=== PATIENT | male | born 1955 | race Caucasian/White ===

== ENCOUNTER 2017-05-03 14:04 | Observation (INO) | payer MEDICARE, OTHER ==
[2017-05-03 15:03] LABS: ABS Basophils 0 10^3/ul (0-0.2); ABS Eosinophils 0.2 10^3/ul (0-0.6); ABS Lymphocytes 0.2 10^3/ul (1.0-4.8); ABS Monocytes 0.4 10^3/ul (0-0.8); ABS Neutrophils 4.8 10^3/ul (1.5-7.7); ABS Nucleated RBC 0 10^3/ul; Eosinophil % 3.1 % (0-6); Hematocrit 36 % (42-52); Hemoglobin 12.1 g/dl (14.0-18.0); Lymphocyte % 3.8 % (25-47); Mean Corpuscular HGB Conc 34 g/dl (31-36); Mean Corpuscular Hemoglobin 29 pg (27-31); Mean Corpuscular Volume 85 fL (80-94); Mean Platelet Volume 7 um3 (7.4-10.4); Nucleated Red Blood Cells % 0.1; Platelet Count 230 10^3/ul (150-450); Red Blood Count 4.21 10^6/ul (4.0-5.4); Red Cell Distribution Width 16 % (10.5-15); White Blood Count 5.6 10^3/ul (3.5-10.8)
[2017-05-03 15:08] LABS: INR 1.18 (0.77-1.02)
--- NOTE | 2017-05-03 15:21 | RAD ---
INDICATION: Dyspnea COMPARISON: Most recent comparison chest x-rays dated September 14, 2016 TECHNIQUE: PA and lateral views of the chest were obtained. FINDINGS: Stable postsurgical findings include sternotomy wires as well as plate and screw fixators overlying the sternum. The heart is mildly enlarged. The pulmonary vasculature appears indistinct. There is density obscuring the right lung base and right hemidiaphragm. There is a small amount of left lung base costophrenic angle blunting. Visualized bones are normal for the patient's age. There is no radiographic evidence of free air beneath the diaphragm IMPRESSION: DEPENDING ON THE CLINICAL PRESENTATION THE RADIOGRAPHIC FINDINGS COULD BE SEEN IN THE SETTING OF CARDIOGENIC PULMONARY EDEMA WITH RIGHT LUNG BASE PLEURAL EFFUSION. ALTERNATIVELY PNEUMONIA AT THE RIGHT LUNG BASE IS NOT COMPLETELY EXCLUDED BY IMAGING ALONE.
[2017-05-03 15:22] LABS: EGFR Non-African American 60.4 (>60)
[2017-05-03] MEDS ORDERED: Albuterol/Ipratropium NEB.SOL* Albuterol 2.5 MG/Ipratropium 0.5 MG 3 ML INH ONE (16:38)
[2017-05-03] MEDS ORDERED: Magnesium Hydroxide LIQ* 30 ML UDC PO PRN (18:31)
[2017-05-03] MEDS ORDERED: Al Hydrox/Mg Hydrox/Simet LIQ* 30 ML UDC PO PRN (18:31)
[2017-05-03] MEDS ORDERED: Acetaminophen TAB* 325 MG PO PRN (18:31)
[2017-05-03] MEDS ORDERED: Ondansetron INJ* 2 MG/ML VIAL IV PRN (18:31)
[2017-05-03] MEDS ORDERED: Albuterol/Ipratropium NEB.SOL* Albuterol 2.5 MG/Ipratropium 0.5 MG 3 ML INH PRN (18:31)
[2017-05-03] MEDS ORDERED: Albuterol 2.5 MG/3 ML NEB.SOL* (0.083%) INH PRN (18:31)
[2017-05-03] MEDS ORDERED: Furosemide IV* 10 MG/ML 10 ML VIAL (100 MG) IV ONE (18:58)
[2017-05-03] MEDS ORDERED: methylPREDNISolone 125 MG* 2 ML VIAL IV ONE (18:58)
[2017-05-03] MEDS ORDERED: Dextrose 50% Syringe 50 ML* 25 GM/50 ML SYRINGE IV PUSH PRN (19:01)
--- NOTE | 2017-05-03 19:49 | ED ---
Tereso Chairez Jennifer, scribed for Bhanu Lugo MD on 05/03/17 at 1433 . Shortness of Breath - HPI Summary HPI Summary: The patient is a 62 year old male who was sent to the ED by his PCP for a CXR and for increased shortness of breath that began weeks ago. The patient descries that he has had the flu for weeks. He additionally complains of wheezing, productive cough, chills, and sweats. The patient denies fever and chest pain. The patient uses O2 at home for COPD for over two years. He has a history of sleep apnea and heart surgery but never smoked. - History of Current Complaint Chief Complaint: EDShortnessOfBreath Hx Obtained From: Patient Onset/Duration: Lasting Weeks - couple weeks, Still Present Timing: Constant Current Severity: Mild Aggrevating Factors: Deep Breaths Alleviating Factors: Nothing Associated Signs & Symptoms: Negative - Fever, chest pain, Cough (Productive) - clear with some white mucous, Wheezing, Chills, Diaphoresis - Allergy/Home Medications Allergies/Adverse Reactions: Allergies Allergy/AdvReac Type Severity Reaction Status Date / Time MS NSAIDs [NSAIDs] AdvReac Mild See Comment Verified 08/15/15 14:03 Home Medications: Home Medications Albuterol 2.5MG/3ML (0.083%)* [Ventolin 2.5 MG/3 ML NEB.LUIS*] 2.5 mg INH QID 12/10 [History Confirmed 05/03/17] Atorvastatin* [Lipitor 20 MG*] 20 mg PO DAILY 05/03/17 [History Confirmed ] Fluticasone/Vilanterol MDI(NF) [Breo Ellipta MDI 200/25(NF)] 1 puff PO DAILY 12/10 [History Confirmed 05/03/17] Insulin Regular 500 Unit/ml [Humulin R U-500 (Concentrated)] 20 unit SUBCUT QPM 05/03/17 [History Confirmed 05/03/17] Insulin Regular 500 Unit/ml [Humulin R U-500 (Concentrated)] 26 unit SUBCUT 1200 05/03/17 [History Confirmed 05/03/17] Insulin Regular 500 Unit/ml [Humulin R U-500 (Concentrated)] 27 unit SUBCUT QAM 05/03/17 [History Confirmed 05/03/17] Losartan/HCTZ 100/25 (NF) [Hyzaar 100/25 (NF)] 1 tab PO DAILY 05/03/17 [History Confirmed 05/03/17] Warfarin TAB(*) [Coumadin TAB(*)] 1 mg PO DAILY 05/03/17 [History Confirmed 12/10] PMH/Surg Hx/FS Hx/Imm Hx Endocrine/Hematology History: Reports: Hx Diabetes Denies: Hx Thyroid Disease Cardiovascular History: Reports: Hx Angina, Hx Congestive Heart Failure, Hx Coronary Artery Disease - STENTS X2 2015, Hx Hypercholesterolemia, Hx Myocardial Infarction, Other Cardiovascular Problems/Disorders - DOUBLE BYPASS SURGERY- PER PT Denies: Hx Hypertension, Hx Pacemaker/ICD, Hx Peripheral Vascular Disease, Hx Valvular Heart Disease Respiratory History: Reports: Hx Chronic Obstructive Pulmonary Disease (COPD) - O2 AT HOME AND BIPAP MACHINE HE WEARS IN THE DAY WELL, Hx Sleep Apnea Denies: Hx Asthma GI History: Denies: Hx Ulcer History: Reports: Other Problems/Disorders - frequency, difficulty starting Denies: Hx Dialysis, Hx Renal Disease Musculoskeletal History: Reports: Hx Arthritis, Hx Back Problems - SCOLIOSIS, Hx Scoliosis Denies: Hx Osteoporosis Sensory History: Reports: Hx Contacts or Glasses Denies: Hx Cataracts, Hx Glaucoma Opthamlomology History: Reports: Hx Contacts or Glasses Denies: Hx Cataracts, Hx Glaucoma Neurological History: Reports: Hx Migraine Denies: Hx Headaches, Hx Seizures, Hx Transient Ischemic Attacks (TIA) - Surgical History Surgery Procedure, Year, and Place: triple R surgery in throat for Cpap?, appendectomy, cracked spine when 11--no surgery but was in a cast "all summer" DOUBLE CORONARY BYPASS 10/22/15 Hx Anesthesia Reactions: No Infectious Disease History: No Infectious Disease History: Denies: Hx Hepatitis, Hx Human Immunodeficiency Virus (HIV), Traveled Outside the [place] in Last 30 Days - Family History Known Family History: Positive: Diabetes - Social History Alcohol Use: Rare Substance Use Type: Reports: None Hx Tobacco Use: No Smoking Status (MU): Never Smoked Tobacco Review of Systems Positive: Chills, Skin Diaphoresis. Negative: Fever Negative: Chest Pain Positive: Shortness Of Breath, Cough, Other - Wheezing All Other Systems Reviewed And Are Negative: Yes Physical Exam - Summary Physical Exam Summary: Appearance: Morbidly obese, plethoric in appearance Skin: Warm, Dry, No rash Eyes: Normal, PERRL, EOMI, sclera anicteric ENT: Normal Neck: Supple, nontender Respiratory: Quite short of breath, decreased breath sounds bilaterally. No rales, rhonchi, wheezes. Cardiovascular: S1 and S2 with irregular rhythm. no murmur, no rub, no gallop Abdomen: Soft, nontender, no organomegaly Bowel sounds: Present Extremities: with bilateral venous stasis changes, tinea pedis Musculoskeletal: Normal, Strength/ROM Intact, no edema, pulses symmetrical Neurological: Normal, A&Ox3, cranial nerves II-XII WNL, follows commands, gait not tested, sensation intact to pin and light touch Psychiatric: affect normal, behavior appropriate, dressed appropriately, judgment intact Triage Information Reviewed: Yes Vital Signs On Initial Exam: Initial Vitals Temp Pulse Resp BP Pulse Ox 97.3 F 79 24 120/56 94 05/03/17 14:05 05/03/17 14:05 05/03/17 14:05 05/03/17 14:05 05/03/17 14:05 Vital Signs Reviewed: Yes Diagnostics - Vital Signs Vital Signs Temp Pulse Resp BP Pulse Ox 05/03/17 14:05 97.3 F 79 24 120/56 94 - Laboratory Result Diagrams: 05/03/17 14:50 05/03/17 14:50 Lab Statement: Any lab studies that have been ordered have been reviewed, and results considered in the medical decision making process. - Radiology CXR Xray Interpretation: No Acute Changes - DEPENDING ON THE CLINICAL PRESENTATION THE RADIOGRAPHIC FINDINGS COULD BE SEEN IN THE SETTING OF CARDIOGENIC PULMONARY EDEMA WITH RIGHT LUNG BASE PLEURAL EFFUSION. ALTERNATIVELY PNEUMONIA AT THE RIGHT LUNG BASE IS NOT COMPLETELY EXCLUDED BY IMAGING ALONE. Dr. Lugo has reviewed this report. Radiology Interpretation Completed By: Radiologist - EKG 14:55 Cardiac Rate: NL EKG Rhythm: Sinus Rhythm - 73 BPM EKG Interpretation: RBBB Course/Dx - Course Assessment/Plan: The patient is a 62 year old male who was sent to the ED by his PCP for a CXR and for increased shortness of breath that began weeks ago. Bloodwork was obtained. CXR showed DEPENDING ON THE CLINICAL PRESENTATION THE RADIOGRAPHIC FINDINGS COULD BE SEEN IN THE SETTING OF CARDIOGENIC PULMONARY EDEMA WITH RIGHT LUNG BASE PLEURAL EFFUSION. ALTERNATIVELY PNEUMONIA AT THE RIGHT LUNG BASE IS NOT COMPLETELY EXCLUDED BY IMAGING ALONE. EKG was obtained. Influenza A and B were negative. The patient is diagnosed with pneumonia and sleep apnea. The patient will be admitted to [facility] [place]. - Diagnoses Provider Diagnoses: Pneumonia, Sleep apnea Discharge - Discharge Plan Condition: Good Disposition: ADMITTED TO [facility] Referrals: Jay REICH OIM ARCHITECT,Shereen [Primary Care Provider] - Additional Instructions: RETURN TO THE EMERGENCY DEPARTMENT FOR CHANGING OR WORSENING SYMPTOMS. The documentation as recorded by the Tereso morton Jennifer accurately reflects the service I personally performed and the decisions made by , Bhanu Lugo MD.
[2017-05-03] MEDS ORDERED: Warfarin TAB(*) 6 MG PO SCH (20:00)
[2017-05-03] MEDS ORDERED: Warfarin TAB(*) 4 MG PO ONE (20:00)
[2017-05-03] MEDS ORDERED: Warfarin TAB(*) 10 MG PO ONE (20:00)
[2017-05-03] MEDS: Mometasone/Formoter 200/5 MDI INH SCH (20:27)
[2017-05-03] MEDS: Atorvastatin* 20 MG TAB PO SCH (20:30)
[2017-05-03] MEDS: Metoprolol Succinate XL TAB* 100 MG PO SCH (20:30)
[2017-05-03] MEDS: Insulin LISPRO* 1 UNITS UNIT SUBCUT SCH (20:31)
[2017-05-03] MEDS: Docusate CAP* 100 MG PO SCH (20:31)
[2017-05-03] MEDS ORDERED: metFORMIN* 500 MG TAB PO SCH (21:00)
[2017-05-03] MEDS: FENOFIBRATE 160 MG PO SCH (21:52)
--- NOTE | 2017-05-04 06:24 | HP ---
AMENDED REPORT NOW INCLUDES COSIGNER DESIGNATION - ESIGNED BEFORE ADJUSTMENT CC: Shereen Thompson NP * HISTORY AND PHYSICAL: DATE OF ADMISSION: 05/03/17 PROVIDER: Isabell Andres NP. PRIMARY CARE PROVIDER: Shereen Thompson NP. ATTENDING PHYSICIAN WHILE IN THE HOSPITAL: Dr. Alejandrina Carter * (dictated by Isabell Andres NP). CHIEF COMPLAINT: Shortness of breath. HISTORY OF PRESENT ILLNESS: Mr. Ferrell is a 62-year-old male who was seen by his primary care provider today and was sent to the emergency room for further evaluation of his shortness of breath. Mr. Ferrell has a history of diabetes; obstructive sleep apnea; AFib, which he has a history of ablation and converted to sinus rhythm; hyperlipidemia; hypertension; coronary artery disease with stent placement and bypass surgery; COPD, and diastolic CHF. He reports that over the course of the past 3 weeks he has had increased shortness of breath, productive cough with white to clear sputum, occasional chills, and occasional muscle aches. He denies any nausea or vomiting. Denies any fever. Denies any recent weight gain. He does report that he chronically sits in a recliner to sleep as he is unable to lie flat. He does report that he wears oxygen at home at all time, 2 L nasal cannula, but despite the oxygen and breathing treatments at home he continues to feel short of breath. In the emergency room, he had routine lab work done and a chest x-ray. His chest x-ray, which showed depending on the clinical presentation, radiographic findings could be seen in the setting of cardiogenic pulmonary edema with right lung base pleural effusion , alternatively pneumonia in the right lung base. Mr. Ferrell reports that after his breathing treatment in the emergency room that his breathing improved. He does report that he is still mildly short of breath. Given his continuing shortness of breath, we were asked to evaluate the patient in the emergency room for admission for his shortness of breath; given his history of underlying chronic medical conditions. PAST MEDICAL HISTORY: Significant for: 1. Diabetes. 2. Obstructive sleep apnea, which he wears CPAP at night. 3. AFib with ablation. He has converted to sinus rhythm. 4. Hyperlipidemia. 5. Hypertension. 6. Coronary artery disease with stent placement and bypass. 7. COPD. 8. Diastolic CHF. PAST SURGICAL HISTORY: 1. Cardiac stent. 2. Bypass surgery in 2016. HOME MEDICATIONS: Include: 1. Colace 100 mg p.o. b.i.d. 2. Coumadin 12 mg p.o. q. p.m. 3. PhosLo cap 667 mg p.o. daily. 4. Aldactone 20 mg p.o. daily. 5. Furosemide 40 mg p.o. b.i.d. 6. Metoprolol succinate XL 100 mg p.o. b.i.d. 7. Breo 200/25 one puff p.o. daily. 8. Insulin regular 500 units. He takes 40 units at morning and then regular insulin 500 units, he takes 35 units at 4 p.m. 9. Losartan/hydrochlorothiazide 100/25 one tablet p.o. daily. 10. Lipitor 20 mg p.o. daily. 11. Albuterol 2.5/3 mL nebulizer 2.5 mg inhaled q.i.d. 12. Metformin 1000 mg p.o. b.i.d. 13. Tricor 160 mg p.o. daily. 14. Diltiazem CD 180 mg p.o. daily. ALLERGIES TO MEDICATION: ASPIRIN. FAMILY HISTORY: Father had a history of coronary artery disease with DE at age 49 and subsequently from a stroke and heart disease at the age of 62. Mother, father, and grandmother all had diabetes. Cancer, mother had rectal cancer and grandmother had uterine cancer. SOCIAL HISTORY: He denies tobacco use. He denies alcohol. Denies drug use. He currently is disabled. He lives alone. Surrogate decision maker in the event he is unable to make his own medical decision, is his mother, Toshia Delcid , her number is [phone]. REVIEW OF SYSTEMS: There is no documented fever. No significant weight change. There is no double vision. There is no ear drainage. He denies any rhinorrhea. He denies sore throat. He denies having any chest pain. There has been no nocturnal dyspnea. He does report that he has had increased shortness of breath x3 weeks with productive cough with clear white sputum. There is no abdominal pain, no nausea, no vomiting, no diarrhea, no urinary frequency or urgency. No dysuria. He denies any loss of consciousness. He denies any pruritus or skin ulceration. A review of 14 systems was completed and all others are negative. PHYSICAL EXAMINATION GENERAL: At this time, Mr. Ferrell is a 62-year-old male, he is morbidly obese, sitting in a chair. He does appear to have mild respiratory distress. VITAL SIGNS: As follows, temperature 97.3, heart rate was 79, respirations 24, O2 saturation was 94% on 3 L, blood pressure 120/56. HEENT: Head is atraumatic, normocephalic. Eyes: EOMS are intact. Sclerae anicteric, not pale. Oral mucosa appears moist. There is no oropharyngeal erythema. NECK: Supple. LUNGS: Diminished throughout bilaterally with expiratory wheezing. There is no rales, or rhonchi. HEART: Heart sounds S1, S2. Regular rate and rhythm. ABDOMEN: Soft, obese, nontender. Bowel sounds are present x4. EXTREMITIES: There is mild +1 pitting edema to bilateral lower legs, has bilateral discoloration and scabbing noted to his right lower leg. He states this has been unchanged. His legs have been like this for the past 2 years. He is moving all 4 extremities. Strength is 5/5. NEUROLOGIC: He is awake, alert, and oriented x3. His speech is clear. There is no gross focal deficits. SKIN: As stated above. He does have some redness to bilateral lower legs with scabbed area noted to the right beltran. DIAGNOSTIC STUDIES/LABORATORY DATA: WBC is 5.6, RBC 4.21, hemoglobin 12.1, hematocrit was 36, platelet count was 230. INR was 1.18. Blood gas, pH was 7.39, pCO2 was 64, pO2 was 91, HCO3 was 33.9, base access was 11.5. Sodium was 138, potassium 4.3, chloride 95, carbon dioxide was 35, BUN was 26, creatinine was 1.21. Blood sugar on admission was 169. C-reactive protein was 7.29. BNP was 58. Procalcitonin was less than 0.1. He had a rapid flu A and B, which were both negative. EKG in the emergency room shows normal sinus rhythm at a rate of 73 with a right bundle branch block. Chest x-ray that was completed in the emergency room, radiologist impression: Depending on the clinical presentation, radiographic findings could be seen in the setting of cardiogenic pulmonary edema with right lung base pleural effusion. Alternatively pneumonia at the right lung base is not completely excluded by the imaging alone. ASSESSMENT AND PLAN: Mr. Ferrell is a 62-year-old male who came to the emergency room for further evaluation of 3 weeks of shortness of breath. We were asked to evaluate him due to shortness of breath. He will be admitted under observation for : 1. Suspected chronic obstructive pulmonary disease exacerbation. We will place him on Dulera inhaler and give him a dose of Solu-Medrol 125 IV. He will continue albuterol nebulizer treatments q. 4 hours as needed for shortness of breath. We will start prednisone 60 mg p.o. q.a.m. starting tomorrow. He will continue O2 at 2 L nasal cannula as needed to maintain oxygen saturation above 90%. 2. Suspect acute on chronic diastolic heart failure. We will give him a one time dose of Lasix 80 mg IV. We will continue to monitor his BNP and potassium level. We will continue his Aldactone 25 and Lasix 40 mg p.o. b.i.d. starting tomorrow. At this time, I feel that his shortness of breath is related to chronic obstructive pulmonary disease exacerbation, mild diastolic heart failure. He has been afebrile, he does not have a white count. His procalcitonin was negative. We will continue to monitor his vital signs. In the event that he develops a fever and increased shortness of breath, we could look at the possibility of treating him for pneumonia. We will continue him on Hyzaar. 3. Diabetes, stable. We will hold his insulin U 500. At this time, we will place him on high dose lispro sliding scale. I will continue his metformin and finger sticks AC and HS 4. Obstructive sleep apnea. He will use a CPAP machine at night. 5. History of atrial fibrillation. He is currently in sinus rhythm. We will continue his Coumadin. We will give him a one time dose of 14 mg due to his INR being 1.18. We will continue him on his Cardizem 180 mg. 6. Hyperlipidemia. We will continue him on his Lipitor 20 mg daily and Tricor 160 mg p.o. daily. 7. Hypertension. We will continue him on his metoprolol, Aldactone, and Hyzaar. 8. DVT prophylaxis. We will continue him on his Coumadin and he will be placed on SCDs. 9. Code status. He is a full code. 10. FEN. He can have heart healthy, decaf okay, diet. TIME SPENT: Time spent on this admission was approximately 60 minutes, greater than half the time was spent [id number] with the patient obtaining his history and physical, the other half the time was spent going over the plan of care with the patient and implementing the plan of care. I discussed this with my attending, Dr. Alejandrina Carter and she is in agreement with my plan. ISABELL ANDRES, USED [employer] ATTENDANT [id number]/CPS #: [id number] EMIL
[2017-05-04] MEDS: Furosemide TAB* 20 MG PO SCH ×2 (07:44→15:56)
[2017-05-04] MEDS: metFORMIN* 500 MG TAB PO SCH ×2 (07:46→17:57)
[2017-05-04] MEDS: Insulin LISPRO* 1 UNITS UNIT SUBCUT SCH ×4 (08:44→22:27)
[2017-05-04] MEDS: Calcium Acetate CAP* 667 MG PO SCH (08:45)
[2017-05-04] MEDS: Hydrochlorothiazide TAB* 25 MG PO SCH (08:45)
[2017-05-04] MEDS: predniSONE TAB* 20 MG PO SCH (08:45)
[2017-05-04] MEDS: Docusate CAP* 100 MG PO SCH ×2 (08:46→22:26)
[2017-05-04] MEDS: Losartan TAB* 25 MG PO SCH (08:46)
[2017-05-04] MEDS: Atorvastatin* 20 MG TAB PO SCH (08:47)
[2017-05-04] MEDS: Metoprolol Succinate XL TAB* 100 MG PO SCH ×2 (08:47→22:26)
[2017-05-04] MEDS: Diltiazem CD CAP* 180 MG PO SCH (08:47)
[2017-05-04] MEDS: FENOFIBRATE 160 MG PO SCH (08:47)
[2017-05-04] MEDS: Spironolactone TAB* 25 MG PO SCH (08:49)
[2017-05-04] MEDS: Mometasone/Formoter 200/5 MDI INH SCH ×2 (08:54→20:19)
[2017-05-04] MEDS ORDERED: Losartan/HCTZ 100/25 (NF) TAB PO SCH (09:00)
[2017-05-04 09:31] LABS: ABS Basophils 0 10^3/ul (0-0.2); ABS Eosinophils 0 10^3/ul (0-0.6); ABS Lymphocytes 0.3 10^3/ul (1.0-4.8); ABS Monocytes 0.2 10^3/ul (0-0.8); ABS Neutrophils 7.1 10^3/ul (1.5-7.7); ABS Nucleated RBC 0 10^3/ul; Eosinophil % 0.1 % (0-6); Hematocrit 36 % (42-52); Hemoglobin 11.8 g/dl (14.0-18.0); Lymphocyte % 3.6 % (25-47); Mean Corpuscular HGB Conc 33 g/dl (31-36); Mean Corpuscular Hemoglobin 28 pg (27-31); Mean Corpuscular Volume 86 fL (80-94); Mean Platelet Volume 7 um3 (7.4-10.4); Nucleated Red Blood Cells % 0.1; Platelet Count 241 10^3/ul (150-450); Red Blood Count 4.18 10^6/ul (4.0-5.4); Red Cell Distribution Width 16 % (10.5-15); White Blood Count 7.5 10^3/ul (3.5-10.8)
--- NOTE | 2017-05-04 09:43 | PN ---
Subjective Date of Service: 05/04/17 Interval History: Patient seen and examined. States breathing much improved from yesterday. Very tired, states he cannot sleep in the idris-chair that is in the room (sleeps in a recliner at home all the time 2/2 scoliosis/back pain). No chest pain, no SOB , no fevers or chills, no headache. Objective Active Medications: Acetaminophen (Tylenol Tab*) 650 mg PO Q4H PRN PRN Reason: FEVER/PAIN Al Hydrox/Mg Hydrox/Simethicone (Maalox Plus*) 30 ml PO Q6H PRN PRN Reason: INDIGESTION Albuterol (Ventolin 2.5 Mg/3 Ml Neb.Cinthya*) 2.5 mg INH [id number] AWAKE PRN PRN Reason: sob/wheezing Last Admin: 05/03/17 20:36 Dose: 2.5 mg Atorvastatin Calcium (Lipitor*) 20 mg PO DAILY [facility] Last Admin: 05/04/17 08:47 Dose: 20 mg Calcium Acetate (Phoslo Cap*) 667 mg PO DAILY [facility] Last Admin: 05/04/17 08:45 Dose: 667 mg Dextrose (D50w Syringe 50 Ml*) 12.5 gm IV PUSH .FOR FS < 60 - SS PRN PRN Reason: FS < 60 Diltiazem HCl (Cardizem Cd Cap*) 180 mg PO DAILY [facility] Last Admin: 05/04/17 08:47 Dose: 180 mg Docusate Sodium (Colace Cap*) 100 mg PO BID [facility] Last Admin: 05/04/17 08:46 Dose: 100 mg Fenofibrate (Tricor(Nf)) 160 mg PO DAILY [facility] PRN Reason: Protocol Last Admin: 05/04/17 08:47 Dose: 160 mg Furosemide (Lasix Tab*) 40 mg PO 0800,1600 [facility] Last Admin: 05/04/17 07:44 Dose: 40 mg Hydrochlorothiazide (Hydrodiuril Tab*) 25 mg PO DAILY [facility] Last Admin: 05/04/17 08:45 Dose: 25 mg Insulin Human Lispro (Humalog*) 0 units SUBCUT ACHS [facility] PRN Reason: Protocol Last Admin: 05/04/17 08:44 Dose: 15 unit Losartan Potassium (Cozaar Tab*) 100 mg PO DAILY [facility] Last Admin: 05/04/17 08:46 Dose: 100 mg Magnesium Hydroxide (Milk Of Magnesia Liq*) 30 ml PO Q4H PRN PRN Reason: CONSTIPATION Metformin HCl (Glucophage*) 1,000 mg PO BID WITH MEALS [facility] Last Admin: 05/04/17 07:46 Dose: 1,000 mg Metoprolol Succinate (Toprol Xl Tab*) 100 mg PO BID [facility] Last Admin: 05/04/17 08:47 Dose: 100 mg Mometasone Furoate/Formoterol Fumar (Dulera 200/5 Mdi*) 2 puff INH BID [facility] Last Admin: 05/04/17 08:54 Dose: 2 puff Ondansetron HCl (Zofran Inj*) 4 mg IV Q4H PRN PRN Reason: NAUSEA/VOMITING Prednisone (Deltasone Tab*) 60 mg PO DAILY [facility] Last Admin: 05/04/17 08:45 Dose: 60 mg Spironolactone (Aldactone Tab*) 25 mg PO DAILY [facility] Last Admin: 05/04/17 08:49 Dose: 25 mg Warfarin Sodium (Coumadin Tab(*)) 12 mg PO DAILY@1700 [facility] PRN Reason: Protocol Vital Signs - 8 hr 05/04/17 05/04/17 02:39 07:37 Temperature 98.5 F 97.8 F Pulse Rate 97 109 Respiratory 18 16 Rate Blood Pressure 156/62 128/69 (mmHg) O2 Sat by Pulse 94 97 Oximetry Oxygen Devices in Use Now: Nasal Cannula - 3LNC continuous Appearance: Alert, NAD Eyes: PERRLA Ears/Nose/Mouth/Throat: NL Teeth, Lips, Gums Neck: NL Appearance and Movements; NL JVP, Trachea Midline Respiratory: Symmetrical Chest Expansion and Respiratory Effort, Clear to Auscultation, - - no wheeze Cardiovascular: NL Sounds; No Murmurs; No JVD, RRR Extremities: No Edema, No Clubbing, Cyanosis Neurological: Alert and Oriented x 3, NL Gait Nutrition: Taking PO's Result Diagrams: 05/04/17 09:15 05/03/17 16:39 Diagnostic Imaging: Patient Name: OFELIA JI Medical Record#: [id number] Ordering Physician: Bhanu Lugo MD Acct.#: [id number] : 1955 Age: 62 Sex: M Location: EMERGENCY DEPARTMENT Exam Date: 05/03/17 1436 ADM Status: REG ER Order Information: CHEST PA & LAT 2 VWS Accession Number: [id number] CPT: 43780 INDICATION: Dyspnea COMPARISON: Most recent comparison chest x-rays dated September 14, 2016 TECHNIQUE: PA and lateral views of the chest were obtained. FINDINGS: Stable postsurgical findings include sternotomy wires as well as plate and screw fixators overlying the sternum. The heart is mildly enlarged. The pulmonary vasculature appears indistinct. There is density obscuring the right lung base and right hemidiaphragm. There is a small amount of left lung base costophrenic angle blunting. Visualized bones are normal for the patient's age. There is no radiographic evidence of free air beneath the diaphragm IMPRESSION: DEPENDING ON THE CLINICAL PRESENTATION THE RADIOGRAPHIC FINDINGS COULD BE SEEN IN THE SETTING OF CARDIOGENIC PULMONARY EDEMA WITH RIGHT LUNG BASE PLEURAL EFFUSION. ALTERNATIVELY PNEUMONIA AT THE RIGHT LUNG BASE IS NOT COMPLETELY EXCLUDED BY IMAGING ALONE. <Electronically signed by Delonte Contreras MD in [place]> 05/03/171517 Dictated By: Delonte Contreras MD Dictated Date/Time: 05/03/171517 Transcribed Date/Time: 05/03/171516 Copy to: Assess/Plan/Problems-Billing Assessment: This is a 62 year old male patient with PMHx COPD on continuous oxygen at home, CAD, HF, DMII, WILLIE, HTN, HLP and morbid obesity who presented with progressive dyspnea, refractory to increasing his home oxygen. - Patient Problems (1) COPD with exacerbation Code(s): J44.1 - CHRONIC OBSTRUCTIVE PULMONARY DISEASE W (ACUTE) EXACERBATION SNOMED Code(s): 473988442 Comment: - CXR as above - Recieved one dose solumedrol in ED, no white count or fevers and denies excess sputum production, will hold off on antibiotics at this time - Continue PO prednisone, dulera and nebs PRN (2) Acute diastolic (congestive) heart failure Code(s): I50.31 - ACUTE DIASTOLIC (CONGESTIVE) HEART FAILURE SNOMED Code(s): 780493003 Comment: - Receieved lasix IV in ER - Continue aldactone - Continue PO lasix and monitor I&O - Appears euvolemic today, weight 330lbs at admission and is 325lbs today (3) Coronary artery disease Code(s): I25.10 - ATHSCL HEART DISEASE OF [place] CORONARY ARTERY W/O ANG PCTRS SNOMED Code(s): 67801504 Comment: - Continue BB - Stable (4) Diabetes Code(s): E11.9 - TYPE 2 DIABETES MELLITUS WITHOUT COMPLICATIONS SNOMED Code(s) : 56911407 Comment: - Patient followed by [employer] at [facility] - Takes U-500 TID - Continue lispro SS for now, sugar high today likely because of steroids (5) WILLIE (obstructive sleep apnea) Code(s): G47.33 - OBSTRUCTIVE SLEEP APNEA (ADULT) (PEDIATRIC) SNOMED Code(s): 97339276 Comment: - continue home CPAP (6) Hyperlipidemia Code(s): E78.5 - HYPERLIPIDEMIA, UNSPECIFIED SNOMED Code(s): 73945813 Comment: - Fenofibrate daily (7) Hypertension Code(s): I10 - ESSENTIAL (PRIMARY) HYPERTENSION SNOMED Code(s): 09278319 Comment: - Controlled on metoprolol/ARB - continue lasix and aldactone (8) Morbid obesity Code(s): E66.01 - MORBID (SEVERE) OBESITY DUE TO EXCESS CALORIES SNOMED Code(s ): 719508867 Comment: - BMI 48 (9) Status post ablation of atrial fibrillation Code(s): Z98.890 - OTHER SPECIFIED POSTPROCEDURAL STATES; Z86.79 - PERSONAL HISTORY OF OTHER DISEASES OF THE CIRCULATORY SYSTEM SNOMED Code(s): 927877212 Comment: - On coumadin, presently in RSR on tele (10) DVT prophylaxis Code(s): GXL5447 - SNOMED Code(s): 804762756 Comment: - On coumadin, INR 1.18 yesterday (11) Full code status Code(s): Z78.9 - OTHER SPECIFIED HEALTH STATUS SNOMED Code(s): 137711673 Comment: - Full code Status and Disposition: Remain inpatient. Likely DC tomorrow.
[2017-05-04 09:47] LABS: EGFR Non-African American 56.1 (>60)
[2017-05-04] MEDS ORDERED: Insulin GLARGINE(*) 1 UNITS UNIT SUBCUT SCH (17:00)
[2017-05-04] MEDS ORDERED: Warfarin TAB(*) 6 MG PO SCH (20:00)
[2017-05-05] MEDS: Mometasone/Formoter 200/5 MDI INH SCH (07:53)
[2017-05-05] MEDS: Insulin LISPRO* 1 UNITS UNIT SUBCUT SCH ×2 (08:47→12:23)
[2017-05-05] MEDS: Hydrochlorothiazide TAB* 25 MG PO SCH (08:48)
[2017-05-05] MEDS: Furosemide TAB* 20 MG PO SCH (08:48)
[2017-05-05] MEDS: Docusate CAP* 100 MG PO SCH (08:48)
[2017-05-05] MEDS: Calcium Acetate CAP* 667 MG PO SCH (08:48)
[2017-05-05] MEDS: Atorvastatin* 20 MG TAB PO SCH (08:48)
[2017-05-05] MEDS: Diltiazem CD CAP* 180 MG PO SCH (08:48)
[2017-05-05] MEDS: Spironolactone TAB* 25 MG PO SCH (08:48)
[2017-05-05] MEDS: metFORMIN* 500 MG TAB PO SCH (08:48)
[2017-05-05] MEDS: Losartan TAB* 25 MG PO SCH (08:48)
[2017-05-05] MEDS: FENOFIBRATE 160 MG PO SCH (08:49)
[2017-05-05] MEDS: predniSONE TAB* 20 MG PO SCH (08:49)
[2017-05-05] MEDS: Metoprolol Succinate XL TAB* 100 MG PO SCH (08:49)
[2017-05-05] MEDS ORDERED: Nystatin TOP POWDER* 15 GM BTL TOPICAL PRN (15:07)
[2017-05-05 15:17] VITALS: BP 125/65
[2017-05-05] MEDS ORDERED: Simethicone TAB* 80 MG TAB.CHEW PO SCH (16:30)
--- NOTE | 2017-05-05 16:34 | DCNOTE ---
Subjective Date of Service: 05/05/17 Interval History: THIS IS A DISCHARGE SUMMARY FOR OFELIA JI ADMITTED: 05/03/17 DISCHARGED: 05/05/17 PCP: FROILAN CHEEK Hospital Course: Patient presented to ER with c/o increasing SOB at home. He was admitted to observation for exacerbation of COPD and acute on chronic HF. He received steroids, nebs and IV diuresis and is breathing well, euvolemic and weight loss of 8lbs. Patient seen and examined today. He is feeling well, breathing has improved. Patient states he is back to his baseline. Ambulatory on the unit without desat' s and without SOB. No chest pain, no fevers or chills. Eager to go home. Objective Active Medications: Acetaminophen (Tylenol Tab*) 650 mg PO Q4H PRN PRN Reason: FEVER/PAIN Al Hydrox/Mg Hydrox/Simethicone (Maalox Plus*) 30 ml PO Q6H PRN PRN Reason: INDIGESTION Albuterol (Ventolin 2.5 Mg/3 Ml Neb.Cinthya*) 2.5 mg INH RT.[id number] AWAKE PRN PRN Reason: sob/wheezing Last Admin: 05/03/17 20:36 Dose: 2.5 mg Atorvastatin Calcium (Lipitor*) 20 mg PO DAILY [facility] Last Admin: 05/05/17 08:48 Dose: 20 mg Calcium Acetate (Phoslo Cap*) 667 mg PO DAILY [facility] Last Admin: 05/05/17 08:48 Dose: 667 mg Dextrose (D50w Syringe 50 Ml*) 12.5 gm IV PUSH .FOR FS < 60 - SS PRN PRN Reason: FS < 60 Diltiazem HCl (Cardizem Cd Cap*) 180 mg PO DAILY [facility] Last Admin: 05/05/17 08:48 Dose: 180 mg Docusate Sodium (Colace Cap*) 100 mg PO BID [facility] Last Admin: 05/05/17 08:48 Dose: 100 mg Fenofibrate (Tricor(Nf)) 160 mg PO DAILY [facility] PRN Reason: Protocol Last Admin: 05/05/17 08:49 Dose: 160 mg Furosemide (Lasix Tab*) 40 mg PO 0800,1600 [facility] Last Admin: 05/05/17 08:48 Dose: 40 mg Hydrochlorothiazide (Hydrodiuril Tab*) 25 mg PO DAILY [facility] Last Admin: 05/05/17 08:48 Dose: 25 mg Insulin Glargine (Lantus(*)) 15 units SUBCUT Q24H [facility] Last Admin: 05/04/17 17:57 Dose: 15 units Insulin Human Lispro (Humalog*) 0 units SUBCUT [facility] PRN Reason: Protocol Last Admin: 05/05/17 12:23 Dose: 15 unit Losartan Potassium (Cozaar Tab*) 100 mg PO DAILY [facility] Last Admin: 05/05/17 08:48 Dose: 100 mg Magnesium Hydroxide (Milk Of Magnesia Liq*) 30 ml PO Q4H PRN PRN Reason: CONSTIPATION Metformin HCl (Glucophage*) 1,000 mg PO BID WITH MEALS [facility] Last Admin: 05/05/17 08:48 Dose: 1,000 mg Metoprolol Succinate (Toprol Xl Tab*) 100 mg PO BID [facility] Last Admin: 05/05/17 08:49 Dose: 100 mg Mometasone Furoate/Formoterol Fumar (Dulera 200/5 Mdi*) 2 puff INH BID [facility] Last Admin: 05/05/17 07:53 Dose: 2 puff Nystatin (Nystatin Top Powder*) 1 applic TOPICAL TID PRN PRN Reason: RASH/ITCHING Last Admin: 05/05/17 15:45 Dose: 1 applic Ondansetron HCl (Zofran Inj*) 4 mg IV Q4H PRN PRN Reason: NAUSEA/VOMITING Prednisone (Deltasone Tab*) 60 mg PO DAILY [facility] Last Admin: 05/05/17 08:49 Dose: 60 mg Simethicone (Mylicon Tab*) 80 mg PO [facility] Last Admin: 05/05/17 15:45 Dose: 80 mg Spironolactone (Aldactone Tab*) 25 mg PO DAILY [facility] Last Admin: 05/05/17 08:48 Dose: 25 mg Warfarin Sodium (Coumadin Tab(*)) 12 mg PO DAILY@1700 [facility] PRN Reason: Protocol Last Admin: 05/04/17 19:40 Dose: 12 mg Vital Signs - 8 hr 05/05/17 11:38 Temperature 98.1 F Pulse Rate 91 Respiratory 18 Rate Blood Pressure 125/65 (mmHg) O2 Sat by Pulse 97 Oximetry Oxygen Devices in Use Now: Nasal Cannula - 3LNC at rest 4-5LNC with exertion Appearance: alert, nad Ears/Nose/Mouth/Throat: NL Teeth, Lips, Gums, Mucous Membranes Moist Neck: Trachea Midline Respiratory: Symmetrical Chest Expansion and Respiratory Effort, Clear to Auscultation Cardiovascular: NL Sounds; No Murmurs; No JVD, RRR Extremities: No Clubbing, Cyanosis Neurological: Alert and Oriented x 3, NL Gait, NL Muscle Strength and Tone Nutrition: Taking PO's Result Diagrams: 05/04/17 09:15 05/04/17 09:15 Diagnostic Imaging: Patient Name: OFELIA JI Medical Record#: [id number] Ordering Physician: Bhanu Lugo MD Acct.#: [id number] : 1955 Age: 62 Sex: M Location: EMERGENCY DEPARTMENT Exam Date: 05/03/171435 ADM Status: REG ER Order Information: CHEST PA & LAT 2 VWS Accession Number: [id number] CPT: 85642 INDICATION: Dyspnea COMPARISON: Most recent comparison chest x-rays dated September 14, 2016 TECHNIQUE: PA and lateral views of the chest were obtained. FINDINGS: Stable postsurgical findings include sternotomy wires as well as plate and screw fixators overlying the sternum. The heart is mildly enlarged. The pulmonary vasculature appears indistinct. There is density obscuring the right lung base and right hemidiaphragm. There is a small amount of left lung base costophrenic angle blunting. Visualized bones are normal for the patient's age. There is no radiographic evidence of free air beneath the diaphragm IMPRESSION: DEPENDING ON THE CLINICAL PRESENTATION THE RADIOGRAPHIC FINDINGS COULD BE SEEN IN THE SETTING OF CARDIOGENIC PULMONARY EDEMA WITH RIGHT LUNG BASE PLEURAL EFFUSION. ALTERNATIVELY PNEUMONIA AT THE RIGHT LUNG BASE IS NOT COMPLETELY EXCLUDED BY IMAGING ALONE. <Electronically signed by Delonte Contreras MD in [place]> 05/03/171517 Dictated By: Delonte Contreras MD Dictated Date/Time: 05/03/171517 Transcribed Date/Time: 05/03/171516 Copy to: Assess/Plan/Problems-Billing Assessment: This is a 62 year old male patient with PMHx COPD on continuous oxygen at home, CAD, HF, DMII, WILLIE, HTN, HLP and morbid obesity who presented with progressive dyspnea, refractory to increasing his home oxygen. - Patient Problems (1) COPD with exacerbation Code(s): J44.1 - CHRONIC OBSTRUCTIVE PULMONARY DISEASE W (ACUTE) EXACERBATION SNOMED Code(s): 643449293 Comment: - CXR as above - Recieved one dose solumedrol in ED, no white count or fevers and denies excess sputum production, will hold off on antibiotics at this time - Prednisone 40 mg daily for 5 days at discharge (2) Acute diastolic (congestive) heart failure Code(s): I50.31 - ACUTE DIASTOLIC (CONGESTIVE) HEART FAILURE SNOMED Code(s): 320738942 Comment: - Receieved lasix IV in ER - Continue aldactone - Continue PO lasix and monitor I&O - Appears euvolemic today, weight 330lbs at admission final weight is 322lbs today (3) Coronary artery disease Code(s): I25.10 - ATHSCL HEART DISEASE OF [place] CORONARY ARTERY W/O ANG PCTRS SNOMED Code(s): 34223750 Comment: - Continue BB - Stable (4) Diabetes Code(s): E11.9 - TYPE 2 DIABETES MELLITUS WITHOUT COMPLICATIONS SNOMED Code(s) : 31185596 Comment: - 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[employer] at [facility] - Takes U-500 TID - Continue lispro SS for now, sugar high today likely because of steroids - DC on home regimen (5) WILLIE (obstructive sleep apnea) Code(s): G47.33 - OBSTRUCTIVE SLEEP APNEA (ADULT) (PEDIATRIC) SNOMED Code(s): 70146019 Comment: - continue home CPAP (6) Hyperlipidemia Code(s): E78.5 - HYPERLIPIDEMIA, UNSPECIFIED SNOMED Code(s): 12847487 Comment: - Fenofibrate daily (7) Hypertension Code(s): I10 - ESSENTIAL (PRIMARY) HYPERTENSION SNOMED Code(s): 74776216 Comment: - Controlled on metoprolol/ARB - continue lasix and aldactone (8) Morbid obesity Code(s): E66.01 - MORBID (SEVERE) OBESITY DUE TO EXCESS CALORIES SNOMED Code(s ): 638043445 Comment: - BMI 48 (9) Status post ablation of atrial fibrillation Code(s): Z98.890 - OTHER SPECIFIED POSTPROCEDURAL STATES; Z86.79 - PERSONAL HISTORY OF OTHER DISEASES OF THE CIRCULATORY SYSTEM SNOMED Code(s): 643046046 Comment: - On coumadin, presently in RSR on tele - Continue home coumadin regimen at DC (10) DVT prophylaxis Code(s): CRE4570 - SNOMED Code(s): 823014877 Comment: - On coumadin, INR 1.18 yesterday (11) Full code status Code(s): Z78.9 - OTHER SPECIFIED HEALTH STATUS SNOMED Code(s): 245827924 Comment: - Full code Status and Disposition: Patient remained stable throughout admission. Medically optimized for DC home today. 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 Patient also states he has his car here and portable oxygen and feels well enough to drive without issue. F/U with PCP in the next 1-2 weeks.
== END 2017-05-05 17:50 | disposition home or self-care (01) | DRG 190 ==
LOC: ED 14:04 → MED 18:31 → INTOOBSV 18:31
PROVIDERS: ADMIT Internal Medicine; ATTEND Internal Medicine
DX: J44.1 Chronic obstructive pulmonary disease with (acute) exacerbation (principal); I50.33 Acute on chronic diastolic (congestive) heart failure; Z99.81 Dependence on supplemental oxygen; I25.10 Atherosclerotic heart disease of native coronary artery without angina pectoris; I11.0 Hypertensive heart disease with heart failure; E78.5 Hyperlipidemia, unspecified; E66.01 Morbid (severe) obesity due to excess calories; Z68.42 Body mass index [BMI] 45.0-49.9, adult; G47.33 Obstructive sleep apnea (adult) (pediatric); E11.9 Type 2 diabetes mellitus without complications; Z79.899 Other long term (current) drug therapy; Z79.4 Long term (current) use of insulin; Z79.84 Long term (current) use of oral hypoglycemic drugs; Z79.01 Long term (current) use of anticoagulants; Z95.5 Presence of coronary angioplasty implant and graft; Z95.1 Presence of aortocoronary bypass graft; Z88.6 Allergy status to analgesic agent; Z82.49 Family history of ischemic heart disease and other diseases of the circulatory system; Z82.3 Family history of stroke; Z83.3 Family history of diabetes mellitus; Z80.0 Family history of malignant neoplasm of digestive organs; Z80.49 Family history of malignant neoplasm of other genital organs
CPT/HCPCS: 36415; 36600; 71046; 80048; 80053; 82803; 83880; 84145; 84484; 85025; 85610; 86140; 87502; 93005; 94640; 94760; 96374; 96375; 99283; A9270-GY; G0378; J1940; J2930; J7512

== ENCOUNTER → 2017-06-05 09:29 | Emergency (ER) | payer MEDICARE ==
[~2017-06-05 09:29] MED LIST: Albuterol/Ipratropium NEB.SOL* Albuterol 2.5 MG/Ipratropium 0.5 MG 3 ML ONE; Azithromycin IV(*) 500 MG in NS 0.9% 250 ML* 250 ML IVPB ONE; cefTRIAXone(*) 1 GM in NS 0.9% 50 ML* 50 ML IVPB ONE; methylPREDNISolone 125 MG* 2 ML VIAL IV ONE
[2017-06-05] MEDS: Albuterol/Ipratropium NEB.SOL* Albuterol 2.5 MG/Ipratropium 0.5 MG 3 ML INH SCH ×2 (10:17→13:45)
[2017-06-05 10:21] LABS: Urine Appearance Cloudy; Urine Blood Negative (Negative); Urine Color Yellow; Urine Ketones Negative (Negative); Urine Protein Negative (Negative); Urine Specific Gravity 1.008 (1.010-1.030); Urine Urobilinogen Negative (Negative)
[2017-06-05 12:44] LABS: Hematocrit 35 % (42-52); Hemoglobin 11.7 g/dl (14.0-18.0); Mean Corpuscular HGB Conc 33 g/dl (31-36); Mean Corpuscular Hemoglobin 29 pg (27-31); Mean Corpuscular Volume 86 fL (80-94); Red Blood Count 4.11 10^6/ul (4.0-5.4); Red Cell Distribution Width 16 % (10.5-15); White Blood Count 7.2 10^3/ul (3.5-10.8)
[2017-06-05 13:13] LABS: EGFR Non-African American 40.5 (>60)
[2017-06-05 13:16] LABS: ABS Basophils 0.1 10^3/ul (0-0.2); ABS Eosinophils 0.1 10^3/ul (0-0.6); ABS Lymphocytes 0.3 10^3/ul (1.0-4.8); ABS Monocytes 0.2 10^3/ul (0-0.8); ABS Neutrophils 6.5 10^3/ul (1.5-7.7); ABS Nucleated RBC 0 10^3/ul; Eosinophil % 1.7 % (0-6); Lymphocyte % 3.8 % (25-47); Nucleated Red Blood Cells % 0; Platelet Count 323 10^3/ul (150-450)
--- NOTE | 2017-06-05 15:11 | RAD ---
Indication: Shortness of breath. 2 views of the chest including dual energy PA views demonstrates cardiomegaly. Interstitial edema consistent with vascular congestion is noted. Moderate-sized right pleural effusion is noted. No pneumonia or pneumothorax is noted. IMPRESSION: Right pleural effusion with right basilar atelectasis. Interstitial edema is noted.
[2017-06-05 15:31] VITALS: BP 128/54
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
--- NOTE | 2017-06-06 18:36 | ED ---
Jose Chairez Angela scribed for Antoine Doyle MD on 06/05/17 at 1002 . Shortness of Breath - HPI Summary HPI Summary: This pt is a 62 y/o male presenting to [facility] c/o worsening SOB for the past 3 days. Pt reports that for the past week he has had worsening SOB. He additionally notes productive cough. Denies fever, chills, chest pain. His SOB is exacerbated with exertion. He used a nebulizer yesterday with mild relief. PMHx includes afib, CHF, COPD. Pt is on 3.5 L of oxygen at home. - History of Current Complaint Chief Complaint: EDShortnessOfBreath Hx Obtained From: Patient Onset/Duration: Lasting Days, Still Present Timing: Constant Current Severity: Severe Dyspnea At: Rest Aggrevating Factors: Nothing Alleviating Factors: Nothing Associated Signs & Symptoms: Cough (Productive) - Allergy/Home Medications Allergies/Adverse Reactions: Allergies Allergy/AdvReac Type Severity Reaction Status Date / Time NSAIDS (Non-Steroidal Allergy Mild See Comment Verified 06/05/17 10:35 Anti-Inflamma Home Medications: Home Medications Calcium Carb/Magnesium Oxid/D3 [Calcium/Magnesium/Vitamin] 2 tab PO BID [History Confirmed 06/05/17] PMH/Surg Hx/FS Hx/Imm Hx Endocrine/Hematology History: Reports: Hx Diabetes Denies: Hx Thyroid Disease Cardiovascular History: Reports: Hx Angina, Hx Congestive Heart Failure, Hx Coronary Artery Disease - STENTS X2 2016, Hx Hypercholesterolemia, Hx Myocardial Infarction, Other Cardiovascular Problems/Disorders - DOUBLE BYPASS SURGERY- PER PT Denies: Hx Hypertension, Hx Pacemaker/ICD, Hx Peripheral Vascular Disease, Hx Valvular Heart Disease Respiratory History: Reports: Hx Chronic Obstructive Pulmonary Disease (COPD) - O2 AT HOME AND BIPAP MACHINE HE WEARS 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 WELL, Hx Sleep Apnea Denies: Hx Asthma GI History: Denies: Hx Ulcer History: Reports: Other Problems/Disorders - frequency, difficulty starting Denies: Hx Dialysis, Hx Renal Disease Musculoskeletal History: Reports: Hx Arthritis, Hx Back Problems - SCOLIOSIS, Hx Scoliosis Denies: Hx Osteoporosis Sensory History: Reports: Hx Contacts or Glasses Denies: Hx Cataracts, Hx Glaucoma, Hx Hearing Aid Opthamlomology History: Reports: Hx Contacts or Glasses Denies: Hx Cataracts, Hx Glaucoma Neurological History: Reports: Hx Migraine Denies: Hx Headaches, Hx Seizures, Hx Transient Ischemic Attacks (TIA) - Surgical History Surgery Procedure, Year, and Place: triple R surgery in throat for Cpap?, appendectomy, cracked spine when 11--no surgery but was in a cast "all summer" DOUBLE CORONARY BYPASS 10/22/15 Hx Anesthesia Reactions: No - Immunization History Date of Influenza Vaccine: 01/2017 Infectious Disease History: No Infectious Disease History: Denies: Hx Hepatitis, Hx Human Immunodeficiency Virus (HIV), Traveled Outside the [place] in Last 30 Days - Family History Known Family History: Positive: Diabetes - Social History Alcohol Use: Rare Substance Use Type: Reports: None Hx Tobacco Use: No Smoking Status (MU): Never Smoked Tobacco Review of Systems Negative: Fever, Chills Negative: Chest Pain Positive: Shortness Of Breath, Cough Musculoskeletal: Negative Skin: Negative Neurological: Negative All Other Systems Reviewed And Are Negative: Yes Physical Exam - Summary Physical Exam Summary: VITAL SIGNS: Reviewed. GENERAL: Patient is a well-developed and nourished male who is lying comfortable in the stretcher. Patient is not in any acute respiratory distress. HEAD AND FACE: No signs of trauma. No ecchymosis, hematomas or skull depressions. No sinus tenderness. EYES: PERRLA, EOMI x 2, No injected conjunctiva, no nystagmus. EARS: Hearing grossly intact. Ear canals and tympanic membranes are within normal limits. MOUTH: Oropharynx within normal limits. NECK: Supple, trachea is midline, no adenopathy, no JVD, no carotid bruit, no c- spine tenderness, neck with full ROM. CHEST: Symmetric, no tenderness at palpation. There is an ecchymosis on the right side of the chest. LUNGS: Decreased breath sounds bilaterally. A little bit of wheezing. CVS: Regular rate and rhythm, S1 and S2 present, no murmurs or gallops appreciated. ABDOMEN: Soft, non-tender. No signs of distention. No rebound no guarding, and no masses palpated. Bowel sounds are normal. EXTREMITIES: FROM in all major joints, no edema, no cyanosis or clubbing. NEURO: Alert and oriented x 3. No acute neurological deficits. Speech is normal and follows commands. SKIN: Dry and warm Triage Information Reviewed: Yes Vital Signs On Initial Exam: Initial Vitals Temp Pulse Resp BP Pulse Ox 97.9 F 84 24 138/53 88 06/05/17 09:31 18 09:31 18 09:31 06/05/17 09:31 06/05/17 09:31 Vital Signs Reviewed: Yes Diagnostics - Vital Signs Vital Signs Temp Pulse Resp BP Pulse Ox 06/05/17 09:31 97.9 F 84 24 138/53 88 - Laboratory Lab Results: Lab Results 06/05/17 06/05/17 06/05/17 Range/Units 10:03 10:30 11:04 WBC (3.5-10.8) 10^3/ul RBC (4.0-5.4) 10^6/ul Hgb (14.0-18.0) g/dl Hct (42-52) % MCV (80-94) fL MCH (27-31) pg MCHC (31-36) g/dl RDW (10.5-15) % Plt Count (150-450) 10^3/ul MPV Neut % (Auto) (38-83) % Lymph % (Auto) (25-47) % [place] % (Auto) (0-7) % Eos % (Auto) (0-6) % Baso % (Auto) (0-2) % Absolute Neuts (auto) (1.5-7.7) 10^3/ul Absolute Lymphs (auto) (1.0-4.8) 10^3/ul Absolute Monos (auto) (0-0.8) 10^3/ul Absolute Eos (auto) (0-0.6) 10^3/ul Absolute Basos (auto) (0-0.2) 10^3/ul Absolute Nucleated RBC 10^3/ul Nucleated RBC % APTT (26.0-36.3) seconds Sodium (133-145) mmol/L Potassium (3.5-5.0) mmol/L Chloride (101-111) mmol/L Carbon Dioxide (22-32) mmol/L Anion Gap (2-11) mmol/L BUN (6-24) mg/dL Creatinine (0.67-1.17) mg/dL Est GFR ( Amer) (>60) Est GFR (Non-Af Amer) (>60) BUN/Creatinine Ratio (8-20) Glucose (70-100) mg/dL POC Glucose (mg/dL) 160 H (70-100) mg/dL Lactic Acid (0.5-2.0) mmol/L Calcium (8.6-10.3) mg/dL Total Bilirubin (0.2-1.0) mg/dL AST (13-39) U/L ALT (7-52) U/L Alkaline Phosphatase (34-104) U/L Total Creatine Kinase (10-223) U/L Troponin I (<0.04) ng/mL C-Reactive Protein (< 5.00) mg/L B-Natriuretic Peptide ( - 100) pg/mL Total Protein (6.4-8.9) g/dL Albumin (3.2-5.2) g/dL Globulin (2-4) g/dL Albumin/Globulin Ratio (1-3) Urine Color Yellow Urine Appearance Cloudy Urine pH 7.0 (5-9) Ur Specific Ponce 1.008 L (1.010-1.030) Urine Protein Negative (Negative) Urine Ketones Negative (Negative) Urine Blood Negative (Negative) Urine Nitrate Negative (Negative) Urine Bilirubin Negative (Negative) Urine Urobilinogen Negative (Negative) Ur Leukocyte Esterase Negative (Negative) Urine Glucose Negative (Negative) Influenza A (Rapid) Negative (Negative) Influenza B (Rapid) Negative (Negative) 06/05/17 06/05/17 06/05/17 Range/Units 12:16 12:16 12:16 WBC 7.2 (3.5-10.8) 10^3/ul RBC 4.11 (4.0-5.4) 10^6/ul Hgb 11.7 L (14.0-18.0) g/dl Hct 35 L (42-52) % MCV 86 (80-94) fL MCH 29 (27-31) pg MCHC 33 (31-36) g/dl RDW 16 H (10.5-15) % Plt Count 323 (150-450) 10^3/ul MPV Not Reportable Neut % (Auto) 90.7 H (38-83) % Lymph % (Auto) 3.8 L (25-47) % [place] % (Auto) 3.0 (0-7) % Eos % (Auto) 1.7 (0-6) % Baso % (Auto) 0.8 (0-2) % Absolute Neuts (auto) 6.5 (1.5-7.7) 10^3/ul Absolute Lymphs (auto) 0.3 L (1.0-4.8) 10^3/ul Absolute Monos (auto) 0.2 (0-0.8) 10^3/ul Absolute Eos (auto) 0.1 (0-0.6) 10^3/ul Absolute Basos (auto) 0.1 (0-0.2) 10^3/ul Absolute Nucleated RBC 0 10^3/ul Nucleated RBC % 0 APTT (26.0-36.3) seconds Sodium 132 L (133-145) mmol/L Potassium 4.0 (3.5-5.0) mmol/L Chloride 91 L (101-111) mmol/L Carbon Dioxide 31 (22-32) mmol/L Anion Gap 10 (2-11) mmol/L BUN 39 H (6-24) mg/dL Creatinine 1.71 H (0.67-1.17) mg/dL Est GFR ( Amer) 52.1 (>60) Est GFR (Non-Af Amer) 40.5 (>60) BUN/Creatinine Ratio 22.8 H (8-20) Glucose 144 H (70-100) mg/dL POC Glucose (mg/dL) (70-100) mg/dL Lactic Acid 2.0 (0.5-2.0) mmol/L Calcium 10.7 H (8.6-10.3) mg/dL Total Bilirubin 0.30 (0.2-1.0) mg/dL AST 17 (13-39) U/L ALT 21 (7-52) U/L Alkaline Phosphatase 40 (34-104) U/L Total Creatine Kinase 86 (10-223) U/L Troponin I 0.00 (<0.04) ng/mL C-Reactive Protein 10.33 H (< 5.00) mg/L B-Natriuretic Peptide ( - 100) pg/mL Total Protein 7.5 (6.4-8.9) g/dL Albumin 4.1 (3.2-5.2) g/dL Globulin 3.4 (2-4) g/dL Albumin/Globulin Ratio 1.2 (1-3) Urine Color Urine Appearance Urine pH (5-9) Ur Specific Ponce (1.010-1.030) Urine Protein (Negative) Urine Ketones (Negative) Urine Blood (Negative) Urine Nitrate (Negative) Urine Bilirubin (Negative) Urine Urobilinogen (Negative) Ur Leukocyte Esterase (Negative) Urine Glucose (Negative) Influenza A (Rapid) (Negative) Influenza B (Rapid) (Negative) 06/05/17 06/05/17 06/05/17 Range/Units 12:16 12:16 12:54 WBC (3.5-10.8) 10^3/ul RBC (4.0-5.4) 10^6/ul Hgb (14.0-18.0) g/dl Hct (42-52) % MCV (80-94) fL MCH (27-31) pg MCHC (31-36) g/dl RDW (10.5-15) % Plt Count (150-450) 10^3/ul MPV Neut % (Auto) (38-83) % Lymph % (Auto) (25-47) % [place] % (Auto) (0-7) % Eos % (Auto) (0-6) % Baso % (Auto) (0-2) % Absolute Neuts (auto) (1.5-7.7) 10^3/ul Absolute Lymphs (auto) (1.0-4.8) 10^3/ul Absolute Monos (auto) (0-0.8) 10^3/ul Absolute Eos (auto) (0-0.6) 10^3/ul Absolute Basos (auto) (0-0.2) 10^3/ul Absolute Nucleated RBC 10^3/ul Nucleated RBC % APTT 29.8 (26.0-36.3) seconds Sodium (133-145) mmol/L Potassium (3.5-5.0) mmol/L Chloride (101-111) mmol/L Carbon Dioxide (22-32) mmol/L Anion Gap (2-11) mmol/L BUN (6-24) mg/dL Creatinine (0.67-1.17) mg/dL Est GFR ( Amer) (>60) Est GFR (Non-Af Amer) (>60) BUN/Creatinine Ratio (8-20) Glucose (70-100) mg/dL POC Glucose (mg/dL) 137 H (70-100) mg/dL Lactic Acid (0.5-2.0) mmol/L Calcium (8.6-10.3) mg/dL Total Bilirubin (0.2-1.0) mg/dL AST (13-39) U/L ALT (7-52) U/L Alkaline Phosphatase (34-104) U/L Total Creatine Kinase (10-223) U/L Troponin I (<0.04) ng/mL C-Reactive Protein (< 5.00) mg/L B-Natriuretic Peptide 71 ( - 100) pg/mL Total Protein (6.4-8.9) g/dL Albumin (3.2-5.2) g/dL Globulin (2-4) g/dL Albumin/Globulin Ratio (1-3) Urine Color Urine Appearance Urine pH (5-9) Ur Specific Ponce (1.010-1.030) Urine Protein (Negative) Urine Ketones (Negative) Urine Blood (Negative) Urine Nitrate (Negative) Urine Bilirubin (Negative) Urine Urobilinogen (Negative) Ur Leukocyte Esterase (Negative) Urine Glucose (Negative) Influenza A (Rapid) (Negative) Influenza B (Rapid) (Negative) Result Diagrams: 06/05/17 12:16 06/05/17 12:16 Lab Statement: Any lab studies that have been ordered have been reviewed, and results considered in the medical decision making process. - Radiology Chest XR Xray Interpretation: Positive (See Comments) - IMPRESSION: Right pleural effusion with right basilar atelectasis. Interstitial edema is noted. Dr. Doyle has reviewed this radiology report. Radiology Interpretation Completed By: Radiologist - EKG 10:06 Cardiac Rate: NL EKG Rhythm: Sinus Rhythm - at 82 bpm EKG Interpretation: No ST elevation. RBBB. Re-Evaluation - Re-Evaluation First Eval Re-Evaluation Time: 15:06 Comment: Dr. Stephenson recommends for the pt to be discharge and follow up in her office for possible thoracentesis. Pt understands and agrees. Course/Dx - Course Assessment/Plan: This pt is a 62 y/o male presenting to [facility] c/o worsening SOB for the past 3 days. Pt reports that for the past week he has had worsening SOB. He additionally notes productive cough. Denies fever, chills, chest pain. His SOB is exacerbated with exertion. PMHx includes CHF, COPD. Pt is on 3.5 L of oxygen at home. Test results without any significant abnormalities except for slight anemia, sodium of 132, BUN/creatinine of 39/1.71, CRP of 10.3. Urinalysis is negative for UTI. Influenza A and B are both negative. In the ED course the pt was given multiple treatments for COPD exacerbation. Chest XR : Right pleural effusion with right basilar atelectasis. Interstitial edema is noted. At this point I discussed the case with Dr. Field, hospitalist, who will consult for the pt. After the consultation, he reports he will consult with Dr. Stephenson, oil field pumper. Dr. Stephenson did the consult and recommends for the pt to be discharged to home and follow up in her office for a possible thoracentesis. The pt is comfortable with the plan, therefore the pt will be discharged to home with follow up from Dr. Stephenson. Pt understands and agrees. Pt is hemodynamically stable, alert and oriented x3. - Diagnoses Differential Diagnosis/HQI/PQRI: Positive: Asthma, Bronchitis, CHF, Chest Wall Pain, Pneumonia Provider Diagnoses: Pleural effusion, COPD exacerbation - Physician Notifications Discussed Care of Patient With: Tulio Field Instructed by Provider To: Other - I discussed pt care with Dr. Field, hospitalist, who will consult on the pt. Discharge - Discharge Plan Condition: Stable Disposition: HOME Patient Education Materials: COPD (Chronic Obstructive Pulmonary Disease) (ED) , Pleural Effusion (ED) Referrals: Ann Stephenson MD [Medical Doctor] - 1 Day (1-2 days.) Shereen Michaud RN [Primary Care Provider] - 3 Days Additional Instructions: Please follow up with Dr. Stpehenson for thoracentesis. RETURN TO THE ED FOR ANY WORSENING SYMPTOMS. The documentation as recorded by the Jose morton Angela accurately reflects the service I personally performed and the decisions made by , Antoine Doyle MD.
== END | disposition home or self-care (01) ==
LOC: ED 09:29
DX: J90 Pleural effusion, not elsewhere classified (principal); J44.1 Chronic obstructive pulmonary disease with (acute) exacerbation; G47.30 Sleep apnea, unspecified
CPT/HCPCS: 36415; 71046; 80053; 81003; 82550; 83605; 83880; 84484; 85025; 85730; 86140; 87040; 87502; 93005; 94640; 96360; 96374; 96375; 99284; A9270-GY; J0456; J0696; J2930

== ENCOUNTER 2017-07-10 12:42 | Observation (INO) | payer MEDICARE ==
[2017-07-10 14:09] LABS: ABS Basophils 0 10^3/ul (0-0.2); ABS Eosinophils 0.2 10^3/ul (0-0.6); ABS Lymphocytes 0.2 10^3/ul (1.0-4.8); ABS Monocytes 0.5 10^3/ul (0-0.8); ABS Neutrophils 5.6 10^3/ul (1.5-7.7); ABS Nucleated RBC 0 10^3/ul; Eosinophil % 2.6 % (0-6); Hematocrit 36 % (42-52); Hemoglobin 11.7 g/dl (14.0-18.0); Lymphocyte % 3.6 % (25-47); Mean Corpuscular HGB Conc 33 g/dl (31-36); Mean Corpuscular Hemoglobin 28 pg (27-31); Mean Corpuscular Volume 87 fL (80-94); Mean Platelet Volume 7.3 um3 (7.4-10.4); Nucleated Red Blood Cells % 0; Platelet Count 257 10^3/ul (150-450); Red Blood Count 4.14 10^6/ul (4.0-5.4); Red Cell Distribution Width 16 % (10.5-15); White Blood Count 6.5 10^3/ul (3.5-10.8)
--- NOTE | 2017-07-10 14:09 | RAD ---
HISTORY: Shortness of breath COMPARISONS: June 07, 2017 VIEWS: 4: Frontal dual-energy and lateral views of the chest. FINDINGS: CARDIOMEDIASTINAL SILHOUETTE: The cardiac silhouette is enlarged. The cardiomediastinal silhouette is otherwise normal. SUDHIR: The sudhir are normal. PLEURA: There is a moderate to large right-sided pleural effusion, increased in size compared to the June 07, 2014 examination. LUNG PARENCHYMA: There is patchy airspace disease of the right lung base. ABDOMEN: The upper abdomen is clear. There is no subphrenic gas. BONES AND SOFT TISSUES: The patient is status post median sternotomy. OTHER: None. IMPRESSION: 1. CARDIOMEGALY. 2. MODERATE TO LARGE RIGHT-SIDED PLEURAL EFFUSION INCREASED FROM THE PREVIOUS EXAMINATION WITH RIGHT BASILAR ATELECTASIS.
[2017-07-10 14:27] LABS: INR 1.15 (0.77-1.02)
[2017-07-10 14:32] LABS: EGFR Non-African American 62.1 (>60)
[2017-07-10] MEDS ORDERED: Al Hydrox/Mg Hydrox/Simet LIQ* 30 ML UDC PO PRN (15:41)
[2017-07-10] MEDS ORDERED: Albuterol/Ipratropium NEB.SOL* Albuterol 2.5 MG/Ipratropium 0.5 MG 3 ML INH PRN (15:41)
[2017-07-10] MEDS ORDERED: Acetaminophen TAB* 325 MG PO PRN (15:41)
[2017-07-10] MEDS ORDERED: Ondansetron INJ* 2 MG/ML VIAL IV PRN (15:41)
[2017-07-10] MEDS ORDERED: Dextrose 50% Syringe 50 ML* 25 GM/50 ML SYRINGE IV PUSH PRN (15:55)
[2017-07-10] MEDS: Insulin LISPRO* 1 UNITS UNIT SUBCUT SCH ×2 (18:28→21:04)
--- NOTE | 2017-07-10 19:37 | HP ---
AMENDED REPORT NOW INCLUDES COSIGNER DESIGNATION - ESIGNED BEFORE ADJUSTMENTS ATTENDING PROVIDER ADDENDUM NOW INCLUDED CC: Shereen Thompson NP; Dr. Stephenson; Dr. Contreras * ADMISSION HISTORY AND PHYSICAL: DATE OF ADMISSION: 07/10/17 ATTENDING PROVIDER: Hospitalist team, Luba Macedo MD * (DICTATED BY LISA WOODSON) CONSULTING PHYSICIANS: Ann Stephenson MD and Delonte Contreras MD CHIEF COMPLAINT: Shortness of breath. HISTORY OF PRESENT ILLNESS: Mr. Ferrell is a pleasant 62-year-old gentleman who is well known to us from prior admission about a month ago. He has multiple medical comorbidities including morbid obesity, hypertension, hyperlipidemia, COPD, diabetes mellitus, and sleep apnea. He also had history of AFib with a history of ablation that converted to sinus rhythm. Currently, on Eliquis for the past 3 to 4 weeks after he has been chronically on Coumadin. The patient presented to the emergency room earlier today with complaints of 2 to 3 days history of worsening progressive shortness of breath. The patient was admitted here about a month ago with similar complaints and was found to have right pleural effusion. He was evaluated by Dr. Stephenson and eventually had right thoracocentesis by Dr. Contreras a month ago and the analysis of his pleural fluid showed no evidence of malignancy. The patient was eventually discharged home in a stable condition and he reports doing well up until the last few days when he started to notice progressive worsening of his shortness of breath over the past 24 hours. He denied any chest pain, cough, fever, or chills. He denied any ankle swelling or difficulty with urination. The patient was evaluated in the emergency room and had repeated chest x-ray that revealed evidence of recurrent right pleural effusion. We were asked to see the patient for further evaluation and to discuss possible admission for pulmonology consultation and possible thoracocentesis given his recurrent effusion. He otherwise was doing very well at the time of admission. He denied any chest pain, shortness of breath at this time. He has been on home oxygen about 3 to 4 L per minute on a daily basis. He was recently diagnosed with sleep apnea and has been using his CPAP at home; however, he reports increasing difficulty using CPAP with alarming system going off all night. PAST MEDICAL HISTORY: As mentioned above, significant for hypertension, obstructive sleep apnea for which he has been using CPAP at night, diabetes mellitus insulin dependent, atrial fibrillation with a history of ablation that was converted to sinus rhythm and currently the patient is on Eliquis. Also history of hyperlipidemia, coronary artery disease, he is status post stent placement and bypass. Also, history of COPD and diastolic CHF. PAST SURGICAL HISTORY: Significant for cardiac catheterization with stent placement. He also had gastric bypass graft back in 2016. hOME MEDICATIONS: His home medications upon admission included: 1. Eliquis 5 mg p.o. b.i.d. 2. Aspirin 81 mg p.o. daily. 3. Atorvastatin 20 mg p.o. daily. 4. Calcium with magnesium oxide 2 tablets p.o. b.i.d. 5. Cardizem 180 mg p.o. daily. 6. Colace 100 mg p.o. b.i.d. 7. TriCor 160 mg p.o. daily. 8. Fluticasone/Breo Ellipta MDI inhaler 1 puff inhaled daily. 9. Lasix 40 mg p.o. b.i.d. 10. Insulin Humulin concentrated. He has been using it according to sliding scale. 11. Losartan/hydrochlorothiazide 100/25 one tablet p.o. daily. 12. Metformin 1000 mg p.o. b.i.d. 13. Metoprolol 100 mg p.o. b.i.d. 14. Nystatin powder apply topically t.i.d. to affected area. 15. Aldactone 25 mg p.o. daily. ALLERGIES: He is allergic to NSAIDs. SOCIAL HISTORY: The patient is . He lives with his mother. 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 He denies alcohol intake and his mom, Toshia Delcid, is the surrogate decision maker for him. FAMILY HISTORY: Father had a history of coronary artery disease with ID at age 49, also history of stroke and heart disease. Mother with history of diabetes and rectal cancer. REVIEW OF SYSTEMS: See HPI, otherwise negative. 14 points review for review of systems has been negative. PHYSICAL EXAMINATION GENERAL: He is a pleasant, morbidly obese, upper middle-aged gentleman, in no acute distress or discomfort at the time of admission. VITAL SIGNS: Revealed temperature of 97.8, pulse of 81, blood pressure of 117/ 64, and O2 sat of 97% on 4 L oxygen. HEENT: Head is normocephalic, atraumatic. Sclerae anicteric. PERRLA. EOMs intact. Oropharynx is pink and moist with no exudate. NECK: Supple. Trachea midline. No cervical adenopathy, thyromegaly, or JVD. LUNGS: Clear to auscultation bilaterally. There are no wheezes, rales, or rhonchi. There is some decreased breath sounds at the bases noted as well. HEART: Regular rate and rhythm. Normal S1 and S2 without rubs, murmurs, or gallops. BACK: With normal curvature. No CVA tenderness. ABDOMEN: Round, soft, and obese, nontender and nondistended. There are no hernias, masses, or hepatosplenomegaly. RECTAL: Exam deferred at this time. EXTREMITIES: Without cyanosis, clubbing, or edema. There is bilateral lower extremity darker coloration consistent with a chronic venous stasis ulcer; however, there is no skin breakdown or discharge noted. NEUROLOGIC: Grossly intact. LABORATORY WORKUP: The patient had CBC that showed white count of 6500, hemoglobin of 11.7, hematocrit of 36, and platelets of 257. His INR is 1.15. Chemistry panel revealed lactic acid 2.2, sodium 139, potassium 4, CO2 of 37, chloride of 93, BUN 34, and creatinine of 1.18. His C-reactive protein was 9.74. BNP is 37. LFTs are otherwise within normal limits. ACCESSORY DIAGNOSTIC DATA: As mentioned above, the patient had repeated chest x - ray this afternoon that revealed cardiomegaly and moderate to large right- sided pleural effusion increased from previous exam with right basilar atelectasis. EKG was reviewed and there was no signs of ischemia or ST changes. IMPRESSION: A 62-year-old gentleman with past medical history significant for hypertension, hyperlipidemia, chronic obstructive pulmonary disease, coronary artery disease, and insulin-dependent diabetes mellitus who presented to the emergency room today with worsening shortness of breath for the past few days, found on the chest x-ray to have recurrent pleural effusion on the right side. PLAN: 1. Recurrent right pleural effusion. The patient will be admitted under hospitalist services. I placed a call to Dr. Stephenson and I spoke to her. She recommended contacting IR to discuss thoracocentesis. I placed a call, left a message for Dr. Contreras and we will attempt to call him again. The patient is currently stable with good respiratory effort and good oxygen saturation with nasal cannula oxygen supplement. We will maintain his Lasix and we will watch his I and O's and salt intake. 2. Chronic obstructive pulmonary disease without exacerbation. The patient had a history of chronic obstructive pulmonary disease, currently in no exacerbation. His lung exam was essentially normal and we will hold off any prednisone or antibiotics at this time. 3. Hypertension. We will continue his metoprolol, losartan as prescribed. 4. Insulin-dependent diabetes mellitus. We will cover him with a sliding scale. 5. Hyperlipidemia. We will continue his statin therapy. 6. Coronary artery disease. The patient is currently stable and expressed no evidence of any cardiac abnormality at this time. 7. DVT prophylaxis. The patient is on Eliquis and we will continue it for the time being. 8. Code status. The patient is a full code. LISA WOODSON ADDENDUM: CC: Shereen Thompson NP; Dr. Stephenson PRIMARY CARE PROVIDER: Shereen Thompson NP CONSULTING RN PERIOPERATIVE: Dr. Stephenson. This case was reviewed and discussed with LISA Woodson. Mr. Ferrell is a 62-year-old male with a past medical history of diabetes, obstructive sleep apnea, AFib, hyperlipidemia, hypertension, CAD, morbid obesity, who presents to the emergency room with complaints of shortness of breath. The patient was admitted in May with similar complaints and he was found to have pleural effusion on the right side, which Dr. Stephenson felt could be causing the worsening of his shortness of breath. As the patient is on Coumadin, this was discontinued and he underwent thoracentesis on 06/07/17 with drainage of 1.5 L of fluid. The fluid was cloudy with 1200 wbc's, 29,000 rbc's, 96% lymphocytes, glucose of 235, and total protein of 5.5. The patient had symptomatic improvement after thoracentesis but his shortness of breath worsened again, which prompted his ED visit today. His chest x-ray shows reaccumulation of the pleural effusion and he is going to be admitted for further evaluation. A consultation was already requested with Dr. Stephenson and arrangements will be made for another thoracentesis. This case was reviewed and discussed with LISA Woodson, and I am in agreement with current management. LUBA Macedo MD [id number]/CPS #: [id number] #: [id number] EMIL
[2017-07-10] MEDS ORDERED: Simethicone LIQ* 40 MG/0.6 ML UD ORAL SYRINGE PO PRN (19:59)
[2017-07-10] MEDS: Albuterol 2.5 MG/3 ML NEB.SOL* (0.083%) INH SCH (20:16)
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
--- NOTE | 2017-07-10 20:52 | HP ---
CC: Shereen Thompson NP; Dr. Stephenson HISTORY AND PHYSICAL: PRIMARY CARE PROVIDER: Shereen Thompson NP CONSULTING COUNSELLORS: Dr. Stephenson. ADDENDUM: This case was reviewed and discussed with LIAS Gonzalez. Mr. Ferrell is a 62-year-old male with a past medical history of diabetes, obstructive sleep apnea, AFib, hyperlipidemia, hypertension, CAD, morbid obesity, who presents to the emergency room with complaints of shortness of breath. The patient was admitted in May with similar complaints and he was found to have pleural effusion on the right side, which Dr. Stephenson felt could be causing the worsening of his shortness of breath. As the patient is on Coumadin, this was discontinued and he underwent thoracentesis on 06/07/17 with drainage of 1.5 L of fluid. The fluid was cloudy with 1200 wbc's, 29,000 rbc's, 96% lymphocytes, glucose of 235, and total protein of 5.5. The patient had symptomatic improvement after thoracentesis but his shortness of breath worsened again, which prompted his ED visit today. His chest x-ray shows reaccumulation of the pleural effusion and he is going to be admitted for further evaluation. A consultation was already requested with Dr. Stephenson and arrangements will be made for another thoracentesis. This case was reviewed and discussed with LISA Gonzalez, and I am in agreement with current management. [id number]/[facility]PS #: [id number] MTDD
[2017-07-10] MEDS ORDERED: Zolpidem TAB* 10 MG PO SCH (21:00)
[2017-07-10] MEDS ORDERED: Apixaban* 5 MG TAB PO SCH (21:00)
[2017-07-10] MEDS: Docusate CAP* 100 MG PO SCH (21:03)
[2017-07-10] MEDS: Metoprolol Succinate XL TAB* 100 MG PO SCH (21:03)
[2017-07-10] MEDS: Furosemide TAB* 40 MG PO SCH (21:04)
[2017-07-10] MEDS: Nystatin TOP POWDER* 15 GM BTL TOPICAL PRN ×2 (21:05→21:07)
[2017-07-11] MEDS: Albuterol 2.5 MG/3 ML NEB.SOL* (0.083%) INH SCH ×3 (07:48→14:05)
[2017-07-11] MEDS ORDERED: Spironolactone TAB* 25 MG PO SCH (09:00)
[2017-07-11] MEDS ORDERED: Losartan TAB* 25 MG PO SCH (09:00)
[2017-07-11] MEDS ORDERED: Aspirin EC TAB* 81 MG TAB.EC PO SCH (09:00)
[2017-07-11] MEDS ORDERED: Atorvastatin* 20 MG TAB PO SCH (09:00)
[2017-07-11] MEDS ORDERED: Fluticasone/Vilanterol MDI(NF) 200/25 MDI INH SCH (09:00)
[2017-07-11] MEDS ORDERED: Hydrochlorothiazide TAB* 25 MG PO SCH (09:00)
[2017-07-11] MEDS ORDERED: Diltiazem CD CAP* 180 MG PO SCH (09:00)
[2017-07-11] MEDS ORDERED: Insulin GLARGINE(*) 1 UNITS UNIT SUBCUT SCH (09:00)
[2017-07-11] MEDS: Insulin LISPRO* 1 UNITS UNIT SUBCUT SCH ×2 (09:09→13:31)
[2017-07-11] MEDS: Furosemide TAB* 40 MG PO SCH (09:11)
[2017-07-11] MEDS: Metoprolol Succinate XL TAB* 100 MG PO SCH (09:11)
[2017-07-11] MEDS: Docusate CAP* 100 MG PO SCH (09:12)
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
[2017-07-11 13:10] VITALS: BP 126/55
--- NOTE | 2017-07-11 15:28 | RAD ---
CPT II Codes: 6100F INDICATION: Dyspnea in the presence of a large right-sided pleural effusion COMPARISON: Recent chest x-ray. PROCEDURE NOTE AND IMAGING FINDINGS: The benefits of the and risks of procedure explained to the patient. The patient consented of the exam. The patient was brought to the ultrasound suite and multiple images of the right hemithorax were obtained. There was a large pleural effusion present. The site was marked. A formal time out was performed before beginning the procedure. The patient was prepped and draped in the usual sterile fashion. The patient?s posterior chest wall was anesthetized with 1% lidocaine. A small skin ana was made to allow placement of the thoracentesis needle and catheter. Approximately 1.6 L of shorty-colored fluid was aspirated. The patient tolerated the procedure without incident. IMPRESSION: Uncomplicated thoracentesis as described in the body of the report.
--- NOTE | 2017-07-11 23:05 | DS ---
CC: Shereen Thompson NP; Dr. Stephenson * DISCHARGE SUMMARY: DATE OF ADMISSION: 07/10/17 DATE OF DISCHARGE: 07/11/17 PRIMARY CARE PROVIDER: Shereen Thompson NP. DISCHARGE DIAGNOSIS: Dyspnea due to recurrent right-sided pleural effusion, status post thoracentesis performed by Dr. Contreras, which yielded 1600 mL of tanned colored fluid. SECONDARY DIAGNOSES: 1. History of pleural effusion on the right, status post thoracentesis in the past, in May of 2017. 2. History of coronary artery disease, status post cardiac catheterization and stent placement. 3. Obstructive sleep apnea, on CPAP. 4. History of chronic obstructive pulmonary disease and diastolic congestive heart failure for which the patient is on chronic oxygen at 2 to 4 L. 5. Diabetes type 2, on insulin. 6. Vitamin D deficiency. 7. History of recurrent right-sided pleural effusion, under the care of Dr. Stephenson. MEDICATIONS AT DISCHARGE: Unchanged from admission and include: 1. Albuterol inhaler on a p.r.n. basis. 2. Albuterol nebulizer on a p.r.n. basis. 3. Eliquis 5 mg p.o. b.i.d., to start on 07/12/17. 4. Aspirin 81 mg daily. 5. Lipitor 20 mg daily. 6. Calcium carbonate with magnesium 2 tablets b.i.d. 7. Cardizem CD 180 mg daily. 8. Colace 100 mg b.i.d. 9. TriCor 160 mg daily. 10. Breo Ellipta 200/25 one puff daily. 11. Lasix 40 mg b.i.d. 12. Insulin U500 according to sliding scale and insulin U500 26 units with midday meal and 27 units in a.m. 13. Losartan/hydrochlorothiazide 100/25 mg one tablet daily. 14. Metformin 1000 mg b.i.d. 15. Metoprolol succinate 100 mg b.i.d. 16. Nystatin topical powder, apply to affected skin b.i.d. 17. Aldactone 25 mg daily. LABORATORY DATA AND STUDIES PERFORMED DURING THE HOSPITAL STAY: On 07/10/17, white blood cell count of 6.5, hemoglobin 11.7, hematocrit of 36, and platelets of 256. Sodium of 139, potassium 4.0, chloride 93, carbon dioxide 37, BUN 34, creatinine 1.18. Liver function tests were obtained at admission and were unremarkable. Tests that are pending at the time of dictation include pleural fluid analysis and that includes cell count, glucose, fluid pH, total protein, triglycerides, Gram- stain, culture, and cytology. PHYSICAL EXAM AT THE TIME OF DISCHARGE: Blood pressure 126/55, heart rate of 84 and regular, respiratory rate 23, oxygen saturation 97% on 3 L of oxygen via nasal cannula, temperature 97.6. General: Patient is very pleasant 62-year-old , morbidly obese male, who is in no acute distress. Alert, awake, oriented x3. HEENT: Head: Atraumatic, normocephalic. Eyes: Pupils are equal and reactive to light and accommodation. Oropharynx is clear. Mucosa moist. Neck: Supple. No JVD. No bruit bilaterally. Cardiovascular: Regular rate and rhythm. No murmur. Respiratory: Decreased breath sounds in the right lung base , otherwise coarse breath sounds bilaterally. Abdomen: Very protuberant, soft , nontender. Bowel sounds present in all 4 quadrants. Extremities: There is + 2 pitting pedal edema bilaterally. Pulses are poorly palpable due to edema, but there is good capillary refill bilaterally, and no clubbing or cyanosis. The patient has chronic venous stasis discoloration of bilateral distal lower extremities. He has a couple of eschar covered ruptured blisters on the anterior aspect of his distal lower extremities. The eschar area is approximately 2 cm in diameter and there is no evidence of cellulitis. Neuro Evaluation: Speech clear. Cranial nerves II through XII are grossly intact. Motor strength is 5/5 bilaterally. HOSPITALIZATION COURSE: Tulio Ferrell is a 62-year-old morbidly obese male with history of atrial fibrillation, status post ablation, currently in sinus rhythm. Also has history of chronic diastolic CHF, and oxygen dependent COPD. He had pleural effusion noted in mid May of 2017 that was tapped by Interventional Radiology and followed by Dr. Stephenson. He presented to the hospital once again complaining of shortness of breath and was noted to have reaccumulation of pleural fluid on the right. Dr. Stephenson saw the patient in consultation and recommended thoracentesis; that was performed by Dr. Contreras of Interventional Radiology. Today, patient had approximately 1600 mL of wilkinson colored fluid removed. Pleural fluid analysis as well as cultures and lab work is still pending at the time of this dictation. Patient is comfortable and is ready to go home. His Eliquis was held for 24 hours and can be restarted tomorrow. Patient is being discharged on his chronic oxygen at 3 L. He is recommended to follow up with Dr. Stephenson in regards to results of his pleural fluid analysis and cytology, in approximately 1 week. Please note that this is a short summary of the patient's hospitalization. Please refer to further medical records for details. [id number]/[facility] #: [id number] EMIL
== END 2017-07-11 15:30 | disposition home or self-care (01) ==
LOC: ED 12:42 → INTOOBSV 15:33 → MED 15:33
PROVIDERS: ADMIT Internal Medicine; ATTEND Internal Medicine
DX: J90 Pleural effusion, not elsewhere classified (principal); R06.02 Shortness of breath; R06.09 Other forms of dyspnea; J44.9 Chronic obstructive pulmonary disease, unspecified; I25.119 Atherosclerotic heart disease of native coronary artery with unspecified angina pectoris; Z95.5 Presence of coronary angioplasty implant and graft; G47.33 Obstructive sleep apnea (adult) (pediatric); E11.9 Type 2 diabetes mellitus without complications; Z79.4 Long term (current) use of insulin; E55.9 Vitamin D deficiency, unspecified; Z79.899 Other long term (current) drug therapy; I11.0 Hypertensive heart disease with heart failure; I50.30 Unspecified diastolic (congestive) heart failure; Z79.01 Long term (current) use of anticoagulants; I25.2 Old myocardial infarction; I45.10 Unspecified right bundle-branch block
CPT/HCPCS: 32555; 36415; 71046; 80053; 82945; 83605; 83615; 83880; 83986; 84157; 84478; 84484; 85025; 85610; 86140; 87040; 87205; 89051; 93005; 94640; 94760; 99284; A9270-GY; G0378

== ENCOUNTER 2017-07-24 09:58 | Inpatient (IN) | payer MEDICARE ==
[2017-07-24] MEDS ORDERED: Furosemide IV* 10 MG/ML 10 ML VIAL (100 MG) IV ONE (10:27)
[2017-07-24] MEDS ORDERED: Diltiazem IV* 5 MG/ML 5 ML VIAL (for loading dose/IV Push) (25 MG) IV SLOW PU ONE (10:27)
[2017-07-24 10:46] LABS: ABS Basophils 0 10^3/ul (0-0.2); ABS Eosinophils 0.2 10^3/ul (0-0.6); ABS Lymphocytes 0.2 10^3/ul (1.0-4.8); ABS Monocytes 0.4 10^3/ul (0-0.8); ABS Neutrophils 5.3 10^3/ul (1.5-7.7); ABS Nucleated RBC 0 10^3/ul; Eosinophil % 2.7 % (0-6); Hematocrit 35 % (42-52); Hemoglobin 11.7 g/dl (14.0-18.0); Lymphocyte % 3.6 % (25-47); Mean Corpuscular HGB Conc 33 g/dl (31-36); Mean Corpuscular Hemoglobin 29 pg (27-31); Mean Corpuscular Volume 87 fL (80-94); Mean Platelet Volume 7.1 um3 (7.4-10.4); Nucleated Red Blood Cells % 0; Platelet Count 283 10^3/ul (150-450); Red Blood Count 4.09 10^6/ul (4.0-5.4); Red Cell Distribution Width 16 % (10.5-15); White Blood Count 6.1 10^3/ul (3.5-10.8)
[2017-07-24 11:08] LABS: EGFR Non-African American 56.6 (>60)
--- NOTE | 2017-07-24 12:18 | RAD ---
Indication: Recurrent pleural effusion. Previous RIGHT thoracentesis. Cardiac disease. Comparison: July 11, 2017 thoracentesis ultrasound and July 10, 2017 chest radiograph. Technique: Upright AP 1115 hours Report: Cardiomegaly, median sternotomy wires wires and fixation plates, large vascular clip at the AP window, mediastinal vascular clips. Prominent ill-defined central pulmonary vasculature and diffuse prominence of the interstitial markings. Moderately large dependent RIGHT pleural effusion with proportional atelectasis similar to the July 10, 2017 exam. Probable trace LEFT pleural effusion. Negative for pneumothorax. IMPRESSION: Pulmonary edema with reaccumulation of moderate large volume of RIGHT pleural fluid with associated basilar compressive atelectasis.
[2017-07-24] MEDS ORDERED: Al Hydrox/Mg Hydrox/Simet LIQ* 30 ML UDC PO PRN (12:47)
[2017-07-24] MEDS ORDERED: Albuterol 2.5 MG/3 ML NEB.SOL* (0.083%) INH PRN (12:47)
[2017-07-24] MEDS ORDERED: Acetaminophen TAB* 325 MG PO PRN (12:47)
--- NOTE | 2017-07-24 13:31 | ED ---
Jose Chairez Angela, scribed for Nigel Aleman MD on 07/24/17 at 1022 . Shortness of Breath - HPI Summary HPI Summary: This pt is a 62 y/o male presenting to [facility] [place] [place] c/o worsening SOB for the past 2 weeks. Pt states he had fluid drained from his right lung twice by Dr. Stephenson, surg nurse. He reports they took over 1.5 L both times. His most recent thoracentesis was 2 weeks ago. Pt notes he began to feel more SOB within 4-5 days after his last procedure. He is usually on 2 L of O2 NC at home. PMHx includes COPD, O2 dependent, obstructive sleep apnea, CHF, atrial fibrillation. Pt is currently on Eliquis. Denies hx of OH. - History of Current Complaint Chief Complaint: EDShortnessOfBreath Time Seen by Provider: 07/24/17 10:10 Hx Obtained From: Patient Onset/Duration: Lasting Weeks, Still Present Timing: Constant Current Severity: Moderate Aggrevating Factors: Nothing Alleviating Factors: Nothing - Allergy/Home Medications Allergies/Adverse Reactions: Allergies Allergy/AdvReac Type Severity Reaction Status Date / Time NSAIDS (Non-Steroidal Allergy Mild See Comment Verified 06/05/17 10:35 Anti-Inflamma Home Medications: Home Medications Cyclosporine 0.05% OPHTH (NF) [Restasis 0.05% OPHTH] 1 drop BOTH EYES Q12H 07/24 [History Confirmed 07/24/17] Folic Acid TAB* [Folvite TAB*] 1 mg PO DAILY 07/24/17 [History Confirmed ] PMH/Surg Hx/FS Hx/Imm Hx Endocrine/Hematology History: Reports: Hx Diabetes Denies: Hx Thyroid Disease Cardiovascular History: Reports: Hx Angina, Hx Congestive Heart Failure, Hx Coronary Artery Disease - STENTS X2 2016, Hx Hypercholesterolemia, Hx Myocardial Infarction, Other Cardiovascular Problems/Disorders - DOUBLE BYPASS SURGERY- PER PT Denies: Hx Hypertension, Hx Pacemaker/ICD, Hx Peripheral Vascular Disease, Hx Valvular Heart Disease Respiratory History: Reports: Hx Chronic Obstructive Pulmonary Disease (COPD) - O2 AT HOME AND BIPAP MACHINE HE WEARS IN THE DAY WELL, Hx Sleep Apnea Denies: Hx Asthma GI History: Denies: Hx Ulcer History: Reports: Other Problems/Disorders - frequency, difficulty starting Denies: Hx Dialysis, Hx Renal Disease Musculoskeletal History: Reports: Hx Arthritis, Hx Back Problems - SCOLIOSIS, Hx Scoliosis Denies: Hx Osteoporosis Sensory History: Reports: Hx Contacts or Glasses Denies: Hx Cataracts, Hx Glaucoma, Hx Hearing Aid Opthamlomology History: Reports: Hx Contacts or Glasses Denies: Hx Cataracts, Hx Glaucoma Neurological History: Reports: Hx Migraine Denies: Hx Headaches, Hx Seizures, Hx Transient Ischemic Attacks (TIA) - Surgical History Surgery Procedure, Year, and Place: triple R surgery in throat for Cpap?, appendectomy, cracked spine when 11--no surgery but was in a cast "all summer" DOUBLE CORONARY BYPASS 10/22/15 Hx Anesthesia Reactions: No - Immunization History Date of Influenza Vaccine: 01/2017 Infectious Disease History: No Infectious Disease History: Denies: Hx Hepatitis, Hx Human Immunodeficiency Virus (HIV), Traveled Outside the [place] in Last 30 Days - Family History Known Family History: Positive: Diabetes - Social History Alcohol Use: None Substance Use Type: Reports: None Hx Tobacco Use: No Smoking Status (MU): Never Smoked Tobacco Review of Systems Negative: Fever, Chills Negative: Chest Pain Positive: Shortness Of Breath Positive: Edema - in bilateral lower extremity Skin: Negative Neurological: Negative All Other Systems Reviewed And Are Negative: Yes Physical Exam - Summary Physical Exam Summary: Appearance: Well appearing, no pain distress Skin: warm, dry, reflects adequate perfusion Head/face: normal Eyes: EOMI, RODRICK ENT: normal Neck: supple, non-tender Respiratory: Mild crackles in the left base. Significantly diminished on the right base. Cardiovascular: Irregularly irregular and tachycardic, pulses symmetrical Abdomen: non-tender, soft Bowel: present Musculoskeletal: strength/ROM intact. 3+ lower extremity edema on the right and 2+ lower extremity edema on the left with chronic stasis dermatitis bilaterally. Neuro: normal, sensory motor intact, A&Ox3 Triage Information Reviewed: Yes Vital Signs On Initial Exam: Initial Vitals Temp Pulse Resp BP Pulse Ox 97.5 F 127 18 113/54 89 07/24/17 10:02 07/24/17 10:02 07/24/17 10:02 07/24/17 10:07/24/17 10:02 Vital Signs Reviewed: Yes Diagnostics - Vital Signs Vital Signs Temp Pulse Resp BP Pulse Ox 07/24/17 10:02 97.5 F 127 18 113/54 89 - Laboratory Lab Results: Lab Results 07/24/17 07/24/17 07/24/17 Range/Units 10:31 10:31 10:31 WBC 6.1 (3.5-10.8) 10^3/ul RBC 4.09 (4.0-5.4) 10^6/ul Hgb 11.7 L (14.0-18.0) g/dl Hct 35 L (42-52) % MCV 87 (80-94) fL MCH 29 (27-31) pg MCHC 33 (31-36) g/dl RDW 16 H (10.5-15) % Plt Count 283 (150-450) 10^3/ul MPV 7.1 L (7.4-10.4) um3 Neut % (Auto) 87.2 H (38-83) % Lymph % (Auto) 3.6 L (25-47) % Casey % (Auto) 6.2 (0-7) % Eos % (Auto) 2.7 (0-6) % Baso % (Auto) 0.3 (0-2) % Absolute Neuts (auto) 5.3 (1.5-7.7) 10^3/ul Absolute Lymphs (auto) 0.2 L (1.0-4.8) 10^3/ul Absolute Monos (auto) 0.4 (0-0.8) 10^3/ul Absolute Eos (auto) 0.2 (0-0.6) 10^3/ul Absolute Basos (auto) 0 (0-0.2) 10^3/ul Absolute Nucleated RBC 0 10^3/ul Nucleated RBC % 0 Sodium 141 (139-145) mmol/L Potassium 4.1 (3.5-5.0) mmol/L Chloride 96 L (101-111) mmol/L Carbon Dioxide 37 H (22-32) mmol/L Anion Gap 8 (2-11) mmol/L BUN 30 H (6-24) mg/dL Creatinine 1.28 H (0.67-1.17) mg/dL Est GFR ( Amer) 72.8 (>60) Est GFR (Non-Af Amer) 56.6 (>60) BUN/Creatinine Ratio 23.4 H (8-20) Glucose 143 H (70-100) mg/dL Lactic Acid 1.8 (0.5-2.0) mmol/L Calcium 10.1 (8.6-10.3) mg/dL Magnesium 1.9 (1.9-2.7) mg/dL Total Bilirubin 0.30 (0.2-1.0) mg/dL AST 16 (13-39) U/L ALT 26 (7-52) U/L Alkaline Phosphatase 40 (34-104) U/L Troponin I 0.01 (<0.04) ng/mL B-Natriuretic Peptide ( - 100) pg/mL Total Protein 7.5 (6.4-8.9) g/dL Albumin 4.2 (3.2-5.2) g/dL Globulin 3.3 (2-4) g/dL Albumin/Globulin Ratio 1.3 (1-3) /05/12 Range/Units 10:33 WBC (3.5-10.8) 10^3/ul RBC (4.0-5.4) 10^6/ul Hgb (14.0-18.0) g/dl Hct (42-52) % MCV (80-94) fL MCH (27-31) pg MCHC (31-36) g/dl RDW (10.5-15) % Plt Count (150-450) 10^3/ul MPV (7.4-10.4) um3 Neut % (Auto) (38-83) % Lymph % (Auto) (25-47) % Casey % (Auto) (0-7) % Eos % (Auto) (0-6) % Baso % (Auto) (0-2) % Absolute Neuts (auto) (1.5-7.7) 10^3/ul Absolute Lymphs (auto) (1.0-4.8) 10^3/ul Absolute Monos (auto) (0-0.8) 10^3/ul Absolute Eos (auto) (0-0.6) 10^3/ul Absolute Basos (auto) (0-0.2) 10^3/ul Absolute Nucleated RBC 10^3/ul Nucleated RBC % Sodium (139-145) mmol/L Potassium (3.5-5.0) mmol/L Chloride (101-111) mmol/L Carbon Dioxide (22-32) mmol/L Anion Gap (2-11) mmol/L BUN (6-24) mg/dL Creatinine (0.67-1.17) mg/dL Est GFR ( Amer) (>60) Est GFR (Non-Af Amer) (>60) BUN/Creatinine Ratio (8-20) Glucose (70-100) mg/dL Lactic Acid (0.5-2.0) mmol/L Calcium (8.6-10.3) mg/dL Magnesium (1.9-2.7) mg/dL Total Bilirubin (0.2-1.0) mg/dL AST (13-39) U/L ALT (7-52) U/L Alkaline Phosphatase (34-104) U/L Troponin I (<0.04) ng/mL B-Natriuretic Peptide 98 ( - 100) pg/mL Total Protein (6.4-8.9) g/dL Albumin (3.2-5.2) g/dL Globulin (2-4) g/dL Albumin/Globulin Ratio (1-3) Result Diagrams: 07/24/17 10:31 07/24/17 10:31 Lab Statement: Any lab studies that have been ordered have been reviewed, and results considered in the medical decision making process. - Radiology Chest XR Xray Interpretation: Positive (See Comments) - IMPRESSION: Pulmonary edema with reaccumulation of moderate large volume of RIGHT pleural fluid with associated basilar compressive atelectasis. Dr. Aleman has reviewed this radiology report. Radiology Interpretation Completed By: ED Physician - right sided pleural effusion, Radiologist - EKG 10:36 Cardiac Rate: Tachycardia - at 120 bpm EKG Rhythm: Atrial Fibrillation - rapid afib ST Segment: Non-Specific EKG Interpretation: Normal axis. Right bundle branch block. Course/Dx - Course Course Of Treatment: Patient with recurrent right-sided pleural effusion. He has had laboratories drawn on it with pleurocentesis in the past however no CT scan has been performed. He is on novel anticoagulant and will require this to be held prior to procedure. Previously he has had procedure in interventional radiology. He is also in atrial fibrillation, rapid ventricular response. This is treated with IV diltiazem which controlled the rate. He was feeling better after that. He is admitted through the hospitalist service for further intervention and evaluation. Assessment/Plan: Bedside ultrasound shows small effusion in the left lung and large effusion on the right lung. - Diagnoses Differential Diagnosis/HQI/PQRI: Positive: CHF, Pneumonia, Pneumothorax, Other - Recurrent pleural effusion, malignant cause of pleural effusion Provider Diagnoses: Rapid atrial fibrillation, Hypoxia, Recurrent right pleural effusion - Physician Notifications Discussed Care of Patient With: Chuck Baires Time Discussed With Above Provider: 11:26 Instructed by Provider To: Other - I discussed pt care with Dr. Baires, hospitalist, who has agreed to admit the pt. - Critical Care Time Critical Care Time: 30-74 min - Critical care time is exclusive of separately billable procedures. Discharge - Sign-Out/Discharge Documenting (check all that apply): Discharge/Admit/Transfer - Admit to [facility] [place] [place] - Discharge Plan Condition: Fair Disposition: ADMITTED TO [facility] Referrals: Mariana Lima [Primary Care Provider] - - Billing Disposition and Condition Condition: FAIR Disposition: [facility] [place] [place] The documentation as recorded by the Jose morton Angela accurately reflects the service I personally performed and the decisions made by Love new Kirk, MD.
[2017-07-24] MEDS ORDERED: Dextrose 50% Syringe 50 ML* 25 GM/50 ML SYRINGE IV PUSH PRN (14:00)
[2017-07-24] MEDS: Albuterol 2.5 MG/3 ML NEB.SOL* (0.083%) INH SCH ×3 (16:45→20:24)
[2017-07-24] MEDS: Heparin VIAL(*) 5000 UNITS/ML VIAL (FIVE THOUSAND) SUBCUT SCH ×2 (17:56→23:57)
[2017-07-24] MEDS: Insulin LISPRO* 1 UNITS UNIT SUBCUT SCH (17:56)
[2017-07-24 18:17] LABS: INR 1.02 (0.77-1.02)
--- NOTE | 2017-07-24 20:23 | HP ---
CC: Mariana Lima NP * HISTORY AND PHYSICAL: DATE OF ADMISSION: 07/24/17 PROVIDER: Isabell Andres NP ATTENDING PHYSICIAN WHILE IN THE HOSPITAL: Dr. Chuck Baires * (dictated by Isabell Andres NP) CHIEF COMPLAINT: Shortness of breath. HISTORY OF PRESENT ILLNESS: Mr. Ferrell is a 62-year-old gentleman, who is well known to us from prior admissions about a month ago. The patient has multiple chronic medical comorbidities including morbid obesity, hypertension, hyperlipidemia, COPD, diabetes, sleep apnea, and atrial fibrillation, with a history of ablation, which in previous admission he was in sinus rhythm, on this admission, he is in atrial fibrillation. He also has a history of hyperlipidemia; coronary artery disease, with status post stent placement; history of COPD. Mr. Ferrell presented to the emergency room with increased shortness of breath x2 weeks. He reports that over the past week, the shortness of breath has become even worse. He does report that he contacted his railway head tender yesterday, Dr. Stephenson, who was attempting to set up an outpatient thoracentesis for him. He states that he was unable to take the shortness of breath any longer and presented to the emergency room. The patient reports that approximately 2 weeks ago, he did have a thoracentesis done on the right lung which made his shortness of breath better for approximately 2 to 3 days and then he started to progressively get more short of breath as the days went by. He denies any significant increased cough or congestion. He denies any increased sputum production. He does report that he has gained approximately 4 pounds. He does report that he chronically sits in a recliner to sleep as he is unable to lie flat. He does also report that he wears oxygen at home all times on 2 L. The patient reports that his shortness of breath feels the same prior to his other thoracenteses. In the emergency room, he had routine lab work done and a chest x- ray and the chest x-ray showed large right pleural effusion and pulmonary edema. Mr. Ferrell does report that after application of oxygen, that his breathing does feel better. He does still appear to be mildly short of breath with sitting in the chair in the emergency room. We were asked by the emergency room physicians to see and evaluate him for admission due to his large pleural effusion and need for a thoracentesis. PAST MEDICAL HISTORY: Significant for: 1. Diabetes. 2. Obstructive sleep apnea which he wears a CPAP at night. 3. Atrial fibrillation with ablation. He had converted to sinus rhythm in the past but is currently in atrial fibrillation. 4. Hyperlipidemia. 5. Hypertension. 6. Coronary artery disease and stent placement and bypass. 7. COPD. 8. Diastolic CHF. PAST SURGICAL HISTORY: 1. Cardiac stents. 2. Bypass surgery in 2016. HOME MEDICATIONS: Include: 1. Colace p.o. b.i.d. 2. Eliquis 5 mg p.o. b.i.d. 3. Folic acid 1 mg p.o. daily. 4. Aldactone 25 mg p.o. b.i.d. 6. Restasis 1 drop both eyes q.12 hours. 7. Metformin 1000 mg p.o. b.i.d. 8. Metoprolol succinate 100 mg p.o. b.i.d. 9. Losartan/hydrochlorothiazide 1 tablet p.o. daily. 10. Insulin regular U-500 27 units q.a.m., 26 units midday, and sliding scale for p.m. dosing. 11. Furosemide 40 mg p.o. daily. 12. Breo 1 puff p.o. daily. 13. TriCor 160 mg p.o. daily. 14. Colace 100 mg p.o. b.i.d. 15. Diltiazem 180 mg p.o. daily. 16. Calcium carbonate, magnesium oxide, and vitamin D 2 tablets p.o. b.i.d. 17. Atorvastatin 20 mg p.o. daily. 18. Aspirin 81 mg p.o. daily. 19. Albuterol inhaler 2.5 four times a day. ALLERGIES TO MEDICATIONS: He is allergic to NSAIDS. FAMILY HISTORY: Father had a history of coronary artery disease with an OH at age 45 and subsequently from a stroke and heart attack at the age of 62. Mother, father, and grandmother all with diabetes, cancer. Mother had rectal cancer and grandmother had uterine cancer. SOCIAL HISTORY: Denies any tobacco use, denies alcohol use, denies drug use. He is currently disabled. He lives alone. Surrogate decision maker in the event he is unable to make his own decisions is his mother, Toshia Delcid. Her phone number is [phone]. REVIEW OF SYSTEMS: There has been no documented fever. There has been mild weight gain. There has been no double vision. No ear drainage. No rhinorrhea. Denies any sore throat. Denies any chest pain. There has been nocturnal dyspnea. He also has orthopnea. He does report that he has had increased shortness of breath x1 week. He does report a cough with clear sputum , but no significant change due to his chronic cough. There is no abdominal pain, no nausea, vomiting or diarrhea. No urinary frequency or urgency. No dysuria. Denies any loss of consciousness. Denies any pruritus. He does have bilateral lower extremity redness. There is some blistering noted to the left lower leg with clear fluid blisters. The skin is not hot. He does have edema to bilateral lower extremities. A review of 14 systems was completed and all others are negative. PHYSICAL EXAMINATION GENERAL: At this time, Mr. Ferrell is a 62-year-old male. He is morbidly obese, sitting in the chair. He appears to have mild respiratory distress. VITAL SIGNS: As follows: Heart rate is 86, respirations are 19, O2 saturation was 99%, blood pressure 113/72, temperature was 97.5. HEENT: Head is atraumatic, normocephalic. Eyes: EOMs are intact. Sclerae anicteric and not pale. Oral mucosa appeared to be moist. There is no oropharyngeal erythema. NECK: Supple. LUNGS: Clear. Very diminished in the right base and mildly diminished in the left base. There are no rales or rhonchi. HEART: S1, S2, is irregular rhythm and rate. He has AFib on the monitor at a rate of 86. ABDOMEN: Soft, obese, nontender. Bowel sounds are present x4. EXTREMITIES: There is moderate +1 to +2 pitting edema to bilateral lower legs. His bilateral lower extremities with erythema and scabbed areas are noted to bilateral lower extremities. The patient states this is unchanged in that his legs have been in this condition for the past 2 years. He is moving all 4 extremities. Strength is 5/5. NEUROLOGIC: He is awake, alert, oriented x3. His speech is clear. There are no focal deficits. SKIN: As stated above, he does have some redness to bilateral lower extremities with scabbed areas noted to the beltran. The left lower extremity does have some clear blistering to the lateral aspect of left leg. DIAGNOSTIC STUDIES/LAB DATA: WBC 6.1, RBC 4.09, hemoglobin was 11.7, hematocrit was 35, platelet count was 283. Sodium 141, potassium 4.1, chloride was 96, carbon dioxide was 37, anion gap was 8. BUN was 30; creatinine 1.28, his creatinine has ranged from 1.18 to 1.71 since 05/03/17. Lactic acid was 1.8. Calcium was 10.1. Troponin was 0.01. BNP was 98. Magnesium level was pending at this time. TSH is also pending. EKG: Shows atrial fibrillation at a rate of 120. Chest x-ray: Radiologist's impression: Pulmonary edema with reaccumulation of moderate large volume of right pleural effusion with associated bibasilar compressive atelectasis. Probable trace left pleural effusion, negative for pneumothorax. ASSESSMENT AND PLAN: Mr. Ferrell is a 62-year-old male, who presented to the emergency room for further evaluation of increased shortness of breath for the past 2 weeks worsening over the past week. We were asked to evaluate him for his shortness of breath. He will be admitted inpatient for: 1. Shortness of breath. Suspect this is related to his large right pleural effusion. He currently has recurrent right pleural effusion. He had his right pleural effusion drained on 07/11/17. I did consult Dr. Stephenson. I will also continue his Lasix 40 mg p.o. b.i.d. The patient will be scheduled for a thoracentesis tomorrow. We will need to hold his Eliquis and aspirin. I will give him 2 doses of heparin, one now and one at 10 p.m., as he needs to have his Eliquis held 24 hours prior to having the thoracentesis. I did not speak to Radiology charge nurse, who stated the patient could have heparin up to 12 hours prior to the procedure. The thoracentesis pleural fluid will be sent for cytology and routine evaluation and lab work. I suspect that the patient might have some underlying congestive heart failure. I will order a transthoracic echocardiogram as his last echo was approximately 1 year ago. His ejection fraction at that time was 55% to 60%. I will continue on his Lasix and spironolactone. He did receive a dose of Lasix in the emergency room of 40 mg IV. 2. Atrial fibrillation. We will continue on his Cardizem. We will also continue losartan/hydrochlorothiazide. I will check a magnesium level. I will also check a TSH on him as he in previous admission has been in sinus rhythm, but does have a history of being in atrial fibrillation. At this time, his rate is controlled and he does take Eliquis at home. Due to his Eliquis being held, I will give him heparin 5000 units subcu x2 doses as this needs to be held 12 hours prior to his thoracentesis tomorrow morning. 3. Chronic obstructive pulmonary disease. We will continue him on his home inhalers. He takes Breo at home along with albuterol nebulizers as needed for shortness of breath. 4. Diabetes. We will place him on fingersticks a.c. and h.s. with lispro sliding scale. 5. Hyperlipidemia. We will continue him on his atorvastatin. 6. Coronary artery disease. We will continue him on metoprolol as well as losartan/hydrochlorothiazide and we will resume Eliquis when able post thoracentesis. In the interim, we will give him heparin 5000 units subcu x2 doses. 7. FEN. He will be placed on a heart-healthy, no caffeine diet. 8. Code status. He is a full code. 9. Obstructive sleep apnea. The patient uses a CPAP machine at night which should continue during his hospitalization. 10. DVT prophylaxis. The patient will receive heparin subcu 5000 units and we will resume Eliquis when able and stop the heparin subcu. 11. Disposition. The patient will be placed inpatient. TIME SPENT: On this admission was approximately 60 minutes, greater than half the time was spent with the patient [id number] obtaining history and physical and the other half of time was spent going over the plan of care and implementing my plan of care. I have discussed this with my attending, Dr. Chuck Baires, and he is in agreement with my plan. ISABELL ANDRES, WAST[employer] MANAGEMENT SPECIALIST [id number]/[facility] #: [id number] EMIL
[2017-07-24] MEDS: FENOFIBRATE 160 MG PO SCH (20:43)
[2017-07-24] MEDS: Furosemide TAB* 20 MG PO SCH (20:43)
[2017-07-24] MEDS: metFORMIN* 500 MG TAB PO SCH (20:44)
[2017-07-24] MEDS: Docusate CAP* 100 MG PO SCH (20:45)
[2017-07-24] MEDS: Spironolactone TAB* 25 MG PO SCH (20:45)
[2017-07-24] MEDS: Metoprolol Succinate XL TAB* 100 MG PO SCH (20:45)
[2017-07-24] MEDS: Nystatin TOP POWDER* 15 GM BTL TOPICAL SCH (23:57)
[2017-07-25 06:31] LABS: ABS Basophils 0 10^3/ul (0-0.2); ABS Eosinophils 0.2 10^3/ul (0-0.6); ABS Lymphocytes 0.2 10^3/ul (1.0-4.8); ABS Monocytes 0.4 10^3/ul (0-0.8); ABS Neutrophils 4.9 10^3/ul (1.5-7.7); ABS Nucleated RBC 0 10^3/ul; Eosinophil % 3.1 % (0-6); Hematocrit 34 % (42-52); Hemoglobin 10.9 g/dl (14.0-18.0); Lymphocyte % 3.9 % (25-47); Mean Corpuscular HGB Conc 32 g/dl (31-36); Mean Corpuscular Hemoglobin 28 pg (27-31); Mean Corpuscular Volume 87 fL (80-94); Mean Platelet Volume 7.1 um3 (7.4-10.4); Nucleated Red Blood Cells % 0; Platelet Count 272 10^3/ul (150-450); Red Blood Count 3.92 10^6/ul (4.0-5.4); Red Cell Distribution Width 16 % (10.5-15); White Blood Count 5.8 10^3/ul (3.5-10.8)
[2017-07-25 06:44] LABS: EGFR Non-African American 54.1 (>60)
[2017-07-25 07:09] LABS: INR 1.02 (0.77-1.02)
--- NOTE | 2017-07-25 08:01 | PN ---
Subjective Date of Service: 07/25/17 Interval History: Patient was seen earlier today reporting he was feeling better after thorancentesis, feeling less short of breath. He reported he continues to feel very fluid overloaded in his LEs. This afternoon called to his room for uncontrolled coughing stating he felt he couldn't catch his breath, portable chest xray performed which looks like a slight improvement from prior xray and no noted pneumo (awaiting read from radiology), he now is breathing easy in NAD , O2 92% on 3L and appears comfortable. At the same time of the coughing spell the nurse noted he went into rapid afib with HR 130's. He reports he feels that for the last month he has been going in and out of rapid afib. He is a patient of Dr. Nam's, last time he saw him was about 1 year ago. He states he hasnt slept well in days d/t feeling SOB and has not been using his cpap because its broken. Objective Active Medications: Acetaminophen (Tylenol Tab*) 650 mg PO Q4H PRN PRN Reason: FEVER/PAIN Al Hydrox/Mg Hydrox/Simethicone (Maalox Plus*) 30 ml PO Q6H PRN PRN Reason: INDIGESTION Albuterol (Ventolin 2.5 Mg/3 Ml Neb.Cinthya*) 2.5 mg INH [id number] AWAKE PRN PRN Reason: sob/wheezing Albuterol (Ventolin 2.5 Mg/3 Ml Neb.Cinthya*) 2.5 mg INH QID [facility] Last Admin: 07/24/17 20:24 Dose: 2.5 mg Atorvastatin Calcium (Lipitor*) 20 mg PO DAILY [facility] Dextrose (D50w Syringe 50 Ml*) 12.5 gm IV PUSH .FOR FS < 60 - SS PRN PRN Reason: FS < 60 Diltiazem HCl (Cardizem Cd Cap*) 180 mg PO DAILY [facility] Docusate Sodium (Colace Cap*) 100 mg PO BID [facility] Last Admin: 07/24/17 20:45 Dose: 100 mg Fenofibrate (Tricor(Nf)) 160 mg PO Q24H STEFF PRN Reason: Protocol Last Admin: 07/24/17 20:43 Dose: 160 mg Fluticasone/Vilanterol (Breo Ellipta Mdi 200/25(Nf)) 1 puff INH DAILY [facility] Folic Acid (Folvite Tab*) 1 mg PO DAILY [facility] Furosemide (Lasix Tab*) 40 mg PO BID [facility] Last Admin: 07/24/17 20:43 Dose: 40 mg Hydrochlorothiazide (Hydrodiuril Tab*) 25 mg PO DAILY [facility] Insulin Human Lispro (Humalog*) 0 units SUBCUT AC [facility] PRN Reason: Protocol Last Admin: 07/24/17 17:56 Dose: Not Given Losartan Potassium (Cozaar Tab*) 100 mg PO DAILY [facility] Metformin HCl (Glucophage*) 1,000 mg PO BID [facility] Last Admin: 07/24/17 20:44 Dose: 1,000 mg Metoprolol Succinate (Toprol Xl Tab*) 100 mg PO BID [facility] Last Admin: 07/24/17 20:45 Dose: 100 mg Nystatin (Nystatin Top Powder*) 1 applic TOPICAL TID [facility] Last Admin: 07/24/17 23:57 Dose: 1 applic Spironolactone (Aldactone Tab*) 25 mg PO BID [facility] Last Admin: 07/24/17 20:45 Dose: 25 mg Vital Signs - 8 hr 07/25/17 07/25/17 01:36 03:22 Temperature 97.4 F Pulse Rate 74 Respiratory 24 Rate Blood Pressure 148/64 (mmHg) O2 Sat by Pulse 98 100 Oximetry Oxygen Devices in Use Now: Nasal Cannula Result Diagrams: 07/25/17 05:57 07/25/17 05:57 Additional Lab and Data: Lab Results 07/24/17 07/24/17 07/24/17 Range/Units 10:31 10:31 10:31 WBC 6.1 (3.5-10.8) 10^3/ul RBC 4.09 (4.0-5.4) 10^6/ul Hgb 11.7 L (14.0-18.0) g/dl Hct 35 L (42-52) % MCV 87 (80-94) fL MCH 29 (27-31) pg MCHC 33 (31-36) g/dl RDW 16 H (10.5-15) % Plt Count 283 (150-450) 10^3/ul MPV 7.1 L (7.4-10.4) um3 Neut % (Auto) 87.2 H (38-83) % Lymph % (Auto) 3.6 L (25-47) % [place] % (Auto) 6.2 (0-7) % Eos % (Auto) 2.7 (0-6) % Baso % (Auto) 0.3 (0-2) % Absolute Neuts (auto) 5.3 (1.5-7.7) 10^3/ul Absolute Lymphs (auto) 0.2 L (1.0-4.8) 10^3/ul Absolute Monos (auto) 0.4 (0-0.8) 10^3/ul Absolute Eos (auto) 0.2 (0-0.6) 10^3/ul Absolute Basos (auto) 0 (0-0.2) 10^3/ul Absolute Nucleated RBC 0 10^3/ul Nucleated RBC % 0 Sodium 141 (139-145) mmol/L Potassium 4.1 (3.5-5.0) mmol/L Chloride 96 L (101-111) mmol/L Carbon Dioxide 37 H (22-32) mmol/L Anion Gap 8 (2-11) mmol/L BUN 30 H (6-24) mg/dL Creatinine 1.28 H (0.67-1.17) mg/dL Est GFR ( Amer) 72.8 (>60) Est GFR (Non-Af Amer) 56.6 (>60) BUN/Creatinine Ratio 23.4 H (8-20) Glucose 143 H (70-100) mg/dL Lactic Acid 1.8 (0.5-2.0) mmol/L Calcium 10.1 (8.6-10.3) mg/dL Magnesium 1.9 (1.9-2.7) mg/dL Total Bilirubin 0.30 (0.2-1.0) mg/dL AST 16 (13-39) U/L ALT 26 (7-52) U/L Alkaline Phosphatase 40 (34-104) U/L Troponin I 0.01 (<0.04) ng/mL B-Natriuretic Peptide ( - 100) pg/mL Total Protein 7.5 (6.4-8.9) g/dL Albumin 4.2 (3.2-5.2) g/dL Globulin 3.3 (2-4) g/dL Albumin/Globulin Ratio 1.3 (1-3) 07/24/17 Range/Units 10:33 WBC (3.5-10.8) 10^3/ul RBC (4.0-5.4) 10^6/ul Hgb (14.0-18.0) g/dl Hct (42-52) % MCV (80-94) fL MCH (27-31) pg MCHC (31-36) g/dl RDW (10.5-15) % Plt Count (150-450) 10^3/ul MPV (7.4-10.4) um3 Neut % (Auto) (38-83) % Lymph % (Auto) (25-47) % [place] % (Auto) (0-7) % Eos % (Auto) (0-6) % Baso % (Auto) (0-2) % Absolute Neuts (auto) (1.5-7.7) 10^3/ul Absolute Lymphs (auto) (1.0-4.8) 10^3/ul Absolute Monos (auto) (0-0.8) 10^3/ul Absolute Eos (auto) (0-0.6) 10^3/ul Absolute Basos (auto) (0-0.2) 10^3/ul Absolute Nucleated RBC 10^3/ul Nucleated RBC % Sodium (139-145) mmol/L Potassium (3.5-5.0) mmol/L Chloride (101-111) mmol/L Carbon Dioxide (22-32) mmol/L Anion Gap (2-11) mmol/L BUN (6-24) mg/dL Creatinine (0.67-1.17) mg/dL Est GFR ( Amer) (>60) Est GFR (Non-Af Amer) (>60) BUN/Creatinine Ratio (8-20) Glucose (70-100) mg/dL Lactic Acid (0.5-2.0) mmol/L Calcium (8.6-10.3) mg/dL Magnesium (1.9-2.7) mg/dL Total Bilirubin (0.2-1.0) mg/dL AST (13-39) U/L ALT (7-52) U/L Alkaline Phosphatase (34-104) U/L Troponin I (<0.04) ng/mL B-Natriuretic Peptide 98 ( - 100) pg/mL Total Protein (6.4-8.9) g/dL Albumin (3.2-5.2) g/dL Globulin (2-4) g/dL Albumin/Globulin Ratio (1-3) Assess/Plan/Problems-Billing Assessment: Mr Ferrell is a 62 yo male with a PMH of diabetes, Sleep apnea, HLD, COPD, Diastolic CHF, HTN, afib s/p ablation currently in afib on xarelto, CAD s/ p bypass and stent placement, morbid obesity and recurrent right pleural effusion with hx of thorancentesis (1rst time May 2017) and again 2 weeks ago , now presenting with c/o SOB found to have a large right pleural effusion on imaging - Patient Problems (1) Pleural effusion Comment: - Recurrent pleural effusion - Appreciate consult today by Dr. Stephenson, please see dictated note for full details. Recommended CT chest, cardiology consult. Thought to be secondary to diastolic HF. - s/p thoracentesis of the right lung today 07/25 with 1550 ml of "fruit punch" fluid removed by radiologist. Fluid path pending. - continue lasix 40 mg po BID - gave extra dose of 40 mg IV @ 1300 - good urine output - echo pending - Cardiolgy consult pending - also on spironolactone and HCTZ as outpt which he has been continued on. (2) Atrial fibrillation Comment: - now in afib with RVR - per patient he has been going in and out of rapid afib for the past month. Initially was given metoprolol 5 mg IV with no effect. Soft BP - gave Dignoxin IV total 0.25 mg - better control at this time 90-105. Continue to monitor and treat as needed. - Continue home meds Metoprolol 100 mg BID, Cardizem 180 mg daily - ok to restart Eliquis this evening per Radiolgist (3) CKD (chronic kidney disease) Comment: - appears to be arond baseline. Monitor closely (4) COPD (chronic obstructive pulmonary disease) Comment: Stable. Continue O2, inhaled steroids and bronchodilators. (5) Coronary artery disease Comment: - Continue BB - Stable (6) Diabetes Current Visit: No Status: Acute Code(s): E11.9 - TYPE 2 DIABETES MELLITUS WITHOUT COMPLICATIONS SNOMED Code(s): 54468567 Comment: - Patient followed by [facility] at [facility] - Takes U-500 TID - Continue lispro SS for now (7) Hypertension Comment: - Controlled on metoprolol/ARB/HCTZ - continue lasix, aldactone (8) Morbid obesity Comment: - BMI 47 (9) DVT prophylaxis Comment: - Johnathon (10) Full code status Comment: - Full code Status and Disposition: Inpatient with recurrent pleural effusion requiring thorancentesis, possible acute on chronic chf and now rapid afib. Home when medically stable
[2017-07-25] MEDS ORDERED: Perflutren Lipid Microsphere* 3 ML VIAL ONE (08:31)
[2017-07-25] MEDS ORDERED: Aspirin EC TAB* 81 MG TAB.EC PO SCH (09:00)
[2017-07-25] MEDS ORDERED: Atorvastatin* 20 MG TAB PO SCH (09:00)
[2017-07-25] MEDS ORDERED: Losartan/HCTZ 100/25 (NF) TAB PO SCH (09:00)
[2017-07-25] MEDS: Insulin LISPRO* 1 UNITS UNIT SUBCUT SCH ×3 (09:03→17:25)
[2017-07-25] MEDS: FLUTICASONE INH SCH (09:26)
[2017-07-25] MEDS: VILANTEROL MDI INH SCH (09:26)
[2017-07-25] MEDS: Albuterol 2.5 MG/3 ML NEB.SOL* (0.083%) INH SCH ×4 (09:26→20:44)
[2017-07-25] MEDS: MDI INH SCH (09:26)
--- NOTE | 2017-07-25 10:28 | RAD ---
CPT II Codes: 6100F INDICATION: Persistent large right pleural effusion COMPARISON: Recent chest x-ray. PROCEDURE NOTE AND IMAGING FINDINGS: The benefits of the and risks of procedure explained to the patient. The patient consented of the exam. The patient was brought to the ultrasound suite and multiple images of the right hemithorax were obtained. There was a large pleural effusion present. The site was marked. A formal time out was performed before beginning the procedure. The patient was prepped and draped in the usual sterile fashion. The patient?s posterior chest wall was anesthetized with 1% lidocaine. A small skin ana was made to allow placement of the thoracentesis needle and catheter. Approximately 1550 mL of "fruit punch" colored fluid was aspirated. The patient tolerated the procedure without incident. IMPRESSION: Uncomplicated thoracentesis as described in the body of the report.
[2017-07-25] MEDS: metFORMIN* 500 MG TAB PO SCH (10:56)
[2017-07-25] MEDS: Diltiazem CD CAP* 180 MG PO SCH (10:56)
[2017-07-25] MEDS: Hydrochlorothiazide TAB* 25 MG PO SCH (10:56)
[2017-07-25] MEDS: Losartan TAB* 25 MG PO SCH (10:57)
[2017-07-25] MEDS: Metoprolol Succinate XL TAB* 100 MG PO SCH ×2 (10:57→21:24)
[2017-07-25] MEDS: Furosemide TAB* 20 MG PO SCH (10:57)
[2017-07-25] MEDS: Docusate CAP* 100 MG PO SCH ×2 (10:58→21:25)
[2017-07-25] MEDS: Folic Acid TAB* 1 MG PO SCH (10:58)
[2017-07-25] MEDS: Spironolactone TAB* 25 MG PO SCH ×2 (10:58→21:25)
[2017-07-25] MEDS: Nystatin TOP POWDER* 15 GM BTL TOPICAL SCH ×3 (10:59→21:27)
[2017-07-25] MEDS ORDERED: Furosemide IV* 10 MG/ML VIAL (40 MG) IV ONE (13:00)
[2017-07-25] MEDS ORDERED: Furosemide IV* 10 MG/ML VIAL (40 MG) IV SCH (13:00)
--- NOTE | 2017-07-25 13:08 | CONS ---
PULMONARY CONSULT REPORT: DATE OF CONSULT: 07/25/17 CONSULTATION REQUESTED BY: Isabell Andres NP REASON FOR CONSULTATION: Evaluation of pleural effusion. HISTORY OF PRESENT ILLNESS: 62-year-old male known to me from prior inpatient and outpatient evaluation with history of COPD; morbid obesity; hypertension; dyslipidemia; atrial fibrillation; sleep apnea; coronary artery disease, status post stent placement who presents with shortness of breath with worsening over the past few days prior to the presentation. The patient recently was seen in the emergency room 2 times for evaluation of the same complaint. The patient was noted to have moderate to large sized right pleural effusion, underwent thoracentesis. The patient has been having recurrence of shortness of breath and pleural effusion. The patient is on diuretics, has chronic lower extremity swelling. The patient claims to be compliant with diuretic regimen. The patient has significantly enlarged right lower extremity compared to the left. Patient reports that he felt better after thoracentesis was performed 2 weeks ago. He started having shortness of breath 2 to 3 days later. The patient denies significant cough or sputum production. He has clear phlegm production usually in the morning secondary to his underlying COPD. The patient reports being compliant with diet as prescribed. The patient reports that oxygen helps. Further evaluation in the emergency room revealed moderate sized right pleural effusion. The patient had thoracentesis 2 weeks ago at which time he was noted to have lymphocyte predominant pleural fluid with marked lymphocytosis. Flow cytometry was suggested. It was ordered last time; however , the results were not reported yet. The patient is in mild distress at this time. The patient also has significant lower extremity swelling. Last echocardiogram was in September of 2015. The patient was noted to have EF of 50% to 55% during that time. He was also noted to have mildly dilated right ventricle and moderately dilated left atrium with decreased right ventricular systolic function. The patient was given extra dose of Lasix and was started on 40 mg of Lasix. He is rate controlled at this time. His rhythm is regular. Blood pressure is slightly elevated. Patient had CT chest in 2016, which showed mild vascular congestion without parenchymal abnormalities. PAST MEDICAL HISTORY: 1. Diabetes. 2. Obstructive sleep apnea, on CPAP. 3. Atrial fibrillation, status post ablation, converted to sinus rhythm in the past and currently reverted back to atrial fibrillation. 4. Hyperlipidemia. 5. Hypertension. 6. Coronary artery disease, status post stent and bypass. 7. COPD. 8. Diastolic CHF. PAST SURGICAL HISTORY: Cardiac stents and bypass surgery in 2016. MEDICATIONS: 1. Colace. 2. Eliquis. 3. Folic acid. 4. Aldactone. 5. Restasis. 6. Metformin. 7. Metoprolol. 8. Losartan/hydrochlorothiazide. 9. Insulin. 10. Furosemide. 11. Breo. 12. Tricor. 13. Diltiazem. 14. Calcium carbonate. 15. Atorvastatin . 16. Aspirin. 17. Albuterol. ALLERGIES: NSAIDS. FAMILY HISTORY: Coronary artery disease with OR at age 43 and subsequently from stroke and heart attack. History of diabetes and cancer in the family. SOCIAL HISTORY: Nonsmoker currently, quit smoking long time ago. REVIEW OF SYSTEMS: All 14 systems were reviewed and as per HPI. PHYSICAL EXAM: The patient is in a recliner in no apparent distress. Vital Signs: Temperature 97.4, pulse 74 beats per minute, respiratory rate 24 per minute, O2 sat 100% on 3 L, blood pressure 148/64. HEENT: Pupils equal, reactive to light. Mucous membranes moist. Lungs: Diminished air entry at the bases bilaterally, right greater than left. Cardiovascular: S1, S2 present, irregular, rate controlled. Abdomen: Morbidly obese, nontender, nondistended. Bowel sounds present. Extremities: Pitting edema of lower extremities right greater than left. Skin: Erythema and chronic skin changes in lower extremities. Neurologic: Alert, awake, oriented x3. No focal deficits. DIAGNOSTIC STUDIES/LAB DATA: WBC count 5.8, hemoglobin 10.9, hematocrit 34, platelet count 272. INR 1.02. Sodium 139, potassium 4.3, chloride 94, bicarb 40, BUN 81, creatinine 1.33. BNP within normal limits at 98. Pulmonary function testing done in 2016 shows severe obstructive ventilatory defect and evidence of severe restriction, likely extrathoracic. Diffusion capacity was severely decreased, however, corrected when adjusted to alveolar ventilation. The patient also with hypoxemia with exertion noted on 6-minute walk test and has been compliant with oxygen. Chest x-ray performed on admission was personally reviewed by me, evidence of moderate sized right pleural effusion with basal atelectasis. IMPRESSION AND RECOMMENDATIONS: 62-year-old morbidly obese male with multiple comorbidities with recurrent pleural effusion on the right side requiring repeated thoracentesis and significant dyspnea on exertion. The patient with recurrent right pleural effusion and evidence of pulmonary vascular congestion concerning for possible heart failure related effusion. He had normal ejection fraction in the past, however, had evidence of diastolic dysfunction, history of chronic atrial fibrillation, currently back into atrial fibrillation. Most likely etiology of pleural effusion is cardiac. He recently had thoracentesis at which time he was noted to have lymphocyte predominant pleural effusion. Given history of chronic lower extremity pitting edema and recurrent pleural effusions, I am concerned about lymphoproliferative disorder or Amyloidosis. His blood count does not reveal significant leukocytosis or lymphocytosis. He does have mild anemia and hypoprotenemia which might also be contributing to pleural effusion. He might need age appropriate screening with colonoscopy. He also has severe chronic obstructive pulmonary disease and sleep apnea that he is not treating currently. He claims to be having issues with his current BiPAP machine. He does have significant hypercapnia on his labs. He might be having cor pulmonale secondary to underlying chronic obstructive pulmonary disease, obstructive sleep apnea, and pulmonary hypertension. Will repeat echocardiogram. The patient to undergo thoracentesis and possibly pleural biopsy on the right side today. Will send the fluid for cytology and all other testing. Will also check for flow cytometry, which was ordered last time but was not done. Will also obtain CT scan of the chest after the procedure. Echocardiogram to evaluate for pulmonary hypertension. He is back in atrial fibrillation; however, rate controlled. He is on two diuretics, BNP is not significantly elevated at this time. Recommend Cardiology consultation. I encouraged the patient to be compliant with CPAP therapy. He agreed to bring his machine. Will adjust the settings. He is otherwise compliant with his inhalers. Pleural biopsy would provide answers if it is lymphoproliferative disorder. Thank you for allowing us to participate in the care of your patient. Will follow up with you. [id number]/[facility] #: [id number] EMIL
[2017-07-25] MEDS ORDERED: Metoprolol Tartrate IV* 1 MG/ML 5 ML VIAL IV ONE (13:48)
--- NOTE | 2017-07-25 14:49 | RAD ---
HISTORY: Status post thoracentesis, cough, shortness of breath COMPARISONS: July 24, 2017 VIEWS: 1: frontal portable view of the chest at 2:26 PM FINDINGS: LINES AND TUBES: None. CARDIOMEDIASTINAL SILHOUETTE: The cardiac silhouette is enlarged. The cardiomediastinal silhouette is otherwise normal for portable technique. Metallic clip is noted overlying the cardiac silhouette. PLEURA: There is a small right pleural effusion. There is no appreciable pneumothorax. LUNG PARENCHYMA: There is a diffuse reticular pattern with indistinct pulmonary vessels. There is patchy alveolar opacification of the right lung base. ABDOMEN: The upper abdomen is clear. There is no subphrenic gas. BONES AND SOFT TISSUES: The patient is status post median sternotomy. IMPRESSION: 1. CARDIOMEGALY. 2. PULMONARY INTERSTITIAL EDEMA. 3. PATCHY AIRSPACE DISEASE OF THE RIGHT LUNG BASE
[2017-07-25] MEDS ORDERED: Digoxin IV* 0.5 MG/2 ML AMP (0.25 MG/ML) IV SLOW PU ONE ×2 (14:51→15:42)
[2017-07-25] MEDS ORDERED: Epoetin Alfa* 10,000 UNITS/ML VIAL SUBCUT ONE (15:00)
--- NOTE | 2017-07-25 16:44 | RAD ---
HISTORY: Pleural effusion status post right thoracentesis COMPARISONS: July 05, 2015 TECHNIQUE: Multiple contiguous axial CT scans of the chest were obtained without intravenous contrast. Coronal and sagittal multiplanar reformations are also submitted for review. FINDINGS: The study is limited by the lack of intravenous contrast. This limits evaluation of the solid organs and vasculature. NECK AND THYROID: The lower neck and thyroid are unremarkable. CHEST WALL: There is no lower cervical, axillary, or supraclavicular lymphadenopathy by size criteria. HEART AND PERICARDIUM: A vascular clip is noted along the left atrium. Coronary stents and coronary calcifications are noted. AORTA AND PULMONARY VASCULATURE: The aorta and pulmonary vasculature are normal. MEDIASTINUM: There are subcentimeter short axis right paratracheal and prevascular lymph nodes. SUDHIR: Evaluation of the sudhir is limited by the lack of intravenous contrast. There is no obvious hilar lymphadenopathy by size criteria. AIRWAY AND ESOPHAGUS: The airway is unremarkable, without endobronchial filling defect. The esophagus is grossly normal. LUNG PARENCHYMA: There is a spiculated nodule noted within the right middle lobe best seen on axial image 31 measuring approximately 1.9 cm in size. There is patchy groundglass opacification of the right lower lung. There are scattered small nodules that appear to be centrilobular noted along the right upper lobe. PLEURA: There are small to moderate bilateral pleural effusions. UPPER ABDOMEN: The upper abdomen is unremarkable. BONES AND SOFT TISSUES: The patient is status post median sternotomy. Mild degenerative changes are noted. OTHER: None. IMPRESSION: 1. THERE IS A 1.9 CM SPICULATED NODULE OF THE RIGHT MIDDLE LOBE. RECOMMEND CONSIDERATION OF FURTHER EVALUATION WITH PET/CT AND/OR TISSUE SAMPLING. 2. THERE IS CENTRILOBULAR NODULARITY OF THE RIGHT UPPER LOBE WHICH MAY REFLECT INFECTIOUS OR INFLAMMATORY PROCESS CENTERED ON THE AIRWAYS, THOUGH AIRWAY SPREAD OF NEOPLASM IS ALSO WITHIN THE DIFFERENTIAL. 3. SMALL TO MODERATE BILATERAL PLEURAL EFFUSIONS. 4. PATCHY AIRSPACE DISEASE OF THE RIGHT LOWER LOBE.
[2017-07-25] MEDS: Atorvastatin* 20 MG TAB PO SCH (16:55)
[2017-07-25] MEDS ORDERED: Furosemide TAB* 40 MG PO SCH (20:00)
[2017-07-25] MEDS ORDERED: Amiodarone TAB* 400 MG PO ONE (20:46)
--- NOTE | 2017-07-25 20:52 | CONSULT ---
Subjective Date of Service: 07/26/17 Interval History: Date of consult 07/25/2017 Service: Hospitalist PMD: FROILAN Lozada Lead Security Officer: Dr. Enio Nam CC: dyspnea Reason for consult: volume overload HPI Mr. Ferrell is a 62 year old man admitted with recurrent volume overload and repeat thoracentesis. He remains severely dyspneic with minimal exertion and volume overloaded on examination. His prior LVEF has been normal. An echocardiogram this admission was non-diagnostic. He also has a lung nodule and is being followed by Dr. Stephenson. His diuretic regimen is as below. This is a late note and last night I gave him 20 mg of torsemide instead of his 40 mg of lasix. He states he urinated all night and had 4 liters negative yesterday UOP. He was very satisfied with this result and is breathing much better. I suspect the lasix was not being absorbed adequately. He remains volume overloaded. He has had intermittent atrial fibrillation on monitor with elevated HR generally 110-120's at rest and he feels palpitations with this. He denies any chest discomfort or syncope. PMhx paroxysmal Atrial fibrillation Chronic respiratory failure Morbid obesity Obstructive sleep apnea syndrome Chronic obstructive lung disease Obesity Chronic ischemic heart disease Benign essential hypertension HFpEF HTN DM 2 PAST SURGICAL HISTORY: 1. PCI 2014 to AD 2. CABG 2016 DR. Steven Agudelo. SVG-acute marginal, ROBLERO-LAD, Maze procedure, BRODERICK clipping ALLERGIES TO MEDICATIONS: He is allergic to NSAIDS. FAMILY HISTORY: Father had a history of coronary artery disease with an OH at age 45 and subsequently from a stroke and heart attack at the age of 62. Mother, father, and grandmother all with diabetes, cancer. Mother had rectal cancer and grandmother had uterine cancer. SOCIAL HISTORY: Denies any tobacco use, denies alcohol use, denies drug use. He is currently disabled. He lives alone. Surrogate decision maker in the event he is unable to make his own decisions is his mother, Toshia Delcid. Her phone number is [phone]. Allergies: nsaids Medications Active Medications: Acetaminophen (Tylenol Tab*) 650 mg PO Q4H PRN PRN Reason: FEVER/PAIN Al Hydrox/Mg Hydrox/Simethicone (Maalox Plus*) 30 ml PO Q6H PRN PRN Reason: INDIGESTION Albuterol (Ventolin 2.5 Mg/3 Ml Neb.Luis*) 2.5 mg INH [id number] AWAKE PRN PRN Reason: sob/wheezing Albuterol (Ventolin 2.5 Mg/3 Ml Neb.Luis*) 2.5 mg INH QID [facility] Last Admin: 07/25/17 20:44 Dose: 2.5 mg Apixaban (Eliquis*) 5 mg PO BID [facility] Atorvastatin Calcium (Lipitor*) 20 mg PO DAILY@1700 [facility] Last Admin: 07/25/17 16:55 Dose: 20 mg Dextrose (D50w Syringe 50 Ml*) 12.5 gm IV PUSH .FOR FS < 60 - SS PRN PRN Reason: FS < 60 Diltiazem HCl (Cardizem Cd Cap*) 180 mg PO DAILY [facility] Last Admin: 07/25/17 10:56 Dose: 180 mg Docusate Sodium (Colace Cap*) 100 mg PO BID [facility] Last Admin: 07/25/17 10:58 Dose: 100 mg Fenofibrate (Tricor(Nf)) 160 mg PO Q24H [facility] PRN Reason: Protocol Last Admin: 07/24/17 20:43 Dose: 160 mg Fluticasone/Vilanterol (Breo Ellipta Mdi 200/25(Nf)) 1 puff INH DAILY [facility] Last Admin: 07/25/17 09:26 Dose: Not Given Folic Acid (Folvite Tab*) 1 mg PO DAILY [facility] Last Admin: 07/25/17 10:58 Dose: 1 mg Hydrochlorothiazide (Hydrodiuril Tab*) 25 mg PO DAILY [facility] Last Admin: 07/25/17 10:56 Dose: 25 mg Insulin Human Lispro (Humalog*) 0 units SUBCUT AC [facility] PRN Reason: Protocol Last Admin: 07/25/17 17:25 Dose: 6 units Losartan Potassium (Cozaar Tab*) 100 mg PO DAILY [facility] Last Admin: 07/25/17 10:57 Dose: 100 mg Metoprolol Succinate (Toprol Xl Tab*) 100 mg PO BID [facility] Last Admin: 07/25/17 10:57 Dose: 100 mg Nystatin (Nystatin Top Powder*) 1 applic TOPICAL TID [facility] Last Admin: 07/25/17 14:45 Dose: Not Given Spironolactone (Aldactone Tab*) 25 mg PO BID [facility] Last Admin: 07/25/17 10:58 Dose: 25 mg Torsemide (Demadex*) 20 mg PO BID [facility] Home Medications: Fenofibrate(NF) [Tricor(NF)] 160 mg PO DAILY 06/30/15 [History Confirmed ] Metoprolol Succinate XL TAB* [Toprol XL TAB*] 100 mg PO BID 06/30/15 [History Confirmed 07/24/17] metFORMIN* [Glucophage 500 MG TAB *] 1,000 mg PO BID 06/30/15 [History Confirmed 07/24/17] Spironolactone TAB* [Aldactone TAB 25 MG*] 25 mg PO BID 10/15/15 [History Confirmed 07/24/17] Diltiazem CD CAP* [Cardizem CD CAP*] 180 mg PO DAILY #30 cap.cd 10/17/15 [Rx Confirmed 07/24/17] Furosemide TAB* [Lasix TAB*] 40 mg PO BID #0 10/17/15 [Rx Confirmed 07/24/17] Albuterol 2.5MG/3ML (0.083%)* [Ventolin 2.5 MG/3 ML NEB.LUIS*] 2.5 mg INH QID 12/10 [History Confirmed 07/24/17] Atorvastatin* [Lipitor 20 MG*] 20 mg PO DAILY 05/03/17 [History Confirmed ] Docusate CAP* [Colace Cap*] 100 mg PO BID 05/03/17 [History Confirmed 07/24/17] Fluticasone/Vilanterol MDI(NF) [Breo Ellipta MDI 200/25(NF)] 1 puff PO DAILY 12/10 [History Confirmed 07/24/17] Insulin Regular 500 Unit/ml [Humulin R U-500 (Concentrated)] 0 - 20 unit SUBCUT QPM PRN 05/03/17 [History Confirmed 07/24/17] Insulin Regular 500 Unit/ml [Humulin R U-500 (Concentrated)] 26 unit SUBCUT .MIDDAY MEAL 05/03/17 [History Confirmed 07/24/17] Insulin Regular 500 Unit/ml [Humulin R U-500 (Concentrated)] 27 unit SUBCUT QAM 05/03/17 [History Confirmed 07/24/17] Losartan/HCTZ 100/25 (NF) [Hyzaar 100/25 (NF)] 1 tab PO DAILY 05/03/17 [History Confirmed 07/24/17] Nystatin TOP POWDER* 1 applic TOPICAL TID PRN #7 btl 05/05/17 [Rx Confirmed 05/12] Calcium Carb/Magnesium Oxid/D3 [Calcium Magnesium + D Tablet] 2 tab PO BID 06/05 [History Confirmed 07/24/17] Aspirin EC TAB* [Ecotrin EC Low Dose 81 MG*] 81 mg PO DAILY 06/07/17 [History Confirmed 07/24/17] Apixaban* [Eliquis*] 5 mg PO BID #0 07/11/17 [Rx Confirmed 07/24/17] Cyclosporine 0.05% OPHTH (NF) [Restasis 0.05% OPHTH] 1 drop BOTH EYES Q12H 07/24 [History Confirmed 07/24/17] Folic Acid TAB* [Folvite TAB*] 1 mg PO DAILY 07/24/17 [History Confirmed ] Review of Systems - Measurements Intake and Output: Intake and Output Last 24 Hours 07/23/17 07/24/17 07/25/17 07/26/17 06:59 06:59 06:59 06:59 Intake Total 448 1740 Output Total 1735 Balance 448 5 Weight 319 lb 11.2 oz Intake: IV Fluids 4 IVPB 4 Oral 440 1740 Output: Urine 1735 Other: Estimated Void Medium Medium # Bowel Movements 0 # Voids 3 1 - Review of Systems Constitutional Symptoms: Positive: Weight Gain, Fatigue Dermatology: Negative: Rash, Skin Lesions HEENT: Negative: Change in Hearing, Vertigo Eyes: Negative: Change in Vision, Double Vision Thyroid: Positive: Palpitations Negative: Cold Intolerance, Heat Intolerance, Tremor, Frequent Defecation, Constipation, Primary Hypothyroidism, Primary Hyperthyroidism, Weight Loss Pulmonary: Positive: Cough, Sputum, Wheezing, Respiratory Distress, Shortness of Breath, COPD, Exercise Intolerance Review of Systems Statement: All other review of systems negative, unless stated above. Objective Vital Signs: Temp Pulse Resp BP Pulse Ox 97.8 F 80 14 130/58 99 07/25/17 19:15 07/25/17 20:46 07/25/17 20:46 07/25/17 19:15 07/25/17 20:46 Oxygen Devices in Use Now: Nasal Cannula Appearance: obese Neck: Trachea Midline, - - uncertain jvp Respiratory: - - mildly increased work of breathing with decreased basilar breath sounds and no wheeze Cardiovascular: - - irregularly irregular, no significant murmur, 2+ pitting edema of legs with erythema Extremities: No Clubbing, Cyanosis Skin: No Rash or Ulcers Neurological: Alert and Oriented x 3 Laboratory Results: 07/25/17 05:57 07/25/17 05:57 INR (Anticoag Therapy) 1.02 (0.77-1.02) 07/25/17 05:57 APTT 35.1 seconds (26.0-36.3) 07/24/17 17:32 Total Bilirubin 0.30 mg/dL (0.2-1.0) 07/24/17 10:31 AST 16 U/L (13-39) 07/24/17 10:31 ALT 26 U/L (7-52) 07/24/17 10:31 Alkaline Phosphatase 40 U/L (34-104) 07/24/17 10:31 B-Natriuretic Peptide 98 pg/mL (-100) 07/24/17 10:33 Total Protein 7.5 g/dL (6.4-8.9) 07/24/17 10:31 Albumin 4.2 g/dL (3.2-5.2) 07/24/17 10:31 Globulin 3.3 g/dL (2-4) 07/24/17 10:31 Albumin/Globulin Ratio 1.3 (1-3) 07/24/17 10:31 TSH 3.53 mcIU/mL (0.34-5.60) 07/24/17 10:31 Diagnostic Imaging: Chest x-ray admission: Radiologist's impression: Pulmonary edema with reaccumulation of moderate large volume of right pleural effusion with associated bibasilar compressive atelectasis. Probable trace left pleural effusion, negative for pneumothorax. 08/2016 echo: mild--mod LVH, LVEF 60-65%, no significnat valvular abnormalities EKG Data: ekg 07/24/2017: Afib rate uncontrolled, RBBB, LAFB ekg 07/25/2017: NSR, RBBB, LAFB Assessment/Plan Mr. Ferrell is a 62 year old man admitted with symptomatic recurrent multifactorial volume overload, has had increased symptomatic paroxysmal atrial arrhythmias last week. A normal BNP argues against a strong cardiac component but may be falsely low due to obesity. - Change lasix 40 mg po bid to torsemide 20 mg po bid for better absorption ( ordered), trend I/o's, bmp, weights and uptitrate as tolerated - Continue HCTZ 25 mg po daily - Continue aldactone 25 mg po bid - Continue eliquis 5 mg po bid - It's difficult to say whether increased symptomatic PAfib burden caused or was a result of volume overload but I do think that at least in the short term we will start an oral amiodarone load to try to maintain sinus rhythm or at least have better rate control in addition to his toprol and diltiazem to help with HF management. - Given change in status and non-diagnostic echo he will need follow up with Dr. Nam for an LVEF evaluation which could be by repeat echo with special order optison, MUGA, DEBRA or cardiac MRI. He was unable to lay flat for this study and with more diuresis he may be able to have better positioning for a repeat study as an outpatient - Pulmonary following, has lung nodule, to ensure effusion not malignant. If not malignant then hopefully more adequate diuresis will help prevent need for another thoracentesis or eventual pleurodesis - Would restart aspirin if no contraindications - Lipid management per Dr. Nam, not adjusted today - Can add definity to allergy list - Patient needs to follow up with Dr. Nam after discharge Thank you for allowing me to participate in the cardiovascular care of this patient. Please do not hesitate to contact me with questions or concerns.
[2017-07-25] MEDS: Torsemide TAB* 20 MG PO SCH (21:24)
[2017-07-25] MEDS: Apixaban* 5 MG TAB PO SCH (21:25)
[2017-07-25] MEDS: FENOFIBRATE 160 MG PO SCH (21:25)
[2017-07-26 07:03] LABS: ABS Basophils 0 10^3/ul (0-0.2); ABS Eosinophils 0.2 10^3/ul (0-0.6); ABS Lymphocytes 0.2 10^3/ul (1.0-4.8); ABS Monocytes 0.4 10^3/ul (0-0.8); ABS Neutrophils 4.3 10^3/ul (1.5-7.7); ABS Nucleated RBC 0 10^3/ul; Eosinophil % 3.4 % (0-6); Hematocrit 35 % (42-52); Hemoglobin 11.5 g/dl (14.0-18.0); Lymphocyte % 3.3 % (25-47); Mean Corpuscular HGB Conc 33 g/dl (31-36); Mean Corpuscular Hemoglobin 28 pg (27-31); Mean Corpuscular Volume 86 fL (80-94); Mean Platelet Volume 7.2 um3 (7.4-10.4); Nucleated Red Blood Cells % 0; Platelet Count 244 10^3/ul (150-450); Red Blood Count 4.05 10^6/ul (4.0-5.4); Red Cell Distribution Width 15 % (10.5-15); White Blood Count 5.1 10^3/ul (3.5-10.8)
[2017-07-26] MEDS: Albuterol 2.5 MG/3 ML NEB.SOL* (0.083%) INH SCH ×4 (07:37→20:44)
[2017-07-26] MEDS: MDI INH SCH (07:43)
[2017-07-26] MEDS: VILANTEROL MDI INH SCH (07:43)
[2017-07-26] MEDS: FLUTICASONE INH SCH (07:43)
[2017-07-26] MEDS: Hydrochlorothiazide TAB* 25 MG PO SCH (08:14)
[2017-07-26] MEDS: Metoprolol Succinate XL TAB* 100 MG PO SCH ×2 (08:14→20:05)
[2017-07-26] MEDS: Diltiazem CD CAP* 180 MG PO SCH (08:14)
[2017-07-26] MEDS: Apixaban* 5 MG TAB PO SCH ×2 (08:14→20:05)
[2017-07-26] MEDS: Torsemide TAB* 20 MG PO SCH ×2 (08:14→20:05)
[2017-07-26] MEDS: Folic Acid TAB* 1 MG PO SCH (08:15)
[2017-07-26] MEDS: Spironolactone TAB* 25 MG PO SCH ×2 (08:15→20:05)
[2017-07-26] MEDS: Docusate CAP* 100 MG PO SCH ×2 (08:15→20:07)
[2017-07-26] MEDS: Losartan TAB* 25 MG PO SCH (08:15)
[2017-07-26] MEDS: Insulin LISPRO* 1 UNITS UNIT SUBCUT SCH ×3 (09:21→18:04)
[2017-07-26] MEDS: Amiodarone TAB* 400 MG PO SCH ×3 (09:42→20:05)
--- NOTE | 2017-07-26 09:49 | ECHO ---
Patient: OFELIA JI [facility] Rec#: [id number] : 1955 Date: 07/25/2017 Age: 62y Height: 175.3 cm / 69.0 in Weight: 142.9 kg / 315.0 lbs Sex: M BSA: 2.5 Room#: 451 Admit Date#: 07/24/2017 Type: Inpatient Referring: Isabell Andres Reading: Virgil Angel DO Window Shade Cutter And Mounter: Jessica Romeo RN RDCS Transthoracic Echocardiogram Indication: Shortness of breath, A. fib BP: 148/64 HR: 79 Rhythm: NSR Findings History: CAD, CABG, PCI, A. fib with ablation, COPD, CHF, HTN, HLD, WILLIE, scoliosis, morbid obesity, recurrent right pleural fluid with recent thoracentesis. Technical Comments: The study quality is poor. The study is technically limited due to poor acoustic windows. The study is technically limited due to patient body habitus. The study is technically limited due to the patient's history of COPD. The study was technically limited due to the patient's inability to lay in the left lateral decubitus position. The patient was sitting in a lounge chair during the exam. Left Ventricle: The left ventricle is not well visualized. Left Atrium: The left atrium is not well visualized. Right Ventricle: The right ventricle is not well visualized. Right Atrium: The right atrium is not well visualized. Aortic Valve: The aortic valve structure is not well visualized. There is no evidence of aortic regurgitation. There is no evidence of aortic stenosis. Mitral Valve: The mitral valve structure is not well visualized. There is trace to mild mitral regurgitation. There is no evidence of mitral stenosis. Tricuspid Valve: The tricuspid valve structure is not well visualized. Pulmonic Valve: The pulmonic valve structure is not well visualized. There is no evidence of pulmonic regurgitation. There is no pulmonic stenosis. Pericardium: There is no significant pericardial effusion. Aorta: There is no dilatation of the ascending aorta. There is mild dilatation of the aortic arch. There is no dilation of the aortic root. Pulmonary Artery: The main pulmonary artery is not well visualized. Venous: The inferior vena cava appears normal in size. There is less than 50% respiratory change in the inferior vena cava dimension. Contrast: Definity was used to optimize study. A total of 5 ml of diluted Definity was given IV. The patient developed transient low back pain, so no further Definity was given. Conclusions Definity was used to optimize study. A total of 5 ml of diluted Definity was given IV. The patient developed transient low back pain, so no further Definity was given. Optison is not on formulary. This study is largely non-diagnostic due to very poor windows. Measurements Name Value Normal Range RVIDd (AP) 2D 3.3 cm (0.9 - 2.6) IVSd (2D) 1.3 cm (0.6 - 1) LVPWd (2D) 1.1 cm (0.6 - 1) LVIDd (2D) 5.1 cm (3.6 - 5.4) Aortic Annulus 2.3 cm (1.4 - 2.6) Ao root diameter (2D) 3.5 cm (2.1 - 3.5) Ascending Ao 3.4 cm (2.1 - 3.4) Aortic arch 3.6 cm (1.8 - 3.4) LA dimension (AP) 2D 4 cm (2.3 - 3.8) Name Value Normal Range MV E-wave Vmax 1.1 m/sec - MV deceleration time 175 msec - MV A-wave Vmax 0.53 m/sec - MV E:A ratio 2.1 ratio - Name Value Normal Range AV Vmax 1 m/sec - AV VTI 17.6 cm - AV peak gradient 4 mmHg - AV mean gradient 2.6 mmHg - MELANIE Vmax 0.48 m/sec - Name Value Normal Range IVC diameter 2.1 cm - Name Value Normal Range PV Vmax 0.76 m/sec -
--- NOTE | 2017-07-26 10:30 | PN ---
Subjective Date of Service: 07/26/17 Interval History: f/u CHF, Afib Had excellent diuretic effect with torsemide yesterday, still remains volume overloaded and need more diuresis breathing better + palpitations had Afib rate 110-120's on monitor No syncope Medications Active Medications: Acetaminophen (Tylenol Tab*) 650 mg PO Q4H PRN PRN Reason: FEVER/PAIN Al Hydrox/Mg Hydrox/Simethicone (Maalox Plus*) 30 ml PO Q6H PRN PRN Reason: INDIGESTION Albuterol (Ventolin 2.5 Mg/3 Ml Neb.Cinthya*) 2.5 mg INH [id number] AWAKE PRN PRN Reason: sob/wheezing Albuterol (Ventolin 2.5 Mg/3 Ml Neb.Cinthya*) 2.5 mg INH QID [facility] Last Admin: 07/26/17 07:37 Dose: 2.5 mg Amiodarone HCl (Cordarone Tab*) 400 mg PO TID [facility] Last Admin: 07/26/17 09:42 Dose: 400 mg Apixaban (Eliquis*) 5 mg PO BID [facility] Last Admin: 07/26/17 08:14 Dose: 5 mg Atorvastatin Calcium (Lipitor*) 20 mg PO DAILY@1700 [facility] Last Admin: 07/25/17 16:55 Dose: 20 mg Dextrose (D50w Syringe 50 Ml*) 12.5 gm IV PUSH .FOR FS < 60 - SS PRN PRN Reason: FS < 60 Diltiazem HCl (Cardizem Cd Cap*) 180 mg PO DAILY [facility] Last Admin: 07/26/17 08:14 Dose: 180 mg Docusate Sodium (Colace Cap*) 100 mg PO BID [facility] Last Admin: 07/26/17 08:15 Dose: 100 mg Fenofibrate (Tricor(Nf)) 160 mg PO Q24H [facility] PRN Reason: Protocol Last Admin: 07/25/17 21:25 Dose: 160 mg Fluticasone/Vilanterol (Breo Ellipta Mdi 200/25(Nf)) 1 puff INH DAILY [facility] Last Admin: 07/26/17 07:43 Dose: Not Given Folic Acid (Folvite Tab*) 1 mg PO DAILY [facility] Last Admin: 07/26/17 08:15 Dose: 1 mg Hydrochlorothiazide (Hydrodiuril Tab*) 25 mg PO DAILY [facility] Last Admin: 07/26/17 08:14 Dose: 25 mg Insulin Human Lispro (Humalog*) 0 units SUBCUT AC [facility] PRN Reason: Protocol Last Admin: 07/26/17 09:21 Dose: 9 units Losartan Potassium (Cozaar Tab*) 100 mg PO DAILY [facility] Last Admin: 07/26/17 08:15 Dose: 100 mg Metoprolol Succinate (Toprol Xl Tab*) 100 mg PO BID [facility] Last Admin: 07/26/17 08:14 Dose: 100 mg Nystatin (Nystatin Top Powder*) 1 applic TOPICAL TID [facility] Last Admin: 07/25/17 21:27 Dose: Not Given Spironolactone (Aldactone Tab*) 25 mg PO BID [facility] Last Admin: 07/26/17 08:15 Dose: 25 mg Torsemide (Demadex*) 20 mg PO BID [facility] Last Admin: 07/26/17 08:14 Dose: 20 mg Objective Vital Signs: Temp Pulse Resp BP Pulse Ox 97.6 F 107 20 116/65 100 07/26/17 07:57 07/26/17 07:57 07/26/17 07:57 07/26/17 07:57 07/26/17 07:57 Oxygen Devices in Use Now: Nasal Cannula Appearance: obese Neck: Trachea Midline, - - uncertain jvp Respiratory: - - mildly increased work of breathing with decreased basilar breath sounds and no wheeze Cardiovascular: - - irregularly irregular, no significant murmur, 2+ pitting edema of legs with erythema Extremities: No Clubbing, Cyanosis Skin: No Rash or Ulcers Neurological: Alert and Oriented x 3 Laboratory Results: 07/26/17 06:35 07/26/17 06:35 INR (Anticoag Therapy) 1.02 (0.77-1.02) 07/25/17 05:57 APTT 35.1 seconds (26.0-36.3) 07/24/17 17:32 Total Bilirubin 0.30 mg/dL (0.2-1.0) 07/24/17 10:31 AST 16 U/L (13-39) 07/24/17 10:31 ALT 26 U/L (7-52) 07/24/17 10:31 Alkaline Phosphatase 40 U/L (34-104) 07/24/17 10:31 B-Natriuretic Peptide 98 pg/mL (-100) 07/24/17 10:33 Total Protein 7.5 g/dL (6.4-8.9) 07/24/17 10:31 Albumin 4.2 g/dL (3.2-5.2) 07/24/17 10:31 Globulin 3.3 g/dL (2-4) 07/24/17 10:31 Albumin/Globulin Ratio 1.3 (1-3) 07/24/17 10:31 Triglycerides 265 mg/dL 07/26/17 06:35 Cholesterol 141 mg/dL 07/26/17 06:35 LDL Cholesterol 63 mg/dL 07/26/17 06:35 HDL Cholesterol 25.0 mg/dL 07/26/17 06:35 TSH 3.53 mcIU/mL (0.34-5.60) 07/24/17 10:31 Diagnostic Imaging: Chest x-ray admission: Radiologist's impression: Pulmonary edema with reaccumulation of moderate large volume of right pleural effusion with associated bibasilar compressive atelectasis. Probable trace left pleural effusion, negative for pneumothorax. 08/2016 echo: mild--mod LVH, LVEF 60-65%, no significnat valvular abnormalities EKG Data: ekg 07/24/2017: Afib rate uncontrolled, RBBB, LAFB ekg 07/25/2017: NSR, RBBB, LAFB Assessment/Plan Mr. Ferrell is a 62 year old man admitted with symptomatic recurrent multifactorial volume overload, has had increased symptomatic paroxysmal atrial arrhythmias last week. A normal BNP argues against a strong cardiac component but may be falsely low due to obesity. - Continue current cardiac medications and trend i/o, bmp, weights titrate diuretics as needed - Afib rates remain uncontrolled not stable for discharge today. - Would restart aspirin if no contraindications - Can add definity to allergy list - Patient needs to follow up with Dr. Nam after discharge Thank you for allowing me to participate in the cardiovascular care of this patient. Please do not hesitate to contact me with questions or concerns.
[2017-07-26] MEDS: Nystatin TOP POWDER* 15 GM BTL TOPICAL SCH ×3 (11:12→20:07)
--- NOTE | 2017-07-26 15:31 | PN ---
Progress Note - Progress Note Date of Service: 07/26/17 Note: Pt seen and examined at bedside. Pt reports improvement in breathing after thoracentesis and diuresis Active Medications Generic Name Dose Route Start Last Admin Trade Name Freq PRN Reason Stop Dose Admin Acetaminophen 650 mg 07/24/17 12:47 Tylenol Tab* PO Q4H PRN FEVER/PAIN Al Hydrox/Mg Hydrox/Simethicone 30 ml 07/24/17 12:47 Maalox Plus* PO Q6H PRN INDIGESTION Albuterol 2.5 mg 07/24/17 12:47 Ventolin 2.5 Mg/3 Ml Neb.Cinthya* INH [id number] AWAKE PRN sob/wheezing Albuterol 2.5 mg 07/24/17 13:00 07/26/17 13:23 Ventolin 2.5 Mg/3 Ml Neb.Cinthya* INH 2.5 mg QID [facility] Administration Amiodarone HCl 400 mg 07/26/17 09:00 07/26/17 14:19 Cordarone Tab* PO 400 mg TID [facility] Administration Apixaban 5 mg 07/25/17 21:00 07/26/17 08:14 Eliquis* PO 5 mg BID [facility] Administration Atorvastatin Calcium 20 mg 07/25/17 17:00 07/25/17 16:55 Lipitor* PO 20 mg DAILY@1700 [facility] Administration Dextrose 12.5 gm 07/24/17 14:00 D50w Syringe 50 Ml* IV PUSH .FOR FS < 60 - SS PRN FS < 60 Diltiazem HCl 180 mg 07/25/17 09:00 07/26/17 08:14 Cardizem Cd Cap* PO 180 mg DAILY [facility] Administration Docusate Sodium 100 mg 07/24/17 21:00 07/26/17 08:15 Colace Cap* PO 100 mg BID [facility] Administration Fenofibrate 160 mg 07/24/17 21:00 07/25/17 21:25 Tricor(Nf) PO 160 mg Q24H [facility] Administration Protocol Fluticasone/Vilanterol 1 puff 07/25/17 09:00 07/26/17 07:43 Breo Ellipta Mdi 200/25(Nf) INH Not Given DAILY [facility] Folic Acid 1 mg 07/25/17 09:00 07/26/17 08:15 Folvite Tab* PO 1 mg DAILY [facility] Administration Hydrochlorothiazide 25 mg 07/25/17 09:00 07/26/17 08:14 Hydrodiuril Tab* PO 25 mg DAILY [facility] Administration Insulin Human Lispro 0 units 07/24/17 16:30 07/26/17 12:10 Humalog* SUBCUT 15 units AC [facility] Administration Protocol Losartan Potassium 100 mg 07/25/17 09:00 07/26/17 08:15 Cozaar Tab* PO 100 mg DAILY [facility] Administration Metoprolol Succinate 100 mg 07/24/17 21:00 07/26/17 08:14 Toprol Xl Tab* PO 100 mg BID [facility] Administration Nystatin 1 applic 07/24/17 22:00 07/26/17 14:24 Nystatin Top Powder* TOPICAL Not Given TID [facility] Spironolactone 25 mg 07/24/17 21:00 07/26/17 08:15 Aldactone Tab* PO 25 mg BID [facility] Administration Torsemide 20 mg 07/25/17 21:00 07/26/17 08:14 Demadex* PO 20 mg BID [facility] Administration Vital Signs Temp Pulse Resp BP Pulse Ox 97.7 F 90 16 114/51 98 07/26/17 11:03 07/26/17 13:24 07/26/17 13:24 07/26/17 11:03 07/26/17 13:24 O/E: Pt in NAD, morbidly obese male HEENT: PERRLA, No JVD Lungs: Diminished air entry at bases CVS: S1, S2+, irregular Abd: Obese, BS+ Ext: Normal ROM, edema + Skin: No rash Neuro: No focal defecits Laboratory Results - last 24 hr 07/25/17 07/25/17 07/25/17 09:45 09:45 09:45 WBC RBC Hgb Hct MCV MCH MCHC RDW Plt Count MPV Neut % (Auto) Lymph % (Auto) Winkler % (Auto) Eos % (Auto) Baso % (Auto) Absolute Neuts (auto) Absolute Lymphs (auto) Absolute Monos (auto) Absolute Eos (auto) Absolute Basos (auto) Absolute Nucleated RBC Nucleated RBC % Sodium Potassium Chloride Carbon Dioxide Anion Gap BUN Creatinine Est GFR ( Amer) Est GFR (Non-Af Amer) BUN/Creatinine Ratio Glucose POC Glucose (mg/dL) Hemoglobin A1c Calcium Magnesium Triglycerides Cholesterol LDL Cholesterol HDL Cholesterol Fluid Source Pleural fluid Pleural fluid Fluid Cell Count Rvw By Fluid Total Protein 4.9 Fluid LDH 118 07/25/17 07/26/17 07/26/17 17:03 06:35 06:35 WBC 5.1 RBC 4.05 Hgb 11.5 L Hct 35 L MCV 86 MCH 28 MCHC 33 RDW 15 Plt Count 244 MPV 7.2 L Neut % (Auto) 84.5 H Lymph % (Auto) 3.3 L Winkler % (Auto) 8.7 H Eos % (Auto) 3.4 Baso % (Auto) 0.1 Absolute Neuts (auto) 4.3 Absolute Lymphs (auto) 0.2 L Absolute Monos (auto) 0.4 Absolute Eos (auto) 0.2 Absolute Basos (auto) 0 Absolute Nucleated RBC 0 Nucleated RBC % 0 Sodium 136 L Potassium 4.0 Chloride 91 L Carbon Dioxide 39 H Anion Gap 6 BUN 32 H Creatinine 1.20 H Est GFR ( Amer) 78.4 Est GFR (Non-Af Amer) 61.0 BUN/Creatinine Ratio 26.7 H Glucose 268 H POC Glucose (mg/dL) 222 H Hemoglobin A1c Calcium 9.4 Magnesium 1.8 L Triglycerides 265 Cholesterol 141 LDL Cholesterol 63 HDL Cholesterol 25.0 Fluid Source Fluid Cell Count Rvw By Fluid Total Protein Fluid LDH 07/26/17 07/26/17 07/26/17 06:35 07:40 11:43 WBC RBC Hgb Hct MCV MCH MCHC RDW Plt Count MPV Neut % (Auto) Lymph % (Auto) Winkler % (Auto) Eos % (Auto) Baso % (Auto) Absolute Neuts (auto) Absolute Lymphs (auto) Absolute Monos (auto) Absolute Eos (auto) Absolute Basos (auto) Absolute Nucleated RBC Nucleated RBC % Sodium Potassium Chloride Carbon Dioxide Anion Gap BUN Creatinine Est GFR ( Amer) Est GFR (Non-Af Amer) BUN/Creatinine Ratio Glucose POC Glucose (mg/dL) 281 H 354 H Hemoglobin A1c 7.0 H Calcium Magnesium Triglycerides Cholesterol LDL Cholesterol HDL Cholesterol Fluid Source Fluid Cell Count Rvw By Fluid Total Protein Fluid LDH I/R: 62-year-old morbidly obese male with multiple comorbidities with recurrent pleural effusion on the right side requiring repeated thoracentesis and significant dyspnea on exertion. Pleural effusion likely heart failure related effusion. Reports improvement in breathing post thoracentesis and also with diuresis, was able to sleep well in chair Lymphocyte predominant pleural effusion, cytology pending, protein is also elevated which could be seen in long standing effusion. Given history of chronic lower extremity pitting edema and recurrent pleural effusions, I am concerned about lymphoproliferative disorder or Amyloidosis. His blood count does not reveal significant leukocytosis or lymphocytosis. Needs evaluation of anemia CT chest was reviewed personally and with pt- Moderate b/l effusions R>L, basal atelectasis, Rt middle lobe nodule, small mediastinal nodes and scattered air space opacities in left lung- Sec to heart failure. Will need to evaluate further with PET scan to r/o malignancy, will schedule as out pt and assess need for biopsy after PET scan He also has severe chronic obstructive pulmonary disease and sleep apnea , could not tolerate BiPAP at home, was on auto CPAP last night, used and felt better. He was advised to use his BiPAP auto tonight
[2017-07-26] MEDS: Atorvastatin* 20 MG TAB PO SCH (18:03)
--- NOTE | 2017-07-26 19:04 | PN ---
Subjective Date of Service: 07/26/17 Interval History: Feels better today. Less SOB, notes his legs are less swollen. No new c/o. Objective Active Medications: Acetaminophen (Tylenol Tab*) 650 mg PO Q4H PRN PRN Reason: FEVER/PAIN Al Hydrox/Mg Hydrox/Simethicone (Maalox Plus*) 30 ml PO Q6H PRN PRN Reason: INDIGESTION Albuterol (Ventolin 2.5 Mg/3 Ml Neb.Cinthya*) 2.5 mg INH [id number] AWAKE PRN PRN Reason: sob/wheezing Albuterol (Ventolin 2.5 Mg/3 Ml Neb.Cinthya*) 2.5 mg INH QID [facility] Last Admin: 07/26/17 16:17 Dose: 2.5 mg Amiodarone HCl (Cordarone Tab*) 400 mg PO TID [facility] Last Admin: 07/26/17 14:19 Dose: 400 mg Apixaban (Eliquis*) 5 mg PO BID [facility] Last Admin: 07/26/17 08:14 Dose: 5 mg Atorvastatin Calcium (Lipitor*) 20 mg PO DAILY@1700 [facility] Last Admin: 07/26/17 18:03 Dose: 20 mg Cyclosporine (Restasis 0.05% Oph) 1 drop BOTH EYES Q12H [facility] PRN Reason: Protocol Dextrose (D50w Syringe 50 Ml*) 12.5 gm IV PUSH .FOR FS < 60 - SS PRN PRN Reason: FS < 60 Diltiazem HCl (Cardizem Cd Cap*) 180 mg PO DAILY [facility] Last Admin: 07/26/17 08:14 Dose: 180 mg Docusate Sodium (Colace Cap*) 100 mg PO BID [facility] Last Admin: 07/26/17 08:15 Dose: 100 mg Fenofibrate (Tricor(Nf)) 160 mg PO Q24H [facility] PRN Reason: Protocol Last Admin: 07/25/17 21:25 Dose: 160 mg Fluticasone/Vilanterol (Breo Ellipta Mdi 200/25(Nf)) 1 puff INH DAILY [facility] Last Admin: 07/26/17 07:43 Dose: Not Given Folic Acid (Folvite Tab*) 1 mg PO DAILY [facility] Last Admin: 07/26/17 08:15 Dose: 1 mg Hydrochlorothiazide (Hydrodiuril Tab*) 25 mg PO DAILY [facility] Last Admin: 07/26/17 08:14 Dose: 25 mg Insulin Human Lispro (Humalog*) 0 units SUBCUT AC [facility] PRN Reason: Protocol Last Admin: 07/26/17 18:04 Dose: 15 units Losartan Potassium (Cozaar Tab*) 100 mg PO DAILY [facility] Last Admin: 07/26/17 08:15 Dose: 100 mg Metoprolol Succinate (Toprol Xl Tab*) 100 mg PO BID [facility] Last Admin: 07/26/17 08:14 Dose: 100 mg Nystatin (Nystatin Top Powder*) 1 applic TOPICAL TID [facility] Last Admin: 07/26/17 14:24 Dose: Not Given Spironolactone (Aldactone Tab*) 25 mg PO BID [facility] Last Admin: 07/26/17 08:15 Dose: 25 mg Torsemide (Demadex*) 20 mg PO BID [facility] Last Admin: 07/26/17 08:14 Dose: 20 mg Vital Signs - 8 hr 07/26/17 07/26/17 07/26/17 11:03 13:24 15:17 Temperature 97.7 F 98.2 F Pulse Rate 97 90 95 Respiratory 16 16 20 Rate Blood Pressure 114/51 102/56 (mmHg) O2 Sat by Pulse 100 98 98 Oximetry 07/26/17 16:19 Temperature Pulse Rate 62 Respiratory 14 Rate Blood Pressure (mmHg) O2 Sat by Pulse 98 Oximetry Oxygen Devices in Use Now: Nasal Cannula Appearance: Alert, partly up in recliner chair with legs elevated. In good spirits. Looks comfortable. Eyes: No Scleral Icterus Neck: NL Appearance and Movements; NL JVP, No Thyroid Enlargement, Masses Respiratory: Symmetrical Chest Expansion and Respiratory Effort, Clear to Percussion, - - Sl decreased BS at bases BL Cardiovascular: - - Distant heart sounds, irreg. 1-2+ edema BL Neurological: Alert and Oriented x 3, NL Sensation Result Diagrams: 07/26/17 06:35 07/26/17 06:35 Additional Lab and Data: Lab Results 07/24/17 07/24/17 07/24/17 Range/Units 10:31 10:31 10:31 WBC 6.1 (3.5-10.8) 10^3/ul RBC 4.09 (4.0-5.4) 10^6/ul Hgb 11.7 L (14.0-18.0) g/dl Hct 35 L (42-52) % MCV 87 (80-94) fL MCH 29 (27-31) pg MCHC 33 (31-36) g/dl RDW 16 H (10.5-15) % Plt Count 283 (150-450) 10^3/ul MPV 7.1 L (7.4-10.4) um3 Neut % (Auto) 87.2 H (38-83) % Lymph % (Auto) 3.6 L (25-47) % Atkinson % (Auto) 6.2 (0-7) % Eos % (Auto) 2.7 (0-6) % Baso % (Auto) 0.3 (0-2) % Absolute Neuts (auto) 5.3 (1.5-7.7) 10^3/ul Absolute Lymphs (auto) 0.2 L (1.0-4.8) 10^3/ul Absolute Monos (auto) 0.4 (0-0.8) 10^3/ul Absolute Eos (auto) 0.2 (0-0.6) 10^3/ul Absolute Basos (auto) 0 (0-0.2) 10^3/ul Absolute Nucleated RBC 0 10^3/ul Nucleated RBC % 0 Sodium 141 (139-145) mmol/L Potassium 4.1 (3.5-5.0) mmol/L Chloride 96 L (101-111) mmol/L Carbon Dioxide 37 H (22-32) mmol/L Anion Gap 8 (2-11) mmol/L BUN 30 H (6-24) mg/dL Creatinine 1.28 H (0.67-1.17) mg/dL Est GFR ( Amer) 72.8 (>60) Est GFR (Non-Af Amer) 56.6 (>60) BUN/Creatinine Ratio 23.4 H (8-20) Glucose 143 H (70-100) mg/dL Lactic Acid 1.8 (0.5-2.0) mmol/L Calcium 10.1 (8.6-10.3) mg/dL Magnesium 1.9 (1.9-2.7) mg/dL Total Bilirubin 0.30 (0.2-1.0) mg/dL AST 16 (13-39) U/L ALT 26 (7-52) U/L Alkaline Phosphatase 40 (34-104) U/L Troponin I 0.01 (<0.04) ng/mL B-Natriuretic Peptide ( - 100) pg/mL Total Protein 7.5 (6.4-8.9) g/dL Albumin 4.2 (3.2-5.2) g/dL Globulin 3.3 (2-4) g/dL Albumin/Globulin Ratio 1.3 (1-3) 07/24/17 Range/Units 10:33 WBC (3.5-10.8) 10^3/ul RBC (4.0-5.4) 10^6/ul Hgb (14.0-18.0) g/dl Hct (42-52) % MCV (80-94) fL MCH (27-31) pg MCHC (31-36) g/dl RDW (10.5-15) % Plt Count (150-450) 10^3/ul MPV (7.4-10.4) um3 Neut % (Auto) (38-83) % Lymph % (Auto) (25-47) % Atkinson % (Auto) (0-7) % Eos % (Auto) (0-6) % Baso % (Auto) (0-2) % Absolute Neuts (auto) (1.5-7.7) 10^3/ul Absolute Lymphs (auto) (1.0-4.8) 10^3/ul Absolute Monos (auto) (0-0.8) 10^3/ul Absolute Eos (auto) (0-0.6) 10^3/ul Absolute Basos (auto) (0-0.2) 10^3/ul Absolute Nucleated RBC 10^3/ul Nucleated RBC % Sodium (139-145) mmol/L Potassium (3.5-5.0) mmol/L Chloride (101-111) mmol/L Carbon Dioxide (22-32) mmol/L Anion Gap (2-11) mmol/L BUN (6-24) mg/dL Creatinine (0.67-1.17) mg/dL Est GFR ( Amer) (>60) Est GFR (Non-Af Amer) (>60) BUN/Creatinine Ratio (8-20) Glucose (70-100) mg/dL Lactic Acid (0.5-2.0) mmol/L Calcium (8.6-10.3) mg/dL Magnesium (1.9-2.7) mg/dL Total Bilirubin (0.2-1.0) mg/dL AST (13-39) U/L ALT (7-52) U/L Alkaline Phosphatase (34-104) U/L Troponin I (<0.04) ng/mL B-Natriuretic Peptide 98 ( - 100) pg/mL Total Protein (6.4-8.9) g/dL Albumin (3.2-5.2) g/dL Globulin (2-4) g/dL Albumin/Globulin Ratio (1-3) Microbiology and Other Data: Microbiology 07/25/17 09:45 Gram Stain - Final Misc Source (See Comment) - Other 07/25/17 09:45 Sterile Body Fluid Culture - Preliminary Pleural Fluid No Growth Day 1 Sterile Body Fluid Culture - Preliminary No Growth Day 1 Assess/Plan/Problems-Billing Assessment: Mr Ferrell is a 62 yo male with a PMH of diabetes, Sleep apnea, HLD, COPD, Diastolic CHF, HTN, afib s/p ablation currently in afib on xarelto, CAD s/ p bypass and stent placement, morbid obesity and recurrent right pleural effusion with hx of thorancentesis (1rst time May 2017) and again 2 weeks ago , now presenting with c/o SOB found to have a large right pleural effusion on imaging - Patient Problems (1) Pleural effusion Current Visit: Yes Status: Acute Code(s): J90 - PLEURAL EFFUSION, NOT ELSEWHERE CLASSIFIED SNOMED Code(s): 18320508 Comment: - Recurrent pleural effusion - CT chest showed RML nodule. - s/p thoracentesis of the right lung 07/25 with 1550 ml of "fruit punch" fluid removed by radiologist. Fluid path benign. - continue torsemide 20 mg po BID BMP 5/. - echo gave no useful information due to technical limitations. - - also on spironolactone and HCTZ as outpt which he has been continued on. (2) CKD (chronic kidney disease) Current Visit: Yes Status: Chronic Code(s): N18.9 - CHRONIC KIDNEY DISEASE, UNSPECIFIED SNOMED Code(s): 127787862 Comment: Stable. BMP 5/. (3) Atrial fibrillation Current Visit: Yes Status: Chronic Code(s): I48.91 - UNSPECIFIED ATRIAL FIBRILLATION SNOMED Code(s): 52933955 Comment: - Continue home meds Metoprolol XL 100 mg BID, Cardizem 180 mg daily , apixaban. Status and Disposition: Inpatient with recurrent pleural effusion requiring thorancentesis, possible acute on chronic chf and now rapid afib. Home when medically stable
[2017-07-26] MEDS: Cyclosporine 0.05% OPHTH (NF) 0.4 ML VIAL BOTH EYES SCH (19:22)
[2017-07-26] MEDS: FENOFIBRATE 160 MG PO SCH (20:05)
[2017-07-27] MEDS: Cyclosporine 0.05% OPHTH (NF) 0.4 ML VIAL BOTH EYES SCH ×2 (06:00→17:29)
[2017-07-27 06:27] LABS: EGFR Non-African American 56.1 (>60)
[2017-07-27] MEDS: Albuterol 2.5 MG/3 ML NEB.SOL* (0.083%) INH SCH ×4 (07:51→21:24)
[2017-07-27] MEDS: Insulin LISPRO* 1 UNITS UNIT SUBCUT SCH ×3 (08:00→17:52)
[2017-07-27] MEDS: Amiodarone TAB* 400 MG PO SCH (08:02)
[2017-07-27] MEDS: Docusate CAP* 100 MG PO SCH ×2 (08:02→21:02)
[2017-07-27] MEDS: Losartan TAB* 25 MG PO SCH (08:02)
[2017-07-27] MEDS: Apixaban* 5 MG TAB PO SCH ×2 (08:02→21:03)
[2017-07-27] MEDS: Hydrochlorothiazide TAB* 25 MG PO SCH (08:02)
[2017-07-27] MEDS: Diltiazem CD CAP* 180 MG PO SCH (08:02)
[2017-07-27] MEDS: Torsemide TAB* 20 MG PO SCH ×2 (08:03→21:02)
[2017-07-27] MEDS: Folic Acid TAB* 1 MG PO SCH (08:03)
[2017-07-27] MEDS: Metoprolol Succinate XL TAB* 100 MG PO SCH ×2 (08:03→21:02)
[2017-07-27] MEDS: Nystatin TOP POWDER* 15 GM BTL TOPICAL SCH ×3 (08:03→21:04)
[2017-07-27] MEDS: Spironolactone TAB* 25 MG PO SCH ×2 (08:03→21:04)
[2017-07-27] MEDS: FLUTICASONE INH SCH (08:04)
[2017-07-27] MEDS: VILANTEROL MDI INH SCH (08:04)
[2017-07-27] MEDS: MDI INH SCH (08:04)
--- NOTE | 2017-07-27 12:32 | PN ---
Subjective Date of Service: 07/27/17 Interval History: f/u CHF, Afib Continues heavy diuresis Breathing continues to improve has not normalized remains on 02 SBP 100-110's Converted to sinus rhythm ovenright no further palpitations Medications Active Medications: Acetaminophen (Tylenol Tab*) 650 mg PO Q4H PRN PRN Reason: FEVER/PAIN Al Hydrox/Mg Hydrox/Simethicone (Maalox Plus*) 30 ml PO Q6H PRN PRN Reason: INDIGESTION Albuterol (Ventolin 2.5 Mg/3 Ml Neb.Cinthya*) 2.5 mg INH [id number] AWAKE PRN PRN Reason: sob/wheezing Albuterol (Ventolin 2.5 Mg/3 Ml Neb.Cinthya*) 2.5 mg INH QID [facility] Last Admin: 07/27/17 07:51 Dose: 2.5 mg Amiodarone HCl (Cordarone Tab*) 200 mg PO DAILY [facility] Apixaban (Eliquis*) 5 mg PO BID [facility] Last Admin: 07/27/17 08:02 Dose: 5 mg Atorvastatin Calcium (Lipitor*) 20 mg PO DAILY@1700 [facility] Last Admin: 07/26/17 18:03 Dose: 20 mg Cyclosporine (Restasis 0.05% Ophth) 1 drop BOTH EYES Q12H [facility] PRN Reason: Protocol Last Admin: 07/27/17 06:00 Dose: Not Given Dextrose (D50w Syringe 50 Ml*) 12.5 gm IV PUSH .FOR FS < 60 - SS PRN PRN Reason: FS < 60 Diltiazem HCl (Cardizem Cd Cap*) 180 mg PO DAILY [facility] Last Admin: 07/27/17 08:02 Dose: 180 mg Docusate Sodium (Colace Cap*) 100 mg PO BID [facility] Last Admin: 07/27/17 08:02 Dose: 100 mg Fenofibrate (Tricor(Nf)) 160 mg PO Q24H [facility] PRN Reason: Protocol Last Admin: 07/26/17 20:05 Dose: 160 mg Fluticasone/Vilanterol (Breo Ellipta Mdi 200/25(Nf)) 1 puff INH DAILY [facility] Last Admin: 07/27/17 08:04 Dose: Not Given Folic Acid (Folvite Tab*) 1 mg PO DAILY [facility] Last Admin: 07/27/17 08:03 Dose: 1 mg Hydrochlorothiazide (Hydrodiuril Tab*) 25 mg PO DAILY [facility] Last Admin: 07/27/17 08:02 Dose: 25 mg Insulin Human Lispro (Humalog*) 0 units SUBCUT AC [facility] PRN Reason: Protocol Last Admin: 07/27/17 08:00 Dose: 12 units Losartan Potassium (Cozaar Tab*) 50 mg PO DAILY [facility] Metoprolol Succinate (Toprol Xl Tab*) 100 mg PO BID [facility] Last Admin: 07/27/17 08:03 Dose: 100 mg Nystatin (Nystatin Top Powder*) 1 applic TOPICAL TID [facility] Last Admin: 07/27/17 08:03 Dose: Not Given Spironolactone (Aldactone Tab*) 25 mg PO BID [facility] Last Admin: 07/27/17 08:03 Dose: 25 mg Torsemide (Demadex*) 20 mg PO BID [facility] Last Admin: 07/27/17 08:03 Dose: 20 mg Objective Vital Signs: Temp Pulse Resp BP Pulse Ox 97.5 F 103 18 109/71 100 07/27/17 08:03 07/27/17 08:03 07/27/17 08:03 07/27/17 08:03 07/27/17 08:03 Oxygen Devices in Use Now: Nasal Cannula Appearance: obese Neck: Trachea Midline, - - uncertain jvp Respiratory: - - mildly increased work of breathing with decreased basilar breath sounds and no wheeze Cardiovascular: - - RRR, no significantmurmur, trace to 1+ edema b/l Extremities: No Clubbing, Cyanosis, - Skin: No Rash or Ulcers Neurological: Alert and Oriented x 3 Laboratory Results: 07/26/17 06:35 07/27/17 05:53 INR (Anticoag Therapy) 1.02 (0.77-1.02) 07/25/17 05:57 APTT 35.1 seconds (26.0-36.3) 07/24/17 17:32 Total Bilirubin 0.30 mg/dL (0.2-1.0) 07/24/17 10:31 AST 16 U/L (13-39) 07/24/17 10:31 ALT 26 U/L (7-52) 07/24/17 10:31 Alkaline Phosphatase 40 U/L (34-104) 07/24/17 10:31 B-Natriuretic Peptide 98 pg/mL (-100) 07/24/17 10:33 Total Protein 7.5 g/dL (6.4-8.9) 07/24/17 10:31 Albumin 4.2 g/dL (3.2-5.2) 07/24/17 10:31 Globulin 3.3 g/dL (2-4) 07/24/17 10:31 Albumin/Globulin Ratio 1.3 (1-3) 07/24/17 10:31 Triglycerides 265 mg/dL 07/26/17 06:35 Cholesterol 141 mg/dL 07/26/17 06:35 LDL Cholesterol 63 mg/dL 07/26/17 06:35 HDL Cholesterol 25.0 mg/dL 07/26/17 06:35 TSH 3.53 mcIU/mL (0.34-5.60) 07/24/17 10:31 Diagnostic Imaging: Chest x-ray admission: Radiologist's impression: Pulmonary edema with reaccumulation of moderate large volume of right pleural effusion with associated bibasilar compressive atelectasis. Probable trace left pleural effusion, negative for pneumothorax. 08/2016 echo: mild--mod LVH, LVEF 60-65%, no significnat valvular abnormalities EKG Data: ekg 07/24/2017: Afib rate uncontrolled, RBBB, LAFB ekg 07/25/2017: NSR, RBBB, LAFB Assessment/Plan Mr. Ferrell is a 62 year old man admitted with symptomatic recurrent multifactorial volume overload, has had increased symptomatic paroxysmal atrial arrhythmias last week. A normal BNP argues against a strong cardiac component but may be falsely low due to obesity. - Continue current cardiac medications and trend i/o, bmp, weights titrate diuretics as needed. - Decrease losartan dose to 50 mg po daily given low normal BP (ordered) - Decrease amiodarone to 200 mg po daily (ordered) - Would restart aspirin if no contraindications - Would add definity to allergy list - Continue current diuretic regimen, check CXR today (ordered) - Outpatient PET scan planned per Dr. Stephenson - Patient needs to follow up with Dr. Nam after discharge Thank you for allowing me to participate in the cardiovascular care of this patient. Please do not hesitate to contact me with questions or concerns.
--- NOTE | 2017-07-27 13:00 | RAD ---
INDICATION: Pleural effusion, follow-up. COMPARISON: Comparison is made with a prior study from July 25, 2017. TECHNIQUE: Dual-energy PA and lateral views of the chest were obtained. FINDINGS: The heart is mildly enlarged and unchanged from the prior exam. The patient is status post sternotomy. There are multiple surgical sutures and plates present in the sternum. There is diffuse prominence of the interstitial markings with more patchy infiltrates at both lung bases which are unchanged significantly. There is a trace left pleural effusion and a small right pleural effusion which are unchanged. IMPRESSION: FINDINGS MOST CONSISTENT WITH CONGESTIVE HEART FAILURE, UNCHANGED.
[2017-07-27] MEDS: Atorvastatin* 20 MG TAB PO SCH (17:28)
[2017-07-27] MEDS: Amiodarone TAB* 200 MG PO SCH (17:28)
--- NOTE | 2017-07-27 17:35 | PN ---
Subjective Date of Service: 07/27/17 Interval History: Feels much better today. Less SOB. No more pedal edema. No new c/o. Objective Active Medications: Acetaminophen (Tylenol Tab*) 650 mg PO Q4H PRN PRN Reason: FEVER/PAIN Al Hydrox/Mg Hydrox/Simethicone (Maalox Plus*) 30 ml PO Q6H PRN PRN Reason: INDIGESTION Albuterol (Ventolin 2.5 Mg/3 Ml Neb.Cinthya*) 2.5 mg INH [id number] AWAKE PRN PRN Reason: sob/wheezing Albuterol (Ventolin 2.5 Mg/3 Ml Neb.Cinthya*) 2.5 mg INH QID [facility] Last Admin: 07/27/17 17:23 Dose: Not Given Amiodarone HCl (Cordarone Tab*) 200 mg PO DAILY [facility] Last Admin: 07/27/17 17:28 Dose: 200 mg Apixaban (Eliquis*) 5 mg PO BID [facility] Last Admin: 07/27/17 08:02 Dose: 5 mg Atorvastatin Calcium (Lipitor*) 20 mg PO DAILY@1700 [facility] Last Admin: 07/27/17 17:28 Dose: 20 mg Cyclosporine (Restasis 0.05% Oph) 1 drop BOTH EYES Q12H [facility] PRN Reason: Protocol Last Admin: 07/27/17 17:29 Dose: Not Given Dextrose (D50w Syringe 50 Ml*) 12.5 gm IV PUSH .FOR FS < 60 - SS PRN PRN Reason: FS < 60 Diltiazem HCl (Cardizem Cd Cap*) 180 mg PO DAILY [facility] Last Admin: 07/27/17 08:02 Dose: 180 mg Docusate Sodium (Colace Cap*) 100 mg PO BID [facility] Last Admin: 07/27/17 08:02 Dose: 100 mg Fenofibrate (Tricor(Nf)) 160 mg PO Q24H [facility] PRN Reason: Protocol Last Admin: 07/26/17 20:05 Dose: 160 mg Fluticasone/Vilanterol (Breo Ellipta Mdi 200/25(Nf)) 1 puff INH DAILY [facility] Last Admin: 07/27/17 08:04 Dose: Not Given Folic Acid (Folvite Tab*) 1 mg PO DAILY [facility] Last Admin: 07/27/17 08:03 Dose: 1 mg Hydrochlorothiazide (Hydrodiuril Tab*) 25 mg PO DAILY [facility] Last Admin: 07/27/17 08:02 Dose: 25 mg Insulin Human Lispro (Humalog*) 0 units SUBCUT AC [facility] PRN Reason: Protocol Last Admin: 07/27/17 13:41 Dose: 15 units Losartan Potassium (Cozaar Tab*) 50 mg PO DAILY [facility] Metoprolol Succinate (Toprol Xl Tab*) 100 mg PO BID [facility] Last Admin: 07/27/17 08:03 Dose: 100 mg Nystatin (Nystatin Top Powder*) 1 applic TOPICAL TID [facility] Last Admin: 07/27/17 13:39 Dose: Not Given Spironolactone (Aldactone Tab*) 25 mg PO BID [facility] Last Admin: 07/27/17 08:03 Dose: 25 mg Torsemide (Demadex*) 20 mg PO BID [facility] Stop: 07/27/17 23:30 Last Admin: 07/27/17 08:03 Dose: 20 mg Torsemide (Demadex*) 40 mg PO DAILY [facility] Vital Signs - 8 hr 07/27/17 07/27/17 11:38 15:00 Temperature 97.6 F 97.7 F Pulse Rate 82 76 Respiratory 18 16 Rate Blood Pressure 110/51 116/53 (mmHg) O2 Sat by Pulse 98 98 Oximetry Oxygen Devices in Use Now: Nasal Cannula Appearance: Alert, in a chair. In good spirits. Looks comfortable. Eyes: No Scleral Icterus Respiratory: Symmetrical Chest Expansion and Respiratory Effort, Clear to Auscultation, Clear to Percussion Extremities: No Edema, No Clubbing, Cyanosis, - Skin: No Rash or Ulcers, No Nodules or Sclerosis, - Neurological: Alert and Oriented x 3, NL Sensation Result Diagrams: 07/26/17 06:35 07/27/17 05:53 Additional Lab and Data: Lab Results 07/24/17 07/24/17 07/24/17 Range/Units 10:31 10:31 10:31 WBC 6.1 (3.5-10.8) 10^3/ul RBC 4.09 (4.0-5.4) 10^6/ul Hgb 11.7 L (14.0-18.0) g/dl Hct 35 L (42-52) % MCV 87 (80-94) fL MCH 29 (27-31) pg MCHC 33 (31-36) g/dl RDW 16 H (10.5-15) % Plt Count 283 (150-450) 10^3/ul MPV 7.1 L (7.4-10.4) um3 Neut % (Auto) 87.2 H (38-83) % Lymph % (Auto) 3.6 L (25-47) % Ford % (Auto) 6.2 (0-7) % Eos % (Auto) 2.7 (0-6) % Baso % (Auto) 0.3 (0-2) % Absolute Neuts (auto) 5.3 (1.5-7.7) 10^3/ul Absolute Lymphs (auto) 0.2 L (1.0-4.8) 10^3/ul Absolute Monos (auto) 0.4 (0-0.8) 10^3/ul Absolute Eos (auto) 0.2 (0-0.6) 10^3/ul Absolute Basos (auto) 0 (0-0.2) 10^3/ul Absolute Nucleated RBC 0 10^3/ul Nucleated RBC % 0 Sodium 141 (139-145) mmol/L Potassium 4.1 (3.5-5.0) mmol/L Chloride 96 L (101-111) mmol/L Carbon Dioxide 37 H (22-32) mmol/L Anion Gap 8 (2-11) mmol/L BUN 30 H (6-24) mg/dL Creatinine 1.28 H (0.67-1.17) mg/dL Est GFR ( Amer) 72.8 (>60) Est GFR (Non-Af Amer) 56.6 (>60) BUN/Creatinine Ratio 23.4 H (8-20) Glucose 143 H (70-100) mg/dL Lactic Acid 1.8 (0.5-2.0) mmol/L Calcium 10.1 (8.6-10.3) mg/dL Magnesium 1.9 (1.9-2.7) mg/dL Total Bilirubin 0.30 (0.2-1.0) mg/dL AST 16 (13-39) U/L ALT 26 (7-52) U/L Alkaline Phosphatase 40 (34-104) U/L Troponin I 0.01 (<0.04) ng/mL B-Natriuretic Peptide ( - 100) pg/mL Total Protein 7.5 (6.4-8.9) g/dL Albumin 4.2 (3.2-5.2) g/dL Globulin 3.3 (2-4) g/dL Albumin/Globulin Ratio 1.3 (1-3) 07/24/17 Range/Units 10:33 WBC (3.5-10.8) 10^3/ul RBC (4.0-5.4) 10^6/ul Hgb (14.0-18.0) g/dl Hct (42-52) % MCV (80-94) fL MCH (27-31) pg MCHC (31-36) g/dl RDW (10.5-15) % Plt Count (150-450) 10^3/ul MPV (7.4-10.4) um3 Neut % (Auto) (38-83) % Lymph % (Auto) (25-47) % Ford % (Auto) (0-7) % Eos % (Auto) (0-6) % Baso % (Auto) (0-2) % Absolute Neuts (auto) (1.5-7.7) 10^3/ul Absolute Lymphs (auto) (1.0-4.8) 10^3/ul Absolute Monos (auto) (0-0.8) 10^3/ul Absolute Eos (auto) (0-0.6) 10^3/ul Absolute Basos (auto) (0-0.2) 10^3/ul Absolute Nucleated RBC 10^3/ul Nucleated RBC % Sodium (139-145) mmol/L Potassium (3.5-5.0) mmol/L Chloride (101-111) mmol/L Carbon Dioxide (22-32) mmol/L Anion Gap (2-11) mmol/L BUN (6-24) mg/dL Creatinine (0.67-1.17) mg/dL Est GFR ( Amer) (>60) Est GFR (Non-Af Amer) (>60) BUN/Creatinine Ratio (8-20) Glucose (70-100) mg/dL Lactic Acid (0.5-2.0) mmol/L Calcium (8.6-10.3) mg/dL Magnesium (1.9-2.7) mg/dL Total Bilirubin (0.2-1.0) mg/dL AST (13-39) U/L ALT (7-52) U/L Alkaline Phosphatase (34-104) U/L Troponin I (<0.04) ng/mL B-Natriuretic Peptide 98 ( - 100) pg/mL Total Protein (6.4-8.9) g/dL Albumin (3.2-5.2) g/dL Globulin (2-4) g/dL Albumin/Globulin Ratio (1-3) Microbiology and Other Data: Microbiology 07/25/17 09:45 Gram Stain - Final Misc Source (See Comment) - Other 07/25/17 09:45 Sterile Body Fluid Culture - Preliminary Pleural Fluid No Growth Day 1 Sterile Body Fluid Culture - Preliminary No Growth Day 1 Assess/Plan/Problems-Billing Assessment: Mr Ferrell is a 62 yo male with a PMH of diabetes, Sleep apnea, HLD, COPD, Diastolic CHF, HTN, afib s/p ablation currently in afib on xarelto, CAD s/ p bypass and stent placement, morbid obesity and recurrent right pleural effusion with hx of thorancentesis (1rst time May 2017) and again 2 weeks ago , now presenting with c/o SOB found to have a large right pleural effusion on imaging - Patient Problems (1) Pleural effusion Current Visit: Yes Status: Acute Code(s): J90 - PLEURAL EFFUSION, NOT ELSEWHERE CLASSIFIED SNOMED Code(s): 89538174 Comment: CXR 07/27 shows little or no change R small pleural effusion c/w 07/25, less interstitial edema. - s/p thoracentesis of the right lung 07/25 with 1550 ml of "fruit punch" fluid removed by radiologist. Fluid path benign. CHange torsemide to 40 mg po daily 07/28. Pt requested single daily dose. BMP / . Pt states he is very diligent about his low salt diet. - echo gave no useful information due to technical limitations. - - also on spironolactone and HCTZ as outpt which he has been continued on. (2) CKD (chronic kidney disease) Current Visit: Yes Status: Chronic Code(s): N18.9 - CHRONIC KIDNEY DISEASE, UNSPECIFIED SNOMED Code(s): 964530963 Comment: Stable. BMP 07/27. (3) Atrial fibrillation Current Visit: Yes Status: Chronic Code(s): I48.91 - UNSPECIFIED ATRIAL FIBRILLATION SNOMED Code(s): 61804315 Comment: - Continue home meds Metoprolol XL 100 mg BID, Cardizem 180 mg daily , apixaban. (4) Morbid obesity Current Visit: Yes Status: Chronic Code(s): E66.01 - MORBID (SEVERE) OBESITY DUE TO EXCESS CALORIES SNOMED Code(s): 301426427 Comment: BMI 47.2 Status and Disposition: Inpatient with recurrent pleural effusion requiring thorancentesis, possible acute on chronic chf and now rapid afib. Home when medically stable
[2017-07-27] MEDS: FENOFIBRATE 160 MG PO SCH (21:03)
[2017-07-27] MEDS ORDERED: Insulin LISPRO* 1 UNITS UNIT SUBCUT ONE (21:29)
[2017-07-28] MEDS: Cyclosporine 0.05% OPHTH (NF) 0.4 ML VIAL BOTH EYES SCH (05:36)
[2017-07-28] MEDS: Diltiazem CD CAP* 180 MG PO SCH (08:05)
[2017-07-28] MEDS: Amiodarone TAB* 200 MG PO SCH (08:06)
[2017-07-28] MEDS: Metoprolol Succinate XL TAB* 100 MG PO SCH (08:06)
[2017-07-28] MEDS: Apixaban* 5 MG TAB PO SCH (08:06)
[2017-07-28] MEDS: Insulin LISPRO* 1 UNITS UNIT SUBCUT SCH ×2 (08:07→12:30)
[2017-07-28] MEDS: Spironolactone TAB* 25 MG PO SCH (08:07)
[2017-07-28] MEDS: Hydrochlorothiazide TAB* 25 MG PO SCH (08:08)
[2017-07-28] MEDS: Folic Acid TAB* 1 MG PO SCH (08:08)
[2017-07-28] MEDS: Docusate CAP* 100 MG PO SCH (08:08)
[2017-07-28] MEDS: MDI INH SCH (08:24)
[2017-07-28] MEDS: Albuterol 2.5 MG/3 ML NEB.SOL* (0.083%) INH SCH ×2 (08:24→13:37)
[2017-07-28] MEDS: FLUTICASONE INH SCH (08:24)
[2017-07-28] MEDS: VILANTEROL MDI INH SCH (08:24)
[2017-07-28] MEDS ORDERED: Torsemide TAB* 20 MG PO SCH (09:00)
[2017-07-28] MEDS ORDERED: CMC:Cyclosporine 0.05% OPHTH (NF) 0.4 ML VIAL BOTH EYES SCH (09:00)
[2017-07-28] MEDS ORDERED: Losartan TAB* 25 MG PO SCH (09:00)
--- NOTE | 2017-07-28 09:04 | PN ---
Subjective Date of Service: 07/28/17 Interval History: f/u CHF, Afib Continues significant diuresis Has maintained sinus rhythm Breathing signficantly improved, edema resolved Medications Active Medications: Acetaminophen (Tylenol Tab*) 650 mg PO Q4H PRN PRN Reason: FEVER/PAIN Al Hydrox/Mg Hydrox/Simethicone (Maalox Plus*) 30 ml PO Q6H PRN PRN Reason: INDIGESTION Albuterol (Ventolin 2.5 Mg/3 Ml Neb.Cinthya*) 2.5 mg INH [id number] AWAKE PRN PRN Reason: sob/wheezing Albuterol (Ventolin 2.5 Mg/3 Ml Neb.Cinthya*) 2.5 mg INH QID [facility] Last Admin: 07/28/17 08:24 Dose: Not Given Amiodarone HCl (Cordarone Tab*) 200 mg PO DAILY [facility] Last Admin: 07/28/17 08:06 Dose: 200 mg Apixaban (Eliquis*) 5 mg PO BID [facility] Last Admin: 07/28/17 08:06 Dose: 5 mg Atorvastatin Calcium (Lipitor*) 20 mg PO DAILY@1700 [facility] Last Admin: 07/27/17 17:28 Dose: 20 mg Cyclosporine (Restasis 0.05% Oph) 1 drop BOTH EYES Q12HR [facility] PRN Reason: Protocol Dextrose (D50w Syringe 50 Ml*) 12.5 gm IV PUSH .FOR FS < 60 - SS PRN PRN Reason: FS < 60 Diltiazem HCl (Cardizem Cd Cap*) 180 mg PO DAILY [facility] Last Admin: 07/28/17 08:05 Dose: 180 mg Docusate Sodium (Colace Cap*) 100 mg PO BID [facility] Last Admin: 07/28/17 08:08 Dose: 100 mg Fenofibrate (Tricor(Nf)) 160 mg PO Q24H [facility] PRN Reason: Protocol Last Admin: 07/27/17 21:03 Dose: 160 mg Fluticasone/Vilanterol (Breo Ellipta Mdi 200/25(Nf)) 1 puff INH DAILY [facility] Last Admin: 07/28/17 08:24 Dose: Not Given Folic Acid (Folvite Tab*) 1 mg PO DAILY [facility] Last Admin: 07/28/17 08:08 Dose: 1 mg Hydrochlorothiazide (Hydrodiuril Tab*) 25 mg PO DAILY [facility] Last Admin: 07/28/17 08:08 Dose: 25 mg Insulin Human Lispro (Humalog*) 0 units SUBCUT AC [facility] PRN Reason: Protocol Last Admin: 07/28/17 08:07 Dose: 15 units Losartan Potassium (Cozaar Tab*) 50 mg PO DAILY [facility] Last Admin: 07/28/17 08:06 Dose: 50 mg Metoprolol Succinate (Toprol Xl Tab*) 100 mg PO BID [facility] Last Admin: 07/28/17 08:06 Dose: 100 mg Nystatin (Nystatin Top Powder*) 1 applic TOPICAL TID [facility] Last Admin: 07/27/17 21:04 Dose: Not Given Spironolactone (Aldactone Tab*) 25 mg PO BID [facility] Last Admin: 07/28/17 08:07 Dose: 25 mg Torsemide (Demadex*) 40 mg PO DAILY [facility] Last Admin: 07/28/17 08:05 Dose: 40 mg Objective Vital Signs: Temp Pulse Resp BP Pulse Ox 98.5 F 70 18 117/53 99 07/28/17 07:33 07/28/17 07:38 07/28/17 07:33 07/28/17 07:38 07/28/17 07:33 Oxygen Devices in Use Now: Nasal Cannula Appearance: obese Neck: Trachea Midline, - - uncertain jvp Respiratory: Symmetrical Chest Expansion and Respiratory Effort, - - crackles right base Cardiovascular: - - RRR, no significantmurmur, no signficant edema, sternotomy scar Extremities: No Clubbing, Cyanosis, - Skin: No Rash or Ulcers Neurological: Alert and Oriented x 3 Laboratory Results: 07/26/17 06:35 07/27/17 05:53 INR (Anticoag Therapy) 1.02 (0.77-1.02) 07/25/17 05:57 APTT 35.1 seconds (26.0-36.3) 07/24/17 17:32 Total Bilirubin 0.30 mg/dL (0.2-1.0) 07/24/17 10:31 AST 16 U/L (13-39) 07/24/17 10:31 ALT 26 U/L (7-52) 07/24/17 10:31 Alkaline Phosphatase 40 U/L (34-104) 07/24/17 10:31 B-Natriuretic Peptide 98 pg/mL (-100) 07/24/17 10:33 Total Protein 7.5 g/dL (6.4-8.9) 07/24/17 10:31 Albumin 4.2 g/dL (3.2-5.2) 07/24/17 10:31 Globulin 3.3 g/dL (2-4) 07/24/17 10:31 Albumin/Globulin Ratio 1.3 (1-3) 07/24/17 10:31 Triglycerides 265 mg/dL 07/26/17 06:35 Cholesterol 141 mg/dL 07/26/17 06:35 LDL Cholesterol 63 mg/dL 07/26/17 06:35 HDL Cholesterol 25.0 mg/dL 07/26/17 06:35 TSH 3.53 mcIU/mL (0.34-5.60) 07/24/17 10:31 07/24/17 10:31 Troponin I 0.01 Diagnostic Imaging: Chest x-ray admission: Radiologist's impression: Pulmonary edema with reaccumulation of moderate large volume of right pleural effusion with associated bibasilar compressive atelectasis. Probable trace left pleural effusion, negative for pneumothorax. 08/2016 echo: mild--mod LVH, LVEF 60-65%, no significnat valvular abnormalities EKG Data: ekg 07/24/2017: Afib rate uncontrolled, RBBB, LAFB ekg 07/25/2017: NSR, RBBB, LAFB Assessment/Plan Mr. Ferrell is a 62 year old man admitted with symptomatic recurrent multifactorial volume overload, has had increased symptomatic paroxysmal atrial arrhythmias last week. A normal BNP argues against a strong cardiac component but is likely falsely low due to obesity. Patient has had significant diuresis and symptom improvement with changing lasix to torsemide. - Continue current cardiac medications - Would restart aspirin if no contraindications - Outpatient PET scan planned per Dr. Stephenson - Patient needs to follow up with Dr. Nam after discharge Thank you for allowing me to participate in the cardiovascular care of this patient. Please do not hesitate to contact me with questions or concerns.
[2017-07-28] MEDS ORDERED: Atorvastatin* 40 MG TAB PO SCH (09:18)
[2017-07-28 09:36] LABS: EGFR Non-African American 47.9 (>60)
--- NOTE | 2017-07-28 09:52 | PN ---
Progress Note - Progress Note Date of Service: 07/28/17 Note: Time spent on discharge 50 minutes. I discussed the case in detail with Dr. Angel.
[2017-07-28] MEDS: Nystatin TOP POWDER* 15 GM BTL TOPICAL SCH ×2 (11:43→14:02)
--- NOTE | 2017-07-28 13:26 | DS ---
CC: Dr. Nam; Dr. Stephenson; Mariana Lima at the [facility]. DISCHARGE SUMMARY: DATE OF ADMISSION: DATE OF DISCHARGE: 07/28/17 HISTORY: This 62-year-old man presented with shortness of breath. He was found to be in atrial fibr illation. He has a prior history of atrial fibrillation and is status post ablation. On his last ad mission, he had been in sinus rhythm. He also has a history of COPD in addition to morbid obesity, s leep apnea, hypertension, hyperlipidemia. He had a large right pleural effusion. He had had a thoracentesis on 07/11/17. He had another thora centesis on 07/25/[address] Contreras, 1550 mL of fruit punch colored fluid was aspirated. The patient felt better after this. He was seen in consultation by Dr. Virgil Angel as well as Dr. Stephenson. CT c hest without contrast on 07/25/17, showed a 1.9 cm spiculated nodule of the right middle lobe. There was centrilobular nodularity with the right upper lobe, which could be infectious or inflammatory in nature, although, airway spread of neoplasm is another possible consideration, there were small-to-m oderate bilateral pleural effusions and patchy airspace disease of the right lower lobe. Pleural fluid cytology did not show any evidence of abnormal cell population. There were 99% lymphocy rivera. Dr. Stephenson, I believe is planning on a PET scan as an outpatient and will follow up with them. The p atient will follow with his usual coin box inspector, Dr. Nam as well as his primary are provider. The patient received amiodarone. He did convert to normal sinus rhythm at about 24 hours before disc harge. He felt much better after diuresis, better than he said he had felt in a long time. I am aliya e the thoracentesis helped as well. He had essentially no pedal edema when he was discharged. I not e he has home oxygen. During this hospital admission, his atorvastatin dose was increased, he was started on amiodarone. H e will get a 2-week supply of amiodarone, with further amiodarone at the discretion of Dr. Nam. He was changed from oral furosemide to oral torsemide at actually a lower dose, which seemed to be effe ctive for him. His fluid balance for the last full hospital day was -1160 mL. FINAL DIAGNOSES: 1. Congestive heart failure. 2. Atrial fibrillation, resolved. 3. Morbid obesity. 4. Sleep apnea. 5. Chronic kidney disease. 6. Lung mass. DISCHARGE MEDICATIONS: 1. Acetaminophen 650 mg every 4 hours p.r.n. 2. Amiodarone 200 mg daily. 3. Atorvastatin 40 mg daily at 5 p.m. 4. Torsemide 40 mg daily. 5. Fenofibrate 160 mg daily. 6. Metformin 1000 mg b.i.d. 7. Metoprolol succinate 100 mg b.i.d. 8. Spironolactone 25 mg b.i.d. 9. Diltiazem CD 180 mg daily. 10. Albuterol 2.5 mg for a nebulizer 4 times a day. 11. Fluticasone/vilanterol or Breo Ellipta 200/25 one puff daily. 12. Humulin R U-500 as prescribed. 13. Losartan/HCTZ 100/25 one daily. 14. Docusate 100 mg b.i.d. 15. Nystatin topical powder t.i.d. p.r.n. 16. Calcium, magnesium tablets 2 tablets b.i.d. 17. Aspirin 81 mg daily. 18. Apixaban 5 mg b.i.d. 19. Cyclosporine 0.05% ophthalmic 1 drop both eyes b.i.d. 20. Folic acid 1 mg daily. [id number]/[facility] #: [id number]
[2017-07-28 13:34] VITALS: BP 118/51
[2017-07-29] MEDS ORDERED: Aspirin 81 mg CHEW TAB* 81 MG TAB.CHEW PO SCH (09:00)
== END 2017-07-28 13:50 | disposition home or self-care (01) | DRG 292 ==
LOC: SUPCPDRO 09:58 → ED 09:58 → MEDTELE 12:47
PROVIDERS: ADMIT Internal Medicine; ATTEND Internal Medicine
PROC: 0W993ZX Drainage of Right Pleural Cavity, Percutaneous Approach, Diagnostic (ICD-10-PCS; principal; 2017-07-25)
PROC: 5A09457 Assistance with Respiratory Ventilation, 24-96 Consecutive Hours, Continuous Positive Airway Pressure (ICD-10-PCS; 2017-07-26)
DX: I50.31 Acute diastolic (congestive) heart failure (principal); Z68.42 Body mass index [BMI] 45.0-49.9, adult; I13.0 Hypertensive heart and chronic kidney disease with heart failure and stage 1 through stage 4 chronic kidney disease, or unspecified chronic kidney disease; J96.10 Chronic respiratory failure, unspecified whether with hypoxia or hypercapnia; I48.0 Paroxysmal atrial fibrillation; E66.01 Morbid (severe) obesity due to excess calories; E11.22 Type 2 diabetes mellitus with diabetic chronic kidney disease; I27.20 Pulmonary hypertension, unspecified; N18.9 Chronic kidney disease, unspecified; G47.33 Obstructive sleep apnea (adult) (pediatric); E78.5 Hyperlipidemia, unspecified; I25.10 Atherosclerotic heart disease of native coronary artery without angina pectoris; J44.9 Chronic obstructive pulmonary disease, unspecified; Z95.1 Presence of aortocoronary bypass graft; Z95.5 Presence of coronary angioplasty implant and graft; Z99.81 Dependence on supplemental oxygen; Z79.01 Long term (current) use of anticoagulants; Z79.84 Long term (current) use of oral hypoglycemic drugs; Z79.82 Long term (current) use of aspirin; Z79.4 Long term (current) use of insulin; Z79.899 Other long term (current) drug therapy; Z88.6 Allergy status to analgesic agent; Z82.49 Family history of ischemic heart disease and other diseases of the circulatory system; Z82.3 Family history of stroke; Z83.3 Family history of diabetes mellitus; Z80.49 Family history of malignant neoplasm of other genital organs; Z80.0 Family history of malignant neoplasm of digestive organs
CPT/HCPCS: 32555; 36415; 71045; 71046; 71250; 80048; 80053; 80061; 82947; 83036; 83605; 83615; 83735; 83880; 83986; 84157; 84443; 84484; 85025; 85610; 85730; 86353; 87040; 87205; 88112; 88184; 88185; 88187; 88188; 88189; 89051; 93005; 93306; 94640; 94660; 99284; A9270-GY; C8929; J0885; J1160; J1644; J1940; J3490

== ENCOUNTER 2017-08-30 13:08 | Emergency (ER) | payer MEDICARE ==
[2017-08-30 13:41] VITALS: BP 104/50
--- NOTE | 2017-08-30 13:56 | UC ---
Lower Extremity/Ankle HPI - HPI Summary HPI Summary: 62 yo male presents with left ankle pain s/p fall early this morning. He tells me that he was walking in his house when his left foot caught the floor and he inverted his ankle. Fell - did not hit his head or have LOC. Does not use any ambulatory devices at home, but does have a walker if he needs it. Denies numbness or tingling. - History of Current Complaint Chief Complaint: UCLowerExtremity Stated Complaint: FOOT INJURY Time Seen by Provider: 08/30/17 13:56 Hx Obtained From: Patient Onset/Duration: Sudden Onset Severity Initially: Moderate Severity Currently: Moderate Pain Intensity: 5 Pain Scale Used: 0-10 Numeric Aggravating Factor(s): Standing, Ambulation Alleviating Factor(s): Rest, Elevation Able to Bear Weight: Yes - Allergies/Home Medications Allergies/Adverse Reactions: Allergies Allergy/AdvReac Type Severity Reaction Status Date / Time NSAIDS (Non-Steroidal Allergy Mild See Comment Verified 08/30/17 13:50 Anti-Inflamma Definity Allergy See Comment Uncoded 08/30/17 13:50 PMH/Surg Hx/FS Hx/Imm Hx Endocrine History: Diabetes, Dyslipidemia Cardiovascular History: Cardiac Disease, Hypertension, Congestive Heart Failure , Atrial Fibrillation, Deep Vein Thrombosis - Surgical History Surgical History: Yes Surgery Procedure, Year, and Place: triple R surgery in throat for Cpap?, appendectomy, cracked spine when 11--no surgery but was in a cast "all summer" DOUBLE CORONARY BYPASS 10/22/15 - Family History Known Family History: Positive: None, Diabetes - Social History Occupation: Disabled Lives: With Family Alcohol Use: None Substance Use Type: None Smoking Status (MU): Never Smoked Tobacco - Immunization History Most Recent Influenza Vaccination: Fall 2016 Most Recent Tetanus Shot: 1998 Most Recent Pneumonia Vaccination: 2016 Review of Systems Constitutional: Negative Skin: Negative Respiratory: Negative Cardiovascular: Negative Neurovascular: Negative Musculoskeletal: Other: - Left ankle pain Neurological: Negative Psychological: Negative All Other Systems Reviewed And Are Negative: Yes Physical Exam - Summary Physical Exam Summary: GENERAL: NAD. Obese SKIN: No rashes, sores, lesions, or open wounds. NECK: Supple. Nontender. No lymphadenopathy. CHEST: No accessory muscle use. Breathing comfortably and in no distress. CV: Pulses intact PT and DP. Brisk cap refill. MSK: Left ankle: Lateral malleolus TTP. Mild edema. FROM. Strength 5/5. No obvious bony deformities. Negative talar tilt. No increased laxity. NEURO: Alert. Sensations intact and symmetric B/L LEs PSYCH: Age appropriate behavior. Triage Information Reviewed: Yes Vital Signs: Initial Vital Signs Temp 98.1 F 08/30/17 13:33 Pulse 75 08/30/17 13:33 Resp 22 08/30/17 13:33 BP 104/50 08/30/17 13:33 Pulse Ox 86 08/30/17 13:33 Lower Extremity Course/Dx - Course Course Of Treatment: XR: REPORT AND. IMPRESSION: Negative for fracture or malalignment. Minimal talocrural joint osteophytosis without significant joint space narrowing. Small Achilles tendon insertion and moderate plantar fascia origin bone spurs. Diffuse soft tissue swelling most prominent. over the lateral malleolus. Suspect ankle sprain. Gel splint and javier wrap. Tylenol prn pain. Use his walker at home until ankle feels more stable. Pulse ox is 86 today on 5L. Pt says this is normal for him as he runs between 84% and 90%. - Differential Dx/Diagnosis Provider Diagnoses: Left ankle sprain Discharge - Sign-Out/Discharge Documenting (check all that apply): Discharge/Admit/Transfer - Discharge Plan Condition: Stable Disposition: HOME Patient Education Materials: Ankle Sprain (ED) Referrals: Mahsa Rothman [Primary Care Provider] - Additional Instructions: If you develop a fever, shortness of breath, chest pain, new or worsening symptoms - please call your PCP or go to the ED. 1) Rest, Ice, and Elevate your ankle as much as possible over the next 2-3 days 2) Wear your JAVIER wrap and gel ankle splint as needed for comfort and support 3) Use your walker as needed until your ankle heals - Billing Disposition and Condition Condition: STABLE Disposition: Home
--- NOTE | 2017-08-30 14:31 | RAD ---
Indication: Lateral LEFT ankle pain following inversion injury. Comparison: No relevant prior exams available on the [facility] PACS for comparison. Technique: AP, mortise, and lateral views LEFT ankle. REPORT AND IMPRESSION: Negative for fracture or malalignment. Minimal talocrural joint osteophytosis without significant joint space narrowing. Small Achilles tendon insertion and moderate plantar fascia origin bone spurs. Diffuse soft tissue swelling most prominent over the lateral malleolus.
== END 2017-08-30 14:30 | disposition home or self-care (01) ==
LOC: UCEAST 13:08
DX: S93.402A Sprain of unspecified ligament of left ankle, initial encounter (principal); W18.30XA Fall on same level, unspecified, initial encounter; Y93.01 Activity, walking, marching and hiking; Y92.009 Unspecified place in unspecified non-institutional (private) residence as the place of occurrence of the external cause; E11.9 Type 2 diabetes mellitus without complications; Z79.84 Long term (current) use of oral hypoglycemic drugs; E78.5 Hyperlipidemia, unspecified; I11.0 Hypertensive heart disease with heart failure; I50.9 Heart failure, unspecified; I48.91 Unspecified atrial fibrillation; Z79.01 Long term (current) use of anticoagulants; Z79.82 Long term (current) use of aspirin; Z95.1 Presence of aortocoronary bypass graft; Z86.718 Personal history of other venous thrombosis and embolism; Z88.6 Allergy status to analgesic agent
CPT/HCPCS: 99213; G0463

== ENCOUNTER 2017-10-22 09:02 | Day surgery (SDC) | payer MEDICARE ==
[~2017-10-22 09:02] MED LIST changes: +Acetaminophen TAB* 325 MG PO PRN; -Albuterol/Ipratropium NEB.SOL* Albuterol 2.5 MG/Ipratropium 0.5 MG 3 ML ONE; -Azithromycin IV(*) 500 MG in NS 0.9% 250 ML* 250 ML IVPB ONE; +Buffered Lidocaine 0.9% SYRIN* 5 ML/SYR SYRINGE INTRADERM ONE; +Famotidine IV* 10 MG/ML 2 ML (20 mg) IV ONE; +Midazolam* 1 MG/ML 10 ML VIAL (10 MG) ONE; +Naloxone* 0.4 MG/ML 1 ML VIAL IV PRN; +Ondansetron INJ* 2 MG/ML VIAL IV PRN; +Propofol* 10 MG/ML 20 ML BTL IV PUSH ONE; -cefTRIAXone(*) 1 GM in NS 0.9% 50 ML* 50 ML IVPB ONE; -methylPREDNISolone 125 MG* 2 ML VIAL IV ONE
[2017-10-22] MEDS ORDERED: Famotidine IV* 10 MG/ML 2 ML (20 mg) ONE (09:13)
[2017-10-22] MEDS ORDERED: KETAMINE HCL* 50 MG/ML 10 ML VIAL ONE (09:50)
[2017-10-22] MEDS ORDERED: Lidocaine 4% TOPICAL* 50 ML TOP.SOLN ONE (10:37)
[2017-10-22 13:26] VITALS: BP 96/54
--- NOTE | 2017-10-23 04:23 | PRO ---
CARDIOVERSION REPORT: DATE OF SERVICE: 10/22/17 SURGEON: Enio Nam MD PROCEDURE PERFORMED: Cardioversion. INDICATION: Atrial fibrillation. Mr. Ferrell is a pleasant 62-year-old gentleman with a history of atrial fibrillation status post recent radiofrequency ablation 10/02/17 with his tour operator, Dr. Dean, in [facility]. He has also had prior MAZE procedure at time of CABG 08/23/15 at [facility] in [place], [place]. The patient was seen by myself in postprocedure followup 10/11/17 and he was found to have recurrent atrial fibrillation, which correlated with fatigue and some shortness of breath. The decision was made to proceed with transesophageal echocardiogram-guided cardioversion after I had discussed the case with the patient and his tour operator, Dr. Dean. DESCRIPTION OF PROCEDURE: I have discussed the procedure of transesophageal echocardiogram-guided cardioversion in detail with the patient today on the day of this procedure with his lady friend, Cathy, present with the patient's verbal consent. We reviewed the procedure of transesophageal echocardiogram followed by cardioversion in detail. I then reviewed the risks, benefits, alternatives of this procedure which is being done at the recommendation of his tour operator rather than repeat ablation after his most recent radiofrequency ablation again on 10/02/17. The benefits would include more definitive resumption of normal sinus rhythm after exclusion of intracardiac thrombus and the patient is maintained on Eliquis acknowledging few case reports regarding NOAC failure in patients with structurally abnormal hearts. Alternatives being continued anti-arrhythmic therapy with amiodarone, which the patient is maintained on and watchful waiting, which the patient was not interested in. We then reviewed the risks of the procedure and the patient is aware that II cannot anticipate all risks in all patients but risks include the following: given his history of O2 dependenct COPD as well as the fact that he has had prior transesophageal echocardiogram-guided cardioversion with the help of the anesthesia service 08/10/15, we enlisted the assistance of Dr. Tammy Mc of [facility] anesthesia, who kindly assisted with provision of sedation ( please see also their report for further details). The patient is aware of risks of anesthesia. Also, I reviewed with him the risks of aspiration from sedation and we have confirmed with him that he has been n.p.o. since midnight prior i.e., for greater than 10 hours. Other risks include trauma, bleeding, tear of the dentition, oropharynx, esophageal,gastrum, pulmonary hemorrhage, risk of induction of arrhythmias including ventricular dysrhythmia, risk of , risk of bradyarrhythmia including requirement for permanent pacemaker placement. The patient expressed understanding of the risks, benefits and alternative analysis of both the transesophageal echocardiogram and to be followed by cardioversion with all of his questions answered and he then stated clearly that he wished to go forward with the transesophageal echocardiogram- guided cardioversion with informed written consent obtained. For full report of the transesophageal echocardiogram, please see also that report. The appropriate time-out procedure was performed in the OR with the assistance of Dr. Mc and her team with the anesthesia provided as the transesophageal echocardiogram had shown normal LV function and no intracardiac thrombus, it was felt suitable to proceed with cardioversion. The patient was already appropriately sedated. Hands free patches were placed in the right anterior, left posterior thoracic position and he received 1 synchronized cardioversion attempt with 150 joules of biphasic energy with successful resumption of normal sinus rhythm from atrial fibrillation confirmed on subsequent 12 lead EKG. There were no apparent complications and the patient was discharged home in good condition after appropriate monitored recovery from the [facility] post procedure area. IMPRESSION: Successful resumption of normal sinus rhythm from atrial fibrillation utilizing transesophageal echocardiogram-guided cardioversion. The patient will continue his current medical therapy including Eliquis, metoprolol, amiodarone and diltiazem. I will plan to follow up with the patient in several weeks. If he recurs with atrial fibrillation, then we will discuss again with his tour operator regarding repeat radiofrequency ablation attempt. I have discussed the above with the patient as well as his mother and lady friend, Cathy, with the patient's verbal consent. [id number]/[facility] #: [id number] EMIL
== END 2017-10-22 13:18 | disposition home or self-care (01) ==
LOC: OR 09:02 → EDSTATUS 11:00 → OR 13:18
PROVIDERS: ATTEND Specialist
DX: I48.0 Paroxysmal atrial fibrillation (principal); Z79.01 Long term (current) use of anticoagulants; J44.9 Chronic obstructive pulmonary disease, unspecified; Z95.1 Presence of aortocoronary bypass graft; G47.33 Obstructive sleep apnea (adult) (pediatric); Z95.5 Presence of coronary angioplasty implant and graft; E78.5 Hyperlipidemia, unspecified; E11.9 Type 2 diabetes mellitus without complications; Z79.4 Long term (current) use of insulin; I10 Essential (primary) hypertension
CPT/HCPCS: 93005; J2250; J2704

== ENCOUNTER 2018-01-22 10:59 | Day surgery (SDC) | payer MEDICARE, OTHER ==
[~2018-01-22 10:59] MED LIST changes: -Acetaminophen TAB* 325 MG PO PRN; +Lidocaine 1% INJ* 10 MG/ML 30 ML SDV ONE; +Lidocaine 2% JELLY* 20 ML (for OR use) ONE; +Lidocaine 2% PF* 10 ML AMP ONE; -Midazolam* 1 MG/ML 10 ML VIAL (10 MG) ONE; -Naloxone* 0.4 MG/ML 1 ML VIAL IV PRN; -Ondansetron INJ* 2 MG/ML VIAL IV PRN; -Propofol* 10 MG/ML 20 ML BTL IV PUSH ONE
[2018-01-22] MEDS ORDERED: Lidocaine 2% PF * 5 ML VIAL ONE (13:28)
[2018-01-22] MEDS ORDERED: KETAMINE HCL* 50 MG/ML 10 ML VIAL ONE (13:29)
[2018-01-22] MEDS ORDERED: fentaNYL* 50 MCG/ML 2 ML VIAL (100 MCG VIAL) ONE (13:29)
[2018-01-22] MEDS ORDERED: Midazolam* 1 MG/ML 2 ML VIAL (2 MG) ONE (13:31)
[2018-01-22] MEDS ORDERED: Ondansetron INJ* 2 MG/ML VIAL IV PRN (14:22)
[2018-01-22] MEDS ORDERED: Naloxone* 0.4 MG/ML 1 ML VIAL IV PRN (14:22)
[2018-01-22] MEDS ORDERED: Levalbuterol 1.25MG/0.5ML NEB INH PRN (14:22)
[2018-01-22] MEDS ORDERED: DiMENhydriNATE IV* 50 MG/ML VIAL IV PUSH PRN (14:22)
[2018-01-22] MEDS ORDERED: Acetaminophen TAB* 325 MG PO PRN (14:22)
--- NOTE | 2018-01-22 14:27 | RAD ---
INDICATION: Fluoroscopy for transbronchial biopsy COMPARISONS: CT dated December 31, 2017 TECHNIQUE: Fluoroscopy was provided for a transbronchial biopsy . Total fluoroscopy time is: 55.2 seconds FINDINGS: Spot images demonstrate a bronchoscope with biopsy clip overlying the right hemithorax. The patient is status post median sternotomy. IMPRESSION: FLUOROSCOPY WAS PROVIDED FOR A TRANSBRONCHIAL BIOPSY CPT II Codes: G9500
[2018-01-22] MEDS ORDERED: Succinylcholine* 20 MG/ML 10 ML VIAL ONE (14:37)
[2018-01-22] MEDS ORDERED: Propofol* 10 MG/ML 20 ML BTL IV PUSH ONE (14:37)
[2018-01-22] MEDS ORDERED: Levalbuterol HFA INHALER* 1 PUFF MDI ONE (14:37)
--- NOTE | 2018-01-22 15:03 | RAD ---
Indication: Status post transbronchial biopsy. Single frontal view of the chest performed at 1434 hours was reviewed. Comparison is made with previous exam dated December 31, 2017 CT scan as well as the chest x-ray dated September 17, 2017. Cardiomegaly is noted. Right pleural effusion is noted. Increasing right basilar atelectasis is noted. Patient is status post transsternal thoracotomy. IMPRESSION: RIGHT LOWER LOBE CONSOLIDATION WITH RIGHT PLEURAL EFFUSION. NO PNEUMOTHORAX IS NOTED.
[2018-01-22 15:43] VITALS: BP 127/51
--- NOTE | 2018-01-23 08:17 | PRO ---
BRONCHOSCOPY REPORT: DATE OF PROCEDURE: 01/22/18 PROCEDURE PERFORMED: Bronchoscopy with bronchoalveolar lavage and transbronchial biopsy from right middle lobe. PRE-PROCEDURAL DIAGNOSIS: Persistent pulmonary infiltrates. POST-PROCEDURAL DIAGNOSIS: Pulmonary infiltrates. ANESTHESIOLOGIST: Dr. Marin. DESCRIPTION OF PROCEDURE: Informed consent was obtained from the patient prior to the procedure after all the risks and benefits were thoroughly explained. Appropriate time-out was performed and agreed on by attending staff. The patient was lying semi-recumbent on the stretcher. The patient had deep sedation and had endobronchial tube size 8 put in. Flexible Olympus bronchoscope was inserted through ET tube. ET tube positioning was confirmed to be in the right mainstem and was pulled backwards. Bronchoscope was then advanced into the left bronchial tree, which was inspected. 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 Thick secretions were seen, which were suctioned. Bronchoscope was then advanced into the right bronchial tree. All airways were open and patent. No endobronchial lesions were noted. Evidence of bronchomalacia was seen. Thick white secretions were noted and were suctioned out. Bronchial lavage was obtained from right middle lobe. Transbronchial biopsies were obtained with 5 passes from right middle lobe on fluoroscopic guidance. Specimen was placed in formalin. The patient tolerated the procedure well. The patient was extubated and seen in optimal condition in recovery. [id number]/[facility] #: [id number] [facility]ITAL[facility]ayo
== END 2018-01-22 15:44 | disposition home or self-care (01) ==
LOC: OR 10:59
PROVIDERS: ATTEND Internal Medicine
DX: R91.8 Other nonspecific abnormal finding of lung field (principal); I10 Essential (primary) hypertension; I25.10 Atherosclerotic heart disease of native coronary artery without angina pectoris; Z95.1 Presence of aortocoronary bypass graft; I48.91 Unspecified atrial fibrillation; E11.9 Type 2 diabetes mellitus without complications; I27.81 Cor pulmonale (chronic); Z79.4 Long term (current) use of insulin; Z79.01 Long term (current) use of anticoagulants; E66.01 Morbid (severe) obesity due to excess calories; Z68.42 Body mass index [BMI] 45.0-49.9, adult; J44.9 Chronic obstructive pulmonary disease, unspecified; G47.33 Obstructive sleep apnea (adult) (pediatric); Z99.81 Dependence on supplemental oxygen
CPT/HCPCS: 71045; 76000; 87070; 87102; 87116; 87205; 87206; 88112; 88305; A9270-GY; J0330; J2001; J2250; J2704; J3010

== ENCOUNTER 2019-02-11 08:49 | Emergency (ER) | payer MEDICARE, OTHER ==
--- OUTSIDE RECORDS SUMMARY | 2019-02-11 09:03 | XMS REPORT | Continuity of Care Document ---
:1955 External Reference #:[id number] Author Name Nelida Patino MD (transmitted by agent of provider Isabell Waller) Address [address] [place] [address] Care Team Providers Name Role Phone Horace Nichols MD - Thoracic Care Team Information Automobile Service Advisor Surgery (Cardiothoracic Vascular Surgery) Mahsa Rothman F.N.P. - Family Care Team Information Automobile Service Advisor Yvette Martin MD - Nephrology Care Team Information Automobile Service Advisor Problems Active Problems Provider Date Chest pain Enio Nam M.D., [facility], Onset: 04/20/2014 [facility] Palpitations Enio Nam M.D., [facility], Onset: 04/20/2014 [facility] Benign essential hypertension Saul Krause M.D., [facility] Onset: 2014 Chronic ischemic heart disease Saul Krause M.D., [facility] Onset: 2014 Obesity Saul Krause M.D., [facility] Onset: 07/29/2014 Chronic obstructive lung disease Ann Stephenson MD Onset: 04/19/2015 Obstructive sleep apnea syndrome Ann Stephenson MD Onset: 04/19/2015 Morbid obesity Ann Stephenson MD Onset: 04/19/2015 Chronic respiratory failure Ann Stephenson MD Onset: 04/19/2015 Atrial fibrillation Enio Nam M.D., [facility], Onset: 07/13/2015 [facility] Full respiratory system examination Ann Stephenson MD Onset: 08/05/2015 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., [facility], 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 [facility] pectoris Thoracic aortic ectasia Enoi Nam M.D., [facility], Onset: 09/17/2016 [facility] Paroxysmal atrial fibrillation Enio Nam M.D., [facility], Onset: 2017 [facility] Social History Type Date Description Comments Sex Unknown Tobacco Use Start: Unknown Never Smoked Cigarettes Smoking Status Reviewed: 02/02/19 Never Smoked Cigarettes ETOH Use Negative For Rarely consumes alcohol Tobacco Use Start: Unknown Patient has never smoked Recreational Drug Use Denies Drug Use Exercise Type/Frequency Exercises rarely Allergies, Adverse Reactions, Alerts Active Allergies Reaction Severity Comments Date Aspirin 04/06/2014 Perflutren back pain 08/12/2017 Medications Active Medications SIG Qnty Indications Ordering Date Provider Torsemide 3 tab every day 270tabs R60.1 Nelida Patino, 02/02/2019 20mg Tablets Iron (Ferrous Sulfate) 1 Tab By Mouth 180tabs D50.9 Nelida Patino, 2018 Twice A Day 142(45Fe) mg Tablets ER Metoprolol Tartrate 1 by mouth twice 180tabs Enio Martinez 09/02/2015 100mg a day Annette Nam, Tablets [facility], [facility] GNC 800 Calcium D3 2 tabs po bid Unknown Magnesium Incruse Ellipta inhale one puff Unknown by mouth every 62.5mcg/Inh Aerosol day Vitamin B-Complex 1 by mouth every Unknown day Tablets Breo Ellipta 1 puff inhaled Unknown Aerosol daily Nystatin as needed Unknown Powder Humulin R U-500 Sliding scale. VerShereen rosales, (Concentrated) AIRPORT BAGGAGE SCREENER 500Unit/ML Solution Albuterol Sulfate 1 vial via Unknown nebulizer 4 times (2.5mg/3ML) 0.083% daily as needed Nebulizer Eliquis 1 by mouth twice Unknown 5mg Tablets a day Losartan 1 daily Unknown Potassium/Hydrochlorot hiazide 100-25mg Tablets Cardizem CD take 1 tab by 90caps Enio Martinez 180mg Caps ER mouth daily Annette Nam, 24HR OCTAVIA AVITIA Spironolactone 1 by mouth twice Unknown 25mg daily Tablets Atorvastatin Calcium take 2 tablet by Unknown 20mg mouth daily Tablets Oxygen 2.5 to 3.9 L at Unknown Misc rest and 4 L with exertion NC continuous Restasis one drops both 6units Unknown 0.05% Emulsion eyes twice a day Metformin HCL 1by mouth twice a Enio Martinez 500mg day Annette Nam, Tablets OCTAVIA AVITIA Fenofibrate 1 by mouth every 30tabs Unknown 160mg Tablets day Multivitamin 1 po qd Unknown Tablets Aspirin Low Dose 1 by mouth every Unknown 81mg day Tablets Medications Administered in Office Medication SIG Qnty Indications Ordering Provider Date Technetium TC 99M Enio Nam M.D., 05/03/2014 Tetrofosmin, Per Unit Dose OCTAVIA AVITIA Up To 40 Millicuries Injection Immunizations Description No Information Available Vital Signs Date Vital Result Comment 02/02/2019 12:57pm Height 69 inches 5'9" Weight 303.00 lb Heart Rate 88 /min BP Systolic Sitting 103 mmHg left arm large cuff BP Diastolic Sitting 60 mmHg left arm large cuff O2 % BldC Oximetry 90 % room air BMI (Body Mass Index) 44.7 kg/m2 01/07/2019 12:54pm Height 69 inches 5'9" Weight 303.00 lb with shoes Heart Rate 78 /min BP Systolic Sitting 110 mmHg lue reg cuff BP Diastolic Sitting 68 mmHg lue reg cuff BP Systolic Standing 118 mmHg lue reg cuff BP Diastolic Standing 68 mmHg lue reg cuff Respiratory Rate 14 /min BMI (Body Mass Index) 44.7 kg/m2 Ejection Fraction 55-60% echo. 12/31/18 Results Test Acquired Date Facility Test Result H/L Range Note Urine 09/18/2018 [facility] Ur Microalbumin < 15.[address] (mg/L) mg/[place] [address] [phone] Urine Creatinine 27.94 mg/dL Urine Microalbumin/Creatinine TNP <31 1 Basic Metabolic 09/17/2018 [facility] Sodium 139 mmol/L Normal 135-[address] [place], [place] [id number] [phone] Potassium 4.6 mmol/L Normal 3.5-5.0 Chloride 101 mmol/L Normal 101-111 Co2 Carbon Dioxide 30 mmol/L Normal 22-32 Anion Gap 8 mmol/L Normal 2-11 Glucose 312 mg/dL High 70-100 Blood Urea Nitrogen 43 mg/dL High 6-24 Creatinine 1.63 mg/dL High 0.67-1.17 BUN/Creatinine Ratio 26.4 High 8-20 Egfr Non- 42.7 >60 Egfr 51.6 >60 2 Laboratory test 09/17/2018 [facility] Urine TP 6 mg/dL finding [address] [place] [address] [phone] PSA Screening 0.148 ng/mL Normal 0-4.000 3 Laboratory test 09/17/2018 [facility] Urine Creatinine 56.96 mg/ dL finding [address] Concentration [place], [place] [id number] [phone] Total Protein 09/17/2018 [facility] Urine Collection 24 hr 24HR Urine [address] [place] [address] [phone] Urine Total Volume 3450 mL Urine Total Protein/24HR 207 mg/24Hr High 0-165 Protein 09/17/2018 [facility] Total 7.0 g/dL 6.3 - Electrophoresis [address] Protein(Pep) 7.9 [place] [address] [phone] Albumin 3.4 g/dL 3.4-4.7 Alpha-1 Globulin 0.2 g/dL 0.1-0.3 Alpha-2 Globulin 1.0 g/dL 0.6-1.0 Beta Globulin 1.2 g/dL 0.7-1.2 Gamma Globulin 1.2 g/dL 0.6-1.6 Albumin/Globulin Ratio 0.96 Impression See Comment 4 Immunofixation See Comment 5 Protein 09/17/2018 [facility] Total 242 Abnormal <[address] Protein(Pep) mg/24h Urine (24HR) [place] [address] Urine [phone] Collection Duration 24 h Urine Volume 3450 mL Total Protein Concentration 7 mg/dL Albumin 18 % 7 Alpha-1 Globulin 4 % 8 Alpha-2 Globulin 30 % 9 Beta Globulin 32 % 10 Gamma Globulin 15 % 11 Albumin/Globulin Ratio 0.22 Impression See Comment 12 [place]/Lambda Free 09/17/2018 [facility] [place] Free 2.35 mg/dL Abnormal [address] [place] [address] [phone] Lambda Free Light Chain 3.96 mg/dL Abnormal 14 [place]/Lambda Free Light Chain 0.5934 15 Laboratory test 09/17/2018 [facility] Ferritin 48.7 ng/mL Normal 24-[address] [place] [address] [phone] Iron & Iron 09/17/2018 [facility] Iron 86 g/dL Normal 50- [address] [place] [address] [phone] Unsaturated Iron Binding < 436 g/dL Total Iron Binding Capacity 451 g/dL High 250-450 Transferrin 322 mg/dL Normal 203-362 % Iron Saturation 19 % Normal 15-55 Laboratory test 09/17/2018 [facility] Hemoglobin A1c 8.3 % High 4.0-5.[address] (Glyco HGB) [place], [place] [address] [phone] Cystatin C With 09/17/2018 [facility] eGFR by 40 >60 [address] Cystatin C mL/min/B [place], [place] [id number] NX [phone] Cystatin C, S 1.63 mg/L Abnormal 18 Creatinine 09/17/2018 [facility] Creatinine, 1.63 High 0.51- 0.[address] Serum mg/dL [place], [place] [id number] [phone] Urine Collection Time 24 hr Urine Total Volume 3450 mL Creatinine Clearance 84 mL/min Low 97-137 Laboratory test 09/17/2018 [facility] Calcium 9.5 mg/dL Normal 8.6-10.[address] [place] [address] [phone] CBC Auto Diff 09/17/2018 [facility] White Blood 5.4 Normal 3.5 -10.[address] Count 10^3/[place] [address] [phone] Red Blood Count 3.73 10^6/uL Low 4.18-5.48 Hemoglobin 10.9 g/dL Low 14.0-18.0 Hematocrit 32 % Low 42-52 Mean Corpuscular Volume 86 fL Normal 80-94 Mean Corpuscular Hemoglobin 29 pg Normal 27-31 Mean Corpuscular HGB Conc 34 g/dL Normal 31-36 Red Cell Distribution Width 15 % Normal 10-15 Platelet Count 234 10^3/uL Normal 150-450 Mean Platelet Volume 7.8 fL Normal 7.4-10.4 Abs Neutrophils 4.6 10^3/uL Normal 1.5-7.7 Abs Lymphocytes 0.3 10^3/uL Low 1.0-4.8 Abs Monocytes 0.4 10^3/uL Normal 0-0.8 Abs Eosinophils 0.1 10^3/uL Normal 0-0.6 Abs Basophils 0.0 10^3/uL Normal 0-0.2 Abs Nucleated RBC 0.0 10^3/uL Granulocyte % 85.7 % Lymphocyte % 4.9 % Monocyte % 7.0 % Eosinophil % 2.2 % Basophil % 0.2 % Nucleated Red Blood Cells % 0.0 1 Unable to calculate due to low microalbumin 2 Because ethnic data is not always readily available, this report includes an eGFR for both -Americans and non- Americans. The National Kidney Disease Education Program (NKDEP) does not endorse the use of the MDRD equation for patients that are not between the ages of 18 and 70, are , have extremes of body size, muscle mass, or nutritional status, or are non- or non-. According to the National Kidney Foundation, irrespective of diagnosis, the stage of the disease is based on the level of kidney function: Stage Description GFR(mL/min/1.73 m(2)) 1 Kidney damage with normal or decreased GFR 90 2 Kidney damage with mild decrease in GFR 60-89 3 Moderate decrease in GFR 30-59 4 Severe decrease in GFR 15-29 5 Kidney failure <15 (or dialysis) 3 Serum levels of PSA measured using the Emily Aardvark DXI Hybritech immunoassay should not be interpreted as absolute evidence of the presence or absence of disease. The PSA value should be used in conjunction with other pertinent clinical diagnostic procedures. A PSA value in the range of 0.1 to 0.6 ng/ml is indeterminate if being used as an indicator of recurrent or residual disease. The values obtained with different assay methods or kits cannot be used interchangeably. 4 Small abnormality in gamma fraction. See Immunofixation. Test Performed by: [place] [address] 5 Small monoclonal lambda within the gamma fraction (Bence Angela Proteinemia). Immunofixation with IgD and IgE was negative. C/W MGUS, myeloma, amyloidosis, etc. Suggest 24-hr urine Monoclonal Protein Studies. Test Performed by: [facility] [place] [address] 6 ADDITIONAL INFORMATION On 09/18/2016 the total protein assay method changed resulting in approximately a 15% increase in protein values. 7 44 mg/24 h 8 10 mg/24 h 9 73 mg/24 h 10 77 mg/24 h 11 36 mg/24 h 12 RESULT: All fractions present, no apparent M-spike. Test Performed by: [facility] - [address] [address] Test Performed by: [facility] - [address] [address] 13 REFERENCE VALUE 0.3300-1.94 14 REFERENCE VALUE 0.5700-2.63 15 REFERENCE VALUE 0.2600-1.65 Test Performed by: [facility] - [address] [address] 16 Therapeutic target for the treatment of diabetes mellitus patients is <7% HBA1C, and in selective patients <6.0%. Please refer to [place] Diabetes Association diabetic care guidelines for further information. 17 ADDITIONAL INFORMATION Cystatin C-based eGFR may differ substantially from creatinine-based eGFR in patients with abnormal muscle mass or acutely changing renal function. Please interpret together with relevant clinical features. 18 REFERENCE VALUE 0.77 - 1.42 Test Performed by: [facility] - [address] [address] Procedures Date Code Description Status 01/07/2019 58274 EKG Tracing & Interpretation Completed 12/31/2018 80846 ECHO Transthoracic, Real-Time 2D With Doppler And Color Completed Flow 12/31/2018 26023 ECHO Transthoracic, Real-Time 2D With Doppler And Color Completed Flow Medical Devices Description No Information Available Encounters Type Date Location Provider Dx Diagnosis Office Visit 01/07/2019 [facility] Enio Juan I77.810 Thoracic aortic 1:00p Of Alex Nam M.D., ectasia FAC, [facility] I25.10 Athscl heart disease of [place] coronary artery w/o ang pctrs Z95.1 Presence of aortocoronary bypass graft I48.0 Paroxysmal atrial fibrillation R94.31 Abnormal electrocardiogram [ECG] [EKG] Office Visit 10/21/2018 11:30a [facility] Yvette N18.3 Chronic kidney MD Veronica disease, stage 3 (moderate) E66.2 Morbid (severe) obesity with alveolar hypoventilation I12.9 Hypertensive chronic kidney disease w stg 1-4/unsp chr kdny D47.2 Monoclonal gammopathy Assessments Date Code Description Provider 02/02/2019 I12.9 Hypertensive chronic kidney disease Nelida Patino MD with stage 1 through stage 4 chronic kidney disease, or unspecified chronic kidney disease 02/02/2019 N18.3 Chronic kidney disease, stage 3 Nelida Patino MD (moderate) 02/02/2019 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 02/02/2019 D64.9 Anemia, unspecified Nelida Patino MD 02/02/2019 R60.1 Generalized edema Nelida Patino MD 02/02/2019 D50.9 Iron deficiency anemia, unspecified Nelida Patino MD 02/02/2019 E66.09 Other obesity due to excess calories Nelida Patino MD 01/07/2019 I77.810 Thoracic aortic ectasia Enio Nam M.D., [facility], [facility] 01/07/2019 I25.10 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., [facility], [place] coronary artery without angina [facility] pectoris 01/07/2019 Z95.1 Presence of aortocoronary bypass Enio Nam M.D., [facility], graft [facility] 01/07/2019 I48.0 Paroxysmal atrial fibrillation Enio Nam M.D., [facility] , [facility] 01/07/2019 R94.31 Abnormal electrocardiogram [ECG] Enio Nam M.D., [facility], [EKG] [facility] 12/31/2018 I77.810 Thoracic aortic ectasia Enio Nam M.D., [facility], [facility] 12/31/2018 I77.810 Thoracic aortic ectasia Traveling ECHO 1 10/21/2018 N18.3 Chronic kidney disease, stage 3 Yvette Martin MD (moderate) 10/21/2018 E66.2 Morbid (severe) obesity with alveolar Yvette Martin MD hypoventilation 10/21/2018 I12.9 Hypertensive chronic kidney disease Yvette Martin MD with stage 1 through stage 4 chronic kidney disease, or unspecified chronic kidney disease 10/21/2018 D47.2 Monoclonal gammopathy Yvette Martin MD Plan of Treatment Future Appointment(s):03/04/2019 11:30 am - Nelida Patino MD at [facility] [id number] /11/2019 - Nelida Patino MDI12.9 Hypertensive chronic kidney disease with stage 1 through stage 4 chronic kidney disease, or unspecified chronic kidney gyerhepP24.3 Chronic kidney disease, stage 3 (moderate)Follow up:follow up in a gwmcrX94.22 Type 2 diabetes mellitus with diabetic chronic kidney ogjpnmyB36.9 Anemia, tmaowphlttkX42.1 Generalized edemaNew Medication:Torsemide 20 mg - 3 tab every dayD50.9 Iron deficiency anemia, unspecifiedNew Medication:Iron ( Ferrous Sulfate) 142(45 Fe) mg - 1 Tab By Mouth Twice A DayE66.09 Other obesity due to excess calories Functional Status Description No Information Available Mental Status Description No Information Available Referrals Refer to Dr Reason for Referral Status Appt Date [place] Grullon MD small abn monoclonal protein/ kappa/lambda Sent light chain/Bence angela [address] Smith [address] [place] [address] [phone] [place] Grullon MD abnormal monoclonal protein/bence angela Closed [address] Smith [address] [place] [address] [phone]
--- OUTSIDE RECORDS SUMMARY | 2019-02-11 09:03 | XMS REPORT | Continuity of Care Document ---
:1955 External Reference #:[id number] Author Name Enio Nam M.D., [facility], [facility] (transmitted by agent of provider Yoselin Dave) Address [facility] [place] [address] Care Team Providers Name Role Phone Horace Nichols MD - Thoracic Care Team Information Client Service Associate [phone] Surgery (Cardiothoracic Vascular Surgery) Mahsa Rothman F.N.P. - Family Care Team Information Client Service Associate [phone] Yvette Martin MD - Nephrology Care Team Information Client Service Associate Problems Active Problems Provider Date Chest pain Enio Nam M.D., [facility], Onset: 04/20/2014 [facility] Palpitations Enio Nam M.D., [facility], Onset: 04/20/2014 [facility] Benign essential hypertension Saul Krause M.D., [facility] Onset: 2014 Chronic ischemic heart disease Saul Krause M.D., [facility] Onset: 2014 Obesity Saul Krause M.D., [facility] Onset: 07/29/2014 Chronic obstructive lung disease Ann Stephenson MD Onset: 04/19/2015 Obstructive sleep apnea syndrome Ann Stephenson MD Onset: 04/19/2015 Morbid obesity Ann Stephenson MD Onset: 04/19/2015 Chronic respiratory failure Ann Stephenson MD Onset: 04/19/2015 Atrial fibrillation Enio Nam M.D., [facility], Onset: 07/13/2015 [facility] Full respiratory system examination Ann Stephenson MD Onset: 08/05/2015 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., [facility], Onset: 2015 [place] coronary artery without angina [facility] pectoris Thoracic aortic ectasia Enio Nam M.D., [facility], Onset: 09/17/2016 [facility] Paroxysmal atrial fibrillation Enio Nam M.D., [facility], Onset: 2017 [facility] Social History Type Date Description Comments Sex Unknown Tobacco Use Start: Unknown Never Smoked Cigarettes Smoking Status Reviewed: 01/07/19 Never Smoked Cigarettes ETOH Use Negative For Rarely consumes alcohol Tobacco Use Start: Unknown Patient has never smoked Recreational Drug Use Denies Drug Use Exercise Type/Frequency Exercises rarely Allergies, Adverse Reactions, Alerts Active Allergies Reaction Severity Comments Date Aspirin 04/06/2014 Perflutren back pain 08/12/2017 Medications Active Medications SIG Qnty Indications Ordering Date Provider Metoprolol Tartrate 1 by mouth twice 180tabs Enio Martinez 09/02/2015 100mg a day Annette Nam, Tablets FACC, [facility] 800 Calcium D3 2 tabs po bid Unknown Magnesium Incruse Ellipta inhale one puff Unknown by mouth every 62.5mcg/Inh Aerosol day Vitamin B-Complex 1 by mouth every Unknown day Tablets Breo Ellipta 1 puff inhaled Unknown Aerosol daily Nystatin as needed Unknown Powder Humulin R U-500 Sliding scale. Shereen Thompson, (Concentrated) CLINICAL DATA COORDINATOR 500Unit/ML Solution Albuterol Sulfate 1 vial via Unknown nebulizer 4 times (2.5mg/3ML) 0.083% daily as needed Nebulizer Torsemide 2 by mouth every Unknown 20mg Tablets day Am, if needed will take addtional 1 tablet in evening Eliquis 1 by mouth twice Unknown 5mg Tablets a day Losartan 1 daily Unknown Potassium/Hydrochlorot hiazide 100-25mg Tablets Cardizem CD take 1 tab by 90caps Enio Martinez 180mg Caps ER mouth daily Annette Nam, 24HR [facility], [facility] Spironolactone 1 by mouth twice Unknown 25mg [...] Available Vital Signs Date Vital Result Comment 01/07/2019 12:54pm Height 69 inches 5'9" Weight 303.00 lb with shoes Heart Rate 78 /min BP Systolic Sitting 110 mmHg lue reg cuff BP Diastolic Sitting 68 mmHg lue reg cuff BP Systolic Standing 118 mmHg lue reg cuff BP Diastolic Standing 68 mmHg lue reg cuff Respiratory Rate 14 /min BMI (Body Mass Index) 44.7 kg/m2 Ejection Fraction 55-60% echo. 12/31/18 10/21/2018 11:34am Height 69 inches 5'9" Weight 308.00 lb Heart Rate 78 /min BP Systolic Sitting 108 mmHg large cuff left arm BP Diastolic Sitting 61 mmHg large cuff left arm O2 % BldC Oximetry 94 % 3 liters of oxygen BMI (Body Mass Index) 45.5 kg/m2 Results Test Date Facility Test Result H/L Range Note Urine Microalbumin 09/18/2018 [facility] Ur Microalbumin < 15.0 mg/L Random [address] (mg/L) [place] [address] [phone] Urine Creatinine 27.94 mg/dL Urine Microalbumin/Creatinine TNP <31 1 Basic Metabolic 09/17/2018 [facility] Sodium 139 mmol/L Normal 135-[address] [place] [address] [phone] Potassium 4.6 mmol/L Normal 3.5-5.0 Chloride 101 mmol/L Normal 101-111 Co2 Carbon Dioxide 30 mmol/L Normal 22-32 Anion Gap 8 mmol/L Normal 2-11 Glucose 312 mg/dL High 70-100 Blood Urea Nitrogen 43 mg/dL High 6-24 Creatinine 1.63 mg/dL High 0.67-1.17 BUN/Creatinine Ratio 26.4 High 8-20 Egfr Non- 42.7 >60 Egfr 51.6 >60 2 Laboratory test 09/17/2018 [facility] Urine TP 6 mg/dL finding [address] [place] [address] [phone] PSA Screening 0.148 ng/mL Normal 0-4.000 3 Laboratory test 09/17/2018 [facility] Urine Creatinine 56.96 mg/ dL finding [address] [place] [address] [phone] Total Protein 09/17/2018 [facility] Urine Collection 24 hr 24HR Urine [address] [place] [address] [phone] Urine Total Volume 3450 mL Urine Total Protein/24HR 207 mg/24Hr High 0-165 Protein 09/17/2018 [facility] Total 7.0 g/dL 6.3 - Electrophoresis [address] Protein(Pep) 7.9 [place] [address] [phone] Albumin 3.4 g/dL 3.4-4.7 Alpha-1 Globulin 0.2 g/dL 0.1-0.3 Alpha-2 Globulin 1.0 g/dL 0.6-1.0 Beta Globulin 1.2 g/dL 0.7-1.2 Gamma Globulin 1.2 g/dL 0.6-1.6 Albumin/Globulin Ratio 0.96 Impression See Comment 4 Immunofixation See Comment 5 Protein 09/17/2018 [facility] Total 242 Abnormal <229 [address] Protein(Pep) mg/24h Urine (24HR) [place] [address] Urine [phone] Collection Duration 24 h Urine Volume 3450 mL Total Protein Concentration 7 mg/dL Albumin 18 % 7 Alpha-1 Globulin 4 % 8 Alpha-2 Globulin 30 % 9 Beta Globulin 32 % 10 Gamma Globulin 15 % 11 Albumin/Globulin Ratio 0.22 Impression See Comment 12 [place]/Lambda Free 09/17/2018 [facility] [place] Free 2.35 mg/dL Abnormal 13 Light Chains Ser [address] [place] [address] [phone] Lambda Free Light Chain 3.96 mg/dL Abnormal 14 [place]/Lambda Free Light Chain 0.5934 15 Laboratory test 09/17/2018 [facility] Ferritin 48.7 ng/mL Normal 24-[address] [place], [place] [address] [phone] Iron & Iron 09/17/2018 [facility] Iron 86 g/dL Normal 50- 212 Binding Capacity [address] [place] [address] [phone] Unsaturated Iron Binding < 436 g/dL Total Iron Binding Capacity 451 g/dL High 250-450 Transferrin 322 mg/dL Normal 203-362 % Iron Saturation 19 % Normal 15-55 Laboratory test 09/17/2018 [facility] Hemoglobin A1c 8.3 % High 4.0-5.[address] (Glyco HGB) [place], [place] [id number] [phone] Cystatin C With 09/17/2018 [facility] eGFR by 40 >60 [address] Cystatin C mL/min/[place] [address] [phone] Cystatin C, S 1.63 mg/L Abnormal 18 Creatinine 09/17/2018 [facility] Creatinine, 1.63 High 0.51- 0.[address] Serum mg/[place] [address] [phone] Urine Collection Time 24 hr Urine Total Volume 3450 mL Creatinine Clearance 84 mL/min Low 97-137 Laboratory test 09/17/2018 [facility] Calcium 9.5 mg/dL Normal 8.6-10.[address] [place] [address] [phone] CBC Auto Diff 09/17/2018 [facility] White Blood 5.4 Normal 3.5 -10.[address] Count 10^3/[place] [address] [phone] Red Blood Count 3.73 10^6/uL Low 4.18-5.48 [...] levels of PSA measured using the Emily Newtricious DXI Hybritech immunoassay should not be interpreted [...] gamma fraction. See Immunofixation. 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 Immunofixation with IgD and IgE was negative. C/W MGUS, myeloma, amyloidosis, etc. Suggest 24-hr urine Monoclonal Protein Studies. Test Performed by: [facility] - [address] [address] 6 ADDITIONAL INFORMATION On 09/18/2016 the total protein assay method changed resulting in approximately a 15% increase in protein values. 7 44 mg/24 h 8 10 mg/24 h 9 73 mg/24 h 10 77 mg/24 h 11 36 mg/24 h 12 RESULT: All fractions present, no apparent M-spike. Test Performed by: [facility] - [address] [address] Test Performed by: [facility] - [address] [address] 13 REFERENCE VALUE 0.3300-1.94 14 REFERENCE VALUE 0.5700-2.63 15 REFERENCE VALUE 0.2600-1.65 Test Performed by: [facility] - [address] [address] 16 Therapeutic target for the treatment of diabetes mellitus patients is <7% HBA1C, and in selective patients <6.0%. Please refer to [place] [employer] diabetic care guidelines for further information. 17 ADDITIONAL INFORMATION Cystatin C-based eGFR may differ substantially from creatinine-based eGFR in patients with abnormal muscle mass or acutely changing renal function. Please interpret together with relevant clinical features. 18 REFERENCE VALUE 0.77 - 1.42 Test Performed by: [address] [address] Procedures Date Code Description Status 01/07/2019 02746 EKG Tracing & Interpretation Completed 12/31/2018 48550 ECHO Transthoracic, Real-Time 2D With Doppler And Color Completed Flow 12/31/2018 33282 ECHO Transthoracic, Real-Time 2D With Doppler And Color Completed Flow Medical Devices Description No Information Available Encounters Type Date Location Provider Dx Diagnosis Office Visit 10/21/2018 [facility] Nephrology Yvette Martin, N18.3 Chronic kidney 11:30a MD disease, stage 3 (moderate) E66.2 Morbid (severe) obesity with alveolar hypoventilation I12.9 Hypertensive chronic kidney disease w stg 1-4/unsp chr kdny D47.2 Monoclonal gammopathy Assessments Date Code Description Provider 01/07/2019 I77.810 Thoracic aortic ectasia Enio Nam M.D., [facility], [facility] 12/31/2018 I77.810 Thoracic aortic ectasia Enio Nam M.D., [facility], [facility] 12/31/2018 I77.810 Thoracic aortic ectasia Traveling ECHO 1 10/21/2018 N18.3 Chronic kidney disease, stage 3 Yvette Martin MD (moderate) 10/21/2018 E66.2 Morbid (severe) obesity with Yvette Martin MD alveolar hypoventilation 10/21/2018 I12.9 Hypertensive chronic kidney disease Yvette Martin MD with stage 1 through stage 4 chronic kidney disease, or unspecified chronic kidney disease 10/21/2018 D47.2 Monoclonal gammopathy Yvette Martin MD Plan of Treatment Future Appointment(s):02/02/2019 1:00 pm - Nelida Patino MD at [facility] [id number] /16/2019 - Enio Nam M.D., [facility], NBMOXG57.810 Thoracic aortic ectasiaNew Orders:Echocardiogram, Ordered: 01/07/19Comments:As discussed, your heart and aorta are stable. Please start exercise.Follow up:one year after echo Functional Status Description No Information Available Mental Status Description No Information Available Referrals Refer to Dr Reason for Referral Status Appt Date [place] Grullon MD small abn monoclonal protein/ kappa/lambda Sent light chain/Bence angela [address] [place] [address] [phone] [place] Grullon MD abnormal monoclonal protein/bence angela Closed [address] [place] [address] [phone]
--- OUTSIDE RECORDS SUMMARY | 2019-02-11 09:03 | XMS REPORT | Continuity of Care Document ---
:1955 External Reference #:[id number] Author Name Kimberley García O.D. Address [address] [place] [address] Care Team Providers Name Role Phone Eli Garcia FROILAN - Nurse Care Team Information [employer] [employer] [phone] Practitioner Enio Nam M.D. - Cardiovascular Care Team Information [place] Disease Jem Martin MD - Nephrology Care Team Information [place] [employer] [phone] Ann Stephenson M.D. - Pulmonary Care Team Information [employer] [employer] [phone] Disease Problems Active Problems Provider Date Type 2 diabetes mellitus Isabell Briones O.D. Onset: 09/07/2015 Essential hypertension Isabell Briones O.D. Onset: 09/07/2015 Hypercholesterolemia Isabell Briones O.D. Onset: 09/07/2015 Coronary artery bypass grafts x 2 Isabell Briones O.D. Onset: 09/07/2015 Stented coronary artery Isabell Briones O.D. Onset: 09/07/2015 Idiopathic scoliosis Onset: Neuropathy Onset: Combined form of senile cataract Isabell Briones O.D. Onset: 09/07/2015 Tear film insufficiency Isabell Briones O.D. Onset: 09/07/2015 Atrial fibrillation Onset: Sleep apnea Onset: Vitreous degeneration Kimberley García O.D. Onset: 10/10/2018 Vitreous hemorrhage Kimberley García O.D. Onset: 10/10/2018 Type 2 diabetes mellitus with mild Kimberley García O.D. Onset: 10/10/2018 nonproliferative diabetic retinopathy without macular edema, bilateral Nuclear senile cataract Kimberley García O.D. Onset: 10/24/2018 Artificial lens in position Kimberley García O.D. Onset: 10/24/2018 Visual disturbance Kimberley García O.D. Onset: 01/26/2019 Social History Type Date Description Comments Sex Unknown ETOH Use Occasionally consumes alcohol Recreational Drug Use Denies Drug Use Tobacco Use Start: Unknown Patient has never smoked Smoking Status Reviewed: 01/26/19 Patient has never smoked Allergies, Adverse Reactions, Alerts Active Allergies Reaction Severity Comments Date Aspirin Vertigo - only at high doses Mild 09/07/2015 Contrast Dye 10/24/2018 Medications Active Medications SIG Qnty Indications Ordering Date Provider Restasis 1 drops both 180units H04.123 Kimberley Lund 10/10/2018 0.05% Emulsion eyes twice a Surjit García day Losartan Mariana Lima MAINTENANCE TECH Potassium/Hydrochloroth iazide 100-25mg Tablets Cartia XT Mariana Lima MAINTENANCE TECH 180mg Caps ER 24HR Metoprolol Succinate ER Mariana Lima MAINTENANCE TECH 200mg Tablets ER 24HR Folic + B12 Unknown 800-1000mcg Tablets Diltiazem HCL ER Unknown 180mg Caps ER 24HR Torsemide Unknown 20mg Tablets Eliquis Unknown 5mg Tablets Incruse Ellipta Unknown 62.5mcg/Inh Aerosol Breo Ellipta Verduin, Shereen [employer]IE[employer] 200-25mcg/Inh Aerosol Humulin R U-500 Unknown (Concentrated) 500Unit/ML Solution Metformin HCL Unknown 500mg Tablets Fenofibrate Unknown 160mg Tablets Daily Vitamin Unknown Tablets Calcium 500 +D Unknown [id number] Tablets Aspirin Unknown 81mg Chewtabs Amiodarone HCL Unknown 200mg Tablets Spironolactone Unknown 25mg Tablets Atorvastatin Calcium Unknown 20mg Tablets Immunizations Description No Information Available Vital Signs Description No Information Available Results Description No Information Available Procedures Date Code Description Status 10/10/2018 17399 Est Patient Comprehensive Exam Completed Medical Devices Description No Information Available Encounters Type Date Location Provider Dx Diagnosis Office Visit 10/24/2018 Kimberley Guadarrama H43.813 Vitreous 11:00a , sallie García O.D. degeneration, bilateral E11.3293 Type 2 diab with mild nonp rtnop without macular edema, bi H25.13 Age-related nuclear cataract, bilateral H04.123 Dry eye syndrome of bilateral lacrimal glands Assessments Date Code Description Provider 01/26/2019 H43.813 Vitreous degeneration, bilateral Kimberley García O.D. 01/26/2019 E11.3293 Type 2 diabetes mellitus with mild Kimberley García O.D. nonproliferative diabetic retinopathy without macular edema, bilateral 01/26/2019 H25.13 Age-related nuclear cataract, bilateral Kimberley García O.D. 01/26/2019 H53.8 Other visual disturbances Kimberley García O.D. 10/24/2018 H43.813 Vitreous degeneration, bilateral Kimberley García O.D. 10/24/2018 E11.3293 Type 2 diabetes mellitus with mild Kimberley García O.D. nonproliferative diabetic retinopathy without macular edema, bilateral 10/24/2018 H25.13 Age-related nuclear cataract, bilateral Kimberley García O.D. 10/24/2018 H04.123 Dry eye syndrome of bilateral lacrimal Kimberley García O.D. glands 10/10/2018 H43.812 Vitreous degeneration, left eye Kimberley García O.D. 10/10/2018 H43.12 Vitreous hemorrhage, left eye Kimberley García O.D. 10/10/2018 H04.123 Dry eye syndrome of bilateral lacrimal Kimberley García O.D. glands 10/10/2018 E11.3293 Type 2 diabetes mellitus with mild Kimberley García O.D. nonproliferative diabetic retinopathy without macular edema, bilateral 10/10/2018 H25.813 Combined forms of age-related cataract, Kimberley García O.D. bilateral Plan of Treatment Future Appointment(s):10/26/2019 11:00 am - Kimberley García O.D. at [facility], pc103/28/2018 - Kimberley García O.D.H43.813 Vitreous degeneration, bilateralComments:You have a Posterior Vitreous Detachment. Please read the pamphlet that was given to you. If you have any changes in your floaters or flashing lights, please contact this office.Follow up:1 Year Follow Up You can expect to have your eyes dilated at your next visit. If Dr. García orders any additional testing, it may require extra time. We recommend that you bring sunglasses, as dilation drops often make you light sensitive until they wear off. We always recommend you bring someone to drive you home if you are uncomfortable driving with your eyes dilated. If you have any questions before your next visit, feel free to call our office at .E11.3293 Type 2 diabetes mellitus with mild nonproliferative diabetic retinopathy without macular edema, wikarkyogA54.13 Age-related nuclear cataract, xnlotgqmjB38.8 Other visual disturbances Functional Status Description No Information Available Mental Status Description No Information Available Referrals Description No Information Available
[2019-02-11] MEDS ORDERED: Furosemide IV* 10 MG/ML VIAL (40 MG) IV SLOW PU ONE (09:23)
--- NOTE | 2019-02-11 09:48 | ED ---
Shortness of Breath - HPI Summary HPI Summary: 63-year-old male presents with shortness of breath for the past 2 weeks. He states SOB has been increasing for past couple days. Has history of COPD and is on 3 L at home. He has been increasing his oxygen. He is currently on 5 L. He states that he has been having swelling to his lower extremities. He states he took 4 torsemide tablets prior to arrival. He states he's had fluid drained from his chest multiple times with last drainage a years ago. He admits to occasional cough that is unchanged from his previous cough. Denies any fevers. No abdominal pain. No nausea vomiting. Denies any chest pain. Has history of CHF CAD and COPD. he is on eliquis. - History of Current Complaint Chief Complaint: EDShortnessOfBreath Time Seen by Provider: 02/11/19 09:00 - Allergy/Home Medications Allergies/Adverse Reactions: Allergies Allergy/AdvReac Type Severity Reaction Status Date / Time NSAIDS (Non-Steroidal Allergy Mild See Comment Verified 02/11/19 08:54 Anti-Inflamma aspirin Allergy See Comment Verified 02/11/19 08:54 Definity Allergy See Comment Uncoded 02/11/19 08:54 PMH/Surg Hx/FS Hx/Imm Hx Endocrine/Hematology History: Reports: Hx Diabetes - type 2 Denies: Hx Bone Marrow Disease, Hx Sickle Cell Disease, Hx Thyroid Disease, Hx Anemia Cardiovascular History: Reports: Hx Angina, Hx Congestive Heart Failure, Hx Coronary Artery Disease - CABG 2016, a-fib, Hx Hypercholesterolemia, Hx Hypertension, Hx Myocardial Infarction, Hx Valvular Heart Disease, Other Cardiovascular Problems/Disorders - DOUBLE BYPASS SURGERY- PER PT Denies: Hx Pacemaker/ICD, Hx Peripheral Vascular Disease Respiratory History: Reports: Hx Chronic Obstructive Pulmonary Disease (COPD) - O2 AT HOME AND BIPAP MACHINE HE WEARS IN THE DAY WELL, Hx Pulmonary Edema, Hx Sleep Apnea Denies: Hx Asthma, Other Respiratory Problems/Disorders GI History: Reports: Hx Gastroesophageal Reflux Disease - rarely Denies: Hx Ulcer History: Reports: Other Problems/Disorders - frequency, difficulty starting Denies: Hx Dialysis, Hx Renal Disease Musculoskeletal History: Reports: Hx Arthritis, Hx Back Problems - SCOLIOSIS, Hx Bursitis - right shoulder, Hx Scoliosis, Hx Tendonitis - right shoulder, Other Musculoskeletal History - one leg shorter than other Denies: Hx Osteoporosis Sensory History: Reports: Hx Contacts or Glasses - glasses for reading Denies: Hx Cataracts, Hx Glaucoma, Hx Hearing Aid Opthamlomology History: Reports: Hx Contacts or Glasses - glasses for reading Denies: Hx Cataracts, Hx Glaucoma Neurological History: Reports: Hx Migraine Denies: Hx Headaches, Hx Seizures, Hx Transient Ischemic Attacks (TIA), Other Neuro Impairments/Disorders Psychiatric History: Reports: Hx Depression - Cancer History Hx Chemotherapy: No - Surgical History Surgery Procedure, Year, and Place: triple R surgery in throat for Cpap?, appendectomy, cracked spine when 11--no surgery but was in a cast "all summer" CAGB 08/22/15. cardiac stents 2014 Hx Anesthesia Reactions: No - Immunization History Date of Influenza Vaccine: 01/2017 Infectious Disease History: No Infectious Disease History: Denies: Hx Hepatitis, Hx Human Immunodeficiency Virus (HIV), Hx of Known/ Suspected MRSA, Hx Shingles, Hx Tuberculosis, Traveled Outside the [place] in Last 30 Days - Family History Known Family History: Positive: None, Diabetes - Social History Alcohol Use: None Substance Use Type: Reports: None Hx Tobacco Use: No Smoking Status (MU): Never Smoked Tobacco Review of Systems Negative: Fever Negative: Chest Pain Positive: Shortness Of Breath. Negative: Cough All Other Systems Reviewed And Are Negative: Yes Physical Exam Triage Information Reviewed: Yes Vital Signs On Initial Exam: Initial Vitals Temp Pulse Resp BP Pulse Ox 97.4 F 74 18 119/59 96 02/11/19 08:49 02/11/19 08:49 02/11/19 08:49 02/11/19 08:49 02/11/19 08:49 Vital Signs Reviewed: Yes Appearance: Positive: Well-Appearing Skin: Positive: Warm, Dry Head/Face: Positive: Normal Head/Face Inspection Eyes: Positive: Normal, Conjunctiva Clear ENT: Positive: Pharynx normal Respiratory/Lung Sounds: Positive: Breath Sounds Present, Decreased Breath Sounds Cardiovascular: Positive: Normal, RRR Musculoskeletal: Positive: Normal Neurological: Positive: Normal Psychiatric: Positive: Normal Procedures - Sedation Patient Received Moderate/Deep Sedation with Procedure: No Diagnostics - Vital Signs Vital Signs Temp Pulse Resp BP Pulse Ox 02/11/19 09:15 13 02/11/19 09:13 77 14 120/57 100 02/11/19 08:49 97.4 F 74 18 119/59 96 - Laboratory Result Diagrams: 02/11/19 09:43 02/11/19 09:43 Lab Statement: Any lab studies that have been ordered have been reviewed, and results considered in the medical decision making process. - Radiology chest Radiology Interpretation Completed By: Radiologist Summary of Radiographic Findings: IMPRESSION: FINDINGS SUGGESTIVE OF CONGESTIVE HEART FAILURE SIMILAR TO THE PRIOR STUDY. - EKG No standard instances Cardiac Rate: NL EKG Rhythm: Sinus Rhythm EKG Comparison: No Significant Change Summary of EKG Findings: sinus rhythm, right BBB Re-Evaluation - Re-Evaluation First Eval Re-Evaluation Time: 11:31 Change: Improved Comment: lungs CTA. discussed patient has had increase in torsemide from 20mg three weeks ago to 40mg to 80mg over past 5 days Course/Dx - Course Course Of Treatment: 63-year-old male presents with shortness of breath for the past 2 weeks. He states SOB has been increasing for past couple days. Has history of COPD and is on 3 L at home. He has been increasing his oxygen. He is currently on 5 L. He states that he has been having swelling to his lower extremities. He states he took 4 torsemide tablets prior to arrival. He states he's had fluid drained from his chest multiple times with last drainage a years ago. He admits to occasional cough that is unchanged from his previous cough. Denies any fevers. No abdominal pain. No nausea vomiting. Denies any chest pain. Has history of CHF CAD and COPD. On exam decreased breath sounds heard. Edema noted in lower legs. EKG shows sinus rhythm with right bundle branch that is similar to previous. White blood count normal. Chest x-ray shows chf. bnp normal. crp normal. no improvement with breathing treatment. chest xray shows chf. as patient has been here has been urinating frequently and oxygen stats has been improving so toresmide likely working. he took 80mg toresemide which he has been on for 3 days. was placed on 2 liters and was stating 97 which is lower oxygen than he is normally on. discussed will hold at 80mg for next couple days but if continues to have sob will have increase toresmide to 100mg. told follow up with primary. if continues to have issues told to follow up with [facility]. patient understand and agrees with plan. - Diagnoses Differential Diagnosis/HQI/PQRI: Positive: CHF, COPD Exacerbation, Pneumonia Provider Diagnoses: CHF (congestive heart failure), Shortness of breath Discharge ED - Sign-Out/Discharge Documenting (check all that apply): Patient Departure - Discharge Plan Condition: Stable Disposition: HOME Patient Education Materials: Heart Failure (ED) Referrals: Mariana Lima [Primary Care Provider] - Ann Stephenson MD [Medical Doctor] - Additional Instructions: continue torsemide 80mg for two more days, if continue to have shortness of breath increase to 100mg follow up with primary within 3 days Limit salt intake Return to ED if develop worsening shortness of breath, chest pain or any new or worsening symptoms - Billing Disposition and Condition Condition: STABLE Disposition: Home - Attestation Statements Provider Attestation: I was available for consultation for this patient. I did not evaluate the patient or participate in any medical decision making or disposition decisions unless I am specifically named in the chart as having consulted on the patient. If I have consulted on the patient, please see my own ED note on the patient encounter. Paula Soto MD
[2019-02-11 10:05] LABS: ABS Eosinophils 0.2 10^3/ul (0-0.6); ABS Lymphocytes 0.2 10^3/ul (1.0-4.8); ABS Monocytes 0.5 10^3/ul (0-0.8); ABS Neutrophils 3.9 10^3/ul (1.5-7.7); Eosinophil % 3.2 %; Hematocrit 32 % (42-52); Hemoglobin 10.6 g/dL (14.0-18.0); Lymphocyte % 4.5 %; Mean Corpuscular HGB Conc 33 g/dL (31-36); Mean Corpuscular Hemoglobin 29 pg (27-31); Mean Corpuscular Volume 87 fL (80-94); Mean Platelet Volume 7.3 fL (7.4-10.4); Platelet Count 243 10^3/uL (150-450); Red Blood Count 3.69 10^6 /uL (4.18-5.48); Red Cell Distribution Width 16 % (10-15); White Blood Count 4.8 10^3/uL (3.5-10.8)
[2019-02-11 10:25] LABS: Albumin 3.7 g/dL (3.2-5.2); BUN/Creatinine Ratio 30.2 (8-20); C Reactive Protein 6.55 mg/L (<8.01); Calcium 10.1 mg/dL (8.6-10.3); EGFR African American 53.1 (>60); EGFR Non-African American 43.9 (>60); Globulin 3.6 g/dL (2-4); Potassium 4.2 mmol/L (3.5-5.0); Total Bilirubin 0.2 mg/dL (0.2-1.0); Total Protein 7.3 g/dL (6.4-8.9)
[2019-02-11 10:26] LABS: Troponin I 0.01 ng/mL (<0.03)
[2019-02-11] MEDS ORDERED: methylPREDNISolone 125 MG* 2 ML VIAL IV ONE (10:47)
[2019-02-11] MEDS ORDERED: Albuterol/Ipratropium NEB.SOL* Albuterol 2.5 MG/Ipratropium 0.5 MG 3 ML INH ONE (10:47)
[2019-02-11 12:03] VITALS: BP 121/53
== END 2019-02-11 12:04 | disposition home or self-care (01) ==
LOC: ED 08:49
DX: I11.0 Hypertensive heart disease with heart failure (principal); I50.9 Heart failure, unspecified; R06.02 Shortness of breath; E11.9 Type 2 diabetes mellitus without complications; I25.10 Atherosclerotic heart disease of native coronary artery without angina pectoris; E78.00 Pure hypercholesterolemia, unspecified; I25.2 Old myocardial infarction; J44.9 Chronic obstructive pulmonary disease, unspecified; K21.9 Gastro-esophageal reflux disease without esophagitis; F32.9 Major depressive disorder, single episode, unspecified; Z99.81 Dependence on supplemental oxygen; Z90.89 Acquired absence of other organs; Z95.1 Presence of aortocoronary bypass graft; Z88.6 Allergy status to analgesic agent; Z91.041 Radiographic dye allergy status
CPT/HCPCS: 36415; 71046; 80053; 83605; 83880; 84484; 85025; 86140; 87040; 93005; 99283; A9270-GY; J2930

== ENCOUNTER 2019-06-23 13:42 | Inpatient (IN) | payer MEDICARE, OTHER ==
--- OUTSIDE RECORDS SUMMARY | 2019-06-23 13:55 | XMS REPORT | Continuity of Care Document ---
:1955 External Reference #:[id number] Author Name Nelida Patino MD (transmitted by agent of provider Vita Malin) Address [address] [place] [address] Care Team Providers Name Role Phone Horace Nichols MD - Thoracic Care Team Information Macerator Operator Surgery (Cardiothoracic Vascular Surgery) Mahsa Rothman F.N.P. 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 NPSG 05/31/15. AHI 65.8, oxygen tanner 71% Morbid obesity Ann Stephenson MD Onset: 04/19/2015 Chronic respiratory failure Ann Stephenson MD Onset: 04/19/2015 Atrial fibrillation Enio Nam M.D., [facility], Onset: 07/13/2015 [facility] Full respiratory system examination Ann Stpehenson MD Onset: 08/05/2015 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., [facility], Onset: 2015 [place] coronary artery without angina [facility] pectoris Thoracic aortic ectasia Enio Nam M.D., [facility], Onset: 09/17/2016 [facility] Paroxysmal atrial fibrillation Enio Nam M.D., [facility], Onset: 2017 [facility] Social History Type Date Description Comments Sex Unknown Tobacco Use Start: Unknown Never Smoked Cigarettes Smoking Status Reviewed: 06/04/19 Never Smoked Cigarettes ETOH Use Negative For Rarely consumes alcohol Tobacco Use Start: Unknown Patient has never smoked Recreational Drug Use Denies Drug Use Exercise Type/Frequency Exercises rarely Allergies, Adverse Reactions, Alerts Active Allergies Reaction Severity Comments Date Aspirin 04/06/2014 Perflutren back pain 08/12/2017 Medications Active Medications SIG Qnty Indications Ordering Date Provider Torsemide 2 by mouth one R60.1 Nelida Patino, 02/11/2019 20mg Tablets time per day Metoprolol Tartrate 1 by mouth twice 180tabs Enio Martinez 09/02/2015 100mg a day Annette Nam, Tablets FAC, [facility] Incruse Ellipta inhale one puff Unknown by mouth every 62.5mcg/Inh Aerosol day Vitamin B-Complex 1 by mouth every Unknown day Tablets Nystatin as needed Unknown Powder Humulin R U-500 Sliding scale. Shereen Thompson, (Concentrated) PASTE UP WORKER 500Unit/ML Solution Albuterol Sulfate 1 vial via Unknown nebulizer 4 times (2.5mg/3ML) 0.083% daily as needed Nebulizer Eliquis 1 by mouth twice Unknown 5mg Tablets a day Losartan 1 daily Unknown Potassium/Hydrochlorot hiazide 100-25mg Tablets Cardizem CD take 1 tab by 90caps Enio Martinez 180mg Caps ER mouth daily Annette aNm, 24HR FAC, [facility] Spironolactone 1 by mouth twice Unknown 25mg [...] mouth every 30tabs Unknown 160mg Tablets day Aspirin Low Dose 1 by mouth every Unknown 81mg day Tablets History Medications Torsemide 3 tab every day 270tabs R60.1 Nelida Patino MD 02/02/2019 - 20mg 02/11/2019 Tablets Iron (Ferrous 1 Tab By Mouth 180tabs D50.9 Nelida Patino MD 02/02/2019 - Sulfate) Twice A Day 05/24/2019 142(45Fe) mg Tablets ER Medications Administered in Office Medication SIG Qnty Indications Ordering Provider Date Technetium TC 99M Enio Nam M.D., 05/03/2014 Tetrofosmin, Per Unit Dose OCTAVIA AVITIA Up To 40 Millicuries Injection Immunizations Description No Information Available Vital Signs Date Vital Result Comment 06/04/2019 10:33am Height 69 inches 5'9" Weight 300.00 lb Heart Rate 88 /min BP Systolic 130 mmHg BP Diastolic 60 mmHg O2 % BldC Oximetry 97 % BMI (Body Mass Index) 44.3 kg/m2 06/03/2019 11:30am Height 69 inches 5'9" Weight 300.00 lb Heart Rate 99 /min BP Systolic Sitting 118 mmHg L arm BP Diastolic Sitting 62 mmHg L arm O2 % BldC Oximetry 90 % BMI (Body Mass Index) 44.3 kg/m2 Results Test Acquired Date Facility Test Result H/L Range Note Basic Metabolic 06/01/2019 [facility] Sodium 140 mmol/L Normal 135-[address] [place] [address] [phone] Potassium 4.3 mmol/L Normal 3.5-5.0 Chloride 96 mmol/L Low 101-111 Co2 Carbon Dioxide 35 mmol/L High 22-32 Anion Gap 9 mmol/L Normal 2-11 Calcium 10.6 mg/dL High 8.6-10.3 Glucose 103 mg/dL High 70-100 Blood Urea Nitrogen 55 mg/dL High 6-24 Creatinine 1.55 mg/dL High 0.67-1.17 BUN/Creatinine Ratio 35.5 High 8-20 Egfr Non- 45.1 >60 Egfr 54.6 >60 1 CBC No Diff 06/01/2019 [facility] White Blood 6.2 10^3/uL Normal 3.5-10.[address] [place] [address] [phone] Red Blood Count 3.43 10^6/uL Low 4.18-5.48 Hemoglobin 9.8 g/dL Low 14.0-18.0 Hematocrit 29 % Low 42-52 Mean Corpuscular Volume 85 fL Normal 80-94 Mean Corpuscular Hemoglobin 29 pg Normal 27-31 Mean Corpuscular HGB Conc 34 g/dL Normal 31-36 Red Cell Distribution Width 15 % Normal 10-15 Platelet Count 336 10^3/uL Normal 150-450 Mean Platelet Volume 7.6 fL Normal 7.4-10.4 Urinalysis Profile 06/01/2019 [facility] Urine Color Yellow [address] [place] [address] [phone] Urine Appearance Clear Urine Specific [place] 1.008 Low 1.010-1.030 Urine pH 6.0 Normal 5-9 Urine Urobilinogen Negative Negative Urine Ketones Negative Negative Urine Protein Negative Negative Urine Leukocytes Negative Negative Urine Blood Negative Negative Urine Nitrite Negative Negative Urine Bilirubin Negative Negative Urine Glucose Negative Negative Laboratory test 06/01/2019 [facility] Creatinine Random 27.04 mg /dL [address] [place] [address] [phone] Urine Microalbumin 06/01/2019 [facility] Ur Microalbumin < 15.0 mg/L Random [address] (mg/L) [place] [address] [phone] Urine Creatinine 27.04 mg/dL Urine Microalbumin/Creatinine TNP <31 3 Renal Function 02/02/2019 [facility] Albumin 4.0 g/dL Normal 3.2-5.[address] [place] [address] [phone] Calcium 10.5 mg/dL High 8.6-10.3 Co2 Carbon Dioxide 36 mmol/L High 22-32 Chloride 95 mmol/L Low 101-111 Glucose 152 mg/dL High 70-100 Phosphorus 3.4 mg/dL Normal 2.5-5.0 Potassium 4.1 mmol/L Normal 3.5-5.0 Sodium 139 mmol/L Normal 135-145 Blood Urea Nitrogen BUN 45 mg/dL High 6-24 Creatinine 02/02/2019 [facility] Creatinine 1.81 mg/dL High 0.67-1.[address] [place] [address] [phone] Egfr Non- 37.8 >60 Egfr 45.8 >60 4 Hemoglobin/Hematocrit 02/02/2019 [facility] Hemoglobin 11.3 Low 14.0-18.[address] g/[place] [address] [phone] Hematocrit 33 % Low 42-52 Protein 01/30/2019 [facility] Total 180 mg/24h <229 [address] Protein(Pep) Urine (24HR) [place] [address] Urine [phone] Collection Duration 24 h Urine Volume 3000 mL Total Protein Concentration 6 mg/dL Albumin 43 % 6 Alpha-1 Globulin 8 % 7 Alpha-2 Globulin 10 % 8 Beta Globulin 22 % 9 Gamma Globulin 18 % 10 Albumin/Globulin Ratio 0.74 Impression See Comment 11 [place]/Lambda Light 01/30/2019 [facility] Urine [place] <0.9000 <0.9000 12 Chains Urine [address] Total Light mg/[place] [address] Chain [phone] Urine Lambda Total Light Chain 0.9250 mg/dL Abnormal <0.7000 13 Urine [place]/Lambda Light Chain <0.9730 14 Immunoglobulins 01/30/2019 [facility] Immunoglobulin G 1150 767 - 15 Serum Quant [address] mg/dL 1590 [place] [address] [phone] Immunoglobulin M 129 mg/dL 37 - 286 Immunoglobulin A 236 mg/dL 61 - 356 1 Because ethnic data is not always readily [...] 15-29 5 Kidney failure <15 (or dialysis) 2 3 MONTHS 3 Unable to calculate due to low microalbumin 4 Because ethnic data is not always readily [...] 15-29 5 Kidney failure <15 (or dialysis) 5 ADDITIONAL INFORMATION On 09/18/2016 the total protein assay method changed resulting in approximately a 15% increase in protein values. 6 77 mg/24 h 7 14 mg/24 h 8 18 mg/24 h 9 40 mg/24 h 10 32 mg/24 h 11 All fractions present, no apparent M-spike. Insufficient urine volume submitted to maximally concentrate urine. If clinically indicated, submit new sample with adequate volume. Test Performed by: [address] [address] Ignition Expert: Bryson White M.D. Ph.D.; CLIA# [id number] Test Performed by: [place] [address] Ignition Expert: Bryson White M.D. Ph.D.; CLIA# [id number] 12 ADDITIONAL INFORMATION This test has been modified from the in store demonstrator's instructions. Its performance characteristics were determined by [facility] in a manner consistent with CLIA requirements. This test has not been cleared or approved by the U.S. Food and Drug Administration. 13 ADDITIONAL INFORMATION This test has been modified from the in store demonstrator's instructions. Its performance characteristics were determined by [facility] in a manner consistent with CLIA requirements. This test has not been cleared or approved by the U.S. Food and Drug Administration. 14 REFERENCE VALUE 0.7000-6.20 Test Performed by: [place] [address] Ignition Expert: Bryson White M.D. Ph.D.; CLIA# [id number] 15 Test Performed by: [place] [address] Ignition Expert: Bryson White M.D. Ph.D.; CLIA# [id number] Procedures Date Code Description Status 01/07/2019 57994 EKG Tracing & Interpretation Completed 12/31/2018 99929 ECHO Transthoracic, Real-Time 2D With Doppler And Color Completed Flow 12/31/2018 30422 ECHO Transthoracic, Real-Time 2D With Doppler And Color Completed Flow Medical Devices Description No Information Available Encounters Type Date Location Provider Dx Diagnosis Office Visit 06/03/2019 [facility] Nelida Patino MD I12.9 Hypertensive chronic 11:40a kidney disease w stg 1-4/unsp chr kdny E11.22 Type 2 diabetes mellitus w diabetic chronic kidney disease N18.3 Chronic kidney disease, stage 3 (moderate) R06.00 Dyspnea, unspecified R60.9 Edema, unspecified E83.52 Hypercalcemia Office Visit 03/04/2019 11:30a [facility] Nelida Patino, I12.9 Hypertensive chronic kidney disease w stg 1-4/unsp chr kdny R60.9 Edema, unspecified N18.3 Chronic kidney disease, stage 3 (moderate) Office Visit 02/02/2019 1:00p [facility] Nelida Patino, I12.9 Hypertensive chronic kidney disease w stg 1-4/unsp chr kdny E11.22 Type 2 diabetes mellitus w diabetic chronic kidney disease N18.3 Chronic kidney disease, stage 3 (moderate) R60.1 Generalized edema D50.9 Iron deficiency anemia, unspecified E66.09 Other obesity due to excess calories Office Visit 01/07/2019 1:00p [facility] Enio Juan I77.810 Thoracic aortic Of [facility] Annette Nam, ectasia FAC, FASNC I25.10 Athscl heart disease of [place] coronary artery w/o ang pctrs Z95.1 Presence of aortocoronary bypass graft I48.0 Paroxysmal atrial fibrillation R94.31 Abnormal electrocardiogram [ECG] [EKG] Assessments Date Code Description Provider 06/04/2019 R06.02 Shortness of breath Ann Stephenson MD 06/04/2019 J44.9 Chronic obstructive pulmonary Ann Stephenson MD disease, unspecified 06/04/2019 G47.33 Obstructive sleep apnea (adult) Ann Stephenson MD (pediatric) 06/04/2019 R09.02 Hypoxemia Ann Stephenson MD 06/03/2019 I12.9 Hypertensive chronic kidney disease Nelida Patino MD with stage 1 through stage 4 chronic kidney disease, or unspecified chronic kidney disease 06/03/2019 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 06/03/2019 N18.3 Chronic kidney disease, stage 3 Nelida Patino MD (moderate) 06/03/2019 R06.00 Dyspnea, unspecified Nelida Patino MD 06/03/2019 R60.9 Edema, unspecified Nelida Patino MD 06/03/2019 E83.52 Hypercalcemia Nelida Patino MD 03/04/2019 I12.9 Hypertensive chronic kidney disease Nelida Patino MD with stage 1 through stage 4 chronic kidney disease, or unspecified chronic kidney disease 03/04/2019 R60.9 Edema, unspecified Nelida Patino MD 03/04/2019 N18.3 Chronic kidney disease, stage 3 Nelida Patino MD (moderate) 02/02/2019 I12.9 Hypertensive chronic kidney disease Nelida Patino MD with stage 1 through stage 4 chronic kidney disease, or unspecified chronic kidney disease 02/02/2019 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 02/02/2019 N18.3 Chronic kidney disease, stage 3 Nelida Patino MD (moderate) 02/02/2019 R60.1 Generalized edema Nelida Patino MD 02/02/2019 D50.9 Iron deficiency anemia, unspecified Nelida Patino MD 02/02/2019 E66.09 Other obesity due to excess calories Nelida Patino MD 01/07/2019 I77.810 Thoracic aortic ectasia Enio Nam M.D., [facility], [facility] 01/07/2019 I25.10 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., [facility], [place] coronary artery without angina [facility] pectoris 01/07/2019 Z95.1 Presence of aortocoronary bypass Enoi Nam M.D., [facility], graft [facility] 01/07/2019 I48.0 Paroxysmal atrial fibrillation Enio Nam M.D., [facility] , [facility] 01/07/2019 R94.31 Abnormal electrocardiogram [ECG] Enio Nam M.D., [facility], [EKG] [facility] 12/31/2018 I77.810 Thoracic aortic ectasia Enio Nam M.D., [facility], [facility] 12/31/2018 I77.810 Thoracic aortic ectasia Traveling ECHO 1 Plan of Treatment Future Appointment(s):08/04/2019 11:30 am - Mable Chanel NP at [facility]07/15/2019 1:20 pm - Nelida Patino MD at [facility] Xaugulvlop71/01/2020 11:20 am - Derik Vazquez MD at [facility]06/04/2019 - Ann Stephenson, MDR06.02 Shortness of breathFollow up:2 months SMJ44.9 Chronic obstructive pulmonary disease, lbdcuhzgoamW00.33 Obstructive sleep apnea (adult) (pediatric)R09.02 Hypoxemia Functional Status Description No Information Available Mental Status Description No Information Available Referrals Description No Information Available
--- OUTSIDE RECORDS SUMMARY | 2019-06-23 13:55 | XMS REPORT | Continuity of Care Document ---
:1955 External Reference #:[id number] Author Name Ann Stephenson MD (transmitted by agent of provider Kecia Barone) Address [address], [address] [place] [address] Care Team Providers Name Role Phone Horace Nichols MD - Thoracic Care Team Information Manager Law Surgery (Cardiothoracic Vascular Surgery) Mahsa Rothman F.N.P. 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 NPSG 05/31/15. 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 Shereen Thompson, (Concentrated) BLOOD TESTER 500Unit/ML Solution Albuterol Sulfate 1 vial via Unknown nebulizer 4 times (2.5mg/3ML) 0.083% daily as needed Nebulizer Eliquis 1 by mouth twice Unknown 5mg Tablets a day Losartan 1 daily Unknown Potassium/Hydrochlorot hiazide 100-25mg Tablets Cardizem CD take 1 tab by 90caps Enio Martinez 180mg Caps ER mouth daily Annette Nam, 24HR FAC, [facility] Spironolactone 1 by mouth twice Unknown 25mg [...] Result H/L Range Note Basic Metabolic 06/01/2019 [facility] Sodium 140 mmol/L Normal 135-[address] [place] [address] [phone] Potassium 4.3 mmol/L Normal 3.5-5.0 Chloride 96 mmol/L Low 101-111 Co2 Carbon Dioxide 35 mmol/L High 22-32 Anion Gap 9 mmol/L Normal 2-11 Calcium 10.6 mg/dL High 8.6-10.3 Glucose 103 mg/dL High 70-100 Blood Urea Nitrogen 55 mg/dL High 6-24 Creatinine 1.55 mg/dL High 0.67-1.17 BUN/Creatinine Ratio 35.5 High 8-20 Egfr Non- 45.1 >60 Egfr 54.6 >60 1 CBC No Diff 06/01/2019 [facility] White Blood 6.2 10^3/uL Normal 3.5-10.[address] [place] [address] [phone] Red Blood Count 3.43 10^6/uL Low 4.18-5.48 Hemoglobin 9.8 g/dL Low 14.0-18.0 Hematocrit 29 % Low 42-52 Mean Corpuscular Volume 85 fL Normal 80-94 Mean Corpuscular Hemoglobin 29 pg Normal 27-31 Mean Corpuscular HGB Conc 34 g/dL Normal 31-36 Red Cell Distribution Width 15 % Normal 10-15 Platelet Count 336 10^3/uL Normal 150-450 Mean Platelet Volume 7.6 fL Normal 7.4-10.4 Urinalysis Profile 06/01/2019 [facility] Urine Color Yellow [address] [place] [address] [phone] Urine Appearance Clear Urine Specific [place] 1.008 Low 1.010-1.030 Urine pH 6.0 Normal 5-9 Urine Urobilinogen Negative Negative Urine Ketones Negative Negative Urine Protein Negative Negative Urine Leukocytes Negative Negative Urine Blood Negative Negative Urine Nitrite Negative Negative Urine Bilirubin Negative Negative Urine Glucose Negative Negative Laboratory test 06/01/2019 [facility] Creatinine Random 27.04 mg /dL [address] [place] [address] [phone] Urine Microalbumin 06/01/2019 [facility] Ur Microalbumin < 15.0 mg/L Random [address] (mg/L) [place] [address] [phone] Urine Creatinine 27.04 mg/dL Urine Microalbumin/Creatinine TNP <31 3 Renal Function 02/02/2019 [facility] Albumin 4.0 g/dL Normal 3.2-5.[address] [place] [address] [phone] Calcium 10.5 mg/dL High 8.6-10.3 Co2 Carbon Dioxide 36 mmol/L High 22-32 Chloride 95 mmol/L Low 101-111 Glucose 152 mg/dL High 70-100 Phosphorus 3.4 mg/dL Normal 2.5-5.0 Potassium 4.1 mmol/L Normal 3.5-5.0 Sodium 139 mmol/L Normal 135-145 Blood Urea Nitrogen BUN 45 mg/dL High 6-24 Creatinine 02/02/2019 [facility] Creatinine 1.81 mg/dL High 0.67-1.[address] [place] [address] [phone] Egfr Non- 37.8 >60 Egfr 45.8 >60 4 Hemoglobin/Hematocrit 02/02/2019 [facility] Hemoglobin 11.3 Low 14.0-18.[address] g/[place] [address] [phone] Hematocrit 33 % Low 42-52 Protein 01/30/2019 [facility] Total 180 mg/24h <229 [address] Protein(Pep) Urine (24HR) [place] [address] Urine [phone] Collection Duration 24 h Urine Volume 3000 mL Total Protein Concentration 6 mg/dL Albumin 43 % 6 Alpha-1 Globulin 8 % 7 Alpha-2 Globulin 10 % 8 Beta Globulin 22 % 9 Gamma Globulin 18 % 10 Albumin/Globulin Ratio 0.74 Impression See Comment 11 [place]/Lambda Light 01/30/2019 [facility] Urine [place] <0.9000 <0.9000 12 Chains Urine [address] Total Light mg/[place] [address] Chain [phone] Urine Lambda Total Light Chain 0.9250 mg/dL Abnormal <0.7000 13 Urine [place]/Lambda Light Chain <0.9730 14 Immunoglobulins 01/30/2019 [facility] Immunoglobulin G 1150 767 - 15 Serum Quant [address] mg/dL [address]90 [place] [address] [phone] Immunoglobulin M 129 mg/dL 37 - 286 [...] sample with adequate volume. Test Performed by: [address] [address] Web Pressman: Bryson White M.D. Ph.D.; CLIA# [id number] Test Performed by: [place] [address] Web Pressman: Bryson White M.D. Ph.D.; CLIA# [id number] 12 ADDITIONAL INFORMATION This test has been modified from the computer education teacher's instructions. Its performance characteristics were determined by [facility] in a manner consistent with CLIA requirements. This test has not been cleared or approved by the U.S. Food and Drug Administration. 13 ADDITIONAL INFORMATION This test has been modified from the computer education teacher's instructions. Its performance characteristics were determined by [facility] in a manner consistent with CLIA requirements. This test has not been cleared or approved by the U.S. Food and Drug Administration. 14 REFERENCE VALUE 0.7000-6.20 Test Performed by: [place] [address] Web Pressman: Bryson White M.D. Ph.D.; CLIA# [id number] Test Performed by: [place] [address] Web Pressman: Bryson White M.D. Ph.D.; CLIA# [id number] Procedures Date Code Description Status 01/07/2019 62587 EKG Tracing & Interpretation Completed 12/31/2018 56613 ECHO Transthoracic, Real-Time 2D With Doppler And Color Completed Flow 12/31/2018 27576 ECHO Transthoracic, Real-Time 2D With Doppler And Color Completed Flow Medical Devices Description No Information Available Encounters Type Date Location Provider Dx Diagnosis Office Visit 06/04/2019 Pulmonology And Ann Stephenson, R06.02 Shortness of 10:45a [facility] arnulfo Johnson J44.9 Chronic obstructive pulmonary disease, unspecified G47.33 Obstructive sleep apnea (adult) (pediatric) R09.02 Hypoxemia Office Visit 06/03/2019 11:40a [facility] Nephrology Nelida Patino, I12.9 Hypertensive chronic kidney disease w stg 1-4/unsp chr kdny E11.22 Type 2 diabetes mellitus w diabetic chronic kidney disease N18.3 Chronic kidney disease, stage 3 (moderate) R06.00 Dyspnea, unspecified R60.9 Edema, unspecified E83.52 Hypercalcemia Office Visit 03/04/2019 11:30a [facility] Nephrology Nelida Patino, I12.9 Hypertensive chronic kidney disease w stg 1-4/unsp chr kdny R60.9 Edema, unspecified N18.3 Chronic kidney disease, stage 3 (moderate) Office Visit 02/02/2019 1:00p [facility] Nephrology Nelida Patino, I12.9 Hypertensive chronic kidney disease w stg 1-4/unsp chr kdny E11.22 Type 2 diabetes mellitus w diabetic chronic kidney disease N18.3 Chronic kidney disease, stage 3 (moderate) R60.1 Generalized edema D50.9 Iron deficiency anemia, unspecified E66.09 Other obesity due to excess calories Office Visit 01/07/2019 1:00p [facility] Enio uJan I77.810 Thoracic aortic Of [facility] Marleny Nam., ectasia FAC, [facility] I25.10 Athscl heart disease of [place] coronary artery w/o ang pctrs Z95.1 Presence [...] N18.3 Chronic kidney disease, stage 3 Nelida G Negoi, MD (moderate) 06/03/2019 R06.00 Dyspnea, unspecified Nelida [...] (moderate) 02/02/2019 I12.9 Hypertensive chronic kidney disease Nleida Patino MD with stage 1 through stage 4 chronic kidney disease, or unspecified chronic kidney disease 02/02/2019 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 02/02/2019 N18.3 Chronic kidney disease, stage 3 Nelida Patino MD (moderate) 02/02/2019 R60.1 Generalized edema Nelida Patino MD 02/02/2019 D50.9 Iron deficiency anemia, christieified Nelida Patino MD 02/02/2019 E66.09 Other obesity due to excess calories Nelida Patino MD 01/07/2019 I77.810 Thoracic aortic ectasia Enio Nam M.D., [facility], [facility] 01/07/2019 I25.10 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., [facility], [place] coronary artery without angina [facility] pectoris 01/07/2019 Z95.1 Presence of aortocoronary bypass Enio Nam M.D., [facility], graft [facility] 01/07/2019 I48.0 Paroxysmal atrial fibrillation Enio Nam M.D., [facility] , [facility] 01/07/2019 R94.31 Abnormal electrocardiogram [ECG] Enio Nam M.D., SADI, [EKG] [facility] 12/31/2018 I77.810 Thoracic aortic ectasia Enio Nam M.D., [facility], [facility] 12/31/2018 I77.810 Thoracic aortic ectasia Traveling ECHO 1 Plan of Treatment Future Appointment(s):08/04/2019 11:30 am - Mable Chanel NP at [facility]07/15/2019 1:20 pm - Neilda Patino MD at [facility] Rzuxjjpkrc85/01/2020 11:20 am - Derik Vazquez MD at [facility]06/04/2019 - Ann Stephenson, MDR06.02 Shortness of breathFollow up:2 months SMJ44.9 Chronic obstructive pulmonary disease, nzyffryrvskX38.33 Obstructive sleep apnea (adult) (pediatric)R09.02 Hypoxemia Functional Status Description No Information Available Mental Status Description No Information Available Referrals Description No Information Available
--- OUTSIDE RECORDS SUMMARY | 2019-06-23 13:55 | XMS REPORT | Continuity of Care Document ---
:1955 External Reference #:[id number] Author Name Nelida Patino MD (transmitted by agent of provider Isabell Waller) Address [address] [place] [address] Care Team Providers Name Role Phone Horace Nichols MD - Thoracic Care Team Information Research Worker Kitchen [phone] Surgery (Cardiothoracic Vascular Surgery) Mahsa Rothman F.N.P. 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, Onset: 04/20/2014 [facility]AS[facility] Palpitations Enio Nam M.D., [facility], Onset: 04/20/2014 FASNC Benign essential hypertension Saul Krause M.D., [facility] Onset: 2014 Chronic ischemic heart disease Saul Krause M.D., [facility] Onset: 2014 Obesity Saul Krause M.D., [facility] Onset: 07/29/2014 Chronic obstructive lung disease Ann Stephenson MD Onset: 04/19/2015 Obstructive sleep apnea syndrome Ann Stephenson MD Onset: 04/19/2015 Morbid obesity Ann Stephenson MD Onset: 04/19/2015 Chronic respiratory failure Ann Stephenson MD Onset: 04/19/2015 Atrial fibrillation Enio Nam M.D., 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, Onset: 2015 [place] coronary artery without angina [facility] pectoris Thoracic aortic ectasia Enio Nam M.D., [facility], Onset: 09/17/2016 [facility] Paroxysmal atrial fibrillation Enio Nam M.D., [facility], Onset: 2017 [facility] Social History Type Date Description Comments Sex Unknown Tobacco Use Start: Unknown Never Smoked Cigarettes Smoking Status Reviewed: 06/03/19 Never Smoked Cigarettes ETOH Use Negative For [...] 09/02/2015 100mg a day Annette Nam, Tablets [facility] GNC 800 Calcium D3 2 tabs po bid Unknown Magnesium Incruse Ellipta inhale one puff Unknown by mouth every 62.5mcg/Inh Aerosol day Vitamin B-Complex 1 by mouth every Unknown day Tablets Nystatin as needed Unknown Powder Humulin R U-500 Sliding scale. Shereen Thompson, (Concentrated) CUSTOMER DEVELOPMENT REPRESENTATIVE 500Unit/ML Solution Albuterol Sulfate 1 vial via Unknown nebulizer 4 times (2.5mg/3ML) 0.083% daily as needed Nebulizer Eliquis 1 by mouth twice Unknown 5mg Tablets a day Losartan 1 daily Unknown Potassium/Hydrochlorot hiazide 100-25mg Tablets Cardizem CD take 1 tab by 90caps Enio Martinez 180mg Caps ER mouth daily Annette Nam, 24HR FAC, [facility] Spironolactone 1 by mouth twice [...] Ordering Provider Date Technetium TC 99M Enio Juan Nam M.D., 05/03/2014 Tetrofosmin, Per Unit Dose OCTAVIA AVITIA Up To 40 Millicuries Injection Immunizations Description No Information Available Vital Signs Date Vital Result Comment 06/03/2019 11:30am Height 69 inches 5'9" Weight 300.00 lb Heart Rate 99 /min BP Systolic Sitting 118 mmHg L arm BP Diastolic Sitting 62 mmHg L arm O2 % BldC Oximetry 90 % BMI (Body Mass Index) 44.3 kg/m2 03/04/2019 11:46am Height 69 inches 5'9" Weight 306.00 lb Heart Rate 79 /min BP Systolic Sitting 90 mmHg left arm large cuff BP Diastolic Sitting 46 mmHg left arm large cuff O2 % BldC Oximetry 92 % 4 liters of oxygen BMI (Body Mass Index) 45.2 kg/m2 Results Test Acquired Date Facility Test Result H/L Range Note Xray 06/03/2019 [facility] XR Chest 2 <pending> [address] [place] [address] [phone] Basic Metabolic 06/01/2019 [facility] Sodium 140 mmol/L Normal 135-[address] [place] [address] [phone] Potassium 4.3 mmol/L Normal 3.5-5.0 Chloride 96 mmol/L Low 101-111 Co2 Carbon Dioxide 35 mmol/L High 22-32 Anion Gap 9 mmol/L Normal 2-11 Calcium 10.6 mg/dL High 8.6-10.3 Glucose 103 mg/dL High 70-100 Blood Urea Nitrogen 55 mg/dL High 6-24 Creatinine 1.55 mg/dL High 0.67-1.17 BUN/Creatinine Ratio 35.5 High 8-20 Egfr Non- 45.1 >60 Egfr 54.6 >60 1 CBC No Diff 06/01/2019 [facility] White Blood 6.2 10^3/uL Normal 3.5-10.8 [address] [place] [address] [phone] Red Blood Count 3.43 10^6/uL Low 4.18-5.48 Hemoglobin 9.8 g/dL Low 14.0-18.0 Hematocrit 29 % Low 42-52 Mean Corpuscular Volume 85 fL Normal 80-94 Mean Corpuscular Hemoglobin 29 pg Normal 27-31 Mean Corpuscular HGB Conc 34 g/dL Normal 31-36 Red Cell Distribution Width 15 % Normal 10-15 Platelet Count 336 10^3/uL Normal 150-450 Mean Platelet Volume 7.6 fL Normal 7.4-10.4 Urinalysis Profile 06/01/2019 [facility] Urine Color Yellow [address] [place] [address] [phone] Urine Appearance Clear Urine Specific [place] 1.008 Low 1.010-1.030 Urine pH 6.0 Normal 5-9 Urine Urobilinogen Negative Negative Urine Ketones Negative Negative Urine Protein Negative Negative Urine Leukocytes Negative Negative Urine Blood Negative Negative Urine Nitrite Negative Negative Urine Bilirubin Negative Negative Urine Glucose Negative Negative Laboratory test 06/01/2019 [facility] Creatinine Random 27.04 mg /dL [address] [place] [address] [phone] Urine Microalbumin 06/01/2019 [facility] Ur Microalbumin < 15.0 mg/L Random [address] (mg/L) [place] [address] [phone] Urine Creatinine 27.04 mg/dL Urine Microalbumin/Creatinine TNP <31 3 Renal Function 02/02/2019 [facility] Albumin 4.0 g/dL Normal 3.2-5.[address] [place] [address] [phone] Calcium 10.5 mg/dL High 8.6-10.3 Co2 Carbon Dioxide 36 mmol/L High 22-32 Chloride 95 mmol/L Low 101-111 Glucose 152 mg/dL High 70-100 Phosphorus 3.4 mg/dL Normal 2.5-5.0 Potassium 4.1 mmol/L Normal 3.5-5.0 Sodium 139 mmol/L Normal 135-145 Blood Urea Nitrogen BUN 45 mg/dL High 6-24 Creatinine 02/02/2019 [facility] Creatinine 1.81 mg/dL High 0.67-1.[address] [place] [address] [phone] Egfr Non- 37.8 >60 Egfr 45.8 >60 4 Hemoglobin/Hematocrit 02/02/2019 [facility] Hemoglobin 11.3 Low 14.0-18.[address] g/[place] [address] [phone] Hematocrit 33 % Low 42-52 Protein 01/30/2019 [facility] Total 180 mg/24h <229 [address] Protein(Pep) Urine (24HR) [place] [address] Urine [phone] Collection Duration 24 h Urine Volume 3000 mL Total Protein Concentration 6 mg/dL Albumin 43 % 6 Alpha-1 Globulin 8 % 7 Alpha-2 Globulin 10 % 8 Beta Globulin 22 % 9 Gamma Globulin 18 % 10 Albumin/Globulin Ratio 0.74 Impression See Comment 11 [place]/Lambda Light 01/30/2019 [facility] Urine [place] <0.9000 <0.9000 12 Chains Urine [address] Total Light mg/[place] [address] Chain [phone] Urine Lambda Total Light Chain 0.9250 mg/dL Abnormal <0.7000 13 Urine [place]/Lambda Light Chain <0.9730 14 Immunoglobulins 01/30/2019 [facility] Immunoglobulin G 1150 767 - 15 Serum Quant [address] mg/dL [address] [place] [address] [phone] Immunoglobulin M 129 mg/dL 37 - 286 [...] sample with adequate volume. Test Performed by: [facility] - [address] [address] Sucker Machine Operator: Bryson White M.D. Ph.D.; CLIA# [id number] Test Performed by: [facility] [place] [address] Sucker Machine Operator: Bryson White M.D. Ph.D.; CLIA# [id number] 12 ADDITIONAL INFORMATION This test has been modified from the gasket winder's instructions. Its performance characteristics were determined by [facility] in a manner consistent with CLIA requirements. This test has not been cleared or approved by the U.S. Food and Drug Administration. 13 ADDITIONAL INFORMATION This test has been modified from the gasket winder's instructions. Its performance characteristics were determined by [facility] in a manner consistent with CLIA requirements. This test has not been cleared or approved by the U.S. Food and Drug Administration. 14 REFERENCE VALUE 0.7000-6.20 Test Performed by: [facility] [address] Sucker Machine Operator: Bryson White M.D. Ph.D.; CLIA# [id number] Test Performed by: [facility] [place] [address] Sucker Machine Operator: Bryson White M.D. Ph.D.; CLIA# [id number] Procedures Date Code Description Status 01/07/2019 04620 EKG Tracing & Interpretation Completed 12/31/2018 44280 ECHO Transthoracic, Real-Time 2D With Doppler And Color Completed Flow 12/31/2018 38162 ECHO Transthoracic, Real-Time 2D With Doppler And Color Completed Flow Medical Devices Description No Information Available Encounters Type Date Location Provider Dx Diagnosis Office Visit 03/04/2019 [facility] Nephrology Nelida Patino MD I12.9 Hypertensive chronic 11:30a kidney disease w stg 1-4/unsp chr kdny R60.9 Edema, unspecified N18.3 Chronic kidney disease, stage 3 (moderate) Office Visit 02/02/2019 1:00p [facility] Nephrology Nelida Patino, I12.9 Hypertensive MD chronic kidney disease w stg 1-4/unsp chr kdny E11.22 Type 2 diabetes mellitus w diabetic chronic kidney disease N18.3 Chronic kidney disease, stage 3 (moderate) R60.1 Generalized edema D50.9 Iron deficiency anemia, unspecified E66.09 Other obesity due to excess calories Office Visit 01/07/2019 1:00p [facility] Enio Juan I77.810 Thoracic aortic Of [facility] Annette Nam, ectasia FACC, [facility]AS[facility] I25.10 Athscl heart disease of [place] coronary artery w/o ang pctrs Z95.1 Presence of aortocoronary bypass graft I48.0 Paroxysmal atrial fibrillation R94.31 Abnormal electrocardiogram [ECG] [EKG] Assessments Date Code Description Provider 06/03/2019 N18.3 Chronic kidney disease, stage 3 Nelida Patino MD (moderate) 06/03/2019 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 06/03/2019 R60.9 Edema, unspecified Nelida Patino MD 06/03/2019 I12.9 Hypertensive chronic kidney disease Nelida Patino MD with stage 1 through stage 4 chronic kidney disease, or unspecified chronic kidney disease 06/03/2019 E83.52 Hypercalcemia Nelida Patino MD 06/03/2019 R06.00 Dyspnea, unspecified Nelida Patino MD 03/04/2019 I12.9 Hypertensive chronic [...] I77.810 Thoracic aortic ectasia Enio Nam M.D., [facility], [facility] 01/07/2019 I25.10 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., [facility], [place] coronary artery without angina [facility] pectoris 01/07/2019 Z95.1 Presence of aortocoronary bypass Enio Nam M.D., [facility], graft [facility] 01/07/2019 I48.0 Paroxysmal atrial fibrillation Enio Nam M.D., [facility] , [facility] 01/07/2019 R94.31 Abnormal electrocardiogram [ECG] Enio Nam M.D., [facility], [EKG] [facility] 12/31/2018 I77.810 Thoracic aortic ectasia Enio Nam M.D., [facility], [facility] 12/31/2018 I77.810 Thoracic aortic ectasia Traveling ECHO 1 Plan of Treatment Future Appointment(s):09/23/2019 11:20 am - Derik Vazquez MD at [facility]06/03/2019 - Nelida Patino MDN18.3 Chronic kidney disease, stage 3 (moderate)E11.22 Type 2 diabetes mellitus with diabetic chronic kidney qocihybU59.9 Edema, wmvpecxzkkqF32.9 Hypertensive chronic kidney disease with stage 1 through stage 4 chronic kidney disease, or unspecified chronic kidney ynnemsyU20.52 HypercalcemiaFollow up:6 [facility] stop calcium and MVI for nowR06.00 Dyspnea, unspecified Functional Status Description No Information Available Mental Status Description No Information Available Referrals Description No Information Available
--- NOTE | 2019-06-23 13:56 | ED ---
Shortness of Breath - History of Current Complaint Chief Complaint: EDShortnessOfBreath Time Seen by Provider: 06/23/19 13:49 Hx Obtained From: Patient Onset/Duration: Sudden Onset, Lasting Days Current Severity: Moderate Dyspnea At: Rest Aggravating Factors: Other - Exertion Alleviating Factors: Nothing - Allergy/Home Medications Allergies/Adverse Reactions: Allergies Allergy/AdvReac Type Severity Reaction Status Date / Time NSAIDS (Non-Steroidal Allergy Mild See Comment Verified 06/23/19 13:47 Anti-Inflamma aspirin Allergy See Comment Verified 06/23/19 13:47 Definity Allergy See Comment Uncoded 06/23/19 13:47 Home Medications: Home Medications Fenofibrate [Tricor 160 MG] 160 mg PO DAILY 06/30/15 [History Confirmed 06/23/19 ] metFORMIN* [Glucophage 500 MG TAB *] 500 mg PO BID 06/30/15 [History Confirmed 06/23/19] Spironolactone TAB* [Aldactone TAB 25 MG*] 25 mg PO BID 10/15/15 [History Confirmed 06/23/19] Albuterol 2.5MG/3ML (0.083%)* [Ventolin 2.5 MG/3 ML NEB.LUIS*] 2.5 mg INH QID PRN 05/03/17 [History Confirmed 06/23/19] Fluticasone/Vilanterol MDI(NF) [Breo Ellipta MDI 200/25(NF)] 1 puff PO DAILY 12/10 [History Confirmed 06/23/19] Losartan/HCTZ 100/25 (NF) [Hyzaar 100/25 (NF)] 1 tab PO DAILY 05/03/17 [History Confirmed 06/23/19] Nystatin TOP POWDER* 1 applic TOPICAL TID PRN #7 btl 05/05/17 [Rx Confirmed ] Aspirin EC TAB* [Ecotrin EC Low Dose 81 MG*] 81 mg PO DAILY 06/07/17 [History Confirmed 06/23/19] Apixaban* [Eliquis*] 5 mg PO BID #0 07/11/17 [Rx Confirmed 06/23/19] Cyclosporine 0.05% OPHTH (NF) [Restasis 0.05% OPHTH] 1 drop BOTH EYES BID [History Confirmed 06/23/19] Atorvastatin* [Lipitor 20 MG*] 40 mg PO DAILY 01/06/18 [History Confirmed ] Diltiazem CD CAP* [Cardizem CD CAP*] 180 mg PO DAILY 01/06/18 [History Confirmed 06/23/19] Multivitamin [Multivitamins] 1 cap PO DAILY 01/06/18 [History Confirmed 06/23/19 ] Torsemide TAB* [Demadex 20 MG*] 40 mg PO DAILY 01/06/18 [History Confirmed 06/22] Umeclidinium 62.5 MDI(NF) [Incruse ELLIPTA MDI (NF)] 1 puff INH DAILY 01/06/18 [ History Confirmed 06/23/19] Calcium Carb/Magnesium Oxid/D3 [Calcium Magnesium + D Tablet] 2 each PO BID [History Confirmed 06/23/19] Insulin Regular 500 Unit/ml [Humulin R U-500 (Concentrated)] 10 unit SUBCUT ACHS 02/11/19 [History Confirmed 06/23/19] Amiodarone TAB* [Cordarone TAB*] 200 mg PO DAILY 06/23/19 [History Confirmed ] Metoprolol Tartrate TAB* [Lopressor TAB*] 100 mg PO BID 06/23/19 [History Confirmed 06/23/19] Vitamin B Complex TAB* [B Complex-50*] 1 tab PO DAILY 06/23/19 [History Confirmed 06/23/19] PMH/Surg Hx/FS Hx/Imm Hx Previously Healthy: Yes Endocrine/Hematology History: Reports: Hx Diabetes - type 2 Denies: Hx Bone Marrow Disease, Hx Sickle Cell Disease, Hx Thyroid Disease, Hx Anemia Cardiovascular History: Reports: Hx Angina, Hx Congestive Heart Failure, Hx Coronary Artery Disease - CABG 2015, a-fib, Hx Hypercholesterolemia, Hx Hypertension, Hx Myocardial Infarction, Hx Valvular Heart Disease, Other Cardiovascular Problems/Disorders - DOUBLE BYPASS SURGERY- PER PT Denies: Hx Pacemaker/ICD, Hx Peripheral Vascular Disease Respiratory History: Reports: Hx Chronic Obstructive Pulmonary Disease (COPD) - O2 AT HOME AND BIPAP MACHINE HE WEARS IN THE DAY WELL, Hx Pulmonary Edema, Hx Sleep Apnea Denies: Hx Asthma, Other Respiratory Problems/Disorders GI History: Reports: Hx Gastroesophageal Reflux Disease - rarely Denies: Hx Ulcer History: Reports: Other Problems/Disorders - frequency, difficulty starting Denies: Hx Dialysis, Hx Renal Disease Musculoskeletal History: Reports: Hx Arthritis, Hx Back Problems - SCOLIOSIS, Hx Bursitis - right shoulder, Hx Scoliosis, Hx Tendonitis - right shoulder, Other Musculoskeletal History - one leg shorter than other Denies: Hx Osteoporosis Sensory History: Reports: Hx Contacts or Glasses - glasses for reading Denies: Hx Cataracts, Hx Glaucoma, Hx Hearing Aid Opthamlomology History: Reports: Hx Contacts or Glasses - glasses for reading Denies: Hx Cataracts, Hx Glaucoma Neurological History: Reports: Hx Migraine Denies: Hx Headaches, Hx Seizures, Hx Transient Ischemic Attacks (TIA), Other Neuro Impairments/Disorders Psychiatric History: Reports: Hx Depression - Cancer History Hx Chemotherapy: No - Surgical History Surgical History: Yes Surgery Procedure, Year, and Place: triple R surgery in throat for Cpap?, appendectomy, cracked spine when 11--no surgery but was in a cast "all summer" CAGB 08/22/15. cardiac stents 2014 Hx Anesthesia Reactions: No - Immunization History Date of Influenza Vaccine: 01/2017 Infectious Disease History: No Infectious Disease History: Denies: Hx Hepatitis, Hx Human Immunodeficiency Virus (HIV), Hx of Known/ Suspected MRSA, Hx Shingles, Hx Tuberculosis, Traveled Outside the [place] in Last 30 Days - Family History Known Family History: Positive: Diabetes - Social History Occupation: Unemployed Lives: With Family Alcohol Use: None Hx Substance Use: No Substance Use Type: Reports: None Hx Tobacco Use: No Smoking Status (MU): Never Smoked Tobacco Review of Systems Negative: Fever Positive: Shortness Of Breath All Other Systems Reviewed And Are Negative: Yes Physical Exam - Summary Physical Exam Summary: Constitutional: Well-developed, Obese, Alert. (-) Distressed Skin: Warm, Dry HENT: Normocephalic; Atraumatic Eyes: Conjunctiva normal Neck: Musculoskeletal ROM normal neck. (-) JVD, (-) Stridor, (-) Tracheal deviation Cardio: Rhythm regular, Tachycardic, Heart sounds normal; Intact distal pulses; The pedal pulses are 2+ and symmetric. Radial pulses are 2+ and symmetric. (-) Murmur Pulmonary/Chest wall: Effort normal. (-) Respiratory distress, (-) Wheezes, (-) Rales Abd: Soft, (-) tenderness, (-) Distension, (-) Guarding, (-) Rebound Musculoskeletal: Mild bilateral LE edema, no calf tenderness Lymph: (-) Cervical adenopathy Neuro: Alert, Oriented x3 Psych: Mood and affect Normal Triage Information Reviewed: Yes Vital Signs On Initial Exam: Initial Vitals Temp Pulse Resp BP Pulse Ox 98.4 F 120 22 155/77 91 06/23/19 13:43 06/23/19 13:43 06/23/19 13:43 06/23/19 13:43 06/23/19 13:43 Vital Signs Reviewed: Yes Procedures - Sedation Patient Received Moderate/Deep Sedation with Procedure: No Diagnostics - Vital Signs Vital Signs Temp Pulse Resp BP Pulse Ox 06/23/19 13:43 98.4 F 120 22 155/77 91 - Laboratory Result Diagrams: 06/23/19 14:03 06/23/19 14:03 Lab Statement: Any lab studies that have been ordered have been reviewed, and results considered in the medical decision making process. - Radiology Chest X-ray Radiology Interpretation Completed By: Radiologist Summary of Radiographic Findings: Chest X-ray IMPRESSION: 1. CARDIOMEGALY WITH PULMONARY INTERSTITIAL EDEMA. 2. PATCHY AIRSPACE DISEASE OF THE RIGHT LUNG BASE AND TO LESSER EXTENT OF THE LEFT MIDLUNG. 3. SMALL RIGHT PLEURAL EFFUSION. Reviewed by Dr. Amezcua. - CT Chest/Thorax CTA CT Interpretation Completed By: Radiologist Summary of CT Findings: Chest/Thorax CTA IMPRESSION: No definite pulmonary embolus is noted although evaluation is limited by body habitus. No aortic dissection is noted. Bilateral pleural effusions of moderate size is noted with marked atelectasis in the right lower lobe. Marked pulmonary vascular markings are noted consistent with vascular congestion. Reviewed by Dr. Amezcua. - EKG 14:18 Cardiac Rate: Tachycardia - 115 BPM EKG Rhythm: Sinus Tachycardia ST Segment: Normal Ectopy: None Summary of EKG Findings: EKG at 14:18 shows sinus tachycardia with 115 BPM, no STEMI. Dr. Amezcua has reviewed and interpreted this EKG. Course/Dx - Course Course Of Treatment: On exam, tachycardic, obese, mild bilateral LE edema, no calf tenderness. In the ED course, patient was given Ceftriazone 1 gm IVPB, iodixanol 96 ml IV, and IV fluids. EKG at 14:18 shows sinus tachycardia with 115 BPM, no STEMI. Chest X-ray IMPRESSION: 1. CARDIOMEGALY WITH PULMONARY INTERSTITIAL EDEMA. 2. PATCHY AIRSPACE DISEASE OF THE RIGHT LUNG BASE AND TO LESSER EXTENT OF THE LEFT MIDLUNG. 3. SMALL RIGHT PLEURAL EFFUSION. Chest/ Thorax CTA IMPRESSION: No definite pulmonary embolus is noted although evaluation is limited by body habitus. No aortic dissection is noted. Bilateral pleural effusions of moderate size is noted with marked atelectasis in the right lower lobe. Marked pulmonary vascular markings are noted consistent with vascular congestion. Laboratory abnormal findings: RBC 3.25, Hgb 9.3, Hct 28, absolute lymphs 0.2, BUN 34, BUN/Creatinine ratio 31.1, glucose 383. All other abnormal lab results are not pertinent to current cc. At 16:54, Dr. Randee Toure reviewed the patients case and agrees to accept the patient as an admit to [facility] for a diagnosis of anemia, hyperglycemia, bilateral pleural effusions, and pneumonia. Patient will be admitted to [facility] with a diagnosis of anemia, hyperglycemia, bilateral pleural effusion, and pneumonia. - Diagnoses Provider Diagnoses: Anemia, Hyperglycemia, Bilateral pleural effusion, Pneumonia - Physician Notifications Discussed Care of Patient With: Randee Toure - At 16:54, Dr. Randee Toure reviewed the patients case and agrees to accept the patient as an admit to [facility] for a diagnosis of anemia, hyperglycemia, bilateral pleural effusions, and pneumonia. Time Discussed With Above Provider: 16:54 Instructed by Provider To: Admit As Inpatient Discharge ED - Sign-Out/Discharge Documenting (check all that apply): Patient Departure - Admit - Discharge Plan Condition: Stable Disposition: ADMITTED TO [facility] Referrals: Philip GONZALEZ,Kerry Smith [Primary Care Provider] - - Billing Disposition and Condition Condition: STABLE Disposition: Admitted to [facility] - Attestation Statements Document Initiated by Lucioibe: Yes Documenting Scribe: Shital García Provider For Whom Scribe is Documenting (Include Credential): Jason Amezcua DO Scribe Attestation: Shital Chairez scribed for Jason Amezcua DO on 06/23/19 at 1825. Scribe Documentation Reviewed: Yes Provider Attestation: The documentation as recorded by the Shital morton accurately reflects the service I personally performed and the decisions made by me, Jason Amezcua, DO Status of Scribe Document: Viewed
[2019-06-23] MEDS ORDERED: NS 0.9% 1000 ML** 1,000 ML IV ONE (14:14)
[2019-06-23 14:21] LABS: ABS Eosinophils 0.1 10^3/ul (0-0.6); ABS Lymphocytes 0.2 10^3/ul (1.0-4.8); ABS Monocytes 0.4 10^3/ul (0-0.8); ABS Neutrophils 4.5 10^3/ul (1.5-7.7); Hematocrit 28 % (42-52); Hemoglobin 9.3 g/dL (14.0-18.0); Lymphocyte % 3.3 %; Mean Corpuscular HGB Conc 34 g/dL (31-36); Mean Corpuscular Hemoglobin 29 pg (27-31); Mean Corpuscular Volume 85 fL (80-94); Mean Platelet Volume 7.5 fL (7.4-10.4); Nucleated Red Blood Cells % 0.1; Platelet Count 331 10^3/uL (150-450); Red Blood Count 3.25 10^6 /uL (4.18-5.48); Red Cell Distribution Width 15 % (10-15); White Blood Count 5.2 10^3/uL (3.5-10.8)
[2019-06-23 14:30] LABS: Albumin 3.8 g/dL (3.2-5.2); BUN/Creatinine Ratio 31.2 (8-20); Calcium 9.5 mg/dL (8.6-10.3); EGFR African American 81.9 (>60); EGFR Non-African American 67.7 (>60); Globulin 3.7 g/dL (2-4); Potassium 4.6 mmol/L (3.5-5.0); Total Bilirubin 0.3 mg/dL (0.2-1.0); Total Protein 7.5 g/dL (6.4-8.9)
[2019-06-23 14:32] LABS: Troponin I 0.01 ng/mL (<0.03)
[2019-06-23] MEDS ORDERED: cefTRIAXone(*) 1 GM in NS 0.9% 50 ML* 50 ML IVPB ONE (15:46)
[2019-06-23] MEDS ORDERED: Iodixanol* (CONTRAST) 320 MG/ML 100 ML SDV IV ONE (16:34)
[2019-06-23] MEDS ORDERED: Senna TAB 8.6 mg* TAB PO PRN (17:59)
[2019-06-23] MEDS ORDERED: Al Hydrox/Mg Hydrox/Simet LIQ* 30 ML UDC PO PRN (17:59)
[2019-06-23] MEDS ORDERED: Piperacillin/Tazobac ADVAN(*) 3.375 GM in NS 0.9% 100 ML* 100 ML IVPB ONE (18:12)
[2019-06-23] MEDS ORDERED: Metoprolol Tartrate IV* 1 MG/ML 5 ML VIAL IV ONE (18:18)
[2019-06-23] MEDS ORDERED: Dextrose 50% Syringe 50 ML* 25 GM/50 ML SYRINGE IV PUSH PRN (18:34)
[2019-06-23] MEDS ORDERED: Albuterol HFA INHALER* 8 gm MDI INH PRN (18:37)
[2019-06-23] MEDS ORDERED: Zosyn per Pharmacy* NOTE FOLLOW UP SCH (19:00)
--- NOTE | 2019-06-23 21:42 | HP ---
CC: LISA Dunaway * HISTORY AND PHYSICAL: DATE OF ADMISSION: 06/23/19 PROVIDER: LISA Acosta. ATTENDING PHYSICIAN WHILE IN THE HOSPITAL: Dr. Elvia Phillips * (dictated by LISA Acosta). PRIMARY CARE PROVIDER: LISA Dunaway. CHIEF COMPLAINT: Progressive shortness of breath with exertion. HISTORY OF PRESENT ILLNESS: Tulio Ferrell is a 64-year-old white male with past medical history significant for diabetes mellitus type 2; atrial fibrillation, on anticoagulation; hypertension; COPD, on 2 L of oxygen at home; WILLIE, on BiPAP ; coronary artery disease, status post CABG; and frequent pleural effusions requiring thoracentesis, who presents to the emergency department today due to progressive shortness of breath with exertion. The patient tells me that at baseline he feels short of breath with exertion, which has been getting progressively worse over the last month, particularly over the last week. Additionally, he has been feeling fatigue and generalized weakness for the last month to month and a half. The patient has had intentional 10-pound weight loss over the last 1 to 2 months. He tells me that he has an intermittent cough chronically and describes a history of an epiglottic disorder, though I do not see this in his electronic medical history. He has not been having cough all the time. He does not have shortness of breath at rest, only with exertion. Denies fevers or chills, chest pain, abdominal pain, nausea, vomiting or diarrhea. He tells me he does not recall specifically coughing after a meal or with drinking, but he states that it possibly may have happened. Of note, the patient had a bronchoscopy performed with biopsy in the past, which demonstrated no malignancy and has had multiple thoracenteses demonstrating negative cytology for malignancy. PAST MEDICAL HISTORY: 1. Diabetes mellitus type 2 2. Atrial fibrillation, on Eliquis 3. Hypertension 4. Hyperlipidemia 5. COPD, on 2 L oxygen 6. WILLIE, on CPAP (the patient admits to poor adherence) 7. Coronary artery disease, status post 2-vessel CABG 8. Frequent pleural effusions of unclear etiology 9. 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 Ablation. 2. PCI. 3. Two-vessel CABG in 2016. 4. Bronchoscopy with biopsy. HOME MEDICATIONS: 1. Albuterol 2.5 mg inhaled 4 times a day p.r.n. shortness of breath/wheezing. 2. Amiodarone 200 mg p.o. daily. 3. Eliquis 5 mg p.o. b.i.d. 4. Aspirin 81 mg p.o. daily. 5. Lipitor 40 mg p.o. daily. 6. Calcium, magnesium plus vitamin D 2 tabs p.o. b.i.d. 7. Restasis 1 drop both eyes b.i.d. 8. Diltiazem 180 mg p.o. daily. 9. Fenofibrate 160 mg daily. 10. Breo Ellipta 200/25 one puff p.o. daily. 11. Regular insulin 10 units subcu a.c., h.s. 12. Losartan/hydrochlorothiazide 100 mg/25 mg 1 tab p.o. daily. 13. Metformin 500 mg p.o. b.i.d. 14. Metoprolol tartrate 100 mg p.o. b.i.d. 15. Multivitamin 1 tab p.o. daily. 16. Nystatin topical powder 1 application topically t.i.d. p.r.n. rash. 17. Spironolactone 25 mg p.o. b.i.d. 18. Torsemide 20 mg p.o. daily. 19. Incruse Ellipta 1 puff inhaled daily. 20. Vitamin B complex 1 tab p.o. daily. ALLERGIES: Reports syncope and ear issues to NSAIDs. He does take a daily Aspirin. Reports loss of consciousness on 325 mg of aspirin. Reports back pain to the contrast dye. It appears all of these are adverse reactions and not allergies. FAMILY HISTORY: Father at age 62 [address] and CVA, but he did have an CT prior to that at age 43. His mother is living at age 83; she has a history of rectal cancer, diabetes, and hypertension. SOCIAL HISTORY: The patient lives with his mother, who is 83. He has 2 children and he is from his . 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 Denies tobacco use, alcohol use or drug use, and he has never been a smoker. The patient's mother Toshia Delcid, is his surrogate medical decision maker; her phone number is [phone]. REVIEW OF SYSTEMS: An 11-point review of systems was completed, and all pertinent positives and negatives are above in the HPI. All other systems are negative. PHYSICAL EXAMINATION GENERAL: Obese, white male, sitting in a hospital chair, appearing comfortable , in no acute distress. He is eating dinner. VITAL SIGNS: Temperature 98.4, pulse rate 120, respiratory rate 22, oxygen saturation 91% on 3 L, blood pressure 155/77. HEENT: Eyes: PERRL. Sclerae anicteric. ENT: Mucous membranes are moist. LUNGS: Minimally diminished breath sounds on the right lower lung argueta. Otherwise, clear to auscultation throughout without wheezing or rhonchi. CARDIO: Tachycardic rate to approximately 120 with regular rhythm. No appreciable murmurs, rubs, or gallops. ABDOMEN: Soft, nontender, nondistended. EXTREMITIES: No clubbing, cyanosis or edema. NEUROLOGIC: The patient is alert and oriented x3. No focal deficits. SKIN: The patient does have pigmentation changes to his lower extremities consistent with venous insufficiency. PERTINENT STUDIES/LAB DATA: White blood cell count 5.2, hemoglobin 9.3, hematocrit 28, platelet count 331. Absolute lymphocytes 0.2. Sodium 134, potassium 4.6, chloride 96, carbon dioxide 29, anion gap 9, BUN 34, creatinine 1.09, glucose 33, lactic acid 1.3, calcium 9.5. Total bili is 0.3, AST 11, ALT 15, alk phos 39, troponin 0.01 x2. BNP is 60. Chest x-ray, Radiology impression: Cardiomegaly with pulmonary interstitial edema. Patchy airspace disease of the right lung base and to lesser extent of the left mid lung. Small right pleural effusion. Chest/thorax CTA, radiologist's impression: No definite pulmonary embolus is noted, although evaluation is limited by body habitus. No airway obstruction is noted. Bilateral pleural effusions with moderate size noted with marked atelectasias in the right lower lobe. Marked pulmonary vascular markings are noted consistent with vascular congestion. ASSESSMENT AND PLAN: Tulio Ferrell is a 64-year-old white male with past medical history significant for chronic obstructive pulmonary disease, on 2 L of oxygen at home; obstructive sleep apnea, on BiPAP overnight; coronary artery disease, status post CABG; diabetes, and atrial fibrillation, on anticoagulation , who presents to the emergency department today due to progressive shortness of breath with exertion. The patient will be admitted for: 1. Pleural effusion. The patient appears to have bilateral pleural effusions. It appears greater on the right side. There is what appears to be a consolidation in the right lower lobe, which brings me to differential of parapneumonic effusion. It is possible the patient may be experiencing aspiration pneumonia. He describes a possible history of epiglottic disorder, but I do not see it documented anywhere in the EMR. I going to order a swallow evaluation and start the patient on Zosyn to cover for aspiration pneumonia. He does appear to have some patchiness bilaterally and for this we are going to rule him out for COVID, although pleural effusions have been found very infrequently in COVID-19. Though, this patient does have a history of pleural effusions with unknown etiology, which may be separate from a possible COVID-19 infection. The patient already received ceftriaxone in the emergency department and I will not continue this, as I am using Zosyn. Additionally, it does make me question if potentially there is pneumonitis occurring due to his amiodarone, though it is unclear. I did discuss this case with Dr. Stephenson, who is planning to perform a thoracentesis tomorrow; for that, I am holding his home Eliquis. He does not need to be n.p.o. after midnight for this procedure. I will order a transthoracic echocardiogram as well to rule out cardiac etiology at this time, though his BNP is normal. He is requiring more oxygen than his baseline. I will order albuterol inhaler for symptomatic treatment of his shortness of breath, though this is likely to provide little relief given that he does have known pleural effusion. The patient is on torsemide and spironolactone at home and I will continue this as he does not have any previously documented history of systolic heart failure. 2. Chronic obstructive pulmonary disease. I will continue the patient's home medications, as he takes Breo Ellipta and Incruse Ellipta at home. 3. Atrial fibrillation. It appears that the patient is minimally tachycardic, though I would not say he is in rapid ventricular response. His blood pressure is within normal limits. I will give one time dose of IV metoprolol 5 mg to see if this improves. I will order telemetry. I will continue his home diltiazem, metoprolol, and amiodarone. I will be holding his Eliquis as previously mentioned due to an anticipated thoracentesis tomorrow. 4. Diabetes mellitus type 2. The patient takes metformin and insulin at home. I will be holding these and using sliding scale lispro and checking hemoglobin A1c. 5. Coronary artery disease. I will be continuing the patient's aspirin, carvedilol, and losartan and hydrochlorothiazide. 6. Hypertension. The patient is overall normotensive at this time. I will continue his home losartan and hydrochlorothiazide, diltiazem, torsemide, and carvedilol. 7. Obstructive sleep apnea. The patient uses BiPAP overnight, but admits to having poor adherence to this. I will order it while he is in the hospital. 8. DVT prophylaxis. The patient has DVT risk score of 3. He typically takes Eliquis, and I am holding this at this time due to anticipated thoracentesis tomorrow and so I will order SCDs. 9. FEN. The patient will have a heart healthy and carbohydrate consistent diet. He receives a liter of fluid in the emergency department and I will not be continuing this and otherwise his electrolytes are within normal limits and no need for repletion. 10. Code status. The patient is full code. TIME SPENT: I spent approximately 55 minutes on this admission, approximately half this time was spent at bedside evaluating the patient and discussing the plan of care. This case has been reviewed by my attending, Dr. Elvia Phillips, and she agrees with this plan of care. LISA ACOSTA [id number]/CPS #: [id number] MTDD
[2019-06-23] MEDS: Metoprolol Tartrate TAB* 100 MG TAB PO SCH (21:56)
[2019-06-23] MEDS: Spironolactone TAB* 25 MG PO SCH (21:57)
[2019-06-23] MEDS: ZOSYN 3.375 GM Q8H per EXTENDED INFUSION IVPB SCH ×2 (21:58)
[2019-06-23] MEDS: [UNRECOGNIZED DRUG - OTHER] PO SCH (22:06)
[2019-06-23] MEDS: CMCS: Cyclosporine 0.05% OPHTH (NF) 0.4 ML VIAL BOTH EYES SCH (22:06)
[2019-06-23] MEDS: MAGNESIUM OXIDE PO SCH (22:06)
[2019-06-23] MEDS: CHOLECALCIFEROL PO SCH (22:06)
[2019-06-23] MEDS: CALCIUM CARBONATE PO SCH (22:06)
[2019-06-24] MEDS: ZOSYN 3.375 GM Q8H per EXTENDED INFUSION IVPB SCH ×6 (06:17→21:56)
[2019-06-24] MEDS: Insulin LISPRO* 1 UNITS UNIT SUBCUT SCH ×3 (08:44→17:32)
[2019-06-24] MEDS: Diltiazem CD CAP* 180 MG PO SCH (08:44)
[2019-06-24] MEDS: Multivitamins/Minerals TAB PO SCH ×2 (08:44→08:50)
[2019-06-24] MEDS: Metoprolol Tartrate TAB* 100 MG TAB PO SCH ×2 (08:44→21:57)
[2019-06-24] MEDS: Amiodarone TAB* 200 MG PO SCH (08:45)
[2019-06-24] MEDS: Torsemide TAB* 20 MG PO SCH (08:45)
[2019-06-24] MEDS: Atorvastatin* 40 MG TAB PO SCH (08:45)
[2019-06-24] MEDS: Spironolactone TAB* 25 MG PO SCH ×2 (08:46→21:56)
[2019-06-24] MEDS: Aspirin EC TAB* 81 MG TAB.EC PO SCH (08:46)
[2019-06-24] MEDS: Losartan TAB* 25 MG PO SCH (08:46)
[2019-06-24] MEDS: CMCS: Cyclosporine 0.05% OPHTH (NF) 0.4 ML VIAL BOTH EYES SCH ×2 (08:46→21:57)
[2019-06-24] MEDS: Hydrochlorothiazide TAB* 25 MG PO SCH (08:46)
[2019-06-24] MEDS: CALCIUM CARBONATE PO SCH ×2 (08:47→23:11)
[2019-06-24] MEDS: CHOLECALCIFEROL PO SCH ×2 (08:47→23:11)
[2019-06-24] MEDS: [UNRECOGNIZED DRUG - OTHER] PO SCH ×2 (08:47→23:11)
[2019-06-24] MEDS: MAGNESIUM OXIDE PO SCH ×2 (08:47→23:11)
[2019-06-24] MEDS: Mometasone/Formoter 200/5 MDI INH SCH ×2 (09:19→19:14)
[2019-06-24] MEDS: SPIRIVA Respimat* (tiotropium) 2.5 mcg/inh Inhaler INH SCH (09:19)
[2019-06-24 09:43] LABS: ABS Eosinophils 0.1 10^3/ul (0-0.6); ABS Lymphocytes 0.1 10^3/ul (1.0-4.8); ABS Monocytes 0.4 10^3/ul (0-0.8); ABS Neutrophils 3.9 10^3/ul (1.5-7.7); Eosinophil % 2.8 %; Hematocrit 26 % (42-52); Hemoglobin 8.6 g/dL (14.0-18.0); Lymphocyte % 2.6 %; Mean Corpuscular HGB Conc 33 g/dL (31-36); Mean Corpuscular Hemoglobin 28 pg (27-31); Mean Corpuscular Volume 84 fL (80-94); Nucleated Red Blood Cells % 0.1; Platelet Count 301 10^3/uL (150-450); Red Blood Count 3.13 10^6 /uL (4.18-5.48); Red Cell Distribution Width 15 % (10-15); White Blood Count 4.6 10^3/uL (3.5-10.8)
[2019-06-24 10:00] LABS: Anion Gap 5 mmol/L (2-11); BUN/Creatinine Ratio 22.8 (8-20); Blood Urea Nitrogen 26 mg/dL (6-24); CO2 Carbon Dioxide 32 mmol/L (22-32); Calcium 9.1 mg/dL (8.6-10.3); Chloride 98 mmol/L (101-111); EGFR African American 77.8 (>60); EGFR Non-African American 64.3 (>60); Glucose 353 mg/dL (70-100); Potassium 4.2 mmol/L (3.5-5.0); Sodium 135 mmol/L (135-145)
[2019-06-24 10:16] LABS: % Iron Saturation 11 % (15-55); Iron 36 ug/dL (50-212); Total Iron Binding Capacity 326 mcg/dL (250-450); Transferrin 233 mg/dL (203-362)
[2019-06-24 10:35] LABS: Ferritin 141.3 ng/mL (24-336)
--- NOTE | 2019-06-24 12:25 | ECHO ---
*[facility]* [place] [address] Fax #: [phone] Transthoracic Echocardiogram Patient: Tulio Ferrell : 1955 Study Date: 06/24/2019 Age: 64 Gender: M HR: 112 bpm Height: 69 in /175.3 cm BSA: 2.59 m^2 Weight: 289.4 lb /131.5 kg BMI: 42.8 kg/m^2 *Research And Development Specialist: Shital Garcia [facility] *Referring Physician: * O'Kortney Florence *Reading Physician: * Shereen Das MD Indications: SOB. History: Atrial fibrillation. Coronary artery disease. Risk factors: Hypertension. Diabetes mellitus. Obese. Dyslipidemia. Labs, prior tests, procedures, and surgery: Coronary artery bypass grafting. Conclusions Summary: - Procedure narrative: Image quality was suboptimal. Parasternals best. - Left ventricle: There is moderate focal basal hypertrophy. Systolic function is vigorous. The estimated ejection fraction is 60-65%. Features are consistent with a pseudonormal left ventricular filling pattern, with concomitant abnormal relaxation and increased filling pressure (grade 2 diastolic dysfunction). - Right ventricle: Systolic function is normal. - Left atrium: The atrium is mildly to moderately dilated. - Mitral valve: The Mitral valve annulus appears calcified. The leaflets are mildly calcified. - Aortic valve: The annulus is mildly calcified. The leaflets are mildly thickened. - Pericardium, extracardiac: There is a left pleural effusion. - Pulmonary arteries: Systolic pressure can not be accurately estimated. - Compared with echocardiogram of 10/22/17, no significant changes of heart, pleural effusion newly noted. - Comment: Suboptimal imaging and has been in the past. The patient is unable to use echocardiogram contrast. If better echocardiogram imaging clinically indicated I recommend transesophageal echocardiogram . Study data: Transthoracic echocardiogram. Procedure: Transthoracic echocardiography was performed. Image quality was suboptimal. Patient has history of a reaction to Definity thus it was not used. Complete 2D, spectral Doppler, and color flow Doppler. Location: Bedside. Patient status: Inpatient. Patient room number: 419. Rhythm: Normal sinus rhythm. Findings Left ventricle: The cavity size is normal. Wall thickness is mildly increased. There is moderate focal basal hypertrophy. Systolic function is vigorous. The estimated ejection fraction is 60-65%. Although no diagnostic regional wall motion abnormality is identified, this possibility cannot be completely excluded on the basis of this study. Features are consistent with a pseudonormal left ventricular filling pattern, with concomitant abnormal relaxation and increased filling pressure (grade 2 diastolic dysfunction). Doppler parameters are consistent with elevated ventricular end-diastolic filling pressure. Right ventricle: The cavity size is normal. Wall thickness is increased. Systolic function is normal. Left atrium: The atrium is mildly to moderately dilated. Right atrium: Not well visualized. Mitral valve: The Mitral valve annulus appears calcified. The leaflets are mildly calcified. There is no significant regurgitation. Aortic valve: The annulus is mildly calcified. The leaflets are mildly thickened. There is no evidence of stenosis. There is no significant regurgitation. Tricuspid valve: Not well visualized. There is no significant regurgitation. Pulmonic valve: Not well visualized. There is no significant regurgitation. Aorta: The aortic arch appears normal. Pericardium: There is no significant pericardial effusion. There is a left pleural effusion. Pulmonary arteries: Systolic pressure can not be accurately estimated. Systemic veins: Inferior vena cava: The vessel is dilated. There is (< 50%) respiratory change in the IVC dimension. Measurements Left ventricle Value Ref Aortic valve continued Value Ref DEDRICK, LAX 5.0 cm 4.2 - 5.8 Peak v, S 1.14 m/sec ---- ESD, LAX 2.9 cm 2.5 - 4.0 Peak grad, S 5.2 mm Hg ---- FS, LAX 42 % 25 - 43 PW, ED, LAX (H) 1.1 cm 0.6 - 1.0 Mitral valve Value Ref E', lat jack, TDI (L) 7.0 cm/sec >=10.0 Peak E 1.26 m/se c ---- E/e', lat jack, 18 Peak A 0.8 m/sec ---- TDI VTI leaflet coapt 31.5 cm ---- E', med jack, TDI (L) 5.0 cm/sec >=7.0 Decel time 164 ms ---- E/e', med jack, 25 PHT 55 ms ---- TDI Mean grad, D 3.0 mm Hg ---- E', avg, TDI 6.0 cm/sec Peak grad, D 8.4 mm Hg ---- E/e', avg, TDI (H) 21 <=14 Peak E/A ratio 1.57 ---- MVA, PHT 4.0 cm^2 ---- LVOT Value Ref Peak kelly, S 0.85 m/sec Pulmonic valve Value Ref Peak grad, S 3 mm Hg Peak v, S 1.03 m/sec ---- Peak grad, S 4.3 mm Hg ---- Ventricular septum Value Ref IVS, ED (H) 1.5 cm 0.6 - 1.0 Aortic root Value Ref Root diam 3.4 cm <4 .6 Right ventricle Value Ref DEDRICK, LAX 3.0 cm Ascending aorta Value Ref AAo AP diam, S 3.2 cm ---- Left atrium Value Ref AAo AP diam/bsa, S 1.2 cm/m^2 ---- AP dim, ES (H) 4.42 cm 3.00 - 4.00 Aortic arch Value Ref ML dim, A4C 5.7 cm Arch diam 2.7 cm ---- SI dim, A4C 6.3 cm Vol/bsa, ES, 2-p (H) 39 ml/m^2 16 - 34 Decending aorta Value Ref Ladarius peak kelly 0.86 m/sec ---- Right atrium Value Ref Estimated RAP 8 mm Hg Inferior vena cava Value Ref Diam 2.2 cm ---- Aortic valve Value Ref Jack diam, ED 2.2 cm Jack diam/bsa, ED 0.8 cm/m^2 Legend: (L) and (H) hernan values outside specified reference range. Prepared and electronically signed by Shereen Das MD 06/24/2019 12:24
--- NOTE | 2019-06-24 17:14 | PN ---
Subjective Date of Service: 06/24/19 Interval History: Pt reports that he is feeling ok but C/O shortness of breath with limited exertion and occasional dry cough. pt denies chest pain or dizziness. Family History: Unchanged from Admission Social History: Unchanged from Admission Past Medical History: Unchanged from Admission Objective Active Medications: Acetaminophen (Tylenol Tab*) 650 mg PO Q4H PRN PRN Reason: MILD PAIN or TEMP > 100.4 Al Hydrox/Mg Hydrox/Simethicone (Maalox Plus*) 30 ml PO Q6H PRN PRN Reason: INDIGESTION Albuterol (Ventolin Hfa Inhaler*) 2 puff INH Q2H PRN PRN Reason: SOB/WHEEZING Amiodarone HCl (Cordarone Tab*) 200 mg PO DAILY [facility] Last Admin: 06/24/19 08:45 Dose: 200 mg Aspirin (Aspirin Ec Tab*) 81 mg PO DAILY [facility] Last Admin: 06/24/19 08:46 Dose: 81 mg Atorvastatin Calcium (Lipitor*) 40 mg PO DAILY [facility] Last Admin: 06/24/19 08:45 Dose: 40 mg Cyclosporine (Restasis 0.05% Oph) 1 drop BOTH EYES BID [facility]; Protocol Last Admin: 06/24/19 08:46 Dose: 1 drop Dextrose (D50w Syringe 50 Ml*) 12.5 gm IV PUSH .FOR FS < 60 - SS PRN PRN Reason: FS < 60 Diltiazem HCl (Cardizem Cd Cap*) 180 mg PO DAILY [facility] Last Admin: 06/24/19 08:44 Dose: 180 mg Fenofibrate (Tricor 160 Mg) 160 mg PO DAILY [facility]; Protocol Last Admin: 06/24/19 08:46 Dose: 160 mg Hydrochlorothiazide (Hydrodiuril Tab*) 25 mg PO DAILY [facility] Last Admin: 06/24/19 08:46 Dose: 25 mg Piperacillin Sod/Tazobactam (Sod 3.375 gm/ Sodium Chloride) 100 mls @ 25 mls/ hr IVPB Q8H [facility] Last Admin: 06/24/19 14:53 Dose: 25 mls/hr Insulin Human Lispro (Humalog*) 0 units SUBCUT AC [facility]; Protocol Last Admin: 06/24/19 12:41 Dose: 15 units Losartan Potassium (Cozaar Tab*) 100 mg PO DAILY [facility] Last Admin: 06/24/19 08:46 Dose: 100 mg Metoprolol Tartrate (Lopressor Tab*) 100 mg PO BID [facility] Last Admin: 06/24/19 08:44 Dose: 100 mg Mometasone Furoate/Formoterol Fumar (Dulera 200/5 Mdi*) 2 puff INH BID [facility] Last Admin: 06/24/19 09:19 Dose: 2 puff Multivitamins/Minerals (Theragran/Minerals Tab*) 1 tab PO DAILY [facility] Last Admin: 06/24/19 08:50 Dose: Not Given Nft: Calcium Carb/Magnesium Oxide/D3 [ Calcium Magnesium + D Tablet] 2 Each) 2 each PO BID [facility] Last Admin: 06/24/19 08:47 Dose: Not Given Pharmacy Consult (Zosyn Per Pharmacy*) 1 note FOLLOW UP .ZOSYN PER PHARMACY [facility] Senna (Senokot 8.6 Mg Tab*) 1 tab PO BID PRN PRN Reason: CONSTIPATION Last Admin: 06/23/19 21:57 Dose: 1 tab Spironolactone (Aldactone Tab*) 25 mg PO BID [facility] Last Admin: 06/24/19 08:46 Dose: 25 mg Tiotropium [place] (Spiriva Respimat 2.5 Mcg) 2 puff INH DAILY [facility] Last Admin: 06/24/19 09:19 Dose: 2 puff Torsemide (Demadex*) 40 mg PO DAILY [facility] Last Admin: 06/24/19 08:45 Dose: 40 mg Vital Signs - 8 hr 06/24/19 06/24/19 11:00 15:00 Temperature 96.5 F 96.0 F Pulse Rate 98 88 Respiratory 16 16 Rate Blood Pressure 138/50 118/45 (mmHg) O2 Sat by Pulse 100 98 Oximetry Oxygen Devices in Use Now: Nasal Cannula Appearance: Obese elderly gentlman sitting up in chair watching TV. Appears to be SOB but not in respiratory distress presently. Eyes: No Scleral Icterus, PERRLA Ears/Nose/Mouth/Throat: NL Teeth, Lips, Gums, Clear Oropharnyx, Mucous Membranes Moist Neck: NL Appearance and Movements; NL JVP, Trachea Midline Respiratory: Symmetrical Chest Expansion and Respiratory Effort, Clear to Auscultation, - - diminished lung sounds bilateral bases Cardiovascular: NL Sounds; No Murmurs; No JVD, RRR, - - Bilateral LE edema R>L Right side +3 Left side +2. Skin on lower right leg thickened and darker Abdominal: NL Sounds; No Tenderness; No Distention, No Hepatosplenomegaly Lymphatic: No Cervical Adenopathy Extremities: No Clubbing, Cyanosis Skin: No Rash or Ulcers, No Nodules or Sclerosis Neurological: Alert and Oriented x 3, NL Sensation, NL Muscle Strength and Tone Nutrition: Taking PO's Result Diagrams: 06/24/19 09:29 06/24/19 09:29 Assess/Plan/Problems-Billing Assessment: Mr. Ferrell is a 64 yo gentleman with history significant for DM 2, A-fib, CAD, HTN , COPD, Frequent pleural effusions, WILLIE with Bipap comes to the hospital with complaints of progressively worsening SOB x 1 month with marks increase in SOB for the last week. - Patient Problems (1) Pleural effusion Current Visit: Yes Comment: -COVID 19 R/O on droplet precautions -Chest CTA shows bilateral pleural effusions of moderate size and no definite pulmonary emoblisms -Consult out to Dr. Stephenson for possible thoracentesis 06/24/19 -CXR shows small right pleural effusion. Also patchy airspace disease of R lung base and to lesser extent of left midlung. Concerning for parapneumonic effusion , or aspiration PNA related to pt reported epiglottis issue. -Zosyn to cover for pulmonary infectious process. (2) Diabetes Current Visit: Yes Comment: -Continue Lispro SS -BGL's have been elevated today which is consistant with patients history. -Will continue to monitor -Heart health with consistant carb diet orders (3) Hypertension Current Visit: Yes Comment: -Controlled at this time will continue patients regular meds Metoprolol, Losartan, HCTZ, Demedex, and spironolactone -Heart healthy diet with no caffeine (4) Hyperlipidemia Current Visit: Yes Comment: -Continue Tricor and atorvastatin -Heart healthy diet (5) Atrial fibrillation Current Visit: No Status: Chronic Code(s): I48.91 - UNSPECIFIED ATRIAL FIBRILLATION SNOMED Code(s): 66959717 Comment: - Continue home meds Metoprolol XL 100 mg BID, Cardizem 180 mg daily , amiodarone 200mg daily. -Stable Minimal tachycardia at times, not currently in RVR. -Trans thoracic echo- EF 50-65%. no significant changes in comparison with 2018 (6) Coronary artery disease Current Visit: No Status: Chronic Code(s): I25.10 - ATHSCL HEART DISEASE OF [place] CORONARY ARTERY W/O ANG PCTRS SNOMED Code(s): 19734555 Comment: - Continue home dosing of aspirin, Carvidolol, losartan, HCTZ, and Tricor, atorvastatin - Stable (7) WILLIE (obstructive sleep apnea) Current Visit: Yes Comment: - BiPAP for sleep (8) DVT prophylaxis Current Visit: Yes Comment: - ELiquis is held at this time as patient is to have thoracentisis today - SCD's (9) Full code status Current Visit: Yes Comment: - Full code Status and Disposition: Guarded inpatient
[2019-06-24] MEDS: Loperamide LIQ* 2 MG/10 ML UDC PO PRN (18:15)
[2019-06-25] MEDS: ZOSYN 3.375 GM Q8H per EXTENDED INFUSION IVPB SCH ×6 (06:55→22:39)
[2019-06-25] MEDS: SPIRIVA Respimat* (tiotropium) 2.5 mcg/inh Inhaler INH SCH (08:30)
[2019-06-25] MEDS: Mometasone/Formoter 200/5 MDI INH SCH ×2 (08:30→22:20)
[2019-06-25] MEDS: Losartan TAB* 25 MG PO SCH (08:35)
[2019-06-25] MEDS: Insulin LISPRO* 1 UNITS UNIT SUBCUT SCH ×3 (08:37→17:35)
[2019-06-25] MEDS: Atorvastatin* 40 MG TAB PO SCH (08:38)
[2019-06-25] MEDS: Metoprolol Tartrate TAB* 100 MG TAB PO SCH ×2 (08:38→20:21)
[2019-06-25] MEDS: Aspirin EC TAB* 81 MG TAB.EC PO SCH (08:38)
[2019-06-25] MEDS: Torsemide TAB* 20 MG PO SCH (08:38)
[2019-06-25] MEDS: Hydrochlorothiazide TAB* 25 MG PO SCH (08:38)
[2019-06-25] MEDS: Diltiazem CD CAP* 180 MG PO SCH (08:38)
[2019-06-25] MEDS: Amiodarone TAB* 200 MG PO SCH (08:38)
[2019-06-25] MEDS: CMCS: Cyclosporine 0.05% OPHTH (NF) 0.4 ML VIAL BOTH EYES SCH ×2 (08:39→20:23)
[2019-06-25] MEDS: MAGNESIUM OXIDE PO SCH ×2 (08:39→20:10)
[2019-06-25] MEDS: CHOLECALCIFEROL PO SCH ×2 (08:39→20:10)
[2019-06-25] MEDS: Multivitamins/Minerals TAB PO SCH (08:39)
[2019-06-25] MEDS: [UNRECOGNIZED DRUG - OTHER] PO SCH ×2 (08:39→20:10)
[2019-06-25] MEDS: CALCIUM CARBONATE PO SCH ×2 (08:39→20:10)
[2019-06-25] MEDS: Spironolactone TAB* 25 MG PO SCH ×2 (08:39→20:21)
[2019-06-25 10:05] LABS: ABS Eosinophils 0.1 10^3/ul (0-0.6); ABS Lymphocytes 0.2 10^3/ul (1.0-4.8); ABS Monocytes 0.4 10^3/ul (0-0.8); ABS Neutrophils 4.9 10^3/ul (1.5-7.7); Eosinophil % 2.2 %; Hematocrit 27 % (42-52); Lymphocyte % 2.7 %; Mean Corpuscular HGB Conc 33 g/dL (31-36); Mean Corpuscular Hemoglobin 28 pg (27-31); Mean Corpuscular Volume 84 fL (80-94); Mean Platelet Volume 7.2 fL (7.4-10.4); Nucleated Red Blood Cells % 0.1; Platelet Count 314 10^3/uL (150-450); Red Blood Count 3.22 10^6 /uL (4.18-5.48); Red Cell Distribution Width 15 % (10-15); White Blood Count 5.6 10^3/uL (3.5-10.8)
[2019-06-25 10:20] LABS: BUN/Creatinine Ratio 21.1 (8-20); Calcium 9.4 mg/dL (8.6-10.3); EGFR Non-African American 56.2 (>60); Potassium 4.4 mmol/L (3.5-5.0)
--- NOTE | 2019-06-25 13:14 | PN ---
Subjective Date of Service: 06/25/19 Interval History: Alert and oriented x 3. Pt reports that he is feeling better today however he does continue to experience severe shortness of breath when exerting self. Pt denies any chest pain or dizziness presently. Family History: Unchanged from Admission Social History: Unchanged from Admission Past Medical History: Unchanged from Admission Objective Active Medications: Acetaminophen (Tylenol Tab*) 650 mg PO Q4H PRN PRN Reason: MILD PAIN or TEMP > 100.4 Al Hydrox/Mg Hydrox/Simethicone (Maalox Plus*) 30 ml PO Q6H PRN PRN Reason: INDIGESTION Albuterol (Ventolin Hfa Inhaler*) 2 puff INH Q2H PRN PRN Reason: SOB/WHEEZING Amiodarone HCl (Cordarone Tab*) 200 mg PO DAILY [facility] Last Admin: 06/25/19 08:38 Dose: 200 mg Aspirin (Aspirin Ec Tab*) 81 mg PO DAILY [facility] Last Admin: 06/25/19 08:38 Dose: 81 mg Atorvastatin Calcium (Lipitor*) 40 mg PO DAILY [facility] Last Admin: 06/25/19 08:38 Dose: 40 mg Cyclosporine (Restasis 0.05% [facility]) 1 drop BOTH EYES BID [facility]; Protocol Last Admin: 06/25/19 08:39 Dose: 1 drop Dextrose (D50w Syringe 50 Ml*) 12.5 gm IV PUSH .FOR FS < 60 - SS PRN PRN Reason: FS < 60 Diltiazem HCl (Cardizem Cd Cap*) 180 mg PO DAILY [facility] Last Admin: 06/25/19 08:38 Dose: 180 mg Fenofibrate (Tricor 160 Mg) 160 mg PO DAILY [facility]; Protocol Last Admin: 06/25/19 08:38 Dose: 160 mg Hydrochlorothiazide (Hydrodiuril Tab*) 25 mg PO DAILY [facility] Last Admin: 06/25/19 08:38 Dose: 25 mg Piperacillin Sod/Tazobactam (Sod 3.375 gm/ Sodium Chloride) 100 mls @ 25 mls/ hr IVPB Q8H [facility] Last Admin: 06/25/19 06:55 Dose: 25 mls/hr Insulin Human Lispro (Humalog*) 0 units SUBCUT AC [facility]; Protocol Last Admin: 06/25/19 12:50 Dose: 12 units Loperamide HCl (Imodium Liq*) 2 mg PO .SEE ORDER PRN PRN Reason: LOOSE STOOLS Last Admin: 06/24/19 18:15 Dose: 2 mg Losartan Potassium (Cozaar Tab*) 100 mg PO DAILY [facility] Last Admin: 06/25/19 08:35 Dose: 100 mg Metoprolol Tartrate (Lopressor Tab*) 100 mg PO BID [facility] Last Admin: 06/25/19 08:38 Dose: 100 mg Mometasone Furoate/Formoterol Fumar (Dulera 200/5 Mdi*) 2 puff INH BID [facility] Last Admin: 06/25/19 08:30 Dose: 2 puff Multivitamins/Minerals (Theragran/Minerals Tab*) 1 tab PO DAILY [facility] Last Admin: 06/25/19 08:39 Dose: Not Given Nft: Calcium Carb/Magnesium Oxide/D3 [ Calcium Magnesium + D Tablet] 2 Each) 2 each PO BID [facility] Last Admin: 06/25/19 08:39 Dose: Not Given Pharmacy Consult (Zosyn Per Pharmacy*) 1 note FOLLOW UP .ZOSYN PER [facility]ARMACY [facility] Senna (Senokot 8.6 Mg Tab*) 1 tab PO BID PRN PRN Reason: CONSTIPATION Last Admin: 06/23/19 21:57 Dose: 1 tab Spironolactone (Aldactone Tab*) 25 mg PO BID [facility] Last Admin: 06/25/19 08:39 Dose: 25 mg Tiotropium [place] (Spiriva Respimat 2.5 Mcg) 2 puff INH DAILY [facility] Last Admin: 06/25/19 08:30 Dose: 2 puff Torsemide (Demadex*) 40 mg PO DAILY [facility] Last Admin: 06/25/19 08:38 Dose: 40 mg Vital Signs - 8 hr 06/25/19 06/25/19 06/25/19 08:00 08:14 11:11 Temperature 96.8 F 96.0 F Pulse Rate 100 91 Respiratory 18 16 16 Rate Blood Pressure 138/52 126/49 (mmHg) O2 Sat by Pulse 98 96 Oximetry Oxygen Devices in Use Now: Nasal Cannula Appearance: Obese elderly gentlman sitting in chair watching TV. Does not appear to be in any respiratory distress presently. Eyes: No Scleral Icterus, PERRLA Ears/Nose/Mouth/Throat: NL Teeth, Lips, Gums, Clear Oropharnyx, Mucous Membranes Moist Neck: NL Appearance and Movements; NL JVP, Trachea Midline, No Thyroid Enlargement, Masses Respiratory: Symmetrical Chest Expansion and Respiratory Effort, Clear to Auscultation, - - Lung sounds diminished bilateral bases Cardiovascular: NL Sounds; No Murmurs; No JVD, RRR, - - edema RLE +1. LLE absent of edema. + pedal pulses bilaterally Abdominal: NL Sounds; No Tenderness; No Distention, No Hepatosplenomegaly Lymphatic: No Cervical Adenopathy Extremities: No Clubbing, Cyanosis Skin: No Rash or Ulcers, No Nodules or Sclerosis Neurological: Alert and Oriented x 3, NL Sensation, NL Gait, NL Muscle Strength and Tone Nutrition: Taking PO's Result Diagrams: 06/26/19 06:22 06/26/19 06:22 Assess/Plan/Problems-Billing Assessment: Mr. Ferrell is a 64 yo gentleman with history significant for DM 2, A-fib, CAD, HTN , COPD, Frequent pleural effusions, WILLIE with Bipap comes to the hospital with complaints of progressively worsening SOB x 1 month with marks increase in SOB for the last week. - Patient Problems (1) Pleural effusion Current Visit: Yes Comment: -COVID 19 R/O on droplet precautions -Chest CTA 06/22 shows bilateral pleural effusions of moderate size and no definite pulmonary emoblisms -Consult out to Dr. Stephenson. Will perform thoracentesis following a negative COVID 19 test. Pt is not in distress presently. -CXR 06/22 shows small right pleural effusion. Also patchy airspace disease of R lung base and to lesser extent of left midlung. Concerning for parapneumonic effusion, or aspiration PNA related to pt reported epiglottis issue. -Zosyn to cover for pulmonary infectious process- Continued (2) Diabetes Current Visit: Yes Comment: -Continue Lispro SS -BGL's have been elevated today which is consistant with patients history. -Will continue to monitor -Heart health with consistant carb diet orders (3) Hypertension Current Visit: Yes Comment: -Remain controlled today -Controlled at this time will continue patients regular meds Metoprolol, Losartan, HCTZ, Demedex, and spironolactone -Heart healthy diet with no caffeine (4) Hyperlipidemia Current Visit: Yes Comment: -Continue Tricor and atorvastatin -Heart healthy diet (5) Atrial fibrillation Current Visit: No Comment: - Continue home meds Metoprolol XL 100 mg BID, Cardizem 180 mg daily, amiodarone 200mg daily. -Stable Minimal tachycardia at times, not currently in RVR. -Trans thoracic echo- EF 50-65%. no significant changes in comparison with 2018 -Lovenox 130mg SQ Q12H hold day of thoracentesis (6) Coronary artery disease Current Visit: No Comment: - Continue home dosing of aspirin, Carvidolol, losartan, HCTZ, and Tricor, atorvastatin - Stable (7) WILLIE (obstructive sleep apnea) Current Visit: Yes Comment: - BiPAP for sleep (8) DVT prophylaxis Current Visit: Yes Comment: - ELiquis is held -Lovenox 130mgSQ Q12H hold day of Thoracentesis - SCD's (9) Full code status Current Visit: Yes Comment: - Full code Status and Disposition: Guarded inpatient
[2019-06-25] MEDS: Loperamide LIQ* 2 MG/10 ML UDC PO PRN (17:34)
[2019-06-25] MEDS: Enoxaparin(*) 150 MG/ML 1 ML SYRINGE SUBCUT SCH (20:22)
[2019-06-26] MEDS: ZOSYN 3.375 GM Q8H per EXTENDED INFUSION IVPB SCH ×6 (06:17→23:00)
[2019-06-26 06:45] LABS: ABS Eosinophils 0.1 10^3/ul (0-0.6); ABS Lymphocytes 0.2 10^3/ul (1.0-4.8); ABS Monocytes 0.4 10^3/ul (0-0.8); ABS Neutrophils 3.3 10^3/ul (1.5-7.7); Eosinophil % 2.8 %; Hematocrit 27 % (42-52); Hemoglobin 8.7 g/dL (14.0-18.0); Lymphocyte % 4.5 %; Mean Corpuscular HGB Conc 33 g/dL (31-36); Mean Corpuscular Hemoglobin 28 pg (27-31); Mean Corpuscular Volume 84 fL (80-94); Mean Platelet Volume 7.5 fL (7.4-10.4); Platelet Count 287 10^3/uL (150-450); Red Blood Count 3.17 10^6 /uL (4.18-5.48); Red Cell Distribution Width 15 % (10-15)
[2019-06-26 07:07] LABS: BUN/Creatinine Ratio 23.1 (8-20); Calcium 9.3 mg/dL (8.6-10.3); EGFR African American 64.5 (>60); EGFR Non-African American 53.3 (>60); Potassium 4.1 mmol/L (3.5-5.0)
[2019-06-26] MEDS: Losartan TAB* 25 MG PO SCH (07:44)
[2019-06-26] MEDS: Metoprolol Tartrate TAB* 100 MG TAB PO SCH ×2 (07:44→20:10)
[2019-06-26] MEDS: Amiodarone TAB* 200 MG PO SCH (07:44)
[2019-06-26] MEDS: Torsemide TAB* 20 MG PO SCH (07:44)
[2019-06-26] MEDS: Hydrochlorothiazide TAB* 25 MG PO SCH (07:44)
[2019-06-26] MEDS: Diltiazem CD CAP* 180 MG PO SCH (07:44)
[2019-06-26] MEDS: Multivitamins/Minerals TAB PO SCH (07:44)
[2019-06-26] MEDS: Aspirin EC TAB* 81 MG TAB.EC PO SCH (07:44)
[2019-06-26] MEDS: Spironolactone TAB* 25 MG PO SCH ×2 (07:44→20:10)
[2019-06-26] MEDS: Atorvastatin* 40 MG TAB PO SCH (07:45)
[2019-06-26] MEDS: Enoxaparin(*) 150 MG/ML 1 ML SYRINGE SUBCUT SCH ×2 (07:45→20:05)
[2019-06-26] MEDS: CMCS: Cyclosporine 0.05% OPHTH (NF) 0.4 ML VIAL BOTH EYES SCH ×2 (07:45→20:10)
[2019-06-26] MEDS: Loperamide CAP* 2 MG PO PRN (07:52)
[2019-06-26] MEDS: CHOLECALCIFEROL PO SCH (07:52)
[2019-06-26] MEDS: [UNRECOGNIZED DRUG - OTHER] PO SCH (07:52)
[2019-06-26] MEDS: MAGNESIUM OXIDE PO SCH (07:52)
[2019-06-26] MEDS: CALCIUM CARBONATE PO SCH (07:52)
[2019-06-26] MEDS: Mometasone/Formoter 200/5 MDI INH SCH ×2 (07:58→23:00)
[2019-06-26] MEDS: SPIRIVA Respimat* (tiotropium) 2.5 mcg/inh Inhaler INH SCH (07:58)
[2019-06-26] MEDS ORDERED: NS 0.9% 1000 ML** 1,000 ML IV SCH (08:00)
[2019-06-26] MEDS: Insulin LISPRO* 1 UNITS UNIT SUBCUT SCH ×3 (08:26→17:57)
--- NOTE | 2019-06-26 11:51 | PN ---
Subjective Date of Service: 06/26/19 Interval History: Alert and oriented x 3 pt reports that he feels increased shortness of breath today and mild dizziness especially with ambulation. Pt denies chest pain presently. Mr. Ferrell also reports that his loose stools have decreased in frequency, denies any abdominal pain. Family History: Unchanged from Admission Social History: Unchanged from Admission Past Medical History: Unchanged from Admission Objective Active Medications: Acetaminophen (Tylenol Tab*) 650 mg PO Q4H PRN PRN Reason: MILD PAIN or TEMP > 100.4 Al Hydrox/Mg Hydrox/Simethicone (Maalox Plus*) 30 ml PO Q6H PRN PRN Reason: INDIGESTION Albuterol (Ventolin Hfa Inhaler*) 2 puff INH Q2H PRN PRN Reason: SOB/WHEEZING Amiodarone HCl (Cordarone Tab*) 200 mg PO DAILY [facility] Last Admin: 06/26/19 07:44 Dose: 200 mg Aspirin (Aspirin Ec Tab*) 81 mg PO DAILY [facility] Last Admin: 06/26/19 07:44 Dose: 81 mg Atorvastatin Calcium (Lipitor*) 40 mg PO DAILY [facility] Last Admin: 06/26/19 07:45 Dose: 40 mg Cyclosporine (Restasis 0.05% Ophth) 1 drop BOTH EYES BID [facility]; Protocol Last Admin: 06/26/19 07:45 Dose: 1 drop Dextrose (D50w Syringe 50 Ml*) 12.5 gm IV PUSH .FOR FS < 60 - SS PRN PRN Reason: FS < 60 Diltiazem HCl (Cardizem Cd Cap*) 180 mg PO DAILY [facility] Last Admin: 06/26/19 07:44 Dose: 180 mg Enoxaparin Sodium (Lovenox(*)) 130 mg SUBCUT Q12H [facility] Last Admin: 06/26/19 07:45 Dose: 130 mg Fenofibrate (Tricor 160 Mg) 160 mg PO DAILY [facility]; Protocol Last Admin: 06/26/19 07:45 Dose: 160 mg Hydrochlorothiazide (Hydrodiuril Tab*) 25 mg PO DAILY [facility] Last Admin: 06/26/19 07:44 Dose: 25 mg Piperacillin Sod/Tazobactam (Sod 3.375 gm/ Sodium Chloride) 100 mls @ 25 mls/ hr IVPB Q8H [facility] Last Admin: 06/26/19 06:17 Dose: 25 mls/hr Sodium Chloride (Ns 0.9% 1000 Ml) 1,000 mls @ 100 mls/hr IV PER RATE [facility] Last Admin: 06/26/19 11:17 Dose: 100 mls/hr Insulin Human Lispro (Humalog*) 0 units SUBCUT [facility]; Protocol Last Admin: 06/26/19 08:26 Dose: 9 units Loperamide HCl (Imodium Cap*) 2 mg PO .SEE ORDER PRN PRN Reason: LOOSE STOOLS Last Admin: 06/26/19 07:52 Dose: 2 mg Losartan Potassium (Cozaar Tab*) 100 mg PO DAILY [facility] Last Admin: 06/26/19 07:44 Dose: 100 mg Metoprolol Tartrate (Lopressor Tab*) 100 mg PO BID [facility] Last Admin: 06/26/19 07:44 Dose: 100 mg Mometasone Furoate/Formoterol Fumar (Dulera 200/5 Mdi*) 2 puff INH BID [facility] Last Admin: 06/26/19 07:58 Dose: 2 puff Multivitamins/Minerals (Theragran/Minerals Tab*) 1 tab PO DAILY [facility] Last Admin: 06/26/19 07:44 Dose: 1 tab Pharmacy Consult (Zosyn Per Pharmacy*) 1 note FOLLOW UP .ZOSYN PER PHARMACY [facility] Senna (Senokot 8.6 Mg Tab*) 1 tab PO BID PRN PRN Reason: CONSTIPATION Last Admin: 06/23/19 21:57 Dose: 1 tab Spironolactone (Aldactone Tab*) 25 mg PO BID [facility] Last Admin: 06/26/19 07:44 Dose: 25 mg Tiotropium [place] (Spiriva Respimat 2.5 Mcg) 2 puff INH DAILY [facility] Last Admin: 06/26/19 07:58 Dose: 2 puff Torsemide (Demadex*) 40 mg PO DAILY [facility] Last Admin: 06/26/19 07:44 Dose: 40 mg Vital Signs - 8 hr 06/26/19 06/26/19 06/26/19 07:47 07:52 08:00 Temperature 96.6 F Pulse Rate 100 Respiratory 20 20 20 Rate Blood Pressure 147/57 (mmHg) O2 Sat by Pulse 98 Oximetry 06/26/19 06/26/19 09:52 11:23 Temperature 97.0 F Pulse Rate 89 Respiratory 20 19 Rate Blood Pressure 113/52 (mmHg) O2 Sat by Pulse 99 Oximetry Oxygen Devices in Use Now: Nasal Cannula Appearance: Obese elderly gentleman sitting up on toilet, quick shallow breaths but does not appear to be in respiratory distress. Eyes: No Scleral Icterus, PERRLA Ears/Nose/Mouth/Throat: NL Teeth, Lips, Gums, Clear Oropharnyx, Mucous Membranes Moist Neck: NL Appearance and Movements; NL JVP Respiratory: Symmetrical Chest Expansion and Respiratory Effort, - - Lung sounds are clear but diminished at bilateral bases Cardiovascular: NL Sounds; No Murmurs; No JVD, RRR, - - unchanged edema in lower extremities Right > left. Abdominal: NL Sounds; No Tenderness; No Distention, No Hepatosplenomegaly Lymphatic: No Cervical Adenopathy Extremities: No Clubbing, Cyanosis Skin: No Rash or Ulcers, No Nodules or Sclerosis Neurological: Alert and Oriented x 3, NL Sensation, NL Gait, NL Muscle Strength and Tone Nutrition: Taking PO's Result Diagrams: 06/26/19 06:22 06/26/19 06:22 Assess/Plan/Problems-Billing Assessment: Mr. Ferrell is a 64 yo gentleman with history significant for DM 2, A-fib, CAD, HTN , COPD, Frequent pleural effusions, WILLIE with Bipap comes to the hospital with complaints of progressively worsening SOB x 1 month with marks increase in SOB for the last week. - Patient Problems (1) Pleural effusion Current Visit: Yes Comment: -COVID 19 is negative -Dr. Stephenson performed chest U/S at bedside found minimal fluid in left chest. Right chest has multiple loculated effusions she is uncomfortable tapping. She suggests IR U/S guided chest tube placement. Dr. Ca has been contacted and procedure request has been placed. -400cc out after chest tube placed -Chest tube to pleuravac and low wall drainage -U/S chest ordered for Saturday AM for F/U of pleural effusions. Dr. Stephenson would appreciate being notified following U/S results. Dr. Stephenson may order altaplace for intrapleural infusion. -CXR 06/22 shows small right pleural effusion. Also patchy airspace disease of R lung base and to lesser extent of left midlung. Concerning for parapneumonic effusion, or aspiration PNA related to pt reported epiglottis issue. -Zosyn to cover for pulmonary infectious process- Continued (2) Diabetes Current Visit: Yes Comment: -glucose levels have not been well controlled while in hospital. BG is >444 today. -Continue Lispro SS, add Metformin 500mg PO BID, and Lantus 10Units QPM -BGL's have been elevated today which is consistant with patients history. -Will continue to monitor -Heart health with consistant carb diet orders (3) Hypertension Current Visit: Yes Comment: -Remains well controlled -Controlled at this time will continue patients regular meds Metoprolol, Losartan, HCTZ, Demedex, and spironolactone -Heart healthy diet with no caffeine (4) Hyperlipidemia Current Visit: Yes Comment: -Continue Tricor and atorvastatin -Heart healthy diet (5) Atrial fibrillation Current Visit: No Comment: - Continue home meds Metoprolol XL 100 mg BID, Cardizem 180 mg daily, amiodarone 200mg daily. -Stable Minimal tachycardia at times, not currently in RVR. -Trans thoracic echo- EF 50-65%. no significant changes in comparison with 2018 -Lovenox 130mg SQ Q12H hold day of thoracentesis (6) Coronary artery disease Current Visit: No Comment: - Continue home dosing of aspirin, Carvidolol, losartan, HCTZ, and Tricor, atorvastatin - Stable (7) YODIT (acute kidney injury) Current Visit: Yes Comment: -Cr level elevating since admission started at 1.09 is now elevated to 1.34. NS at 100cc/hr started this AM stopped this afternoon per Dr. Stephenson's request as the pleural fluid may collect again. -Will recheck BMP in AM and reevaluate YODIT and risks vs benefit of IV fluid. In the mean time patient will be encouraged to drink fluid. (8) WILLIE (obstructive sleep apnea) Current Visit: Yes Comment: - BiPAP for sleep (9) DVT prophylaxis Current Visit: Yes Comment: - ELiquis is held -Lovenox 130mgSQ Q12H hold day of Thoracentesis - SCD's (10) Full code status Current Visit: Yes Comment: - Full code Status and Disposition: Guarded inpatient
[2019-06-26] MEDS ORDERED: Insulin REGULAR(*) 1 UNITS UNIT SUBCUT ONE (13:05)
[2019-06-26] MEDS ORDERED: Dextrose 50% Syringe 50 ML* 25 GM/50 ML SYRINGE IV PUSH PRN (13:19)
[2019-06-26] MEDS ORDERED: Insulin LISPRO* 1 UNITS UNIT SUBCUT ONE ×2 (13:26→13:38)
[2019-06-26] MEDS ORDERED: Insulin GLARGINE(*) 1 UNITS UNIT ONE (13:38)
[2019-06-26] MEDS ORDERED: Insulin GLARGINE(*) 1 UNITS UNIT SUBCUT SCH (14:00)
[2019-06-26] MEDS ORDERED: fentaNYL* 50 MCG/ML 2 ML VIAL (100 MCG VIAL) ONE (15:53)
[2019-06-26] MEDS ORDERED: Insulin REGULAR(*) 1 UNITS UNIT SUBCUT SCH (16:30)
--- NOTE | 2019-06-26 17:48 | CONS ---
PULMONARY CONSULTATION REPORT: DATE OF CONSULT: 06/26/19 CONSULTATION REQUESTED BY: Efren Allen NP REASON FOR CONSULTATION: Evaluation of pleural effusion. HISTORY OF PRESENT ILLNESS: The patient is a 64-year-old obese male, known to me from prior outpatient and inpatient evaluations. The patient with history of recurrent pleural effusions, which have required multiple thoracenteses in the past with improvement after his cardiac status was optimized. Fluid was thought to be secondary to underlying congestive heart failure. He also has history of diabetes mellitus, atrial fibrillation, hypertension, COPD; WILLIE, on BiPAP, although was not compliant. He also has history of coronary artery disease and he is status post CABG. The patient presents for evaluation of progressively shortness of breath with exertion over the past month and significantly worsened over the past week. He also had intermittent cough. 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 Denies fevers, chills, chest pain, abdominal pain, nausea, vomiting, or diarrhea. He had extensive workup in the past for evaluation of recurrent pleural effusions including bronchoscopy and biopsy, which revealed no malignancy. He had thoracenteses multiple times. Cytology also negative for malignancy. He continued to have significant dyspnea during the hospitalization. The patient had CTA of the chest done on admission. I personally reviewed CTA with the patient today - the patient noted to have bilateral pleural effusions with significant atelectasis of the right lung. No significantly enlarged mediastinal hilar nodes noted. No filling defects noted in pulmonary artery. No other parenchymal abnormalities were noted. The patient was scheduled for bedside thoracentesis with imaging guidance. The patient was noted to have multiloculated effusion on the right side and a small effusion on the left side. PAST MEDICAL HISTORY: 1. Diabetes. 2. Atrial fibrillation, on Eliquis. 3. Hypertension. 4. Dyslipidemia. 5. COPD, on 2 L O2, the patient denies significant smoking. 6. WILLIE, obesity hypoventilation, on the BiPAP. The patient not currently compliant. 7. Coronary artery disease status post CABG. 8. Recurrent pleural effusions, so far unclear etiology, likely cardiac. 9. 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 PAST SURGICAL HISTORY: 1. Ablation. 2. PCI. 3. Two-vessel CABG in 2016. 4. Bronchoscopy with biopsy in the past. MEDICATIONS: At home: 1. Albuterol. 2. Amiodarone. 3. Eliquis. 4. Aspirin. 5. Lipitor. 6. Calcium, magnesium, vitamin D. 7. Restasis. 8. Diltiazem. 9. Fenofibrate. 10. Breo. 11. Regular insulin. 12. Losartan/hydrochlorothiazide. 13. Metformin. 14. Metoprolol. 15. Multivitamin. 16. Nystatin. 17. Spironolactone. 18. Torsemide. 19. Incruse. 20. Vitamin B complex. ALLERGIES: Syncope and ear issues to NSAIDs. Reports loss of consciousness when taking ASPIRIN 325 in the past. FAMILY HISTORY: Father at 62 due to [place] and CVA. Mother is 83 years old and is alive with history of rectal cancer, diabetes, and hypertension. SOCIAL HISTORY: The patient lives at home with his mother. Denies tobacco, alcohol, or drug abuse. REVIEW OF SYSTEMS: All 12 systems reviewed and as per HPI. PHYSICAL EXAM: Obese male, in bed, in no apparent distress. Vital Signs: Temperature 97, pulse 89 beats per minute, respiratory rate 19 per minute, O2 sat 99% on 2.5 L, blood pressure 113/52. HEENT: Pupils equal, reactive to light. Mucous membranes moist. Lungs: Diminished air entry bilaterally, decreased at bases. Cardiovascular: S1, S2 present. Irregular. Abdomen: Obese. Bowel sounds present. Extremities: Normal range of motion. Skin: No rash. Neuro: Alert, awake, oriented x3. DIAGNOSTIC STUDIES/LAB DATA: Laboratory exam: WBC count 4, hemoglobin 8.7, hematocrit 27. Sodium 136, potassium 4.1, chloride 96, bicarb 34, BUN 31, creatinine 1.34, glucose significantly elevated. COVID-19 negative. Ultrasound of chest showed multiloculated effusion on the right side. The patient with small effusions on the left side. CT as described above. IMPRESSION AND RECOMMENDATIONS: 64-year-old morbidly obese male with multiple comorbidities with history of recurrent pleural effusions, admitted with pleural effusion and associated atelectasis of the right lung with concern for possible pneumonia. He did not have elevated white count or fevers on presentation. A bedside ultrasound showed multiloculated effusion on the right side with concern for possible parapneumonic effusion. The patient to have chest tube, small-bore, placed by Interventional Radiology today. Will connect the chest tube to suction and Pleur-evac overnight. Will start administering tPA and dornase in the morning. The patient on anticoagulation and will need to be monitored closely for any bleeding. He is also anemic, which could be contributing to his shortness of breath. He has history of obstructive sleep apnea and possible obesity hypoventilation syndrome. He has not been compliant with BiPAP usage. His bicarb is elevated at 34. He reports that he does not see any benefit the with machine and decided not to use it, as it disrupts his sleep. His blood sugars are significantly elevated, needs strict insulin protocol. Also, we suspect possible cor pulmonale and right heart failure secondary to chronic hypoxemia and obstructive sleep apnea and obesity hypoventilation. He also has diastolic dysfunction from underlying obesity and hypertension. Thank you for allowing me to participate in the care of your patient. I will follow up with you. [id number]/[facility] #: [id number] EMIL
[2019-06-26] MEDS: metFORMIN* 500 MG TAB PO SCH (17:56)
[2019-06-27] MEDS: Acetaminophen TAB* 325 MG PO PRN (01:46)
[2019-06-27] MEDS: ZOSYN 3.375 GM Q8H per EXTENDED INFUSION IVPB SCH ×2 (06:25)
[2019-06-27] MEDS: Atorvastatin* 40 MG TAB PO SCH (08:16)
[2019-06-27] MEDS: Amiodarone TAB* 200 MG PO SCH (08:16)
[2019-06-27] MEDS: Metoprolol Tartrate TAB* 100 MG TAB PO SCH ×2 (08:17→21:08)
[2019-06-27] MEDS: metFORMIN* 500 MG TAB PO SCH (08:17)
[2019-06-27] MEDS: Losartan TAB* 25 MG PO SCH (08:17)
[2019-06-27] MEDS: Spironolactone TAB* 25 MG PO SCH ×2 (08:17→21:08)
[2019-06-27] MEDS: Diltiazem CD CAP* 180 MG PO SCH (08:17)
[2019-06-27] MEDS: Aspirin EC TAB* 81 MG TAB.EC PO SCH (08:17)
[2019-06-27] MEDS: Torsemide TAB* 20 MG PO SCH (08:17)
[2019-06-27] MEDS: Enoxaparin(*) 150 MG/ML 1 ML SYRINGE SUBCUT SCH (08:18)
[2019-06-27] MEDS: SPIRIVA Respimat* (tiotropium) 2.5 mcg/inh Inhaler INH SCH (08:18)
[2019-06-27] MEDS: CMCS: Cyclosporine 0.05% OPHTH (NF) 0.4 ML VIAL BOTH EYES SCH ×2 (08:23→21:09)
[2019-06-27] MEDS: Mometasone/Formoter 200/5 MDI INH SCH ×2 (08:23→21:09)
[2019-06-27] MEDS: Hydrochlorothiazide TAB* 25 MG PO SCH (08:23)
[2019-06-27 08:38] LABS: ABS Eosinophils 0.1 10^3/ul (0-0.6); ABS Lymphocytes 0.1 10^3/ul (1.0-4.8); ABS Monocytes 0.4 10^3/ul (0-0.8); ABS Neutrophils 3.1 10^3/ul (1.5-7.7); Eosinophil % 2.8 %; Hematocrit 26 % (42-52); Hemoglobin 8.5 g/dL (14.0-18.0); Mean Corpuscular HGB Conc 33 g/dL (31-36); Mean Corpuscular Hemoglobin 28 pg (27-31); Mean Corpuscular Volume 83 fL (80-94); Mean Platelet Volume 7.3 fL (7.4-10.4); Nucleated Red Blood Cells % 0.1; Platelet Count 273 10^3/uL (150-450); Red Blood Count 3.06 10^6 /uL (4.18-5.48); Red Cell Distribution Width 15 % (10-15); White Blood Count 3.7 10^3/uL (3.5-10.8)
[2019-06-27 08:48] LABS: BUN/Creatinine Ratio 24.2 (8-20); EGFR Non-African American 56.2 (>60); Potassium 4.1 mmol/L (3.5-5.0)
[2019-06-27] MEDS: Loperamide CAP* 2 MG PO PRN (09:37)
[2019-06-27] MEDS: Insulin LISPRO* 1 UNITS UNIT SUBCUT SCH ×3 (09:38→17:26)
[2019-06-27] MEDS: Multivitamins/Minerals TAB PO SCH (09:39)
--- NOTE | 2019-06-27 09:49 | PN ---
Subjective Date of Service: 06/27/19 Interval History: Mr. Ferrell states that he is feeling much better today. He reports that he has much less dyspnea on exertion when getting up to the bathroom today. He denies chest pain. He denies nausea, vomiting or abdominal pain. Family History: Unchanged from Admission Social History: Unchanged from Admission Past Medical History: Unchanged from Admission Objective Active Medications: Acetaminophen (Tylenol Tab*) 650 mg PO Q4H PRN Al Hydrox/Mg Hydrox/Simethicone (Maalox Plus*) 30 ml PO Q6H PRN Albuterol (Ventolin Hfa Inhaler*) 2 puff INH Q2H PRN Amiodarone HCl (Cordarone Tab*) 200 mg PO DAILY [facility] Aspirin (Aspirin Ec Tab*) 81 mg PO DAILY [facility] Atorvastatin Calcium (Lipitor*) 40 mg PO DAILY [facility] Cyclosporine (Restasis 0.05% Ophth) 1 drop BOTH EYES BID [facility]; Protocol Dextrose (D50w Syringe 50 Ml*) 12.5 gm IV PUSH .FOR FS < 60 - SS PRN Dextrose (D50w Syringe 50 Ml*) 12.5 gm IV PUSH .FOR FS < 60 - SS PRN Diltiazem HCl (Cardizem Cd Cap*) 180 mg PO DAILY [facility] Enoxaparin Sodium (Lovenox(*)) 130 mg SUBCUT Q12H [facility] Fenofibrate (Tricor 160 Mg) 160 mg PO DAILY [facility]; Protocol Hydrochlorothiazide (Hydrodiuril Tab*) 25 mg PO DAILY [facility] Piperacillin Sod/Tazobactam (Sod 3.375 gm/ Sodium Chloride) 100 mls @ 25 mls/ hr IVPB Q8H [facility] Insulin Glargine (Lantus(*)) 10 units SUBCUT Q24H [facility] Insulin Human Lispro (Humalog*) 0 units SUBCUT AC [facility]; Protocol Loperamide HCl (Imodium Cap*) 2 mg PO .SEE ORDER PRN Losartan Potassium (Cozaar Tab*) 100 mg PO DAILY [facility] Metformin HCl (Glucophage*) 500 mg PO 0800,1700 [facility] Metoprolol Tartrate (Lopressor Tab*) 100 mg PO BID [facility] Mometasone Furoate/Formoterol Fumar (Dulera 200/5 Mdi*) 2 puff INH BID [facility] Multivitamins/Minerals (Theragran/Minerals Tab*) 1 tab PO DAILY [facility] Pharmacy Consult (Zosyn Per Pharmacy*) 1 note FOLLOW UP .ZOSYN PER PHARMACY [facility] Senna (Senokot 8.6 Mg Tab*) 1 tab PO BID PRN Spironolactone (Aldactone Tab*) 25 mg PO BID [facility] Tiotropium [place] (Spiriva Respimat 2.5 Mcg) 2 puff INH DAILY [facility] Torsemide (Demadex*) 40 mg PO DAILY [facility] Vital Signs: Temp Pulse Resp BP Pulse Ox 97.4 F 97 18 120/45 97 06/27/19 07:52 06/27/19 07:52 06/27/19 09:37 06/27/19 07:52 06/27/19 07:52 Oxygen Devices in Use Now: Nasal Cannula Appearance: Male sitting up in chair in NAD Eyes: No Scleral Icterus Ears/Nose/Mouth/Throat: Mucous Membranes Moist Respiratory: Symmetrical Chest Expansion and Respiratory Effort, - - Diminished in right base, no adventious breath sounds Cardiovascular: No Edema Abdominal: NL Sounds; No Tenderness; No Distention Extremities: No Edema Skin: No Rash or Ulcers Neurological: Alert and Oriented x 3, NL Muscle Strength and Tone Nutrition: Taking PO's Result Diagrams: 06/27/19 08:17 06/27/19 08:17 Microbiology and Other Data: . Assess/Plan/Problems-Billing Assessment: Mr. Ferrell is a 64 yo gentleman with history significant for DM 2, A-fib, CAD, HTN , COPD, Frequent pleural effusions, WILLIE with Bipap comes to the hospital with complaints of progressively worsening SOB x 1 month found to have repeat bilateral pleural effusions. - Patient Problems (1) Pleural effusion Comment: - IR guided chest tube placement done 06/26/19, 400cc out after chest tube placed. Continue chest tube to pleuravac and low wall drainage. - F/U chest US pending, Dr Stephenson will review, consult appreciated. Plan for TPA and dornase. - Hx of frequent pleural effusions requiring thoracentesis in the past suspected due to decompensated diastolic CHF. Concern for parapneumonic effusion, however no organisms seen in pleural fluid, no leukocytosis or fever. D/C zosyn. - COVID 19 is negative (2) Diastolic CHF, acute on chronic Comment: - Hx of recurrent pleural effusions suspected secondary to decompensated diastolic CHF - Continue torsemide, hctz and spironolactone, ? if routine meds should be increased or if patient is having dietary indiscretion - Daily weights and I/Os - Defer to cardiology follow up with Dr Nam, last visit 12/2018 (3) Anemia Comment: - Acute on chronic anemia - Suspect anemia of chronic illness, dilution with CHF, and iatrogenic related to blood draws - Component of iron deficiency as well appears new, check stool occult blood - Consider transfusion at < 8 given hx of CAD and CABG (4) COPD (chronic obstructive pulmonary disease) Comment: - No evidence of acute exacerbation - On 2L NC at home routinely (5) YODIT (acute kidney injury) Comment: - Creatinine improved - Monitor, diuresis for diastolic CHF may improve forward flow and improve creatinine - Hx of CKD (6) Coronary artery disease Comment: - Stable - Continue aspirin, carvedilol, losartan, HCTZ, fenofibrate, and atorvastatin (7) Atrial fibrillation Comment: - Rate controlled - Continue metoprolol, cardizem, and amiodarone. - Trans thoracic echo- EF 50-65%. no significant changes in comparison with 2018 - Lovenox 130mg SQ Q12H hold day of thoracentesis (8) Hypertension Comment: - BP well controlled - Controlled metoprolol, losartan, HCTZ, torsemide, and spironolactone (9) Hyperlipidemia Comment: - Continue fenofibrate and atorvastatin (10) Diabetes Comment: - BGs 270s today - Continue lispro SSI coverage with meals, increase lantus to 15 units qPM (11) Dysphagia Comment: - Suspicion for laryngeal penetration due to "careless" sips - Encouraged to be more "careful" - sip, inhale, swallow, exhale - Do not suspect this is significant contributor to recurrent large pleural effusions (12) WILLIE (obstructive sleep apnea) Comment: - Non compliant with bipap at home (13) DVT prophylaxis Comment: - Eliquis resumed after review with Dr Stephenson (14) Full code status Comment: Status and Disposition: Inpatient. Anticipate discharge to home when stable.
--- NOTE | 2019-06-27 13:19 | PN ---
Progress Note - Progress Note Date of Service: 06/27/19 - Pulm f/u note Note: Pt seen and examined at bedside. Pt reports SOB is slightly improved. Denies cough. Had chest tube placed by IR yesterday, was connected to pleure-vac this am, only 50cc drained. Active Medications Generic Name Dose Route Start Last Admin Trade Name Freq PRN Reason Stop Dose Admin Acetaminophen 650 mg 06/23/19 17:59 06/27/19 01:46 Tylenol Tab* PO 650 mg Q4H PRN Administration MILD PAIN or TEMP > 100.4 Al Hydrox/Mg Hydrox/Simethicone 30 ml 06/23/19 17:59 Maalox Plus* PO Q6H PRN INDIGESTION Albuterol 2 puff 06/23/19 18:37 Ventolin Hfa Inhaler* INH Q2H PRN SOB/WHEEZING Amiodarone HCl 200 mg 06/24/19 09:00 06/27/19 08:16 Cordarone Tab* PO 200 mg DAILY STEFF Administration Apixaban 5 mg 06/27/19 21:00 Eliquis* PO BID STEFF Aspirin 81 mg 06/24/19 09:00 06/27/19 08:17 Aspirin Ec Tab* PO 81 mg DAILY STEFF Administration Atorvastatin Calcium 40 mg 06/24/19 09:00 06/27/19 08:16 Lipitor* PO 40 mg DAILY STEFF Administration Cyclosporine 1 drop 06/23/19 21:00 06/27/19 08:23 Restasis 0.05% Ophth BOTH EYES 1 drop BID STEFF Administration Protocol Dextrose 12.5 gm 06/23/19 18:34 D50w Syringe 50 Ml* IV PUSH .FOR FS < 60 - SS PRN FS < 60 Dextrose 12.5 gm 06/26/19 13:19 D50w Syringe 50 Ml* IV PUSH .FOR FS < 60 - SS PRN FS < 60 Diltiazem HCl 180 mg 06/24/19 09:00 06/27/19 08:17 Cardizem Cd Cap* PO 180 mg DAILY STEFF Administration Fenofibrate 160 mg 06/24/19 09:00 06/27/19 08:16 Tricor 160 Mg PO 160 mg DAILY STEFF Administration Protocol Hydrochlorothiazide 25 mg 06/24/19 09:00 06/27/19 08:23 Hydrodiuril Tab* PO 25 mg DAILY STE[facility] Administration Insulin Glargine 15 units 06/27/19 21:00 Lantus(*) SUBCUT Q24H STEFF Insulin Human Lispro 0 units 06/26/19 16:30 06/27/19 12:28 Humalog* SUBCUT 9 units AC STEFF Administration Protocol Loperamide HCl 2 mg 06/26/19 07:22 06/27/19 09:37 Imodium Cap* PO 2 mg .SEE ORDER PRN Administration LOOSE STOOLS Losartan Potassium 100 mg 06/24/19 09:00 06/27/19 08:17 Cozaar Tab* PO 100 mg DAILY STEFF Administration Metoprolol Tartrate 100 mg 06/23/19 21:00 06/27/19 08:17 Lopressor Tab* PO 100 mg BID STEFF Administration Mometasone Furoate/Formoterol Fumar 2 puff 06/24/19 09:00 06/27/19 08:23 Dulera 200/5 Mdi* INH 2 puff BID STEFF Administration Multivitamins/Minerals 1 tab 06/24/19 09:00 06/27/19 09:39 Theragran/Minerals Tab* PO 1 tab DAILY STE[facility] Administration Senna 1 tab 06/23/19 17:59 06/23/19 21:57 Senokot 8.6 Mg Tab* PO 1 tab BID PRN Administration CONSTIPATION Spironolactone 25 mg 06/23/19 21:00 06/27/19 08:17 Aldactone Tab* PO 25 mg BID STEFF Administration Tiotropium [place] 2 puff 06/24/19 09:00 06/27/19 08:18 Spiriva Respimat 2.5 Mcg INH 2 puff DAILY STEFF Administration Torsemide 40 mg 06/24/19 09:00 06/27/19 08:17 Demadex* PO 40 mg DAILY STEFF Administration Vital Signs Temp Pulse Resp BP Pulse Ox 97.7 F 77 18 121/51 98 06/27/19 11:42 06/27/19 11:42 06/27/19 12:36 06/27/19 11:42 06/27/19 11:42 O/E: Pt sitting up in recliner HEENT: PERRLA, mucus membranes moist Lungs: Diminished at bases, clear CVS: S1, S2+ Abd: Soft, BS+ Ext: Normal ROM Skin: No rash Neuro: No focal deficits Laboratory Results - last 24 hr 06/26/19 06/26/19 06/27/19 16:40 17:21 08:08 WBC RBC Hgb Hct MCV MCH MCHC RDW Plt Count MPV Neut % (Auto) Lymph % (Auto) [place] % (Auto) Eos % (Auto) Baso % (Auto) Absolute Neuts (auto) Absolute Lymphs (auto) Absolute Monos (auto) Absolute Eos (auto) Absolute Basos (auto) Absolute Nucleated RBC Nucleated RBC % Sodium Potassium Chloride Carbon Dioxide Anion Gap BUN Creatinine Est GFR ( Amer) Est GFR (Non-Af Amer) BUN/Creatinine Ratio Glucose POC Glucose (mg/dL) 332 H 291 H Calcium Fluid Source Pleural fluid 06/27/19 06/27/19 06/27/19 08:17 08:17 11:26 WBC 3.7 RBC 3.06 L Hgb 8.5 L Hct 26 L MCV 83 MCH 28 MCHC 33 RDW 15 Plt Count 273 MPV 7.3 L Neut % (Auto) 82.1 Lymph % (Auto) 4.0 [place] % (Auto) 10.8 Eos % (Auto) 2.8 Baso % (Auto) 0.3 Absolute Neuts (auto) 3.1 Absolute Lymphs (auto) 0.1 L Absolute Monos (auto) 0.4 Absolute Eos (auto) 0.1 Absolute Basos (auto) 0.0 Absolute Nucleated RBC 0.0 Nucleated RBC % 0.1 Sodium 132 L Potassium 4.1 Chloride 93 L Carbon Dioxide 32 Anion Gap 7 BUN 31 H Creatinine 1.28 H Est GFR ( Amer) 68.0 Est GFR (Non-Af Amer) 56.2 BUN/Creatinine Ratio 24.2 H Glucose 272 H POC Glucose (mg/dL) 293 H Calcium 9.0 Fluid Source I/R: 64 yo m with history significant for DM 2, A-fib, CAD, HTN, COPD, recurrent pleural effusions, WILLIE not compliant with Bipap comes to the hospital with complaints of progressively worsening SOB x 1 month found to have bilateral pleural effusions. Pt noted to have loculated rt effusion, had pig tail placed by IR 06/25. 400cc drained after pig tail placement, additional 50cc today Awaiting f/u U/S to evaluate rt pleural space If noted to have loculations, will need tPA and dornase Fluid cultures negative to date Ofelia colored fluid drained as per IR note Will send pl fluid LDH, protein, cell count C/w pleure vac drainage for now No evidence of PNA/sepsis/parapneumonic effusion Will hold off on abx for now Pleural space changes could be from chronic pl fluid c/w cardiac meds Pt not compliant with BiPAP, understands consequences D/w Chayo Jernigan NP
[2019-06-27 13:23] LABS: Body Fluid Source Pleural Fluid
[2019-06-27] MEDS ORDERED: chlordiazePOXIDE CAP* 25 MG PO SCH (14:00)
[2019-06-27 14:12] LABS: Body Fluid Mono 5 %; Body Fluid Other Cells 1
--- NOTE | 2019-06-27 17:56 | PN ---
Progress Note - Progress Note Date of Service: 06/27/19 Note: Reviewed with Dr Stephenson. Plan to adminster Tpa daily through chest tube starting now. Decreased dose (from usual BID) due to the fact that he is anticoagulated for history of afib.
[2019-06-27] MEDS ORDERED: Alteplase 10 MG/50 ML NS for CHEST TUBE instillation INTRAPLEUR ONE ×2 (18:30)
[2019-06-27] MEDS ORDERED: Morphine INJ* 2 MG/ML 1 ML SYRINGE (TWO MG - NEW SYRINGE VERSION) IV PRN (20:56)
[2019-06-27] MEDS ORDERED: Insulin GLARGINE(*) 1 UNITS UNIT SUBCUT SCH (21:00)
[2019-06-27] MEDS: Apixaban* 5 MG TAB PO SCH (21:09)
[2019-06-27] MEDS: Morphine INJ* 4 MG/ML 1 ML SYRINGE (NEW SYRINGE VERSION) IV PRN (23:12)
[2019-06-28] MEDS: Acetaminophen TAB* 325 MG PO PRN ×2 (02:45→07:30)
--- NOTE | 2019-06-28 07:06 | PN ---
Hospitalist Progress Note Date of Service: 06/28/19 Overnight Cross cover note Pt got alteplase instilled in pleurex cath earlier in day and afterwards had profuse outpt (>1000cc) During lung rexpansion had pleuretic CP and coughing and given morphine x1, he had repeat CXR that showed stable lung dz with no PTX
[2019-06-28] MEDS: Hydrochlorothiazide TAB* 25 MG PO SCH (08:52)
[2019-06-28] MEDS: Aspirin EC TAB* 81 MG TAB.EC PO SCH (08:52)
[2019-06-28] MEDS: Atorvastatin* 40 MG TAB PO SCH (08:52)
[2019-06-28] MEDS: Losartan TAB* 25 MG PO SCH (08:52)
[2019-06-28] MEDS: Torsemide TAB* 20 MG PO SCH (08:52)
[2019-06-28] MEDS: Diltiazem CD CAP* 180 MG PO SCH (08:53)
[2019-06-28] MEDS: Multivitamins/Minerals TAB PO SCH (08:53)
[2019-06-28] MEDS: Apixaban* 5 MG TAB PO SCH ×2 (08:53→20:11)
[2019-06-28] MEDS: Spironolactone TAB* 25 MG PO SCH ×2 (08:53→20:11)
[2019-06-28] MEDS: Metoprolol Tartrate TAB* 100 MG TAB PO SCH ×2 (08:53→20:11)
[2019-06-28] MEDS: Amiodarone TAB* 200 MG PO SCH (08:53)
[2019-06-28] MEDS: CMCS: Cyclosporine 0.05% OPHTH (NF) 0.4 ML VIAL BOTH EYES SCH ×2 (08:54→20:11)
[2019-06-28] MEDS: Insulin LISPRO* 1 UNITS UNIT SUBCUT SCH ×3 (08:54→17:36)
[2019-06-28] MEDS: Mometasone/Formoter 200/5 MDI INH SCH ×2 (09:20→20:06)
[2019-06-28] MEDS: SPIRIVA Respimat* (tiotropium) 2.5 mcg/inh Inhaler INH SCH (09:20)
[2019-06-28] MEDS ORDERED: Insulin GLARGINE(*) 1 UNITS UNIT SUBCUT SCH (10:35)
--- NOTE | 2019-06-28 10:45 | PN ---
Subjective Date of Service: 06/28/19 Interval History: Mr. Ferrell denies any new complaint today and states that he is actually feeling better. His breathing is better today and he has less dyspnea on exertion when getting up to the bathroom. He denies chest pain. He is tolerating oral intake well. Nursing staff note that he was somewhat disoriented and impulsive overnight but has been back to baseline throughout the day. Family History: Unchanged from Admission Social History: Unchanged from Admission Past Medical History: Unchanged from Admission Objective Active Medications: Acetaminophen (Tylenol Tab*) 650 mg PO Q4H PRN Al Hydrox/Mg Hydrox/Simethicone (Maalox Plus*) 30 ml PO Q6H PRN Albuterol (Ventolin Hfa Inhaler*) 2 puff INH Q2H PRN Amiodarone HCl (Cordarone Tab*) 200 mg PO DAILY STEFF Apixaban (Eliquis*) 5 mg PO BID STEFF Aspirin (Aspirin Ec Tab*) 81 mg PO DAILY STEFF Atorvastatin Calcium (Lipitor*) 40 mg PO DAILY [facility] Cyclosporine (Restasis 0.05% Ophth) 1 drop BOTH EYES BID STEFF; Protocol Dextrose (D50w Syringe 50 Ml*) 12.5 gm IV PUSH .FOR FS < 60 - SS PRN Dextrose (D50w Syringe 50 Ml*) 12.5 gm IV PUSH .FOR FS < 60 - SS PRN Diltiazem HCl (Cardizem Cd Cap*) 180 mg PO DAILY [facility] Fenofibrate (Tricor 160 Mg) 160 mg PO DAILY [facility]; Protocol Hydrochlorothiazide (Hydrodiuril Tab*) 25 mg PO DAILY [facility] Insulin Glargine (Lantus(*)) 15 units SUBCUT Q24H [facility] Insulin Human Lispro (Humalog*) 0 units SUBCUT AC STEFF; Protocol Loperamide HCl (Imodium Cap*) 2 mg PO .SEE ORDER PRN Losartan Potassium (Cozaar Tab*) 100 mg PO DAILY [facility] Metoprolol Tartrate (Lopressor Tab*) 100 mg PO BID STEFF Mometasone Furoate/Formoterol Fumar (Dulera 200/5 Mdi*) 2 puff INH BID STEFF Morphine Sulfate (Morphine Inj (Syringe)*) 4 mg IV Q8H PRN Multivitamins/Minerals (Theragran/Minerals Tab*) 1 tab PO DAILY [facility] Senna (Senokot 8.6 Mg Tab*) 1 tab PO BID PRN Spironolactone (Aldactone Tab*) 25 mg PO BID STEFF Tiotropium [place] (Spiriva Respimat 2.5 Mcg) 2 puff INH DAILY STEFF Torsemide (Demadex*) 40 mg PO DAILY STE[facility] Vital Signs: Temp Pulse Resp BP Pulse Ox 98 F 101 17 127/52 100 06/28/19 07:59 06/28/19 07:59 06/28/19 07:59 06/28/19 07:59 06/28/19 07:59 Oxygen Devices in Use Now: Nasal Cannula Appearance: Male sitting up in chair in NAD Eyes: No Scleral Icterus Ears/Nose/Mouth/Throat: Mucous Membranes Moist Neck: Trachea Midline Respiratory: Symmetrical Chest Expansion and Respiratory Effort, - - Diminished in right base, clear otherwise Cardiovascular: No Edema Abdominal: NL Sounds; No Tenderness; No Distention Extremities: No Edema Skin: No Rash or Ulcers Neurological: Alert and Oriented x 3, NL Muscle Strength and Tone Lines/Tubes/Other Access: Clean, Dry and Intact Chest Tube - serosanginous drainage Nutrition: Taking PO's Result Diagrams: 06/27/19 08:17 06/27/19 08:17 Microbiology and Other Data: . Assess/Plan/Problems-Billing Assessment: Mr. Ferrell is a 64 yo gentleman with history significant for DM 2, A-fib, CAD, HTN , COPD, frequent pleural effusions, WILLIE with bipap comes to the hospital with complaints of progressively worsening SOB x 1 month found to have repeat bilateral pleural effusions. - Patient Problems (1) Pleural effusion Comment: - Appreciate consult from Dr Stephenson - IR guided chest tube placement done 06/26/19, 400cc out after chest tube placed. - TPA to chest tube 06/26, 1000ml out. Plan to repeat this evening. Decreased to daily dosing from usual BID due to the fact that he is anticoagulated - Continue chest tube to pleuravac and low wall drainage. - Hx of frequent pleural effusions requiring thoracentesis in the past suspected due to decompensated diastolic CHF. Concern for parapneumonic effusion, however no organisms seen in pleural fluid, no leukocytosis or fever. D/C zosyn. - COVID 19 is negative (2) Diastolic CHF, acute on chronic Comment: - Hx of recurrent pleural effusions suspected secondary to decompensated diastolic CHF, no other signs of fluid overload, patient does weight self at home and increases torsemide accordingly - Continue torsemide, hctz and spironolactone, ? if routine meds should be increased or if patient is having dietary indiscretion - Daily weights and I/Os - Defer to cardiology follow up with Dr Nam, last visit 12/2018 (3) Anemia Comment: - Acute on chronic anemia - Suspect anemia of chronic illness, dilution with CHF, and iatrogenic related to blood draws - Component of iron deficiency as well appears new, check stool occult blood - Consider transfusion at < 8 given hx of CAD and CABG (4) COPD (chronic obstructive pulmonary disease) Comment: - No evidence of acute exacerbation - On 2L NC at home routinely (5) YODIT (acute kidney injury) Comment: - Creatinine improved - Monitor, diuresis for diastolic CHF may improve forward flow and improve creatinine - Hx of CKD (6) Coronary artery disease Comment: - Stable - Continue aspirin, carvedilol, losartan, HCTZ, fenofibrate, and atorvastatin (7) Atrial fibrillation Comment: - Rate controlled - Continue metoprolol, cardizem, and amiodarone. - Trans thoracic echo- EF 50-65%. no significant changes in comparison with 2018 - Kimiis resumed (8) Hypertension Comment: - BP well controlled - Controlled metoprolol, losartan, HCTZ, torsemide, and spironolactone (9) Hyperlipidemia Comment: - Continue fenofibrate and atorvastatin (10) Diabetes Comment: - BGs 300-400s today - Increase lispro SSI coverage with meals, increase lantus to 25 units daily ( starting tomorrow) (11) Dysphagia Comment: - Suspicion for laryngeal penetration due to "careless" sips - Encouraged to be more "careful" - sip, inhale, swallow, exhale - Do not suspect this is significant contributor to recurrent large pleural effusions (12) WILLIE (obstructive sleep apnea) Comment: - Non compliant with bipap at home (13) DVT prophylaxis Comment: - Eron resumed after review with Dr Stephenson (14) Full code status Comment: Status and Disposition: Inpatient. Anticipate discharge to home when stable.
[2019-06-28] MEDS ORDERED: Docusate CAP* 100 MG PO PRN (14:35)
[2019-06-28] MEDS ORDERED: Polyethylene Glycol 3350* 17 GM PACKET PO PRN (14:36)
[2019-06-28] MEDS ORDERED: Alteplase (CATHFLO)* 10 MG in NS 0.9% 50 ML* 40 ML INTRAPLEUR ONE (17:00)
--- NOTE | 2019-06-28 18:55 | PN ---
Progress Note - Progress Note Date of Service: 06/28/19 Note: Pt's R pigtail cath clogged up. D/w DR. Stephenson who advised to d/c it. Cath was pulled out with no complications
[2019-06-28] MEDS: Nystatin TOP POWDER* 15 GM BTL TOPICAL SCH (20:11)
[2019-06-28] MEDS: Morphine INJ* 4 MG/ML 1 ML SYRINGE (NEW SYRINGE VERSION) IV PRN (20:12)
[2019-06-28 20:45] LABS: ABS Eosinophils 0.1 10^3/ul (0-0.6); ABS Lymphocytes 0.5 10^3/ul (1.0-4.8); ABS Neutrophils 10.1 10^3/ul (1.5-7.7); Eosinophil % 0.7 %; Hematocrit 26 % (42-52); Hemoglobin 8.6 g/dL (14.0-18.0); Lymphocyte % 4.2 %; Mean Corpuscular HGB Conc 33 g/dL (31-36); Mean Corpuscular Hemoglobin 28 pg (27-31); Mean Corpuscular Volume 83 fL (80-94); Mean Platelet Volume 7.2 fL (7.4-10.4); Platelet Count 374 10^3/uL (150-450); Red Blood Count 3.14 10^6 /uL (4.18-5.48); Red Cell Distribution Width 15 % (10-15); White Blood Count 11.8 10^3/uL (3.5-10.8)
[2019-06-28 21:01] LABS: BUN/Creatinine Ratio 23.6 (8-20); Calcium 9.1 mg/dL (8.6-10.3); EGFR African American 41.9 (>60); EGFR Non-African American 34.6 (>60); Magnesium 1.9 mg/dL (1.9-2.7); Potassium 4.8 mmol/L (3.5-5.0)
--- NOTE | 2019-06-28 21:16 | PN ---
Subjective Date of Service: 06/28/19 Interval History: CAT team called around 2019 after patient becoming pale, diaphoretic and unresponsive while on the toilet. Recently received IV morphine 4mg after having had a pigtail drained removed from his left chest wall. He also had received a neb treatment and started coughing shortly before going to the toilet. He lost consciousness, staff was there to witness. Quickly became responsive again and was able to answer questions. Stated he felt lousy and tired. Reported pain to right lower chest wall that was worse with breathing and coughing. Denied tunnel vision or palpitations. Short of breath. SBP as low as 77. Heart rate regular, Lungs clear, diminished in bases bilaterally on 2L oxygen via nasal cannula. Was transferred to a chair, EKG and labs done. Chest x -ray ordered. Was given NS wide open, blood pressure improved into the low 90' s. No need to transfer to unit as he was responding to treatment. Family History: Unchanged from Admission Social History: Unchanged from Admission Past Medical History: Unchanged from Admission Objective Active Medications: Acetaminophen (Tylenol Tab*) 650 mg PO Q4H PRN PRN Reason: MILD PAIN or TEMP > 100.4 Last Admin: 06/28/19 07:30 Dose: 650 mg Al Hydrox/Mg Hydrox/Simethicone (Maalox Plus*) 30 ml PO Q6H PRN PRN Reason: INDIGESTION Albuterol (Ventolin Hfa Inhaler*) 2 puff INH Q2H PRN PRN Reason: SOB/WHEEZING Amiodarone HCl (Cordarone Tab*) 200 mg PO DAILY [facility] Last Admin: 06/28/19 08:53 Dose: 200 mg Apixaban (Eliquis*) 5 mg PO BID [facility] Last Admin: 06/28/19 20:11 Dose: Not Given Aspirin (Aspirin Ec Tab*) 81 mg PO DAILY [facility] Last Admin: 06/28/19 08:52 Dose: 81 mg Atorvastatin Calcium (Lipitor*) 40 mg PO DAILY [facility] Last Admin: 06/28/19 08:52 Dose: 40 mg Bisacodyl (Dulcolax Supp*) 10 mg SD DAILY PRN PRN Reason: CONSTIPATION Cyclosporine (Restasis 0.05% Ophth) 1 drop BOTH EYES BID [facility]; Protocol Last Admin: 06/28/19 20:11 Dose: Not Given Dextrose (D50w Syringe 50 Ml*) 12.5 gm IV PUSH .FOR FS < 60 - SS PRN PRN Reason: FS < 60 Dextrose (D50w Syringe 50 Ml*) 12.5 gm IV PUSH .FOR FS < 60 - SS PRN PRN Reason: FS < 60 Diltiazem HCl (Cardizem Cd Cap*) 180 mg PO DAILY [facility] Last Admin: 06/28/19 08:53 Dose: 180 mg Docusate Sodium (Colace Cap*) 100 mg PO BID PRN PRN Reason: CONSTIPATION Fenofibrate (Tricor 160 Mg) 160 mg PO DAILY [facility]; Protocol Last Admin: 06/28/19 08:59 Dose: 160 mg Hydrochlorothiazide (Hydrodiuril Tab*) 25 mg PO DAILY [facility] Last Admin: 06/28/19 08:52 Dose: 25 mg Insulin Glargine (Lantus(*)) 25 units SUBCUT Q24H [facility] Insulin Human Lispro (Humalog*) 0 units SUBCUT [facility]; Protocol Last Admin: 06/28/19 17:36 Dose: 18 units Loperamide HCl (Imodium Cap*) 2 mg PO .SEE ORDER PRN PRN Reason: LOOSE STOOLS Last Admin: 06/27/19 09:37 Dose: 2 mg Losartan Potassium (Cozaar Tab*) 100 mg PO DAILY [facility] Last Admin: 06/28/19 08:52 Dose: 100 mg Metoprolol Tartrate (Lopressor Tab*) 100 mg PO BID [facility] Last Admin: 06/28/19 20:11 Dose: Not Given Mometasone Furoate/Formoterol Fumar (Dulera 200/5 Mdi*) 2 puff INH BID [facility] Last Admin: 06/28/19 20:06 Dose: 2 puff Morphine Sulfate (Morphine Inj (Syringe)*) 4 mg IV Q8H PRN PRN Reason: PAIN - SEVERE Last Admin: 06/28/19 20:12 Dose: 4 mg Multivitamins/Minerals (Theragran/Minerals Tab*) 1 tab PO DAILY [facility] Last Admin: 06/28/19 08:53 Dose: 1 tab Nystatin (Nystatin Top Powder*) 1 applic TOPICAL BID [facility] Last Admin: 06/28/19 20:11 Dose: 1 applic Polyethylene Glycol/Electrolytes (Miralax (17 Gm Dose Sly)) 17 gm PO DAILY PRN PRN Reason: CONSTIPATION Senna (Senokot 8.6 Mg Tab*) 1 tab PO BID PRN PRN Reason: CONSTIPATION Last Admin: 06/23/19 21:57 Dose: 1 tab Spironolactone (Aldactone Tab*) 25 mg PO BID [facility] Last Admin: 06/28/19 20:11 Dose: Not Given Tiotropium [place] (Spiriva Respimat 2.5 Mcg) 2 puff INH DAILY [facility] Last Admin: 06/28/19 09:20 Dose: 2 puff Torsemide (Demadex*) 40 mg PO DAILY [facility] Last Admin: 06/28/19 08:52 Dose: 40 mg Vital Signs - 8 hr 06/28/19 06/28/19 06/28/19 16:07 20:03 20:07 Temperature 97.2 F 98.0 F Pulse Rate 86 112 92 Respiratory 18 25 16 Rate Blood Pressure 139/41 109/42 (mmHg) O2 Sat by Pulse 96 96 98 Oximetry 06/28/19 06/28/19 06/28/19 20:12 20:22 20:38 Temperature Pulse Rate 118 106 Respiratory 16 Rate Blood Pressure 77/55 101/38 (mmHg) O2 Sat by Pulse 82 97 Oximetry 06/28/19 06/28/19 06/28/19 20:41 20:42 20:51 Temperature Pulse Rate 114 111 Respiratory Rate Blood Pressure 93/36 93/36 112/82 (mmHg) O2 Sat by Pulse 96 99 Oximetry 06/28/19 06/28/19 21:00 21:08 Temperature Pulse Rate 107 110 Respiratory Rate Blood Pressure 86/42 105/34 (mmHg) O2 Sat by Pulse 98 99 Oximetry Oxygen Devices in Use Now: Nasal Cannula Result Diagrams: 06/28/19 20:36 06/28/19 20:36 Microbiology and Other Data: . Assess/Plan/Problems-Billing Assessment: Mr. Ferrell is a 64 yo gentleman with history significant for DM 2, A-fib, CAD, HTN , COPD, frequent pleural effusions, WILLIE with bipap comes to the hospital with complaints of progressively worsening SOB x 1 month found to have repeat bilateral pleural effusions. Status and Disposition: Inpatient. Anticipate discharge to home when stable.
[2019-06-28] MEDS ORDERED: Furosemide IV* 10 MG/ML VIAL (40 MG) IV ONE ×2 (21:43→22:11)
[2019-06-28] MEDS ORDERED: Lorazepam PYXIS KEY PRN ×2 (21:44→23:46)
[2019-06-28] MEDS: LORazepam INJ* 2 MG/ML 1 ML VIAL IV PUSH PRN (21:58)
--- NOTE | 2019-06-28 22:07 | PN ---
Hospitalist Progress Note Date of Service: 06/28/19 Hospitalist Progress Note 64M PMH NIDDM, PAF on AC and Amio, HFpEF, CAD, COPD, WILLIE on BIPAP, who presented with hypoxic resp failure found to have blt pleural effusion and R sided loculated effusion s/p pigtail placement in R lung and removal today 06/27, though had 1700CC of output in the 24 hours just prior to removal. CAT call for a vasovagal event while on toilet today where patient was bolused 1L for soft systolics in the 90s, he then became immediately tachypnenic to the 30s, satting 100% on 2L NC but was tachypneic and diaphoretic on exam. Repeat CXR shows sig pulm edema on R lung PE: Tachypneic man in 30s but can speak in full sentence mild diaphoresis and excusirion of chest wall Irreg irreg in the low 100s no MRG no JVD Belly distended non tender and soft 1+ non pitting edema Can follow commands, AOx3 CXR: Diffuse opacification of R lung, pleural effusion on R, no e/o PTX that is clear on R side, stable cardiomegaly and vascular congestion to L lung Labs: Cr bump to 1.95 P: Acute tachypnea: Seems volume overloaded, must have flashed during the bolus, initiate lasix now 80mg x1 given Cr and home toresmide dose Hes maintaining sats thus no indication for more O2, if remains tachypneic could consider BiPAP for WOB Low dose ativan for anxiety Will watch closely overnight.
[2019-06-28] MEDS ORDERED: LORazepam INJ* 2 MG/ML 1 ML VIAL IV PUSH ONE (23:46)
[2019-06-29 04:01] LABS: Urine Appearance Clear; Urine Bilirubin Negative (Negative); Urine Blood 2+ (Negative); Urine Color Yellow; Urine Glucose 3+(>=500 mg/dL) (Negative); Urine Ketones Negative (Negative); Urine Nitrite Negative (Negative); Urine Protein Negative (Negative); Urine Specific Gravity 1.008 (1.010-1.030); Urine Urobilinogen Negative (Negative)
[2019-06-29 04:04] LABS: Urine Bacteria Absent (Absent); Urine Red Blood Cell 1+(3-5/hpf) (Absent); Urine Squamous Epithelial Cell Present (Absent); Urine White Blood Cell Trace(0-5/hpf) (Absent)
[2019-06-29 06:27] LABS: BUN/Creatinine Ratio 18.8 (8-20); Calcium 9.2 mg/dL (8.6-10.3); EGFR African American 25.1 (>60); EGFR Non-African American 20.7 (>60)
[2019-06-29] MEDS ORDERED: Insulin REGULAR(*) 1 UNITS UNIT IV PUSH ONE ×2 (07:29→10:44)
[2019-06-29] MEDS: Patiromer POWDER* 8.4 GM PAK PO SCH (07:49)
[2019-06-29] MEDS: CALCIUM GLUCONATE 1GM/50ML NS 1 GM/50 ML BAG IV ONE ×2 (07:51→08:02)
[2019-06-29] MEDS: Multivitamins/Minerals TAB PO SCH (07:59)
[2019-06-29] MEDS: Atorvastatin* 40 MG TAB PO SCH (07:59)
[2019-06-29] MEDS: Metoprolol Tartrate TAB* 100 MG TAB PO SCH ×2 (07:59→20:17)
[2019-06-29] MEDS: Aspirin EC TAB* 81 MG TAB.EC PO SCH (07:59)
[2019-06-29] MEDS: Apixaban* 5 MG TAB PO SCH (08:00)
[2019-06-29] MEDS: Amiodarone TAB* 200 MG PO SCH (08:00)
[2019-06-29] MEDS: CMCS: Cyclosporine 0.05% OPHTH (NF) 0.4 ML VIAL BOTH EYES SCH ×2 (08:02→20:17)
[2019-06-29] MEDS: Hydrochlorothiazide TAB* 25 MG PO SCH (08:03)
[2019-06-29] MEDS: Diltiazem CD CAP* 180 MG PO SCH (08:03)
[2019-06-29] MEDS: Losartan TAB* 25 MG PO SCH (08:03)
[2019-06-29] MEDS: Mometasone/Formoter 200/5 MDI INH SCH ×2 (08:04→22:03)
[2019-06-29] MEDS: Spironolactone TAB* 25 MG PO SCH (08:05)
[2019-06-29] MEDS: SPIRIVA Respimat* (tiotropium) 2.5 mcg/inh Inhaler INH SCH (08:05)
[2019-06-29] MEDS: Torsemide TAB* 20 MG PO SCH (08:05)
--- NOTE | 2019-06-29 09:21 | PN ---
Subjective Date of Service: 06/29/19 Interval History: HOSPITALIST PROGRESS NOTE Patient seen and examined at bedside. Care reviewed and d/w Luzma Agudelo RN. Overnight events noted - syncopal episode with SBP in the 70s. Received IVF bolus and developed flash pulmonary edema requiring IV Furosemide. This AM he still has significant dyspnea, maintaining SO2 95-100% on 3 liters. Family History: Unchanged from Admission Social History: Unchanged from Admission Past Medical History: Unchanged from Admission Objective Active Medications: Acetaminophen (Tylenol Tab*) 650 mg PO Q4H PRN PRN Reason: MILD PAIN or TEMP > 100.4 Last Admin: 06/28/19 07:30 Dose: 650 mg Al Hydrox/Mg Hydrox/Simethicone (Maalox Plus*) 30 ml PO Q6H PRN PRN Reason: INDIGESTION Albuterol (Ventolin Hfa Inhaler*) 2 puff INH Q2H PRN PRN Reason: SOB/WHEEZING Amiodarone HCl (Cordarone Tab*) 200 mg PO DAILY [facility] Last Admin: 06/29/19 08:00 Dose: 200 mg Apixaban (Eliquis*) 5 mg PO BID [facility] Last Admin: 06/29/19 08:00 Dose: 5 mg Aspirin (Aspirin Ec Tab*) 81 mg PO DAILY [facility] Last Admin: 06/29/19 07:59 Dose: 81 mg Atorvastatin Calcium (Lipitor*) 40 mg PO DAILY [facility] Last Admin: 06/29/19 07:59 Dose: 40 mg Bisacodyl (Dulcolax Supp*) 10 mg GA DAILY PRN PRN Reason: CONSTIPATION Cyclosporine (Restasis 0.05% Oph) 1 drop BOTH EYES BID [facility]; Protocol Last Admin: 06/29/19 08:02 Dose: 1 drop Dextrose (D50w Syringe 50 Ml*) 12.5 gm IV PUSH .FOR FS < 60 - SS PRN PRN Reason: FS < 60 Diltiazem HCl (Cardizem Cd Cap*) 180 mg PO DAILY [facility] Last Admin: 06/29/19 08:03 Dose: Not Given Docusate Sodium (Colace Cap*) 100 mg PO BID PRN PRN Reason: CONSTIPATION Fenofibrate (Tricor 160 Mg) 160 mg PO DAILY [facility]; Protocol Last Admin: 06/29/19 07:59 Dose: 160 mg Hydrochlorothiazide (Hydrodiuril Tab*) 25 mg PO DAILY [facility] Last Admin: 06/29/19 08:03 Dose: Not Given Insulin Glargine (Lantus(*)) 25 units SUBCUT Q24H [facility] Insulin Human Lispro (Humalog*) 0 units SUBCUT AC [facility]; Protocol Last Admin: 06/28/19 17:36 Dose: 18 units Loperamide HCl (Imodium Cap*) 2 mg PO .SEE ORDER PRN PRN Reason: LOOSE STOOLS Last Admin: 06/27/19 09:37 Dose: 2 mg Lorazepam (Ativan Inj*) 1 mg IV PUSH Q6H PRN PRN Reason: ANXIETY Last Admin: 06/28/19 21:58 Dose: 1 mg Losartan Potassium (Cozaar Tab*) 100 mg PO DAILY [facility] Last Admin: 06/29/19 08:03 Dose: Not Given Metoprolol Tartrate (Lopressor Tab*) 100 mg PO BID [facility] Last Admin: 06/29/19 07:59 Dose: 100 mg Metoprolol Tartrate (Lopressor Iv*) 5 mg IV Q6H PRN PRN Reason: HEART RATE/PULSE > 110 Last Admin: 06/29/19 00:00 Dose: 5 mg Miscellaneous (Ativan Pyxis Russo) 1 ea N/A .ATIVAN IV RUSSO PRN PRN Reason: PYXIS RUSSO Mometasone Furoate/Formoterol Fumar (Dulera 200/5 Mdi*) 2 puff INH BID [facility] Last Admin: 06/29/19 08:04 Dose: 2 puff Morphine Sulfate (Morphine Inj (Syringe)*) 4 mg IV Q8H PRN PRN Reason: PAIN - SEVERE Last Admin: 06/28/19 20:12 Dose: 4 mg Multivitamins/Minerals (Theragran/Minerals Tab*) 1 tab PO DAILY [facility] Last Admin: 06/29/19 07:59 Dose: 1 tab Nystatin (Nystatin Top Powder*) 1 applic TOPICAL BID [facility] Last Admin: 06/28/19 20:11 Dose: 1 applic Patiromer (Veltassa Powder*) 8.4 gm PO DAILY [facility] Last Admin: 06/29/19 07:49 Dose: 8.4 gm Polyethylene Glycol/Electrolytes (Miralax (17 Gm Dose Sly)) 17 gm PO DAILY PRN PRN Reason: CONSTIPATION Senna (Senokot 8.6 Mg Tab*) 1 tab PO BID PRN PRN Reason: CONSTIPATION Last Admin: 06/23/19 21:57 Dose: 1 tab Spironolactone (Aldactone Tab*) 25 mg PO BID [facility] Last Admin: 06/29/19 08:05 Dose: Not Given Tiotropium [place] (Spiriva Respimat 2.5 Mcg) 2 puff INH DAILY [facility] Last Admin: 06/29/19 08:05 Dose: 2 puff Torsemide (Demadex*) 40 mg PO DAILY [facility] Last Admin: 06/29/19 08:05 Dose: Not Given Vital Signs - 8 hr 06/29/19 06/29/19 06/29/19 01:37 04:00 08:07 Temperature 97.8 F 97.8 F Pulse Rate 104 99 108 Respiratory 24 28 20 Rate Blood Pressure 88/36 100/34 112/42 (mmHg) O2 Sat by Pulse 100 100 95 Oximetry Oxygen Devices in Use Now: Nasal Cannula Appearance: Morbid obese gentleman sitting up in a recliner in mild respiratory distress Eyes: No Scleral Icterus Ears/Nose/Mouth/Throat: Mucous Membranes Moist Neck: Trachea Midline Respiratory: Symmetrical Chest Expansion and Respiratory Effort, - - BS+ bilaterally, diminished on the R apex, absent mid/lower Cardiovascular: RRR - Normal S1 and S2 Abdominal: NL Sounds; No Tenderness; No Distention - Morbid obese Neurological: Alert and Oriented x 3, NL Muscle Strength and Tone Result Diagrams: 06/28/19 20:36 06/29/19 10:07 Assess/Plan/Problems-Billing Assessment: Mr. Ferrell is a 64 yo M with PMH of type 2 DM, Afib, CAD s/p CABG, HTN, HLD, COPD , pleural effusions, WILLIE on BIPAP, who presented to the hospital with complaints of progressively worsening SOB x 1 month found to have repeat bilateral pleural effusions. - Patient Problems (1) Pleural effusion Comment: - Pulmonary input appreciated - IR guided chest tube placement for multiloculated effusion done 06/26/19, 400ml out after chest tube placed. Received tPA to chest tube 06/26 with 1000ml out. - Catheter was clogged and discontinued last night. - CxR significantly worsened on the right - received IV Furosemide for flash pulmonary edema, but his major issue now appears to be pleural effusion reaccumulation. - Has history of frequent pleural effusions requiring thoracentesis in the past suspected due to decompensated diastolic CHF. Concern for parapneumonic effusion, however no organisms seen in pleural fluid, no leukocytosis or fever. Off antibiotics. - COVID 19 is negative - Pulm follow up requested. (2) YODIT (acute kidney injury) Comment: - Creatinine trending up again. - Continue to monitor UO and renal function. (3) Hyperkalemia Comment: - No acute EKG changes. - Received IV regular insulin, Calcium gluconate and patiromer - Continue to monitor (4) Diabetes Comment: - Uncontrolled with glucose >500 - Increase Lantus to 25 units BID, continue Lispro SS. (5) Diastolic CHF, acute on chronic Comment: - Hx of recurrent pleural effusions suspected secondary to decompensated diastolic CHF - Continue torsemide, hctz and spironolactone with holding parameters - Daily weights and I/Os (6) Anemia Comment: - Acute on chronic anemia - Suspect anemia of chronic illness with an acute component of iron deficiency - FOBT is negative - Consider transfusion at < 8 given hx of CAD and CABG (7) COPD (chronic obstructive pulmonary disease) Comment: - No evidence of acute exacerbation - Continue supplemental O2 (8) Atrial fibrillation Comment: - Rate is trending up - Continue metoprolol, cardizem, (as BP allows) and amiodarone. - Trans thoracic echo- EF 50-65%. no significant changes in comparison with 2018 - Continue Apixaban (9) Hypertension Comment: - BP is on the lower side today. - Continue metoprolol, losartan, HCTZ, torsemide, and spironolactone as BP and renal function allow. (10) DVT prophylaxis Comment: - Apixaban (11) Full code status Comment: Status and Disposition: Inpatient.
[2019-06-29] MEDS: Insulin LISPRO* 1 UNITS UNIT SUBCUT SCH ×4 (09:55→17:06)
[2019-06-29] MEDS: Nystatin TOP POWDER* 15 GM BTL TOPICAL SCH ×2 (09:56→20:55)
[2019-06-29 10:30] LABS: Calcium 9.4 mg/dL (8.6-10.3); EGFR African American 21.7 (>60)
[2019-06-29 10:32] LABS: Potassium 6.2 mmol/L (3.5-5.0)
[2019-06-29] MEDS ORDERED: Insulin LISPRO* 1 UNITS UNIT SUBCUT ONE (10:45)
[2019-06-29] MEDS ORDERED: Patiromer POWDER* 8.4 GM PAK PO ONE (10:46)
[2019-06-29] MEDS ORDERED: Insulin REGULAR(*) 1 UNITS UNIT ONE (10:50)
[2019-06-29] MEDS ORDERED: Sodium Polystyrene ORAL.SUSP* 15 GM/60 ML BTL PO ONE (10:57)
[2019-06-29] MEDS ORDERED: Insulin GLARGINE(*) 1 UNITS UNIT SUBCUT SCH (11:00)
--- NOTE | 2019-06-29 12:27 | PN ---
Progress Note - Progress Note Date of Service: 06/29/19 - Pulm f/u note Note: Patient seen and examined bedside. Interim events noted. Patient had rapid response last night. He was in the commode, had vasovagal episode. He was also found to be hypotensive at that time. Patient has received 1 L fluid bolus. Patient had tachypnea and shortness of breath post episode. Fluid overload was suspected and 80 mg of IV Lasix was given. Chest x -ray showed whiteout of right lung. BMP showed acute on chronic renal failure and hyperkalemia. His blood sugars have also been elevated. His white count has increased. He was transferred to ICU for close monitoring of altered mental status and respiratory status. Patient reports being more comfortable with his breathing when I saw him back in the ICU. This morning he was tacheipnic with increased WOB Active Medications Generic Name Dose Route Start Last Admin Trade Name Freq PRN Reason Stop Dose Admin Acetaminophen 650 mg 06/23/19 17:59 06/28/19 07:30 Tylenol Tab* PO 650 mg Q4H PRN Administration MILD PAIN or TEMP > 100.4 Al Hydrox/Mg Hydrox/Simethicone 30 ml 06/23/19 17:59 Maalox Plus* PO Q6H PRN INDIGESTION Albuterol 2 puff 06/23/19 18:37 Ventolin Hfa Inhaler* INH Q2H PRN SOB/WHEEZING Amiodarone HCl 200 mg 06/24/19 09:00 06/29/19 08:00 Cordarone Tab* PO 200 mg DAILY [facility] Administration Aspirin 81 mg 06/24/19 09:00 06/29/19 07:59 Aspirin Ec Tab* PO 81 mg DAILY [facility] Administration Atorvastatin Calcium 40 mg 06/24/19 09:00 06/29/19 07:59 Lipitor* PO 40 mg DAILY [facility] Administration Bisacodyl 10 mg 06/28/19 14:36 Dulcolax Supp* IN DAILY PRN CONSTIPATION Cyclosporine 1 drop 06/23/19 21:00 06/29/19 08:02 Restasis 0.05% Ophth BOTH EYES 1 drop BID [facility] Administration Protocol Dextrose 12.5 gm 06/26/19 13:19 D50w Syringe 50 Ml* IV PUSH .FOR FS < 60 - SS PRN FS < 60 Diltiazem HCl 180 mg 06/29/19 12:40 Cardizem Cd Cap* PO DAILY [facility] Docusate Sodium 100 mg 06/28/19 14:35 Colace Cap* PO BID PRN CONSTIPATION Fenofibrate 160 mg 06/24/19 09:00 06/29/19 07:59 Tricor 160 Mg PO 160 mg DAILY [facility] Administration Protocol Hydrochlorothiazide 25 mg 06/29/19 12:40 Hydrodiuril Tab* PO DAILY [facility] Insulin Glargine 25 units 06/29/19 18:00 Lantus(*) SUBCUT 0600,1800 [facility] Insulin Human Lispro 10 units 06/29/19 16:30 Humalog* SUBCUT AC [facility] Insulin Human Lispro 0 units 06/29/19 12:42 Humalog* SUBCUT AC [facility] Protocol Loperamide HCl 2 mg 06/26/19 07:22 06/27/19 09:37 Imodium Cap* PO 2 mg .SEE ORDER PRN Administration LOOSE STOOLS Lorazepam 1 mg 06/28/19 21:44 06/28/19 21:58 Ativan Inj* IV PUSH 1 mg Q6H PRN Administration ANXIETY Losartan Potassium 100 mg 06/29/19 12:40 Cozaar Tab* PO DAILY [facility] Metoprolol Tartrate 5 mg 06/28/19 23:45 06/29/19 00:00 Lopressor Iv* IV 5 mg Q6H PRN Administration HEART RATE/PULSE > 110 Metoprolol Tartrate 100 mg 06/29/19 12:40 Lopressor Tab* PO BID [facility] Miscellaneous 1 ea 06/28/19 21:44 Ativan Pyxis Russo N/A .ATIVAN IV RUSSO PRN PYXIS RUSSO Mometasone Furoate/Formoterol Fumar 2 puff 06/24/19 09:00 06/29/19 08:04 Dulera 200/5 Mdi* INH 2 puff BID [facility] Administration Morphine Sulfate 4 mg 06/27/19 22:48 06/29/19 14:57 Morphine Inj (Syringe)* IV 4 mg Q8H PRN Administration PAIN - SEVERE Multivitamins/Minerals 1 tab 06/24/19 09:00 06/29/19 07:59 Theragran/Minerals Tab* PO 1 tab DAILY [facility] Administration Nystatin 1 applic 06/28/19 21:00 06/29/19 09:56 Nystatin Top Powder* TOPICAL 1 applic BID [facility] Administration Oxycodone HCl 5 mg 06/29/19 14:44 Roxycodone Tab* PO Q4H PRN PAIN - SEVERE Patiromer 8.4 gm 06/29/19 07:30 06/29/19 07:49 Veltassa Powder* PO 8.4 gm DAILY [facility] Administration Polyethylene Glycol/Electrolytes 17 gm 06/28/19 14:36 Miralax (17 Gm Dose Sly) PO DAILY PRN CONSTIPATION Senna 1 tab 06/23/19 17:59 06/23/19 21:57 Senokot 8.6 Mg Tab* PO 1 tab BID PRN Administration CONSTIPATION Tiotropium [place] 2 puff 06/24/19 09:00 06/29/19 08:05 Spiriva Respimat 2.5 Mcg INH 2 puff DAILY [facility] Administration Torsemide 40 mg 06/29/19 12:40 Demadex* PO DAILY [facility] Vital Signs Temp Pulse Resp BP Pulse Ox 97.6 F 102 31 123/59 100 06/29/19 15:40 06/29/19 16:01 06/29/19 16:01 06/29/19 16:01 06/29/19 16:01 O/E: Pt in NAD HEENT: PERRLA, No JVD Lungs: Dimnished on right side and left base, crackles + CVS: S1, S2+, tachycardic Abd: Obese, BS+ Ext: Normal ROM Laboratory Results - last 24 hr 06/26/19 06/28/19 06/28/19 16:40 16:56 20:29 WBC RBC Hgb Hct MCV MCH MCHC RDW Plt Count MPV Neut % (Auto) Lymph % (Auto) [place] % (Auto) Eos % (Auto) Baso % (Auto) Absolute Neuts (auto) Absolute Lymphs (auto) Absolute Monos (auto) Absolute Eos (auto) Absolute Basos (auto) Absolute Nucleated RBC Nucleated RBC % Sodium Potassium Chloride Carbon Dioxide Anion Gap BUN Creatinine Est GFR ( Amer) Est GFR (Non-Af Amer) BUN/Creatinine Ratio Glucose POC Glucose (mg/dL) 360 H 363 H Calcium Magnesium Urine Color Urine Appearance Urine pH Ur Specific [place] Urine Protein Urine Ketones Urine Blood Urine Nitrate Urine Bilirubin Urine Urobilinogen Ur Leukocyte Esterase Urine WBC (Auto) Urine RBC (Auto) Ur Squamous Epith Cells Urine Bacteria Urine Glucose Fluid Cell Count Rvw By 06/28/19 06/28/19 06/29/19 20:36 20:36 03:50 WBC 11.8 H RBC 3.14 L Hgb 8.6 L Hct 26 L MCV 83 MCH 28 MCHC 33 RDW 15 Plt Count 374 MPV 7.2 L Neut % (Auto) 85.9 Lymph % (Auto) 4.2 [place] % (Auto) 8.9 Eos % (Auto) 0.7 Baso % (Auto) 0.3 Absolute Neuts (auto) 10.1 H Absolute Lymphs (auto) 0.5 L Absolute Monos (auto) 1.0 H Absolute Eos (auto) 0.1 Absolute Basos (auto) 0.0 Absolute Nucleated RBC 0.0 Nucleated RBC % 0.0 Sodium 129 L Potassium 4.8 Chloride 90 L Carbon Dioxide 33 H Anion Gap 6 BUN 46 H Creatinine 1.95 H Est GFR ( Amer) 41.9 Est GFR (Non-Af Amer) 34.6 BUN/Creatinine Ratio 23.6 H Glucose 342 H POC Glucose (mg/dL) Calcium 9.1 Magnesium 1.9 Urine Color Yellow Urine Appearance Clear Urine pH 5.0 Ur Specific [place] 1.008 L Urine Protein Negative Urine Ketones Negative Urine Blood 2+ A Urine Nitrate Negative Urine Bilirubin Negative Urine Urobilinogen Negative Ur Leukocyte Esterase Negative Urine WBC (Auto) Trace(0-5/hpf) Urine RBC (Auto) 1+(3-5/hpf) A Ur Squamous Epith Cells Present A Urine Bacteria Absent Urine Glucose 3+(>=500 mg/dl) A Fluid Cell Count Rvw By 06/29/19 06/29/19 06/29/19 05:31 09:33 10:07 WBC RBC Hgb Hct MCV MCH MCHC RDW Plt Count MPV Neut % (Auto) Lymph % (Auto) [place] % (Auto) Eos % (Auto) Baso % (Auto) Absolute Neuts (auto) Absolute Lymphs (auto) Absolute Monos (auto) Absolute Eos (auto) Absolute Basos (auto) Absolute Nucleated RBC Nucleated RBC % Sodium 128 L 125 L Potassium 6.1 H* 6.2 H* Chloride 89 L 87 L Carbon Dioxide 27 27 Anion Gap 12 H 11 BUN 57 H 62 H Creatinine 3.04 H 3.44 H Est GFR ( Amer) 25.1 21.7 Est GFR (Non-Af Amer) 20.7 18.0 BUN/Creatinine Ratio 18.8 18.0 Glucose 509 H* 521 H* POC Glucose (mg/dL) > 444 H* Calcium 9.2 9.4 Magnesium Urine Color Urine Appearance Urine pH Ur Specific [place] Urine Protein Urine Ketones Urine Blood Urine Nitrate Urine Bilirubin Urine Urobilinogen Ur Leukocyte Esterase Urine WBC (Auto) Urine RBC (Auto) Ur Squamous Epith Cells Urine Bacteria Urine Glucose Fluid Cell Count Rvw By 64-year-old male with history of CHF, obstructive sleep apnea, history of recurrent pleural effusions admitted with worsening shortness of breath Patient had complicated hospital stay, was found to have a multiloculated right effusion, had pigtail placement, received 1 dose TPA, had 1 L pleural fluid drained. Chest tube did not have any further drainage and was removed yesterday evening. Patient had [employer] last night. Patient noted to have white out of the right lung of unclear etiology, atypical for pulmonary edema to present only on the right side No mediastinal shift was noted. Unclear if patient is having trapped lung that could be resulting in negative pressure pulmonary edema on the right side Checked again with ultrasound at bedside-still continues to have loculated fluid He would benefit from a large-bore chest tube placement Discussed with Patient already received anticoagulation today, will plan for chest tube in the morning Continue with O2 supplementation Optimal management of blood sugars Septic workup for evaluation of occult infection, pleural fluid cultures are negative so far Patient also with acute on chronic renal failure-secondary to diuretics versus hyperglycemia Further management as per ICU team
[2019-06-29] MEDS ORDERED: Spironolactone TAB* 25 MG PO SCH (12:40)
[2019-06-29] MEDS ORDERED: Hydrochlorothiazide TAB* 25 MG PO SCH (12:40)
[2019-06-29] MEDS: Morphine INJ* 4 MG/ML 1 ML SYRINGE (NEW SYRINGE VERSION) IV PRN (14:57)
[2019-06-29] MEDS: Insulin GLARGINE(*) 1 UNITS UNIT SUBCUT SCH (17:06)
[2019-06-29] MEDS ORDERED: NS 0.9% 500 ML* 500 ML IV ONE (17:35)
[2019-06-29 17:36] LABS: BUN/Creatinine Ratio 18.7 (8-20); Calcium 9.4 mg/dL (8.6-10.3); EGFR African American 19.7 (>60); EGFR Non-African American 16.3 (>60)
[2019-06-29 17:42] LABS: Potassium 5.1 mmol/L (3.5-5.0)
[2019-06-29] MEDS: cefTRIAXone(*) 2 GM in NS 0.9% 100 ML* 100 ML IVPB SCH (19:14)
[2019-06-29] MEDS: Metoprolol Tartrate IV* 1 MG/ML 5 ML VIAL IV PRN ×2 (19:40)
[2019-06-29 19:50] LABS: Potassium 6.1 mmol/L (3.5-5.0)
[2019-06-30] MEDS: Metoprolol Tartrate IV* 1 MG/ML 5 ML VIAL IV PRN ×2 (02:41→06:19)
[2019-06-30 04:15] LABS: ABS Lymphocytes 0.2 10^3/ul (1.0-4.8); ABS Monocytes 0.9 10^3/ul (0-0.8); Eosinophil % 0.1 %; Hematocrit 20 % (42-52); Hemoglobin 6.7 g/dL (14.0-18.0); Lymphocyte % 1.5 %; Mean Corpuscular HGB Conc 33 g/dL (31-36); Mean Corpuscular Hemoglobin 27 pg (27-31); Mean Corpuscular Volume 83 fL (80-94); Mean Platelet Volume 7.5 fL (7.4-10.4); Nucleated Red Blood Cells % 0.1; Platelet Count 306 10^3/uL (150-450); Red Blood Count 2.44 10^6 /uL (4.18-5.48); Red Cell Distribution Width 15 % (10-15); White Blood Count 13.1 10^3/uL (3.5-10.8)
[2019-06-30 04:25] LABS: Calcium 9.1 mg/dL (8.6-10.3); Potassium 4.8 mmol/L (3.5-5.0)
[2019-06-30 04:31] LABS: BUN/Creatinine Ratio 22.8 (8-20); EGFR African American 24.4 (>60); EGFR Non-African American 20.2 (>60)
[2019-06-30 04:37] LABS: Troponin I 0.03 ng/mL (<0.03)
[2019-06-30] MEDS: Insulin GLARGINE(*) 1 UNITS UNIT SUBCUT SCH ×2 (05:36→17:06)
[2019-06-30 06:12] LABS: Urine Creatinine Concentration 125.24 mg/dL
[2019-06-30] MEDS: SPIRIVA Respimat* (tiotropium) 2.5 mcg/inh Inhaler INH SCH (08:24)
[2019-06-30] MEDS: Mometasone/Formoter 200/5 MDI INH SCH (08:24)
[2019-06-30] MEDS: Insulin LISPRO* 1 UNITS UNIT SUBCUT SCH ×6 (08:27→17:07)
[2019-06-30] MEDS: Diltiazem CD CAP* 180 MG PO SCH (08:49)
[2019-06-30] MEDS: Torsemide TAB* 20 MG PO SCH (08:50)
[2019-06-30] MEDS: Losartan TAB* 25 MG PO SCH (08:50)
[2019-06-30] MEDS: Morphine INJ* 4 MG/ML 1 ML SYRINGE (NEW SYRINGE VERSION) IV PRN (09:04)
[2019-06-30] MEDS: Amiodarone TAB* 200 MG PO SCH (09:04)
[2019-06-30] MEDS: Metoprolol Tartrate TAB* 100 MG TAB PO SCH ×2 (09:04→20:09)
[2019-06-30] MEDS: Aspirin EC TAB* 81 MG TAB.EC PO SCH (09:37)
[2019-06-30] MEDS: Atorvastatin* 40 MG TAB PO SCH (09:37)
[2019-06-30] MEDS: Multivitamins/Minerals TAB PO SCH (09:38)
[2019-06-30] MEDS: Nystatin TOP POWDER* 15 GM BTL TOPICAL SCH ×2 (09:38→20:11)
[2019-06-30] MEDS: CMCS: Cyclosporine 0.05% OPHTH (NF) 0.4 ML VIAL BOTH EYES SCH ×2 (09:38→20:09)
[2019-06-30] MEDS: Patiromer POWDER* 8.4 GM PAK PO SCH (09:38)
[2019-06-30 09:39] LABS: Magnesium 2.2 mg/dL (1.9-2.7)
[2019-06-30] MEDS ORDERED: Amiodarone IV VIAL** 50 MG/ML 3 ML (150 MG) VIAL IV PUSH ONE (11:04)
--- NOTE | 2019-06-30 12:26 | PN ---
Date of Service: 06/30/19 Critical Care Services: C/o SOB overnight, O2 requirements did not change. Denies chest pain or abdominal pain. Refusing to take medications because he feels his breathing prevents him from swallowing water. NSR yesterday and then went into a fib with RVR (HR 130s-150s) overnight. Improvement in blood glucose, but still elevated in 300s. Renal US did not show hydronephrosis or calculi. Urine output adequate. Vital Signs: Temp Pulse Resp BP SpO2 FiO2 98.9 F 109 23 90/53 100 06/30/19 08:00 06/30/19 10:15 06/30/19 10:15 06/30/19 10:15 06/30/19 10:15 Physical Exam: Gen: NAD, sitting in recliner HEENT: Normocephalic and atraumatic. Pupils equal. Neck supple Lungs: Absent breath sounds at right base, clear at apex. Breath sounds on left. No accessory muscle use. Cardiac: Irregular rhythm. Tachycardic. Abdomen: Soft, obese, nontender. Extremities: Minimal pedal edema b/l.. Warm. Neuro: Alert and oriented x3. Moves all extremities equally. Fluid Balance (Past 24 Hours): I= O= Net Intake & Output 06/28/19 06/29/19 06/30/19 07/01/19 06:59 06:59 06:59 06:59 Intake Total 1290 1689 1510 Output Total 4050 1000 1000 450 Balance -2760 689 510 -450 Weight 282 lb 14.4 oz 286 lb 8 oz Intake: IV Fluids 979 500 NS (0.9%) 979 500 IVPB 110 ABX - CEFTRIAXONE 110 Oral 1290 710 900 Output: Pigtail Drain 2200 Urine 1850 900 [place] 100 1000 450 Other: Estimated Void Medium Large Large Date of Last Bowel 06/29/19 Movement # Bowel Movements 1 1 Estimated Stool Amount Medium Large # Voids 1 1 Labs: Laboratory Results - last 24 hr 06/29/19 06/29/19 06/29/19 05:31 16:40 17:11 WBC RBC Hgb Hct MCV MCH MCHC RDW Plt Count MPV Neut % (Auto) Lymph % (Auto) [place] % (Auto) Eos % (Auto) Baso % (Auto) Absolute Neuts (auto) Absolute Lymphs (auto) Absolute Monos (auto) Absolute Eos (auto) Absolute Basos (auto) Absolute Nucleated RBC Nucleated RBC % Sodium 129 L Potassium 6.1 H* 5.1 H Chloride 89 L Carbon Dioxide 29 Anion Gap 11 BUN 70 H Creatinine 3.75 H Est GFR ( Amer) 19.7 Est GFR (Non-Af Amer) 16.3 BUN/Creatinine Ratio 18.7 Glucose 371 H POC Glucose (mg/dL) 398 H Calcium 9.4 Magnesium Troponin I Ur Creatinine Concen U Sodium Concentration Ur Urea Nitrogen Conc 06/30/19 06/30/19 06/30/19 04:04 04:04 04:04 WBC 13.1 H RBC 2.44 L Hgb 6.7 L Hct 20 L MCV 83 MCH 27 MCHC 33 RDW 15 Plt Count 306 MPV 7.5 Neut % (Auto) 91.5 Lymph % (Auto) 1.5 [place] % (Auto) 6.8 Eos % (Auto) 0.1 Baso % (Auto) 0.1 Absolute Neuts (auto) 12.0 H Absolute Lymphs (auto) 0.2 L Absolute Monos (auto) 0.9 H Absolute Eos (auto) 0.0 Absolute Basos (auto) 0.0 Absolute Nucleated RBC 0.0 Nucleated RBC % 0.1 Sodium 129 L Potassium 4.8 Chloride 90 L Carbon Dioxide 27 Anion Gap 12 H BUN 71 H Creatinine 3.11 H Est GFR ( Amer) 24.4 Est GFR (Non-Af Amer) 20.2 BUN/Creatinine Ratio 22.8 H Glucose 309 H POC Glucose (mg/dL) Calcium 9.1 Magnesium 2.2 Cancelled Troponin I 0.03 H* Ur Creatinine Concen U Sodium Concentration Ur Urea Nitrogen Conc 06/30/19 06/30/19 06/30/19 05:30 05:30 08:11 WBC RBC Hgb Hct MCV MCH MCHC RDW Plt Count MPV Neut % (Auto) Lymph % (Auto) [place] % (Auto) Eos % (Auto) Baso % (Auto) Absolute Neuts (auto) Absolute Lymphs (auto) Absolute Monos (auto) Absolute Eos (auto) Absolute Basos (auto) Absolute Nucleated RBC Nucleated RBC % Sodium Potassium Chloride Carbon Dioxide Anion Gap BUN Creatinine Est GFR ( Amer) Est GFR (Non-Af Amer) BUN/Creatinine Ratio Glucose POC Glucose (mg/dL) 303 H Calcium Magnesium Troponin I Ur Creatinine Concen 125.24 U Sodium Concentration 19 Ur Urea Nitrogen Conc 525 Nutrition: Consistent carb Impression: 64M admitted with dyspnea and b/l pleural effusions. Pleural effusions due to diastolic CHF Acute on chronic diastolic CHF YODIT, slight improvement in creatinine Acute on chronic anemia. Acute anemia likely due to bleeding in right chest, chronic anemia likely due to chronic illness A fib with RVR Hyperkalemia, improved DM type 2, glucose improving COPD HTN Plan: Neuro: Tylenol prn for pain or fever. Morphine or oxycodone prn for severe pain Delirium precautions. Avoid benzodiazepines if possible. CV: Patient received home amiodarone 200 mg and metoprolol 100 mg po this morning, with minor improvement in HR. Ordered amiodarone bolus. Will try to also give immediate release diltiazem this afternoon if patient will take. If he remains tachycardic, will use diltiazem gtt for rate control. Continue home diltiazem CD, amiodarone, metoprolol. Will f/u renal function and decide if diuretics will be resumed. Spironolactone stopped yesterday due to hyperkalemia. HCTZ, losartan, torsemide not given this morning because patient refused. Will try to restart home antihypertensives if BP allows. Continue home fenofibrate, ASA 81. Resp: Right chest pigtail catheter placed today (see separate operative report). Chest tube to -20 suction. Repeat CXR in AM. May need thoracic surgery if drainage becomes more sanguinous and/or there is no improvement in effusions. Continue tiotropium, dulera, albuterol prn Titrate FiO2 to keep O2 sat >90%. Uses 2-3L O2 at baseline GI: Consistent carb diet Bowel regimen ordered Renal: YODIT- Creatinine trending down. Will continue to trend. FeUrea suggests prerenal Hyperkalemia resolved today. Continue patiromer powder. [place] for accurate I&Os and retention. ID: Elevated WBC without source. Afebriel. UA does not suggest infection. Pleural fluid sent for culture, gram stain negative Ceftriaxone started / empirically. Heme: Hgb 6.7, yesterday was 8.6. Suspect bleeding into the chest from tpa and/or chest tube removal in setting of Eliquis. Suspect anemia may be contributing to tachycardia and hypotension. 1u RBC ordered with post-transfusion CBC. Hold Eliquis for now. DVT ppx: SCDs Endo: Increased Lantus to 30 units qhs (from 25) and lispro 12 units ACHS (from 10). Continue sliding scale lispro. Hyperglycemia improving but still elevated. MSK: Activity with assistance. Wounds: None Code status: Full Dispo: ICU for metabolic and electrolyte derangements and monitoring respiratory status. Status: Guarded Critical Care Time: 40 min, excluding procedures and teaching.
[2019-06-30 13:59] LABS: Lactate Dehydrogenase, BF 191 U/L
[2019-06-30 15:15] LABS: Fluid Type, Glucose PLEURAL
[2019-06-30 15:17] LABS: Fluid Type, Protein, Total PLEURAL
[2019-06-30] MEDS ORDERED: Diltiazem TAB* 60 MG PO ONE (16:35)
--- NOTE | 2019-06-30 17:07 | PN ---
Progress Note - Progress Note Date of Service: 06/30/19 - Pulmonary note Note: Patient seen and examined at bedside this afternoon. Patient had chest tube placed, with drainage of dark serous sanguinous fluid. Patient had 200 mL's of pleural fluid drained since insertion. patient also had drop in hemoglobin today and was hypotensive. Pt reports feeling better and being able to take deep breath post chest tube insertion. Active Medications Generic Name Dose Route Start Last Admin Trade Name Freq PRN Reason Stop Dose Admin Acetaminophen 650 mg 06/23/19 17:59 06/28/19 07:30 Tylenol Tab* PO 650 mg Q4H PRN Administration MILD PAIN or TEMP > 100.4 Al Hydrox/Mg Hydrox/Simethicone 30 ml 06/23/19 17:59 Maalox Plus* PO Q6H PRN INDIGESTION Albuterol 2 puff 06/23/19 18:37 Ventolin Hfa Inhaler* INH Q2H PRN SOB/WHEEZING Amiodarone HCl 200 mg 06/24/19 09:00 06/30/19 09:04 Cordarone Tab* PO 200 mg DAILY STEFF Administration Aspirin 81 mg 06/24/19 09:00 06/30/19 09:37 Aspirin Ec Tab* PO Not Given DAILY STEFF Atorvastatin Calcium 40 mg 06/24/19 09:00 06/30/19 09:37 Lipitor* PO Not Given DAILY STEFF Bisacodyl 10 mg 06/28/19 14:36 Dulcolax Supp* [place] DAILY PRN CONSTIPATION Cyclosporine 1 drop 06/23/19 21:00 06/30/19 09:38 Restasis 0.05% Ophth BOTH EYES Not Given BID [facility] Protocol Dextrose 12.5 gm 06/26/19 13:19 D50w Syringe 50 Ml* IV PUSH .FOR FS < 60 - SS PRN FS < 60 Diltiazem HCl 180 mg 06/29/19 12:40 06/30/19 08:49 Cardizem Cd Cap* PO Not Given DAILY STEFF Docusate Sodium 100 mg 06/28/19 14:35 Colace Cap* PO BID PRN CONSTIPATION Fenofibrate 160 mg 06/24/19 09:00 06/30/19 09:38 Tricor 160 Mg PO Not Given DAILY [facility] Protocol Hydrochlorothiazide 25 mg 06/29/19 12:40 06/30/19 08:49 Hydrodiuril Tab* PO Not Given DAILY [facility] Ceftriaxone Sodium 2 gm/ 100 mls @ 200 mls/hr 06/29/19 18:00 06/29/19 19:14 Sodium Chloride IVPB 200 mls/hr Q24H STEFF Administration Insulin Glargine 30 units 06/30/19 18:00 Lantus(*) SUBCUT 0600,1800 STEFF Insulin Human Lispro 0 units 06/29/19 12:42 06/30/19 12:50 Humalog* SUBCUT 9 units AC STEFF Administration Protocol Insulin Human Lispro 12 units 06/30/19 16:30 Humalog* SUBCUT AC [facility] Loperamide HCl 2 mg 06/26/19 07:22 06/27/19 09:37 Imodium Cap* PO 2 mg .SEE ORDER PRN Administration LOOSE STOOLS Lorazepam 1 mg 06/28/19 21:44 06/28/19 21:58 Ativan Inj* IV PUSH 1 mg Q6H PRN Administration ANXIETY Losartan Potassium 100 mg 06/29/19 12:40 06/30/19 08:50 Cozaar Tab* PO Not Given DAILY [facility] Metoprolol Tartrate 100 mg 06/29/19 12:40 06/30/19 09:04 Lopressor Tab* PO 100 mg BID STEFF Administration Metoprolol Tartrate 5 mg 06/30/19 06:11 06/30/19 06:19 Lopressor Iv* IV 5 mg Q4H PRN Administration HEART RATE/PULSE > 110 Miscellaneous 1 ea 06/28/19 21:44 Ativan Pyxis Russo N/A .ATIVAN IV RUSSO PRN PYXIS RUSSO Mometasone Furoate/Formoterol Fumar 2 puff 06/24/19 09:00 06/30/19 08:24 Dulera 200/5 Mdi* INH 2 puff BID STEFF Administration Morphine Sulfate 4 mg 06/27/19 22:48 06/30/19 09:04 Morphine Inj (Syringe)* IV 4 mg Q8H PRN Administration PAIN - SEVERE Multivitamins/Minerals 1 tab 06/24/19 09:00 06/30/19 09:38 Theragran/Minerals Tab* PO Not Given DAILY [facility] Nystatin 1 applic 06/28/19 21:00 06/30/19 09:38 Nystatin Top Powder* TOPICAL Not Given BID [facility] Oxycodone HCl 5 mg 06/29/19 14:44 Roxycodone Tab* PO Q4H PRN PAIN - SEVERE Patiromer 8.4 gm 06/29/19 07:30 06/30/19 09:38 Veltassa Powder* PO Not Given DAILY STEFF Polyethylene Glycol/Electrolytes 17 gm 06/28/19 14:36 Miralax (17 Gm Dose Sly) PO DAILY PRN CONSTIPATION Senna 1 tab 06/23/19 17:59 06/23/19 21:57 Senokot 8.6 Mg Tab* PO 1 tab BID PRN Administration CONSTIPATION Tiotropium [place] 2 puff 06/24/19 09:00 06/30/19 08:24 Spiriva Respimat 2.5 Mcg INH 2 puff DAILY STEFF Administration Torsemide 40 mg 06/29/19 12:40 06/30/19 08:50 Demadex* PO Not Given DAILY STEFF Vital Signs Temp Pulse Resp BP Pulse Ox 98.1 F 150 22 113/44 100 06/30/19 14:24 06/30/19 16:00 06/30/19 16:00 06/30/19 14:23 06/30/19 16:00 O/E; Pt sitting up in chair HEENT: PERRLA Lungs: Improved breath sounds on right CVS: S1, S2+ Abd: Obese, BS+ Ext: Edema+ Neuro: Alert, awake with no focal deficits Laboratory Results - last 24 hr 06/26/19 06/26/19 06/26/19 16:40 16:40 18:23 WBC RBC Hgb Hct MCV MCH MCHC RDW Plt Count MPV Neut % (Auto) Lymph % (Auto) [place] % (Auto) Eos % (Auto) Baso % (Auto) Absolute Neuts (auto) Absolute Lymphs (auto) Absolute Monos (auto) Absolute Eos (auto) Absolute Basos (auto) Absolute Nucleated RBC Nucleated RBC % Sodium Potassium Chloride Carbon Dioxide Anion Gap BUN Creatinine Est GFR ( Amer) Est GFR (Non-Af Amer) BUN/Creatinine Ratio Glucose POC Glucose (mg/dL) Calcium Magnesium Troponin I Ur Creatinine Concen U Sodium Concentration Ur Urea Nitrogen Conc Fluid Source Pleural Pleural Pleural Fluid Glucose 292 Fluid Total Protein 4.3 Fluid LDH 191 Blood Type Antibody Screen Crossmatch 06/29/19 06/29/19 06/29/19 05:31 16:40 17:11 WBC RBC Hgb Hct MCV MCH MCHC RDW Plt Count MPV Neut % (Auto) Lymph % (Auto) [place] % (Auto) Eos % (Auto) Baso % (Auto) Absolute Neuts (auto) Absolute Lymphs (auto) Absolute Monos (auto) Absolute Eos (auto) Absolute Basos (auto) Absolute Nucleated RBC Nucleated RBC % Sodium 129 L Potassium 6.1 H* 5.1 H Chloride 89 L Carbon Dioxide 29 Anion Gap 11 BUN 70 H Creatinine 3.75 H Est GFR ( Amer) 19.7 Est GFR (Non-Af Amer) 16.3 BUN/Creatinine Ratio 18.7 Glucose 371 H POC Glucose (mg/dL) 398 H Calcium 9.4 Magnesium Troponin I Ur Creatinine Concen U Sodium Concentration Ur Urea Nitrogen Conc Fluid Source Fluid Glucose Fluid Total Protein Fluid LDH Blood Type Antibody Screen Crossmatch 06/30/19 06/30/19 06/30/19 04:04 04:04 04:04 WBC 13.1 H RBC 2.44 L Hgb 6.7 L Hct 20 L MCV 83 MCH 27 MCHC 33 RDW 15 Plt Count 306 MPV 7.5 Neut % (Auto) 91.5 Lymph % (Auto) 1.5 [place] % (Auto) 6.8 Eos % (Auto) 0.1 Baso % (Auto) 0.1 Absolute Neuts (auto) 12.0 H Absolute Lymphs (auto) 0.2 L Absolute Monos (auto) 0.9 H Absolute Eos (auto) 0.0 Absolute Basos (auto) 0.0 Absolute Nucleated RBC 0.0 Nucleated RBC % 0.1 Sodium 129 L Potassium 4.8 Chloride 90 L Carbon Dioxide 27 Anion Gap 12 H BUN 71 H Creatinine 3.11 H Est GFR ( Amer) 24.4 Est GFR (Non-Af Amer) 20.2 BUN/Creatinine Ratio 22.8 H Glucose 309 H POC Glucose (mg/dL) Calcium 9.1 Magnesium 2.2 Cancelled Troponin I 0.03 H* Ur Creatinine Concen U Sodium Concentration Ur Urea Nitrogen Conc Fluid Source Fluid Glucose Fluid Total Protein Fluid LDH Blood Type Antibody Screen Crossmatch 06/30/19 06/30/19 06/30/19 04:08 05:30 05:30 WBC RBC Hgb Hct MCV MCH MCHC RDW Plt Count MPV Neut % (Auto) Lymph % (Auto) [place] % (Auto) Eos % (Auto) Baso % (Auto) Absolute Neuts (auto) Absolute Lymphs (auto) Absolute Monos (auto) Absolute Eos (auto) Absolute Basos (auto) Absolute Nucleated RBC Nucleated RBC % Sodium Potassium Chloride Carbon Dioxide Anion Gap BUN Creatinine Est GFR ( Amer) Est GFR (Non-Af Amer) BUN/Creatinine Ratio Glucose POC Glucose (mg/dL) Calcium Magnesium Troponin I Ur Creatinine Concen 125.24 U Sodium Concentration 19 Ur Urea Nitrogen Conc 525 Fluid Source Fluid Glucose Fluid Total Protein Fluid LDH Blood Type A Positive Antibody Screen Negative Crossmatch See Detail 06/30/19 06/30/19 08:11 12:11 WBC RBC Hgb Hct MCV MCH MCHC RDW Plt Count MPV Neut % (Auto) Lymph % (Auto) [place] % (Auto) Eos % (Auto) Baso % (Auto) Absolute Neuts (auto) Absolute Lymphs (auto) Absolute Monos (auto) Absolute Eos (auto) Absolute Basos (auto) Absolute Nucleated RBC Nucleated RBC % Sodium Potassium Chloride Carbon Dioxide Anion Gap BUN Creatinine Est GFR ( Amer) Est GFR (Non-Af Amer) BUN/Creatinine Ratio Glucose POC Glucose (mg/dL) 303 H 290 H Calcium Magnesium Troponin I Ur Creatinine Concen U Sodium Concentration Ur Urea Nitrogen Conc Fluid Source Fluid Glucose Fluid Total Protein Fluid LDH Blood Type Antibody Screen Crossmatch I/R; 64-year-old male with history of CHF, obstructive sleep apnea, history of recurrent pleural effusions admitted with worsening shortness of breath Patient had complicated hospital stay, was found to have a multiloculated right effusion, had pigtail placement, received 1 dose TPA, had 1 L pleural fluid drained. Chest tube did not have any further drainage and was removed 06/27. Patient had [employer] after chest tube was removed. Patient noted to have white out of the right lung of unclear etiology, atypical for pulmonary edema to present only on the right side No mediastinal shift was noted. Unclear if patient is having trapped lung that could be resulting in negative pressure pulmonary edema on the right side. Hb was stable at that point. He was given fluid bolus ad Lasix for possible fluid overload and was noted to have worsening RF. WBC count was also increasing. Pt was transferred to ICU Checked again with ultrasound at bedside 06/28-still continues to have loculated fluid Pt had chest tube placed by on 06/29, has been draining seosanguinous fluid. Fluid was shorty colored in the past. He was also hypotensive and tachycardic and is receiving 1 unit pRBC. Pt reports feeling better post chest tube Not sure if he had bleeding into pleural space after tPA and had worsening after pig tail was removed. Doesnot appear like hemothorax at this time Will need to monitor chest tube out put closeley No plan for further tPA at this time If pt continues to have issues or worsening of bleeding through chest tube, will need to be transferred to facility with VATS availability Hold anticoagulation and reassess in 24 hrs Continue with O2 supplementation Optimal management of blood sugars Prerenal RF 2/2 diuresis and hypovolemia Septic workup for evaluation of occult infection, pleural fluid cultures are negative so far. ON Rocephin emperically, remains afebrile Further management as per ICU team
[2019-06-30] MEDS: cefTRIAXone(*) 2 GM in NS 0.9% 100 ML* 100 ML IVPB SCH (17:52)
[2019-06-30] MEDS ORDERED: Lidocaine 1% MPF* 2 ML VIAL INJ ONE (18:00)
[2019-06-30] MEDS: Lidocaine 1% INJ* 10 MG/ML 30 ML SDV ONE ×2 (18:09→18:24)
--- NOTE | 2019-06-30 18:09 | OP ---
Operative Report - Blank - Operative Report Date of Operation: 06/30/19 Note: PRE-OP DX: Right pleural effusion POST-OP DX: Same PROCEDURE: Placement of right chest pigtail catheter SURGEON: Zulay Guzmán MD [employer] SALES: Luzma Martinez NP ANESTHESIA: Lidocaine 1% FINDINGS: Sanguinous pleural fluid INDICATION: Tulio Ferrell is a 64 year-old man with recurrent pleural effusions. He had a 12 Fr chest tube placed in IR earlier during the hospitalization. The tube became clogged and was removed 06/27. He developed respiratory distress, and chest xray showed recurrent right pleural effusion. Initially Dr Stephenson planned to perform thoracentesis, but ultrasound suggested loculations. I discussed the patient with Dr Stephenson, and we decided to place a chest tube in case he would need lytic therapy. Eliquis was held for 24 hours before the procedure. Written consent was obtained from the patient. DESCRIPTION: The patient was sitting upright. The ultrasound was used to identify an appropriate chest tube site. There was a pocket of fluid posteriorly at the base. A time out was called confirming the patient's name, date of , and procedure. The intended site was prepped and draped in the usual sterile fashion. Lidocaine 1% was injected into the skin and the subcutaneous tissue. A needle was advanced over the rib while aspirating. Once there was return of pleural fluid, a wire was threaded through the needle. Using Seldinger technique, a 14 Fr pigtail catheter was placed into the chest. Dark bloody fluid drained from the tube. I suspect that he bled into the chest after the previous tube was removed since he was still on Eliquis. A pleural fluid sample was sent to the lab for culture. The pigtail catheter was connected to a Pleur Evac and placed to -20 mmHg suction. There was about 80 ml that drained immediately after the procedure. The pigtail was secured with silk sutures. Sterile gauze was secured over the tube with Tegederm. The patient tolerated the procedure well. Post-procedure chest xray showed the tube in good position, although a persistent effusion. About 15 minutes after the procedure was completed, there was a total of 200 ml in the Pleur Evac.
[2019-06-30 19:10] LABS: Hematocrit 23 % (42-52); Hemoglobin 7.8 g/dL (14.0-18.0); Mean Corpuscular HGB Conc 34 g/dL (31-36); Mean Corpuscular Hemoglobin 29 pg (27-31); Mean Corpuscular Volume 84 fL (80-94); Mean Platelet Volume 7.7 fL (7.4-10.4); Platelet Count 300 10^3/uL (150-450); Red Blood Count 2.72 10^6 /uL (4.18-5.48); Red Cell Distribution Width 15 % (10-15); White Blood Count 9.9 10^3/uL (3.5-10.8)
[2019-06-30] MEDS: oxyCODONE TAB* 5 MG TAB PO PRN (20:08)
[2019-06-30 20:10] LABS: CO2 Carbon Dioxide 33 mmol/L (22-32); Calcium 9.2 mg/dL (8.6-10.3); Chloride 92 mmol/L (101-111); Sodium 132 mmol/L (135-145)
[2019-06-30 20:15] LABS: BUN/Creatinine Ratio 33.2 (8-20); Blood Urea Nitrogen 67 mg/dL (6-24); EGFR African American 40.2 (>60); EGFR Non-African American 33.2 (>60); Glucose 222 mg/dL (70-100)
[2019-06-30 20:18] LABS: Anion Gap 7 mmol/L (2-11)
[2019-06-30] MEDS: Morphine INJ* 2 MG/ML 1 ML SYRINGE (TWO MG - NEW SYRINGE VERSION) IV PRN (22:30)
[2019-07-01] MEDS: oxyCODONE TAB* 5 MG TAB PO PRN ×2 (00:21→04:24)
[2019-07-01] MEDS: Mometasone/Formoter 200/5 MDI INH SCH ×3 (01:25→21:11)
[2019-07-01] MEDS: Metoprolol Tartrate IV* 1 MG/ML 5 ML VIAL IV PRN ×4 (02:15→21:19)
[2019-07-01] MEDS ORDERED: Diltiazem TAB* 60 MG PO ONE (04:05)
[2019-07-01 06:19] LABS: ABS Lymphocytes 0.2 10^3/ul (1.0-4.8); ABS Monocytes 0.7 10^3/ul (0-0.8); ABS Neutrophils 7.3 10^3/ul (1.5-7.7); Eosinophil % 0.6 %; Hematocrit 23 % (42-52); Hemoglobin 7.6 g/dL (14.0-18.0); Lymphocyte % 1.9 %; Mean Corpuscular HGB Conc 34 g/dL (31-36); Mean Corpuscular Hemoglobin 29 pg (27-31); Mean Corpuscular Volume 84 fL (80-94); Platelet Count 296 10^3/uL (150-450); Red Blood Count 2.68 10^6 /uL (4.18-5.48); Red Cell Distribution Width 15 % (10-15); White Blood Count 8.2 10^3/uL (3.5-10.8)
[2019-07-01 06:36] LABS: BUN/Creatinine Ratio 35.2 (8-20); Calcium 9.2 mg/dL (8.6-10.3); EGFR Non-African American 43.8 (>60); Magnesium 2.4 mg/dL (1.9-2.7); Potassium 4.6 mmol/L (3.5-5.0)
[2019-07-01] MEDS: Insulin GLARGINE(*) 1 UNITS UNIT SUBCUT SCH ×2 (06:43→17:51)
[2019-07-01] MEDS: Metoprolol Tartrate TAB* 100 MG TAB PO SCH ×2 (07:51→21:10)
[2019-07-01] MEDS: Amiodarone TAB* 200 MG PO SCH (07:51)
[2019-07-01] MEDS: Aspirin EC TAB* 81 MG TAB.EC PO SCH (07:51)
[2019-07-01] MEDS: Insulin LISPRO* 1 UNITS UNIT SUBCUT SCH ×6 (08:30→17:23)
[2019-07-01] MEDS: Diltiazem CD CAP* 180 MG PO SCH ×2 (09:21→12:23)
[2019-07-01] MEDS: Torsemide TAB* 20 MG PO SCH (09:24)
[2019-07-01] MEDS: Multivitamins/Minerals TAB PO SCH (09:25)
[2019-07-01] MEDS: Nystatin TOP POWDER* 15 GM BTL TOPICAL SCH ×2 (09:25→21:15)
[2019-07-01] MEDS: Losartan TAB* 25 MG PO SCH (09:26)
[2019-07-01] MEDS: CMCS: Cyclosporine 0.05% OPHTH (NF) 0.4 ML VIAL BOTH EYES SCH ×2 (09:26→21:13)
[2019-07-01] MEDS: Atorvastatin* 40 MG TAB PO SCH (09:27)
[2019-07-01] MEDS: Patiromer POWDER* 8.4 GM PAK PO SCH (09:28)
[2019-07-01] MEDS: SPIRIVA Respimat* (tiotropium) 2.5 mcg/inh Inhaler INH SCH (09:29)
--- NOTE | 2019-07-01 15:28 | PN ---
Date of Service: 07/01/19 Vital Signs: Temp Pulse Resp BP SpO2 FiO2 97.4 F 113 15 101/58 100 07/01/19 04:49 07/01/19 15:16 07/01/19 15:16 07/01/19 15:16 07/01/19 15:16 Physical Exam: Gen: HEENT: Lungs: Cardiac: Abdomen: Extremities: Neuro: Fluid Balance (Past 24 Hours): I= O= Net Intake & Output 06/29/19 06/30/19 07/01/19 07/02/19 06:59 06:59 06:59 06:59 Intake Total 1689 1510 334 500 Output Total 1000 1000 4925 1390 Balance 689 510 -4591 -890 Weight 286 lb 8 oz Intake: IV Fluids 979 500 NS (0.9%) 979 500 IVPB 110 ABX - CEFTRIAXONE 110 Oral 710 900 500 Packed Cells 334 Output: Chest Tube #1 1700 290 Urine 900 [place] 100 1000 3225 1100 Other: Estimated Void Large Large Date of Last Bowel 06/29/19 06/30/19 Movement # Bowel Movements 1 1 1 Estimated Stool Amount Medium Large Large # Voids 1 Labs: Laboratory Results - last 24 hr 06/26/19 06/30/19 06/30/19 16:40 04:08 17:00 WBC RBC Hgb Hct MCV MCH MCHC RDW Plt Count MPV Neut % (Auto) Lymph % (Auto) [place] % (Auto) Eos % (Auto) Baso % (Auto) Absolute Neuts (auto) Absolute Lymphs (auto) Absolute Monos (auto) Absolute Eos (auto) Absolute Basos (auto) Absolute Nucleated RBC Nucleated RBC % Sodium Potassium Chloride Carbon Dioxide Anion Gap BUN Creatinine Est GFR ( Amer) Est GFR (Non-Af Amer) BUN/Creatinine Ratio Glucose POC Glucose (mg/dL) 224 H Calcium Magnesium Fluid Source Pleural Fluid Total Protein 4.3 Blood Type A Positive Antibody Screen Negative Crossmatch See Detail 06/30/19 06/30/19 06/30/19 19:02 19:02 19:54 WBC 9.9 RBC 2.72 L Hgb 7.8 L Hct 23 L MCV 84 MCH 29 MCHC 34 RDW 15 Plt Count 300 MPV 7.7 Neut % (Auto) Lymph % (Auto) [place] % (Auto) Eos % (Auto) Baso % (Auto) Absolute Neuts (auto) Absolute Lymphs (auto) Absolute Monos (auto) Absolute Eos (auto) Absolute Basos (auto) Absolute Nucleated RBC Nucleated RBC % Sodium Cancelled 132 L Potassium Cancelled TNP Chloride Cancelled 92 L Carbon Dioxide Cancelled 33 H Anion Gap Cancelled 7 BUN Cancelled 67 H Creatinine Cancelled 2.02 H Est GFR ( Amer) Cancelled 40.2 Est GFR (Non-Af Amer) Cancelled 33.2 BUN/Creatinine Ratio Cancelled 33.2 H Glucose Cancelled 222 H POC Glucose (mg/dL) Calcium Cancelled 9.2 Magnesium Fluid Source Fluid Total Protein Blood Type Antibody Screen Crossmatch 06/30/19 07/01/19 07/01/19 20:48 06:10 06:10 WBC 8.2 RBC 2.68 L Hgb 7.6 L Hct 23 L MCV 84 MCH 29 MCHC 34 RDW 15 Plt Count 296 MPV 7.0 L Neut % (Auto) 88.9 Lymph % (Auto) 1.9 [place] % (Auto) 8.3 Eos % (Auto) 0.6 Baso % (Auto) 0.3 Absolute Neuts (auto) 7.3 Absolute Lymphs (auto) 0.2 L Absolute Monos (auto) 0.7 Absolute Eos (auto) 0.0 Absolute Basos (auto) 0.0 Absolute Nucleated RBC 0.0 Nucleated RBC % 0.0 Sodium 133 L Potassium 4.8 4.6 Chloride 93 L Carbon Dioxide 34 H Anion Gap 6 BUN 56 H Creatinine 1.59 H Est GFR ( Amer) 53.0 Est GFR (Non-Af Amer) 43.8 BUN/Creatinine Ratio 35.2 H Glucose 247 H POC Glucose (mg/dL) Calcium 9.2 Magnesium 2.4 Fluid Source Fluid Total Protein Blood Type Antibody Screen Crossmatch 07/01/19 11:29 WBC RBC Hgb Hct MCV MCH MCHC RDW Plt Count MPV Neut % (Auto) Lymph % (Auto) [place] % (Auto) Eos % (Auto) Baso % (Auto) Absolute Neuts (auto) Absolute Lymphs (auto) Absolute Monos (auto) Absolute Eos (auto) Absolute Basos (auto) Absolute Nucleated RBC Nucleated RBC % Sodium Potassium Chloride Carbon Dioxide Anion Gap BUN Creatinine Est GFR ( Amer) Est GFR (Non-Af Amer) BUN/Creatinine Ratio Glucose POC Glucose (mg/dL) 268 H Calcium Magnesium Fluid Source Fluid Total Protein Blood Type Antibody Screen Crossmatch Plan: Critical Care Time:
[2019-07-01] MEDS: Acetaminophen TAB* 325 MG PO PRN (15:50)
--- NOTE | 2019-07-01 17:37 | PN ---
Date of Service: 07/01/19 Critical Care Services: Tachycardia this morning, up to HR 150s. No complaints. Denies shortness of breath, and reports his breathing improved after the pigtail was placed yesterday. He denies chest pain or abdominal pain. Tolerating diet. Afebrile. Vital Signs: Temp Pulse Resp BP SpO2 FiO2 100.6 F 110 20 130/55 100 07/01/19 15:44 07/01/19 17:01 07/01/19 17:01 07/01/19 17:01 07/01/19 17:01 Physical Exam: Gen: NAD, sitting in chair HEENT: Normocephalic and atraumatic. Pupils equal. Neck supple. Lungs: Breath sounds bilaterally. No accessory muscle use. Right posterior pigtail tube, draining serosanguinous fluid. No air leak. Cardiac: Irregular rhythm, tachycardia Abdomen: Soft, nontender, obese. Extremities: Warm, no pedal edema Neuro: Alert and oriented x3. Moves all extremities equally. Fluid Balance (Past 24 Hours): I= O= Net Intake & Output 06/29/19 06/30/19 07/01/19 07/02/19 06:59 06:59 06:59 06:59 Intake Total 1689 1510 334 695 Output Total 1000 1000 4925 2220 Balance 689 510 4536 -1525 Weight 286 lb 8 oz Intake: IV Fluids 979 500 NS (0.9%) 979 500 IVPB 110 ABX - CEFTRIAXONE 110 Oral 710 900 695 Packed Cells 334 Output: Chest Tube #1 1700 290 Urine 900 [place] 100 1000 3225 1930 Other: Estimated Void Large Large Date of Last Bowel 06/29/19 06/30/19 Movement # Bowel Movements 1 1 1 Estimated Stool Amount Medium Large Large # Voids 1 Labs: Laboratory Results - last 24 hr 06/26/19 06/30/19 06/30/19 16:40 04:08 19:02 WBC RBC Hgb Hct MCV MCH MCHC RDW Plt Count MPV Neut % (Auto) Lymph % (Auto) [place] % (Auto) Eos % (Auto) Baso % (Auto) Absolute Neuts (auto) Absolute Lymphs (auto) Absolute Monos (auto) Absolute Eos (auto) Absolute Basos (auto) Absolute Nucleated RBC Nucleated RBC % Sodium Cancelled Potassium Cancelled Chloride Cancelled Carbon Dioxide Cancelled Anion Gap Cancelled BUN Cancelled Creatinine Cancelled Est GFR ( Amer) Cancelled Est GFR (Non-Af Amer) Cancelled BUN/Creatinine Ratio Cancelled Glucose Cancelled POC Glucose (mg/dL) Calcium Cancelled Magnesium Fluid Source Pleural Fluid Total Protein 4.3 Blood Type A Positive Antibody Screen Negative Crossmatch See Detail 06/30/19 06/30/19 06/30/19 19:02 19:54 20:48 WBC 9.9 RBC 2.72 L Hgb 7.8 L Hct 23 L MCV 84 MCH 29 MCHC 34 RDW 15 Plt Count 300 MPV 7.7 Neut % (Auto) Lymph % (Auto) [place] % (Auto) Eos % (Auto) Baso % (Auto) Absolute Neuts (auto) Absolute Lymphs (auto) Absolute Monos (auto) Absolute Eos (auto) Absolute Basos (auto) Absolute Nucleated RBC Nucleated RBC % Sodium 132 L Potassium TNP 4.8 Chloride 92 L Carbon Dioxide 33 H Anion Gap 7 BUN 67 H Creatinine 2.02 H Est GFR ( Amer) 40.2 Est GFR (Non-Af Amer) 33.2 BUN/Creatinine Ratio 33.2 H Glucose 222 H POC Glucose (mg/dL) Calcium 9.2 Magnesium Fluid Source Fluid Total Protein Blood Type Antibody Screen Crossmatch 07/01/19 07/01/19 07/01/19 06:10 06:10 11:29 WBC 8.2 RBC 2.68 L Hgb 7.6 L Hct 23 L MCV 84 MCH 29 MCHC 34 RDW 15 Plt Count 296 MPV 7.0 L Neut % (Auto) 88.9 Lymph % (Auto) 1.9 [place] % (Auto) 8.3 Eos % (Auto) 0.6 Baso % (Auto) 0.3 Absolute Neuts (auto) 7.3 Absolute Lymphs (auto) 0.2 L Absolute Monos (auto) 0.7 Absolute Eos (auto) 0.0 Absolute Basos (auto) 0.0 Absolute Nucleated RBC 0.0 Nucleated RBC % 0.0 Sodium 133 L Potassium 4.6 Chloride 93 L Carbon Dioxide 34 H Anion Gap 6 BUN 56 H Creatinine 1.59 H Est GFR ( Amer) 53.0 Est GFR (Non-Af Amer) 43.8 BUN/Creatinine Ratio 35.2 H Glucose 247 H POC Glucose (mg/dL) 268 H Calcium 9.2 Magnesium 2.4 Fluid Source Fluid Total Protein Blood Type Antibody Screen Crossmatch 07/01/19 16:38 WBC RBC Hgb Hct MCV MCH MCHC RDW Plt Count MPV Neut % (Auto) Lymph % (Auto) [place] % (Auto) Eos % (Auto) Baso % (Auto) Absolute Neuts (auto) Absolute Lymphs (auto) Absolute Monos (auto) Absolute Eos (auto) Absolute Basos (auto) Absolute Nucleated RBC Nucleated RBC % Sodium Potassium Chloride Carbon Dioxide Anion Gap BUN Creatinine Est GFR ( Amer) Est GFR (Non-Af Amer) BUN/Creatinine Ratio Glucose POC Glucose (mg/dL) 182 H Calcium Magnesium Fluid Source Fluid Total Protein Blood Type Antibody Screen Crossmatch Nutrition: Consistent carb Impression: 64M admitted with dyspnea and b/l pleural effusions. Pleural effusions due to diastolic CHF Acute on chronic diastolic CHF YODIT, slight improvement in creatinine Acute on chronic anemia. Acute anemia likely due to bleeding in right chest, chronic anemia likely due to chronic illness A fib with RVR Hyperkalemia, improved DM type 2, glucose improving COPD HTN Plan: Neuro: Tylenol prn for pain or fever. Morphine or oxycodone prn for severe pain Delirium precautions. Avoid benzodiazepines if possible. CV: Continuing home amiodarone, metoprolol, and diltiazem CD. HR has improved after oral medications. Holding spironolactone due to hyperkalemia. Held losartan and torsemide due to hypotension and YODIT. Continue home fenofibrate, ASA 81. Resp: Right chest pigtail catheter to -20 suction. Improvement on CXR. Monitor output , plan to remove when output decreases. Will get CXR in morning. Continue tiotropium, dulera, albuterol prn Titrate FiO2 to keep O2 sat >90%. Uses 2-3L O2 at baseline GI: Consistent carb diet Bowel regimen ordered Renal: YODIT- Creatinine trending down. Will continue to trend. Continue patiromer powder. [place] for accurate I&Os and retention. ID: Leukocytosis resolved. Afebrile. Pleural fluid culture negative. Plan for ceftriaxone for total 3 days, last dose will be today. Heme: Hgb increased appropriately after 1u rbc. Hgb stable this morning. Holding Eliquis for now, plan to restart after tube is removed. DVT ppx: SCDs Endo: Lantus to 30 units qhs. Increase to lispro 15 units ACHS (from 12). Continue sliding scale lispro. Hyperglycemia improving. MSK: Activity with assistance. Wounds: None Code status: Full Dispo: ICU for tachycardia, metabolic and electrolyte derangements, monitoring respiratory status. Possible transfer to floor tomorrow Status: Guarded Critical Care Time: 30 min
[2019-07-01] MEDS: cefTRIAXone(*) 2 GM in NS 0.9% 100 ML* 100 ML IVPB SCH (17:45)
[2019-07-02] MEDS: Metoprolol Tartrate IV* 1 MG/ML 5 ML VIAL IV PRN ×2 (01:36→21:31)
[2019-07-02] MEDS: LORazepam INJ* 2 MG/ML 1 ML VIAL IV PUSH PRN (02:20)
[2019-07-02] MEDS ORDERED: Diltiazem IV push/loading dose 5 MG/ML 5 ML vial (25 mg) IV SLOW PU ONE (03:48)
[2019-07-02] MEDS ORDERED: Diltiazem IV BAG* D5W Premix 125 MG/125 ML BAG IV ONE (03:48)
--- NOTE | 2019-07-02 03:52 | PN ---
Progress Note - Progress Note Date of Service: 07/02/19 Note: Recurrent tachy arrhythmia - appears to be rapid afib. Same issues occured the night prior. Not responding to his PO regimen or prn Metoprolol Will start IV dig with bolus and drip Cardiology consult Check EKG and labs now including Mg.
[2019-07-02 05:25] LABS: Magnesium 2.2 mg/dL (1.9-2.7)
[2019-07-02] MEDS: Insulin GLARGINE(*) 1 UNITS UNIT SUBCUT SCH ×2 (06:39→17:05)
[2019-07-02 07:08] LABS: ABS Eosinophils 0.1 10^3/ul (0-0.6); ABS Lymphocytes 0.2 10^3/ul (1.0-4.8); ABS Monocytes 0.6 10^3/ul (0-0.8); Hematocrit 24 % (42-52); Hemoglobin 7.9 g/dL (14.0-18.0); Lymphocyte % 2.9 %; Mean Corpuscular HGB Conc 33 g/dL (31-36); Mean Corpuscular Hemoglobin 28 pg (27-31); Mean Corpuscular Volume 85 fL (80-94); Mean Platelet Volume 7.5 fL (7.4-10.4); Nucleated Red Blood Cells % 0.1; Platelet Count 342 10^3/uL (150-450); Red Blood Count 2.77 10^6 /uL (4.18-5.48); Red Cell Distribution Width 15 % (10-15); White Blood Count 6.8 10^3/uL (3.5-10.8)
[2019-07-02 07:18] LABS: BUN/Creatinine Ratio 37.6 (8-20); Calcium 9.2 mg/dL (8.6-10.3); EGFR African American 81.9 (>60); EGFR Non-African American 67.7 (>60); Potassium 4.7 mmol/L (3.5-5.0)
[2019-07-02] MEDS: SPIRIVA Respimat* (tiotropium) 2.5 mcg/inh Inhaler INH SCH (07:47)
[2019-07-02] MEDS: Mometasone/Formoter 200/5 MDI INH SCH ×2 (07:48→20:18)
[2019-07-02] MEDS: Insulin LISPRO* 1 UNITS UNIT SUBCUT SCH ×6 (08:45→17:06)
[2019-07-02] MEDS: Multivitamins/Minerals TAB PO SCH (08:46)
[2019-07-02] MEDS: Losartan TAB* 25 MG PO SCH (08:46)
[2019-07-02] MEDS: Aspirin EC TAB* 81 MG TAB.EC PO SCH (08:46)
[2019-07-02] MEDS: Atorvastatin* 40 MG TAB PO SCH (08:46)
[2019-07-02] MEDS: Amiodarone TAB* 200 MG PO SCH (08:47)
[2019-07-02] MEDS: Metoprolol Tartrate TAB* 100 MG TAB PO SCH ×2 (08:47→22:43)
[2019-07-02] MEDS: Torsemide TAB* 20 MG PO SCH (08:47)
[2019-07-02] MEDS: CMCS: Cyclosporine 0.05% OPHTH (NF) 0.4 ML VIAL BOTH EYES SCH ×2 (08:48→21:56)
[2019-07-02] MEDS: Nystatin TOP POWDER* 15 GM BTL TOPICAL SCH ×2 (10:40→21:56)
[2019-07-02] MEDS ORDERED: Diltiazem TAB* 60 MG ONE (11:54)
[2019-07-02] MEDS: Diltiazem TAB* 60 MG PO SCH ×2 (11:59→22:46)
--- NOTE | 2019-07-02 13:00 | PN ---
Date of Service: 07/02/19 Critical Care Services: Denies chest pain or abdominal pain. Eating his meals without problems. Feels his breathing is good, denies SOB. Afebrile. Diltiazem gtt started overnight due to a fib with RVR. HR is well-controlled this morning (<120 beats/min) on diltiazem 15mg /h. Pleur evac canister changed early this morning. There is about 140 ml over 7 hours. During my exam, I saw that the tube was disconnected from the Pleur evac tubing. Vital Signs: Temp Pulse Resp BP SpO2 FiO2 97.9 F 106 20 103/51 98 07/02/19 10:51 07/02/19 10:16 07/02/19 10:16 07/02/19 10:16 07/02/19 10:16 Physical Exam: Gen: NAD, sitting up in chair HEENT: Normocephalic and atraumatic. Pupils equal. Neck supple. Lungs: Diminished breath sounds at bases, but equal air entry bilateral. No accessory muscle use. Cardiac: Tachycardic. Irregular rhythm. Abdomen: Soft, obese, nontender. Extremities: Warm, minimal pedal edema. Neuro: Alert and oriented x3. Moves all extremities equally. Fluid Balance (Past 24 Hours): I= O= Net Intake & Output 06/30/19 07/01/19 07/02/19 07/03/19 06:59 06:59 06:59 06:59 Intake Total 8007 097 0212 Output Total 1000 4925 3865 1250 Balance 510 -4591 -2690 -1250 Weight 286 lb 8 oz Intake: IV Fluids 500 NS (0.9%) 500 IVPB 110 ABX - CEFTRIAXONE 110 Oral 900 1175 Packed Cells 334 Output: Chest Tube #1 1700 310 [place] 1000 3225 3555 1250 Other: Estimated Void Large Date of Last Bowel 06/29/19 06/30/19 Movement # Bowel Movements 1 1 Estimated Stool Amount Large Large Labs: Laboratory Results - last 24 hr 07/01/19 07/02/19 07/02/19 16:38 03:49 04:51 WBC 6.8 RBC 2.77 L Hgb 7.9 L Hct 24 L MCV 85 MCH 28 MCHC 33 RDW 15 Plt Count 342 MPV 7.5 Neut % (Auto) 87.3 Lymph % (Auto) 2.9 [place] % (Auto) 8.7 Eos % (Auto) 1.0 Baso % (Auto) 0.1 Absolute Neuts (auto) 6.0 Absolute Lymphs (auto) 0.2 L Absolute Monos (auto) 0.6 Absolute Eos (auto) 0.1 Absolute Basos (auto) 0.0 Absolute Nucleated RBC 0.0 Nucleated RBC % 0.1 Sodium 136 Potassium 4.7 Chloride 93 L Carbon Dioxide 35 H Anion Gap 8 BUN 41 H Creatinine 1.09 Est GFR ( Amer) 81.9 Est GFR (Non-Af Amer) 67.7 BUN/Creatinine Ratio 37.6 H Glucose 185 H POC Glucose (mg/dL) 182 H Calcium 9.2 Magnesium 2.2 Studies: CXR shows effusions b/l which appear slightly worse than yesterday. Nutrition: Consistent carb Impression: 64M admitted with dyspnea and b/l pleural effusions. Pleural effusions due to diastolic CHF Acute on chronic diastolic CHF YODIT, resolving Acute on chronic anemia. Acute anemia likely due to bleeding in right chest, chronic anemia likely due to chronic illness A fib with RVR Hyperkalemia, resolved DM type 2, glucose improving COPD HTN Plan: Neuro: Tylenol prn for pain or fever. Morphine or oxycodone prn for severe pain Delirium precautions. Avoid benzodiazepines if possible. CV: Will give diltiazem 60 mg now and tonight. Stop diltiazem gtt. Resume diltiazem CD cap 180 mg tomorrow morning. Contine home amiodarone, metoprolol. Blood pressure has been better today. Restart losartan, HCTZ, and torsemide. Holding spironolactone due to hyperkalemia. Continue home fenofibrate, ASA 81. Will restart Eliquis tonight for a fib. Resp: Right chest pigtail catheter to -20 suction. Monitor output, plan to remove when output decreases. Continue tiotropium, dulera, albuterol prn Titrate FiO2 to keep O2 sat >90%. Uses 2-3L O2 at baseline GI: Consistent carb diet Bowel regimen ordered Renal: Creatinine normal today. Appears to be diuresing on his own. Continue patiromer powder. D/c [place] today. ID: Leukocytosis resolved. Afebrile. Pleural fluid culture negative. Completed 3 days of ceftriaxone. Heme: Hgb has been stable since 1 u rbc transfusion. Will restart Eliquis. DVT ppx: Eliquis Endo: Lantus 30 units qhs. Lispro 15 units ACHS. Continue sliding scale lispro. Hyperglycemia improving. MSK: Activity with assistance. Wounds: None Code status: Full Dispo: ICU for tachycardia, likely transfer to floor later today or tomorrow Status: Stable Critical Care Time: 30 min
--- NOTE | 2019-07-02 15:23 | PN ---
Progress Note - Progress Note Date of Service: 07/02/19 Note: The chest tube has put out about 160 ml over 11 hours. The tube repeatedly becomes disconnected from the Pleurevac and is also frequently kinked. The tube was removed at the bedside. An occlusive dressing was placed over the site and secured with Tegederm. The patient tolerated it well. Will plan to leave the dressing for at least 48 hours and then the site can be covered with a bandaid if needed.
[2019-07-02] MEDS: Patiromer POWDER* 8.4 GM PAK PO SCH (17:05)
[2019-07-02] MEDS: Acetaminophen TAB* 325 MG PO PRN (21:39)
[2019-07-02] MEDS: Apixaban* 5 MG TAB PO SCH (21:39)
[2019-07-03] MEDS: Acetaminophen TAB* 325 MG PO PRN ×5 (02:10→21:22)
[2019-07-03] MEDS: Metoprolol Tartrate IV* 1 MG/ML 5 ML VIAL IV PRN ×2 (02:52→06:54)
[2019-07-03] MEDS: Insulin GLARGINE(*) 1 UNITS UNIT SUBCUT SCH ×2 (06:03→17:25)
[2019-07-03 07:06] LABS: ABS Eosinophils 0.1 10^3/ul (0-0.6); ABS Lymphocytes 0.1 10^3/ul (1.0-4.8); ABS Monocytes 0.6 10^3/ul (0-0.8); ABS Neutrophils 5.4 10^3/ul (1.5-7.7); Eosinophil % 1.4 %; Hematocrit 21 % (42-52); Hemoglobin 7.4 g/dL (14.0-18.0); Lymphocyte % 2.2 %; Mean Corpuscular HGB Conc 35 g/dL (31-36); Mean Corpuscular Hemoglobin 30 pg (27-31); Mean Corpuscular Volume 85 fL (80-94); Mean Platelet Volume 7.4 fL (7.4-10.4); Nucleated Red Blood Cells % 0.5; Platelet Count 305 10^3/uL (150-450); Red Blood Count 2.52 10^6 /uL (4.18-5.48); Red Cell Distribution Width 15 % (10-15); White Blood Count 6.2 10^3/uL (3.5-10.8)
[2019-07-03 07:15] LABS: BUN/Creatinine Ratio 33.6 (8-20); Calcium 8.6 mg/dL (8.6-10.3); EGFR African American 64.5 (>60); EGFR Non-African American 53.3 (>60); Potassium 4.4 mmol/L (3.5-5.0)
[2019-07-03] MEDS: SPIRIVA Respimat* (tiotropium) 2.5 mcg/inh Inhaler INH SCH (07:42)
[2019-07-03] MEDS: Mometasone/Formoter 200/5 MDI INH SCH ×2 (07:42→19:29)
[2019-07-03] MEDS: Torsemide TAB* 20 MG PO SCH (08:17)
[2019-07-03] MEDS: Amiodarone TAB* 200 MG PO SCH (08:18)
[2019-07-03] MEDS: Diltiazem CD CAP* 180 MG PO SCH (08:18)
[2019-07-03] MEDS: Multivitamins/Minerals TAB PO SCH (08:18)
[2019-07-03] MEDS: Atorvastatin* 40 MG TAB PO SCH (08:18)
[2019-07-03] MEDS: Metoprolol Tartrate TAB* 100 MG TAB PO SCH ×2 (08:19→21:22)
[2019-07-03] MEDS: Aspirin EC TAB* 81 MG TAB.EC PO SCH (08:20)
[2019-07-03] MEDS: Apixaban* 5 MG TAB PO SCH ×2 (08:20→21:22)
[2019-07-03] MEDS: Losartan TAB* 25 MG PO SCH (08:20)
[2019-07-03] MEDS: CMCS: Cyclosporine 0.05% OPHTH (NF) 0.4 ML VIAL BOTH EYES SCH ×2 (08:21→21:21)
[2019-07-03] MEDS: Nystatin TOP POWDER* 15 GM BTL TOPICAL SCH ×2 (08:23→21:20)
[2019-07-03] MEDS: Insulin LISPRO* 1 UNITS UNIT SUBCUT SCH ×6 (08:40→17:25)
[2019-07-03] MEDS: Patiromer POWDER* 8.4 GM PAK PO SCH (11:56)
--- NOTE | 2019-07-03 12:26 | PN ---
Subjective Date of Service: 07/03/19 Interval History: Pt was transferred out of ICU last night. Feels well, ate breakfast. appears mildly lethargic, SBP 85 during visit Family History: Unchanged from Admission Social History: Unchanged from Admission Past Medical History: Unchanged from Admission Objective Active Medications: Acetaminophen (Tylenol Tab*) 650 mg PO Q4H PRN PRN Reason: MILD PAIN or TEMP > 100.4 Last Admin: 07/03/19 08:42 Dose: 650 mg Al Hydrox/Mg Hydrox/Simethicone (Maalox Plus*) 30 ml PO Q6H PRN PRN Reason: INDIGESTION Albuterol (Ventolin Hfa Inhaler*) 2 puff INH Q2H PRN PRN Reason: SOB/WHEEZING Amiodarone HCl (Cordarone Tab*) 200 mg PO DAILY [facility] Last Admin: 07/03/19 08:18 Dose: 200 mg Apixaban (Eliquis*) 5 mg PO BID [facility] Last Admin: 07/03/19 08:20 Dose: 5 mg Aspirin (Aspirin Ec Tab*) 81 mg PO DAILY [facility] Last Admin: 07/03/19 08:20 Dose: 81 mg Atorvastatin Calcium (Lipitor*) 40 mg PO DAILY [facility] Last Admin: 07/03/19 08:18 Dose: 40 mg Bisacodyl (Dulcolax Supp*) 10 mg [place] DAILY PRN PRN Reason: CONSTIPATION Cyclosporine (Restasis 0.05% Oph) 1 drop BOTH EYES BID [facility]; Protocol Last Admin: 07/03/19 08:21 Dose: 1 drop Dextrose (D50w Syringe 50 Ml*) 12.5 gm IV PUSH .FOR FS < 60 - SS PRN PRN Reason: FS < 60 Diltiazem HCl (Cardizem Cd Cap*) 180 mg PO DAILY [facility] Last Admin: 07/03/19 08:18 Dose: 180 mg Docusate Sodium (Colace Cap*) 100 mg PO BID PRN PRN Reason: CONSTIPATION Fenofibrate (Tricor 160 Mg) 160 mg PO DAILY [facility]; Protocol Last Admin: 07/03/19 08:20 Dose: 160 mg Insulin Glargine (Lantus(*)) 30 units SUBCUT 0600,1800 [facility] Last Admin: 07/03/19 06:03 Dose: 30 units Insulin Human Lispro (Humalog*) 0 units SUBCUT AC [facility]; Protocol Last Admin: 04/10/20 08:40 Dose: 6 units Insulin Human Lispro (Humalog*) 15 units SUBCUT [facility] Last Admin: 07/03/19 08:41 Dose: 15 units Loperamide HCl (Imodium Cap*) 2 mg PO .SEE ORDER PRN PRN Reason: LOOSE STOOLS Last Admin: 06/27/19 09:37 Dose: 2 mg Lorazepam (Ativan Inj*) 1 mg IV PUSH Q6H PRN PRN Reason: ANXIETY Last Admin: 07/02/19 02:20 Dose: 1 mg Metoprolol Tartrate (Lopressor Tab*) 100 mg PO BID [facility] Last Admin: 07/03/19 08:19 Dose: 100 mg Metoprolol Tartrate (Lopressor Iv*) 5 mg IV Q4H PRN PRN Reason: HEART RATE/PULSE > 110 Last Admin: 07/03/19 06:54 Dose: 5 mg Miscellaneous (Ativan Pyxis Russo) 1 ea N/A .ATIVAN IV RUSSO PRN PRN Reason: PYXIS RUSSO Mometasone Furoate/Formoterol Fumar (Dulera 200/5 Mdi*) 2 puff INH BID [facility] Last Admin: 07/03/19 07:42 Dose: 2 puff Morphine Sulfate (Morphine Inj (Syringe))*) 2 mg IV Q8H PRN PRN Reason: PAIN - SEVERE Last Admin: 06/30/19 22:30 Dose: 2 mg Multivitamins/Minerals (Theragran/Minerals Tab*) 1 tab PO DAILY [facility] Last Admin: 07/03/19 08:18 Dose: 1 tab Nystatin (Nystatin Top Powder*) 1 applic TOPICAL BID [facility] Last Admin: 07/03/19 08:23 Dose: 1 applic Oxycodone HCl (Roxycodone Tab*) 5 mg PO Q4H PRN PRN Reason: PAIN - SEVERE Last Admin: 07/01/19 04:24 Dose: 5 mg Polyethylene Glycol/Electrolytes (Miralax (17 Gm Dose Sly)) 17 gm PO DAILY PRN PRN Reason: CONSTIPATION Senna (Senokot 8.6 Mg Tab*) 1 tab PO BID PRN PRN Reason: CONSTIPATION Last Admin: 06/23/19 21:57 Dose: 1 tab Tiotropium [place] (Spiriva Respimat 2.5 Mcg) 2 puff INH DAILY [facility] Last Admin: 07/03/19 07:42 Dose: 2 puff Torsemide (Demadex*) 40 mg PO DAILY [facility] Last Admin: 07/03/19 08:17 Dose: 40 mg Vital Signs - 8 hr 07/03/19 07/03/19 07/03/19 06:53 07:00 07:45 Pulse Rate 155 81 Respiratory 16 Rate Blood Pressure 108/55 (mmHg) O2 Sat by Pulse 95 Oximetry 07/03/19 07/03/19 07/03/19 08:00 08:27 09:48 Pulse Rate 109 Respiratory 16 Rate Blood Pressure 111/44 (mmHg) O2 Sat by Pulse 95 100 Oximetry Oxygen Devices in Use Now: Nasal Cannula Appearance: 64 yo M in nAD, aAOx3 Eyes: No Scleral Icterus, PERRLA Ears/Nose/Mouth/Throat: NL Teeth, Lips, Gums, Mucous Membranes Moist Neck: NL Appearance and Movements; NL JVP, Trachea Midline Respiratory: Symmetrical Chest Expansion and Respiratory Effort, - - decreased breath sounds at b/l bases. R s/p chest tube placement spot covered with tape, no bleeding noted Result Diagrams: 07/03/19 06:12 07/03/19 06:12 Microbiology and Other Data: . Assess/Plan/Problems-Billing Assessment: Mr. Ferrell is a 64 yo M with PMH of type 2 DM, Afib, CAD s/p CABG, HTN, HLD, COPD , pleural effusions, WILLIE on BIPAP, who presented to the hospital with complaints of progressively worsening SOB x 1 month found to have repeat bilateral pleural effusions. - Patient Problems (1) Pleural effusion Comment: - Pulmonary input appreciated-likely recurrent effusions due to diastolic CHF - IR guided chest tube placement for multiloculated effusion done 06/26/19, 400ml out after chest tube placed. Received tPA to chest tube 06/26 with 1000ml out, the pigtail catheter was clogged and discontinued 06/28/19, then pt needed hal transferred to ICU with recurrent pleurla effusion bleed into r chest cavity. Chest tube was re-inserted 06/29/19, d/c'd 07/02/19 - Has history of frequent pleural effusions requiring thoracentesis in the past suspected due to decompensated diastolic CHF. Concern for parapneumonic effusion, however no organisms seen in pleural fluid, no leukocytosis or fever. Off antibiotics. - COVID 19 is negative (2) YODIT (acute kidney injury) Comment: - Creatinine at bseline CKD stage 3 (3) Anemia Comment: - Acute on chronic anemia - Suspect anemia of chronic illness with an acute component from bleeding into R chest cavity 06/29/19, chest tube placed at this timne had initially bloody output , then serous. - FOBT is negative - s/p 1 u PRBC transfusion on 06/29/19 (4) Diabetes Comment: -controlled - cont Lantus to 30 units BID, continue Lispro SS. (5) Diastolic CHF, acute on chronic Comment: - Hx of recurrent pleural effusions suspected secondary to decompensated diastolic CHF - Continue torsemide - Daily weights and I/Os (6) Hyperkalemia Comment: -noted on 06/29/19-started on patiromer, will d/c today and monitor for recurrence -d/c losartan (7) Hypertension Comment: - BP is on the lower side the past 2 days -d/c Losartan - Continue metoprolol, torsemide, and cardizem (8) Atrial fibrillation Comment: - Rate is controlled - Continue metoprolol, cardizem, (as BP allows) and amiodarone. - Trans thoracic echo- EF 50-65%. no significant changes in comparison with 2018 - Continue Apixaban (9) COPD (chronic obstructive pulmonary disease) Comment: - No evidence of acute exacerbation - Continue supplemental O2 (10) DVT prophylaxis Comment: - Apixaban Status and Disposition: Inpatient.
[2019-07-03] MEDS ORDERED: NS 0.9% 250 ML* 250 ML IV ONE (12:35)
[2019-07-04] MEDS: Acetaminophen TAB* 325 MG PO PRN ×3 (03:00→20:56)
[2019-07-04] MEDS: Insulin GLARGINE(*) 1 UNITS UNIT SUBCUT SCH ×2 (06:03→19:06)
[2019-07-04] MEDS: Metoprolol Tartrate IV* 1 MG/ML 5 ML VIAL IV PRN (06:48)
[2019-07-04 06:58] LABS: ABS Eosinophils 0.1 10^3/ul (0-0.6); ABS Lymphocytes 0.2 10^3/ul (1.0-4.8); ABS Monocytes 0.5 10^3/ul (0-0.8); Eosinophil % 2.4 %; Hematocrit 22 % (42-52); Hemoglobin 7.5 g/dL (14.0-18.0); Lymphocyte % 2.8 %; Mean Corpuscular HGB Conc 34 g/dL (31-36); Mean Corpuscular Hemoglobin 29 pg (27-31); Mean Corpuscular Volume 85 fL (80-94); Mean Platelet Volume 7.1 fL (7.4-10.4); Nucleated Red Blood Cells % 0.1; Platelet Count 326 10^3/uL (150-450); Red Blood Count 2.61 10^6 /uL (4.18-5.48); Red Cell Distribution Width 15 % (10-15); White Blood Count 5.8 10^3/uL (3.5-10.8)
[2019-07-04 07:15] LABS: BUN/Creatinine Ratio 32.2 (8-20); Calcium 8.6 mg/dL (8.6-10.3); EGFR African American 72.6 (>60); Potassium 4.3 mmol/L (3.5-5.0)
[2019-07-04] MEDS: Multivitamins/Minerals TAB PO SCH (07:27)
[2019-07-04] MEDS: Atorvastatin* 40 MG TAB PO SCH (07:27)
[2019-07-04] MEDS: Diltiazem CD CAP* 180 MG PO SCH (07:27)
[2019-07-04] MEDS: Amiodarone TAB* 200 MG PO SCH (07:27)
[2019-07-04] MEDS: Aspirin EC TAB* 81 MG TAB.EC PO SCH (07:27)
[2019-07-04] MEDS: Torsemide TAB* 20 MG PO SCH (07:27)
[2019-07-04] MEDS: Apixaban* 5 MG TAB PO SCH ×2 (07:28→20:56)
[2019-07-04] MEDS: Nystatin TOP POWDER* 15 GM BTL TOPICAL SCH ×2 (07:28→20:56)
[2019-07-04] MEDS: Metoprolol Tartrate TAB* 100 MG TAB PO SCH ×2 (07:28→20:56)
[2019-07-04] MEDS: Mometasone/Formoter 200/5 MDI INH SCH ×2 (07:38→20:35)
[2019-07-04] MEDS: SPIRIVA Respimat* (tiotropium) 2.5 mcg/inh Inhaler INH SCH (07:40)
[2019-07-04] MEDS: CMCS: Cyclosporine 0.05% OPHTH (NF) 0.4 ML VIAL BOTH EYES SCH ×2 (07:49→20:56)
[2019-07-04] MEDS: Insulin LISPRO* 1 UNITS UNIT SUBCUT SCH ×6 (08:58→19:06)
--- NOTE | 2019-07-04 09:44 | PN ---
Subjective Date of Service: 07/04/19 Interval History: 64 year old man with CAD, CAB, MAZE, DM admitted with tachycardia and dyspnea, left pleural effusion treated with chest tube which is now out, HR 150's overnight, more short of breath this morning, no chest pain. His appetite is fair, no abd pain, BG less than 300 which is good for him he thinks. No fever or rash. More short of breath this morning, no chest pain or lightheadedness. Family History: Unchanged from Admission Social History: Unchanged from Admission Past Medical History: Unchanged from Admission Objective Active Medications: Acetaminophen (Tylenol Tab*) 650 mg PO Q4H PRN PRN Reason: MILD PAIN or TEMP > 100.4 Last Admin: 07/04/19 07:47 Dose: 650 mg Al Hydrox/Mg Hydrox/Simethicone (Maalox Plus*) 30 ml PO Q6H PRN PRN Reason: INDIGESTION Albuterol (Ventolin Hfa Inhaler*) 2 puff INH Q2H PRN PRN Reason: SOB/WHEEZING Amiodarone HCl (Cordarone Tab*) 200 mg PO DAILY [facility] Last Admin: 07/04/19 07:27 Dose: 200 mg Apixaban (Eliquis*) 5 mg PO BID [facility] Last Admin: 07/04/19 07:28 Dose: 5 mg Aspirin (Aspirin Ec Tab*) 81 mg PO DAILY [facility] Last Admin: 07/04/19 07:27 Dose: 81 mg Atorvastatin Calcium (Lipitor*) 40 mg PO DAILY [facility] Last Admin: 07/04/19 07:27 Dose: 40 mg Bisacodyl (Dulcolax Supp*) 10 mg [place] DAILY PRN PRN Reason: CONSTIPATION Cyclosporine (Restasis 0.05% [facility]) 1 drop BOTH EYES BID [facility]; Protocol Last Admin: 07/04/19 07:49 Dose: 1 drop Dextrose (D50w Syringe 50 Ml*) 12.5 gm IV PUSH .FOR FS < 60 - SS PRN PRN Reason: FS < 60 Diltiazem HCl (Cardizem Cd Cap*) 180 mg PO DAILY [facility] Last Admin: 07/04/19 07:27 Dose: 180 mg Docusate Sodium (Colace Cap*) 100 mg PO BID PRN PRN Reason: CONSTIPATION Fenofibrate (Tricor 160 Mg) 160 mg PO DAILY [facility]; Protocol Last Admin: 07/04/19 07:28 Dose: 160 mg Insulin Glargine (Lantus(*)) 30 units SUBCUT 0600,1800 [facility] Last Admin: 07/04/19 06:03 Dose: 30 units Insulin Human Lispro (Humalog*) 0 units SUBCUT [facility]; Protocol Last Admin: 07/04/19 08:58 Dose: 3 units Insulin Human Lispro (Humalog*) 15 units SUBCUT [facility] Last Admin: 07/04/19 08:59 Dose: 15 units Loperamide HCl (Imodium Cap*) 2 mg PO .SEE ORDER PRN PRN Reason: LOOSE STOOLS Last Admin: 06/27/19 09:37 Dose: 2 mg Lorazepam (Ativan Inj*) 1 mg IV PUSH Q6H PRN PRN Reason: ANXIETY Last Admin: 07/02/19 02:20 Dose: 1 mg Metoprolol Tartrate (Lopressor Tab*) 100 mg PO BID [facility] Last Admin: 07/04/19 07:28 Dose: 100 mg Metoprolol Tartrate (Lopressor Iv*) 5 mg IV Q4H PRN PRN Reason: HEART RATE/PULSE > 110 Last Admin: 07/03/19 06:54 Dose: 5 mg Miscellaneous (Ativan Pyxis Russo) 1 ea N/A .ATIVAN IV RUSSO PRN PRN Reason: PYXIS RUSSO Mometasone Furoate/Formoterol Fumar (Dulera 200/5 Mdi*) 2 puff INH BID [facility] Last Admin: 07/04/19 07:38 Dose: 2 puff Morphine Sulfate (Morphine Inj (Syringe))*) 2 mg IV Q8H PRN PRN Reason: PAIN - SEVERE Last Admin: 06/30/19 22:30 Dose: 2 mg Multivitamins/Minerals (Theragran/Minerals Tab*) 1 tab PO DAILY [facility] Last Admin: 07/04/19 07:27 Dose: 1 tab Nystatin (Nystatin Top Powder*) 1 applic TOPICAL BID [facility] Last Admin: 07/04/19 07:28 Dose: 1 applic Oxycodone HCl (Roxycodone Tab*) 5 mg PO Q4H PRN PRN Reason: PAIN - SEVERE Last Admin: 07/01/19 04:24 Dose: 5 mg Polyethylene Glycol/Electrolytes (Miralax (17 Gm Dose Sly)) 17 gm PO DAILY PRN PRN Reason: CONSTIPATION Senna (Senokot 8.6 Mg Tab*) 1 tab PO BID PRN PRN Reason: CONSTIPATION Last Admin: 06/23/19 21:57 Dose: 1 tab Tiotropium [place] (Spiriva Respimat 2.5 Mcg) 2 puff INH DAILY [facility] Last Admin: 07/04/19 07:40 Dose: 2 puff Torsemide (Demadex*) 40 mg PO DAILY [facility] Last Admin: 07/04/19 07:27 Dose: 40 mg Vital Signs - 8 hr 07/04/19 07/04/19 07/04/19 03:27 06:49 07:15 Temperature 36.4 C 36.1 C Pulse Rate 110 139 150 Respiratory 19 20 Rate Blood Pressure 107/42 106/56 110/60 (mmHg) O2 Sat by Pulse 100 98 98 Oximetry 07/04/19 07/04/19 08:00 08:23 Temperature Pulse Rate Respiratory 16 20 Rate Blood Pressure (mmHg) O2 Sat by Pulse 98 Oximetry Oxygen Devices in Use Now: Nasal Cannula Appearance: no distress Eyes: No Scleral Icterus, PERRLA Ears/Nose/Mouth/Throat: Clear Oropharnyx Neck: NL Appearance and Movements; NL JVP, Trachea Midline Respiratory: Symmetrical Chest Expansion and Respiratory Effort, - - decreased BS at bases Cardiovascular: NL Sounds; No Murmurs; No JVD, No Edema, - - tachycardic Abdominal: NL Sounds; No Tenderness; No Distention, No Hepatosplenomegaly Lymphatic: No Cervical Adenopathy Extremities: No Edema Skin: No Rash or Ulcers, - - sacral erythema Neurological: Alert and Oriented x 3, NL Gait Result Diagrams: 07/04/19 06:42 07/04/19 06:42 Microbiology and Other Data: . Assess/Plan/Problems-Billing Assessment: Mr. Ferrell is a 64 yo M with PMH of type 2 DM, Afib, CAD s/p CABG, HTN, HLD, COPD , pleural effusions, WILLIE on BIPAP, who presented to the hospital with complaints of progressively worsening SOB x 1 month found to have repeat bilateral pleural effusions. - Patient Problems (1) Dyspnea Current Visit: Yes Status: Acute Onset Date: ~06/24/19 Code(s): R06.00 - DYSPNEA, UNSPECIFIED SNOMED Code(s): 358685079 Comment: Diff dx is pleural effusion , HFpEF, PE study was negative, COPD though no wheeze on exam (2) Tachycardia Current Visit: Yes Status: Acute Code(s): R00.0 - TACHYCARDIA, UNSPECIFIED SNOMED Code(s): 3964992 (3) Diastolic CHF, acute on chronic Current Visit: Yes Status: Acute Code(s): I50.33 - ACUTE ON CHRONIC DIASTOLIC (CONGESTIVE) HEART FAILURE SNOMED Code(s): 471783067 Comment: - Hx of recurrent pleural effusions suspected secondary to decompensated diastolic CHF - Continue torsemide, follow HCO3 - Daily weights and I/Os -Appreciate cardiology consult ?rhythm and rate control (4) Diabetes Current Visit: Yes Status: Acute Code(s): E11.9 - TYPE 2 DIABETES MELLITUS WITHOUT COMPLICATIONS SNOMED Code(s): 39002075 Comment: -controlled - cont Lantus to 30 units BID, continue Lispro SS. (5) Hypertension Current Visit: Yes Status: Acute Code(s): I10 - ESSENTIAL (PRIMARY) HYPERTENSION SNOMED Code(s): 33300898 Comment: - BP is on the lower side the past 2 days -d/c Losartan - Continue metoprolol, torsemide, and cardizem (6) WILLIE (obstructive sleep apnea) Current Visit: Yes Status: Acute Code(s): G47.33 - OBSTRUCTIVE SLEEP APNEA ( ADULT) (PEDIATRIC) SNOMED Code(s): 53988766 Comment: Hospital or home CPAP (7) Atrial fibrillation Current Visit: Yes Status: Chronic Code(s): I48.91 - UNSPECIFIED ATRIAL FIBRILLATION SNOMED Code(s): 24508129 Comment: - Tachycardic - Cardiology consultation - Continue metoprolol, cardizem, (as BP allows) and amiodarone. - Trans thoracic echo- EF 50-65%. no significant changes in comparison with 2018 - Continue Apixaban (8) CKD (chronic kidney disease) Current Visit: No Status: Chronic Code(s): N18.9 - CHRONIC KIDNEY DISEASE, UNSPECIFIED SNOMED Code(s): 512484391 Comment: Stable. BMP 07/27. (9) Coronary artery disease Current Visit: No Status: Chronic Code(s): I25.10 - ATHSCL HEART DISEASE OF [place] CORONARY ARTERY W/O ANG PCTRS SNOMED Code(s): 24620978 Comment: - Stable - Continue aspirin, carvedilol, losartan, HCTZ, fenofibrate, and atorvastatin (10) DVT prophylaxis Current Visit: Yes Status: Acute Code(s): LMQ3973 - SNOMED Code(s): 121222616 Comment: - Apixaban Status and Disposition: Inpatient. Counseling and/or Coordination of Care Minutes: 35 minutes floor time >50% face to face in certified substance abuse counselor Points of Discussion: cardiology consultation, ongoing evaluation of dyspnea and tachycardia
[2019-07-04 09:59] LABS: Troponin I 0.01 ng/mL (<0.03)
[2019-07-04 11:38] LABS: HDL Cholesterol 26.8 mg/dL
[2019-07-04] MEDS ORDERED: Amiodarone IV VIAL** 50 MG/ML 3 ML (150 MG) VIAL IV PUSH ONE (13:19)
[2019-07-04] MEDS ORDERED: Amiodarone 150 MG IVPREMIX* 150 MG/100 ML BAG IV ONE (13:29)
--- NOTE | 2019-07-04 14:05 | CARD ---
CC: Hospitalist Service; Dr. Nam CARDIOVERSION REPORT: DATE OF PROCEDURE: 07/04/19 PROCEDURE: Electrical cardioversion. PREPROCEDURE DIAGNOSIS: Atrial flutter. POSTPROCEDURE DIAGNOSIS: Atrial flutter. The indications, risks, and benefits of the procedure were discussed with the patient. Confirmed herbert t he had been taking his blood thinners at home. He has been back on amiodarone since admission. We discussed the patient's sleep apnea with him and conscious sedation and he is amenable to proceeding . DESCRIPTION OF PROCEDURE: AP patches were applied to the chest wall. Following this, a time-out pro cedure was called. Following this, 150 joules was applied across his chest wall with successful card ioversion to sinus rhythm. He then transiently went in either to flutter or SVT and then spontaneous ly cardioverted to sinus rhythm. The patient received a total of 2 mg of Versed and 25 mcg of fentanyl throughout the procedure. DIAGNOSTIC STUDIES/LAB DATA: A 12-lead ECG shows normal sinus rhythm at 87 beats a minute with atria l trigeminy, a right bundle branch block, left anterior fascicular block and normal STs. Corrected Q T interval 451 msec. CONCLUSION: Successful cardioversion. The patient was hemodynamically stable throughout the procedu re. There were no complications. The patient is in Recovery and continues to be hemodynamically sta ble during monitoring. [id number]/[id number] #: [id number]
--- NOTE | 2019-07-04 14:37 | CONS ---
CC: Hospitalist Service; LISA Arredondo, JONO Oakes CARDIOLOGY CONSULTATION: DATE OF CONSULT: 07/04/19 PRIMARY CARE PHYSICIAN: LISA Arredondo, JONO Oakes. CHIEF COMPLAINT: Tachycardia. REASON FOR CONSULTATION: Volume overload, concern for congestive heart failure , and history of coronary artery disease. HISTORY OF PRESENT ILLNESS: Mr. Ferrell is a 64-year-old gentleman, followed by Dr. Enio Nam with a past cardiac history of coronary artery disease with bypass and paroxysmal AFib, status post ablation, and history of diastolic heart failure. The patient states that when he presented to the hospital, it was because his heart rate had increased, and on looking at the ER notes, 06/23/19, the day of admission, I do not see a history from the ED physician; however, his EKG notes sinus tachycardia. The admission note, 06/23/19, states he presented because of increased shortness of breath with exertion (today, the patient does not recall this), and this had been progressive over a week in addition to generalized fatigue and weakness for several weeks. Currently, the patient says that he feels okay. He is vague about how he feels. He denies orthopnea, PND, chest pain, pressure, or heaviness. He says he is able to ambulate a bit in the room but not at his usual level. The patient says at home he was using oxygen nasal cannula 24x7, was not using a CPAP although he stated he should have been, but he did not perceive it was helping. The patient was not really able to tell me if he feels improved compared with admission now. Hospital course: 1. The patient had a syncopal episode on the toilet, cannot find correlating rhythm strips. 2. Pleural effusions noted, status post thoracentesis. PAST MEDICAL HISTORY: The patient has past medical history of: 1. Coronary artery disease (bypass surgery in July 2015 with surgical Maze and clipping of the left atrial appendage). 2. Paroxysmal atrial fibrillation, on amiodarone until December 2018, status post AFib ablation Dr. Dean, August 2017. 3. Recurrent episodes of diastolic heart failure and fluid overload. 4. COPD with no history of smoking, oxygen dependent 2 L nasal cannula. 5. Obstructive sleep apnea. 6. Hypertension. 7 Type 2 diabetes. 8. Dyslipidemia. 9. Scoliosis. 10. Recurrent pleural effusions. 11. History of epiglottitis. 12. Morbid obesity. 13. vitamin D deficiency in the past. 14. A 2 cm right middle lobe lung mass. 15. CKD 16. Anemia, slowly progressive PAST SURGICAL HISTORY: Appendectomy, uvulectomy, CABG. MEDICATIONS: Outpatient medications document: 1. Amiodarone 200 mg daily (per Dr. Nam's note document discontinuation in December 2018). 2. Diltiazem 180 mg a day. 3. Metoprolol 100 mg b.i.d. 4. Torsemide 20 mg a day. 5. Spironolactone 25 mg b.i.d. 6. Metformin 500 mg b.i.d. 7. Fenofibrate 160 mg a day. 8. Insulin. 9. Breo-Ellipta. 10. Incruse Ellipta. 11. Vitamin D. 12. Nystatin powder. 13. Multi-Zuly. 14. Losartan/hydrochlorothiazide 100 mg/25 mg a day. 15. Restasis drops. 16. Calcium, magnesium, vitamin D. 17. Lipitor 40 mg a day. 18. Aspirin 81 mg a day. Current inpatient medications include: 1. Tylenol p.r.n. 2. Maalox p.r.n. 3. Ventolin inhaler 2 puffs q.12 hours p.r.n. 4. Cordarone 20 mg a day. 5. Eliquis 5 mg b.i.d. 6. Aspirin 81 mg a day. 7. Lipitor 40 mg a day. 8. Dulcolax p.r.n. 9. Restasis drops b.i.d. 10. D5W p.r.n. 11. Cardizem CD 180 mg a day. 12. Colace. 13. TriCor 160 mg a day. 14. Lantus insulin. 15. Humalog insulin. 16. Imodium p.r.n. 17. Ativan p.r.n. 18. Lopressor 100 mg b.i.d. 19. Dulera 2 puffs b.i.d. 20. Morphine sulfate p.r.n. severe pain. 21. Multi-Zuly with minerals. 22. Nystatin powder. 23. Roxicodone p.r.n. severe pain. 24. PEG p.r.n. 25. Senna p.r.n. 26. Spiriva 2 puffs daily. 27. Demadex 40 mg a day. ALLERGIES: Intolerant of NSAIDS, history of syncope; CONTRAST DYE leads to back pain. FAMILY HISTORY: Positive for early atherosclerotic heart disease with his father having a heart attack at 49, history of bypass and at 62. 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 He denies ever smoking. No history of recreational drug use. Currently, living with his mother who comes to his appointments regularly. REVIEW OF SYSTEMS: Positive for chronic shortness of breath and use of nasal cannula. Negative for recent viral symptoms such as fever, chills, sweats, change in bowel or bladder habits. He denies any coughing. As per history of present illness, significant for rapid heart beat, decrease in exercise ability , and shortness of breath he mentioned on admission. Currently, negative for fever, chills, sweats, poor appetite, diarrhea, constipation, and he is sleeping okay in the hospital. He denies any chest pain syndromes and denies any anginal equivalence. PHYSICAL EXAM: On exam, he is 5 feet 9 inches, weighs 280 pounds with a BMI of 41. On admission, on 06/23/19, he was afebrile, heart rate 120, oxygen saturation 91% on 3 L nasal cannula, and blood pressure 155/77. Currently, blood pressure is 110/60, pulse is 150, respiratory rate 20, oxygen saturation 98% on 3 L nasal cannula, temperature 97. General Appearance: A morbidly obese 64-year-old male, appearing older than his stated age in a hospital Charity Chair at about 45 degrees, appearing chronically ill but comfortable with his nasal cannula on. Psychologically, pleasant and cooperative. Neurologically, awake, alert, and oriented to person, place, and time. Grossly normal sensory and motor function in the upper and lower extremities. Gait not checked. Skin : Pale consistent with lack of sun exposure, but conjunctivae pale as well. No evidence of cyanosis of the lips or nail beds. HEENT: Mucous membranes moist. Neck: Thick from obesity without appreciable increased JVP. Breath sounds diminished in the bases. No wheezing, rales, or rhonchi. No coughing. Coronary: Distant from obesity, S1 and S2, irregularly irregular, no murmurs. Abdomen: Round from obesity but soft, active bowel sounds and nontender. Lower extremities show trace edema and warmth with palpable 1 to 2+ dorsalis pedal pulses. DIAGNOSTIC STUDIES/LAB DATA: Findings: A 12-lead EKG on admission, 06/23/19, shows consistent with sinus tachycardia, 115 beats a minute, a right bundle- branch block, and left anterior fascicular block. ST segments unremarkable. Another EKG from 06/23/[address] depression in V2 only, but in sinus tachycardia. EKG from 06/28/19 shows sinus tachycardia at 107 beats a minute with a right bundle- branch block and left anterior fascicular block. EKG on 06/29/19, sinus tachycardia, right bundle-branch block. EKG on 07/02/19, consistent with atrial fibrillation, ventricular rate of 121 beats a minute. EKG on 07/04/19, it shows AFib, ventricular rate 111 beats a minute. Occasional P- wave activity seen and this looks like in fact flutter with variable block with atrial rate of [address] of the chest and thorax on admission, 06/23/19, was negative for pulmonary embolus, study limited due to body habitus and bilateral pleural effusions moderate size, and marked atelectasis, also vascular congestion. Echocardiogram this admission, 06/24/19, showed moderate hypertrophy at the base , vigorous systolic function with an ejection fraction of 65%, and pseudonormal diastolic filling. Normal right ventricular systolic function, mitral annular calcification with good mitral valve function, aortic valve sclerosis, unable to estimate PA pressure due to image quality, left pleural effusion. Chest ultrasound done, 06/26/19, shows moderate multi-loculated right pleural effusion. Recent chest x-ray, 07/03/19, shows removal of right chest tube in the interval since the last chest x-ray. Moderate right pleural effusion, stable without atelectasis. Small left pleural effusion. No pneumothorax. Ill -defined pulmonary vasculature. Probable pulmonary edema with interval improvement. Bladder ultrasound, no hydronephrosis or calculi. PET scan tumor imaging 08/13/17 to evaluate 1.9 cm right middle lobe mass and congestive heart failure. Extensive bilateral pulmonary parenchymal changes with consolidation, pleural effusions, diffuse pulmonic abnormalities which could be infectious or inflammatory, not possible to investigate nodular right middle lobe focus. Two surgical specimens on 01/23/08 from biopsy of the right middle lobe, but past report not located. Labs: White count 5.8, hematocrit 22, platelets 326. Sodium 137, potassium 4.3, chloride 95, bicarb 39, BUN 39, creatinine 1.2, glucose 147. Hemoglobin A1c on 06/24/19 is 7.8. Magnesium on 07/04/19 is 2.0. LFTs 06/23/19; AST 11, ALT 15. Troponin today, 07/04/19, is 0.01. CRP 02/11/19 is 6.55. BNP 07/04/19 is 100 and on admission 06/23/19 was 60. Most recent lipids in this chart show total cholesterol 141, triglycerides 265, LDL cholesterol 63, HDL cholesterol 25. TSH from 01/01/18 is 6.67. Serology this admission was COVID negative. Urinalysis 06/29/19 showed pH of 1.008, 2+ blood, negative nitrite, 1+ white cells, creatinine clearance 84 mL per minute, protein negative, and leukocyte esterase negative. In August 2018, total protein 7.5, albumin 3.8. ASSESSMENT AND PLAN: In summary, Mr. Ferrell is a 64-year-old gentleman admitted with increasing shortness of breath, tachycardic with worsening chronic anemia, moderate pleural effusions, atelectasis, and congestive heart failure by chest x -ray. For the patient's fluid status, potential contributions would be diastolic congestive heart failure, chronic renal insufficiency, and for the pleural effusion, a primary pulmonary process or underlying systemic issue that has not been identified. For diastolic heart failure, the increase with the anemia which could be a high - output failure, we should update thyroids to update his thyroid status as this can lead to a high-output state as well. He currently appears to be in atrial flutter with a rapid ventricular rate, although I do feel even on re- review of his admission ECG's that he was in sinus tachycardia on admission, but scientology of sinus rhythm may also help minimize the risk of diastolic congestive heart failure. The patient was on metformin in the past and this can lead to increased congestive heart failure and I agree with holding this and not resuming it. I would consider replacing metformin with an SGLT2 inhibitor if we are able to do this as an inpatient and felt safe with his current renal function to improve diuresis and morbidity and mortality in this diabetic patient with a history of congestive heart failure and coronary artery disease. Elements that do not support significant diastolic failure include the normal BNP, although this can be normal in obese people and normal liver function studies. Regarding the patient's coronary artery disease, his EKG is showing normal ST segments and normal troponins are reassuring. He has not had lipids updated recently, so I will update a lipid panel. If triglycerides remain elevated, we could consider adding the Vascepa in outpatient in addition to dietary modifications and improvements. Blood pressure is currently controlled. He has never been a smoker. Regarding his paroxysmal atrial fibrillation, he is on Eliquis for stroke prevention with high CHADS-VASc score of at least 5. Based on congestive heart failure, hypertension, age greater than 65, diabetes, CAD. I also recommend we resume his CPAP. He said it has not helped but when I explained it may help keep him in normal rhythm, improve his CHF and he was then amenable. We will continue him on amiodarone for now (resumed on admission). I recommended electrical cardioversion and I have been unable to secure that today, but will try to do it when we are able to get nursing team for conscious sedation. We should get a diffusion capacity as he has been on and off amiodarone and this has been ordered. Regarding his renal insufficiency, his JAVIER inhibitor has been held, but long- term we may want to reconsider starting an JAVIER or ARB or based on home blood pressures, Entresto may even be helpful with his chronic diastolic congestive heart failure, and we may want to consider resuming this but would coordinate with the hospitalist. This could still confer renal protection and some benefits with diastolic heart failure. For the patient's mixed dyslipidemia, I am wondering if he would fare better off fenofibrate, which can in some cases worsen renal failure and increase chance of rhabdomyolysis and replace with Vascepa, prescription fish oil with significant benefits. For the patient's shortness of breath, there could be a significant pulmonary component. I am not sure why he has chronic obstructive pulmonary disease without a smoking history, possible exposures, I did review Dr Stephenson's note. For pulmonary process, it looks like extensive workup has been done, but untreated chronic obstructive pulmonary disease, restrictive lung findings, and chronic obstructive pulmonary disease could be contributing significantly to his respiratory decompensation as well. -[facility] if he has not had a V/Q scan looking for chronic thromboembolic pulmonary hypertension, we could consider this as with his morbid obesity he would be at high risk for pulmonary embolism that could have been asymptomatic and chronic pulmonary changes. To summarize: - I think electrical cardioversion out of atrial flutter could help long-term. Post COVID, we can look into flutter ablation. - Update thyroid, ESR, CRP. -Consider V/Q scan to screen for CTEPH (chronic thromboembolic pulmonary hypertension) - Consider starting an SGLT2 inhibitor could help with diastolic congestive heart failure. - If able identifying pathophysiology of his anemia, treating could lessen the chance of high-output congestive heart failure. Updating and adjustment of medications for mixed dyslipidemia may benefit the patient. Additional recommendations will be made pending his clinical course and response to the above measures. [id number]/[facility] #: [id number] EMIL
[2019-07-04 15:18] LABS: C Reactive Protein 31.36 mg/L (<8.01)
[2019-07-04 15:56] LABS: Free T3 3.9 pg/mL (2.5-3.9)
[2019-07-04] MEDS: Morphine INJ* 2 MG/ML 1 ML SYRINGE (TWO MG - NEW SYRINGE VERSION) IV PRN (23:23)
[2019-07-05] MEDS ORDERED: Simethicone TAB* 80 MG TAB.CHEW PO ONE (01:30)
[2019-07-05] MEDS: Acetaminophen TAB* 325 MG PO PRN (02:26)
[2019-07-05] MEDS: oxyCODONE TAB* 5 MG TAB PO PRN ×3 (05:10→20:58)
[2019-07-05] MEDS: Insulin GLARGINE(*) 1 UNITS UNIT SUBCUT SCH ×2 (05:58→18:37)
[2019-07-05 06:47] LABS: Hematocrit 21 % (42-52); Hemoglobin 7.1 g/dL (14.0-18.0); Mean Corpuscular HGB Conc 34 g/dL (31-36); Mean Corpuscular Hemoglobin 28 pg (27-31); Mean Corpuscular Volume 84 fL (80-94); Mean Platelet Volume 6.9 fL (7.4-10.4); Platelet Count 335 10^3/uL (150-450); Red Blood Count 2.52 10^6 /uL (4.18-5.48); Red Cell Distribution Width 16 % (10-15); White Blood Count 5.7 10^3/uL (3.5-10.8)
[2019-07-05 07:04] LABS: BUN/Creatinine Ratio 31.8 (8-20); Calcium 8.4 mg/dL (8.6-10.3); EGFR African American 83.7 (>60); EGFR Non-African American 69.1 (>60); Globulin 2.9 g/dL (2-4); Potassium 4.2 mmol/L (3.5-5.0); Total Bilirubin 0.4 mg/dL (0.2-1.0); Total Protein 5.9 g/dL (6.4-8.9)
[2019-07-05] MEDS: Mometasone/Formoter 200/5 MDI INH SCH ×2 (07:10→19:42)
[2019-07-05] MEDS: SPIRIVA Respimat* (tiotropium) 2.5 mcg/inh Inhaler INH SCH (07:10)
[2019-07-05 08:59] LABS: Free T4 2.06 ng/dL (0.61-1.12)
[2019-07-05] MEDS: CMCS: Cyclosporine 0.05% OPHTH (NF) 0.4 ML VIAL BOTH EYES SCH ×2 (09:37→20:59)
[2019-07-05] MEDS: Diltiazem CD CAP* 180 MG PO SCH (09:37)
[2019-07-05] MEDS: Torsemide TAB* 20 MG PO SCH (09:37)
[2019-07-05] MEDS: Aspirin EC TAB* 81 MG TAB.EC PO SCH (09:38)
[2019-07-05] MEDS: Apixaban* 5 MG TAB PO SCH (09:38)
[2019-07-05] MEDS: Multivitamins/Minerals TAB PO SCH (09:38)
[2019-07-05] MEDS: Atorvastatin* 40 MG TAB PO SCH (09:38)
[2019-07-05] MEDS: Metoprolol Tartrate TAB* 100 MG TAB PO SCH ×2 (09:39→20:58)
[2019-07-05] MEDS: Amiodarone TAB* 200 MG PO SCH (09:39)
[2019-07-05] MEDS: Insulin LISPRO* 1 UNITS UNIT SUBCUT SCH ×6 (09:39→18:37)
[2019-07-05] MEDS: Nystatin TOP POWDER* 15 GM BTL TOPICAL SCH ×2 (10:06→21:11)
--- NOTE | 2019-07-05 10:18 | PN ---
Subjective Date of Service: 07/05/19 Interval History: 64 year old man with CHF, COPD, untreated WILLIE and pleural effusion treated with chest tube. Cardioverted 07/03. Has ongoing shortness of breath, worse than yesterday. No cough or wheezing. No chest pain. HR 100-110s. Pain on bottom. No fever or rash. Family History: Unchanged from Admission Social History: Unchanged from Admission Past Medical History: Unchanged from Admission Objective Active Medications: Acetaminophen (Tylenol Tab*) 650 mg PO Q4H PRN PRN Reason: MILD PAIN or TEMP > 100.4 Last Admin: 07/05/19 02:26 Dose: 650 mg Al Hydrox/Mg Hydrox/Simethicone (Maalox Plus*) 30 ml PO Q6H PRN PRN Reason: INDIGESTION Albuterol (Ventolin Hfa Inhaler*) 2 puff INH Q2H PRN PRN Reason: SOB/WHEEZING Amiodarone HCl (Cordarone Tab*) 200 mg PO DAILY [facility] Last Admin: 07/05/19 09:39 Dose: 200 mg Apixaban (Eliquis*) 5 mg PO BID [facility] Last Admin: 07/05/19 09:38 Dose: 5 mg Aspirin (Aspirin Ec Tab*) 81 mg PO DAILY [facility] Last Admin: 07/05/19 09:38 Dose: 81 mg Atorvastatin Calcium (Lipitor*) 40 mg PO DAILY [facility] Last Admin: 07/05/19 09:38 Dose: 40 mg Bisacodyl (Dulcolax Supp*) 10 mg TX DAILY PRN PRN Reason: CONSTIPATION Cyclosporine (Restasis 0.05% [facility]) 1 drop BOTH EYES BID [facility]; Protocol Last Admin: 07/05/19 09:37 Dose: 1 drop Dextrose (D50w Syringe 50 Ml*) 12.5 gm IV PUSH .FOR FS < 60 - SS PRN PRN Reason: FS < 60 Diltiazem HCl (Cardizem Cd Cap*) 180 mg PO DAILY [facility] Last Admin: 07/05/19 09:37 Dose: 180 mg Docusate Sodium (Colace Cap*) 100 mg PO BID PRN PRN Reason: CONSTIPATION Fenofibrate (Tricor 160 Mg) 160 mg PO DAILY [facility]; Protocol Last Admin: 07/05/19 09:37 Dose: 160 mg Insulin Glargine (Lantus(*)) 30 units SUBCUT 0600,1800 [facility] Last Admin: 07/05/19 05:58 Dose: 30 units Insulin Human Lispro (Humalog*) 0 units SUBCUT [facility]; Protocol Last Admin: 07/05/19 09:40 Dose: Not Given Insulin Human Lispro (Humalog*) 15 units SUBCUT [facility] Last Admin: 07/05/19 09:39 Dose: 15 units Loperamide HCl (Imodium Cap*) 2 mg PO .SEE ORDER PRN PRN Reason: LOOSE STOOLS Last Admin: 06/27/19 09:37 Dose: 2 mg Lorazepam (Ativan Inj*) 1 mg IV PUSH Q6H PRN PRN Reason: ANXIETY Last Admin: 07/02/19 02:20 Dose: 1 mg Metoprolol Tartrate (Lopressor Tab*) 100 mg PO BID [facility] Last Admin: 07/05/19 09:39 Dose: 100 mg Metoprolol Tartrate (Lopressor Iv*) 5 mg IV Q4H PRN PRN Reason: HEART RATE/PULSE > 110 Last Admin: 07/03/19 06:54 Dose: 5 mg Miscellaneous (Ativan Pyxis Russo) 1 ea N/A .ATIVAN IV RUSSO PRN PRN Reason: PYXIS RUSSO Mometasone Furoate/Formoterol Fumar (Dulera 200/5 Mdi*) 2 puff INH BID [facility] Last Admin: 07/05/19 07:10 Dose: 2 puff Morphine Sulfate (Morphine Inj (Syringe))*) 2 mg IV Q8H PRN PRN Reason: PAIN - SEVERE Last Admin: 07/04/19 23:23 Dose: 2 mg Multivitamins/Minerals (Theragran/Minerals Tab*) 1 tab PO DAILY [facility] Last Admin: 07/05/19 09:38 Dose: 1 tab Nystatin (Nystatin Top Powder*) 1 applic TOPICAL BID [facility] Last Admin: 07/05/19 10:06 Dose: Not Given Oxycodone HCl (Roxycodone Tab*) 5 mg PO Q4H PRN PRN Reason: PAIN - SEVERE Last Admin: 07/05/19 09:39 Dose: 5 mg Polyethylene Glycol/Electrolytes (Miralax (17 Gm Dose Sly)) 17 gm PO DAILY PRN PRN Reason: CONSTIPATION Senna (Senokot 8.6 Mg Tab*) 1 tab PO BID PRN PRN Reason: CONSTIPATION Last Admin: 06/23/19 21:57 Dose: 1 tab Tiotropium [place] (Spiriva Respimat 2.5 Mcg) 2 puff INH DAILY [facility] Last Admin: 07/05/19 07:10 Dose: 2 puff Torsemide (Demadex*) 40 mg PO DAILY [facility] Last Admin: 07/05/19 09:37 Dose: 40 mg Vital Signs - 8 hr 07/05/19 07/05/19 07/05/19 03:14 05:10 07:15 Temperature 36.3 C 36.3 C Pulse Rate 92 99 Respiratory 20 20 18 Rate Blood Pressure 123/43 150/53 (mmHg) O2 Sat by Pulse 98 98 Oximetry 07/05/19 07/05/19 07/05/19 08:00 08:17 09:39 Temperature Pulse Rate Respiratory 22 22 20 Rate Blood Pressure (mmHg) O2 Sat by Pulse Oximetry Oxygen Devices in Use Now: Nasal Cannula Appearance: no distress, shallow breathing Eyes: PERRLA Ears/Nose/Mouth/Throat: NL Teeth, Lips, Gums, Clear Oropharnyx Neck: NL Appearance and Movements; NL JVP Respiratory: Symmetrical Chest Expansion and Respiratory Effort, - - decr BS L> R base Cardiovascular: NL Sounds; No Murmurs; No JVD, RRR - tachycardic, No Edema Abdominal: NL Sounds; No Tenderness; No Distention Skin: No Rash or Ulcers Neurological: Alert and Oriented x 3 Result Diagrams: 07/05/19 06:39 07/05/19 06:39 Microbiology and Other Data: . Assess/Plan/Problems-Billing Assessment: Mr. Ferrell is a 64 yo M with PMH of type 2 DM, Afib, CAD s/p CABG, HTN, HLD, COPD , pleural effusions, WILLIE on BIPAP, who presented to the hospital with complaints of progressively worsening SOB x 1 month found to have repeat bilateral pleural effusions. - Patient Problems (1) Pleural effusion Current Visit: Yes Status: Acute Code(s): J90 - PLEURAL EFFUSION, NOT ELSEWHERE CLASSIFIED SNOMED Code(s): 42271846 Comment: Bilateral, looks like simple fluid on the left, complex on the right , discussed with Dr Taylor who will evelaute for chest tube, will add antibiotics , may be secondary pyogenic process (2) Dyspnea Current Visit: Yes Status: Acute Onset Date: ~06/24/19 Code(s): R06.00 - DYSPNEA, UNSPECIFIED SNOMED Code(s): 738074122 Comment: Diff dx is pleural effusion , HFpEF, PE study was negative, COPD though no wheeze on exam. CXR this morning, if unrevealing will check CT to f/ u pleural process. (3) Tachycardia Current Visit: Yes Status: Acute Code(s): R00.0 - TACHYCARDIA, UNSPECIFIED SNOMED Code(s): 7710848 Comment: atrial fibrillation/flutter; amio reloaded, metoprolol, diltiazem (4) Diastolic CHF, acute on chronic Current Visit: Yes Status: Acute Code(s): I50.33 - ACUTE ON CHRONIC DIASTOLIC (CONGESTIVE) HEART FAILURE SNOMED Code(s): 740817225 Comment: - Hx of recurrent pleural effusions suspected secondary to decompensated diastolic CHF - Continue torsemide - Daily weights and I/Os -Appreciate cardiology consult ?rhythm and rate control (5) Diabetes Current Visit: Yes Status: Acute Code(s): E11.9 - TYPE 2 DIABETES MELLITUS WITHOUT COMPLICATIONS SNOMED Code(s): 31729581 Comment: -controlled - cont Lantus to 30 units BID, continue Lispro SS. (6) Hypertension Current Visit: Yes Status: Acute Code(s): I10 - ESSENTIAL (PRIMARY) HYPERTENSION SNOMED Code(s): 85714076 Comment: Holding losartan for mild hypotension - Continue metoprolol, torsemide, and cardizem (7) WILLIE (obstructive sleep apnea) Current Visit: Yes Status: Acute Code(s): G47.33 - OBSTRUCTIVE SLEEP APNEA ( ADULT) (PEDIATRIC) SNOMED Code(s): 63158149 Comment: Hospital or home CPAP (8) Atrial fibrillation Current Visit: Yes Status: Chronic Code(s): I48.91 - UNSPECIFIED ATRIAL FIBRILLATION SNOMED Code(s): 08896805 Comment: - Tachycardic - Cardiology consultation - Continue metoprolol, cardizem, (as BP allows) and amiodarone. - Trans thoracic echo- EF 50-65%. no significant changes in comparison with 2018 - Continue Apixaban (9) CKD (chronic kidney disease) Current Visit: No Status: Chronic Code(s): N18.9 - CHRONIC KIDNEY DISEASE, UNSPECIFIED SNOMED Code(s): 747411414 Comment: Stable. BMP 07/27. (10) Coronary artery disease Current Visit: No Status: Chronic Code(s): I25.10 - ATHSCL HEART DISEASE OF [place] CORONARY ARTERY W/O ANG PCTRS SNOMED Code(s): 17408462 Comment: - Stable - Continue aspirin, carvedilol, losartan, HCTZ, fenofibrate, and atorvastatin (11) DVT prophylaxis Current Visit: Yes Status: Acute Code(s): NGE8140 - SNOMED Code(s): 962051470 Comment: - Apixaban Status and Disposition: Inpatient.
--- NOTE | 2019-07-05 12:01 | PN ---
Subjective Date of Service: 07/05/19 - CC: SOB, tachycardia Interval History: The patient is more SOB today than yesterday. Medications Active Medications: Acetaminophen (Tylenol Tab*) 650 mg PO Q4H PRN PRN Reason: MILD PAIN or TEMP > 100.4 Last Admin: 07/05/19 02:26 Dose: 650 mg Al Hydrox/Mg Hydrox/Simethicone (Maalox Plus*) 30 ml PO Q6H PRN PRN Reason: INDIGESTION Albuterol (Ventolin Hfa Inhaler*) 2 puff INH Q2H PRN PRN Reason: SOB/WHEEZING Amiodarone HCl (Cordarone Tab*) 200 mg PO DAILY [facility] Last Admin: 07/05/19 09:39 Dose: 200 mg Apixaban (Eliquis*) 5 mg PO BID [facility] Last Admin: 07/05/19 09:38 Dose: 5 mg Aspirin (Aspirin Ec Tab*) 81 mg PO DAILY [facility] Last Admin: 07/05/19 09:38 Dose: 81 mg Atorvastatin Calcium (Lipitor*) 40 mg PO DAILY [facility] Last Admin: 07/05/19 09:38 Dose: 40 mg Bisacodyl (Dulcolax Supp*) 10 mg [place] DAILY PRN PRN Reason: CONSTIPATION Cyclosporine (Restasis 0.05% [facility]) 1 drop BOTH EYES BID [facility]; Protocol Last Admin: 07/05/19 09:37 Dose: 1 drop Dextrose (D50w Syringe 50 Ml*) 12.5 gm IV PUSH .FOR FS < 60 - SS PRN PRN Reason: FS < 60 Diltiazem HCl (Cardizem Cd Cap*) 180 mg PO DAILY [facility] Last Admin: 07/05/19 09:37 Dose: 180 mg Docusate Sodium (Colace Cap*) 100 mg PO BID PRN PRN Reason: CONSTIPATION Fenofibrate (Tricor 160 Mg) 160 mg PO DAILY [facility]; Protocol Last Admin: 07/05/19 09:37 Dose: 160 mg Insulin Glargine (Lantus(*)) 30 units SUBCUT 0600,1800 [facility] Last Admin: 07/05/19 05:58 Dose: 30 units Insulin Human Lispro (Humalog*) 0 units SUBCUT [facility]; Protocol Last Admin: 07/05/19 09:40 Dose: Not Given Insulin Human Lispro (Humalog*) 15 units SUBCUT [facility] Last Admin: 07/05/19 09:39 Dose: 15 units Loperamide HCl (Imodium Cap*) 2 mg PO .SEE ORDER PRN PRN Reason: LOOSE STOOLS Last Admin: 06/27/19 09:37 Dose: 2 mg Lorazepam (Ativan Inj*) 1 mg IV PUSH Q6H PRN PRN Reason: ANXIETY Last Admin: 07/02/19 02:20 Dose: 1 mg Metoprolol Tartrate (Lopressor Tab*) 100 mg PO BID [facility] Last Admin: 07/05/19 09:39 Dose: 100 mg Metoprolol Tartrate (Lopressor Iv*) 5 mg IV Q4H PRN PRN Reason: HEART RATE/PULSE > 110 Last Admin: 07/03/19 06:54 Dose: 5 mg Miscellaneous (Ativan Pyxis Levin) 1 ea N/A .ATIVAN IV LEVIN PRN PRN Reason: PYXIS LEVIN Mometasone Furoate/Formoterol Fumar (Dulera 200/5 Mdi*) 2 puff INH BID [facility] Last Admin: 07/05/19 07:10 Dose: 2 puff Morphine Sulfate (Morphine Inj (Syringe))*) 2 mg IV Q8H PRN PRN Reason: PAIN - SEVERE Last Admin: 07/04/19 23:23 Dose: 2 mg Multivitamins/Minerals (Theragran/Minerals Tab*) 1 tab PO DAILY [facility] Last Admin: 07/05/19 09:38 Dose: 1 tab Nystatin (Nystatin Top Powder*) 1 applic TOPICAL BID [facility] Last Admin: 07/05/19 10:06 Dose: Not Given Oxycodone HCl (Roxycodone Tab*) 5 mg PO Q4H PRN PRN Reason: PAIN - SEVERE Last Admin: 07/05/19 09:39 Dose: 5 mg Polyethylene Glycol/Electrolytes (Miralax (17 Gm Dose Sly)) 17 gm PO DAILY PRN PRN Reason: CONSTIPATION Senna (Senokot 8.6 Mg Tab*) 1 tab PO BID PRN PRN Reason: CONSTIPATION Last Admin: 06/23/19 21:57 Dose: 1 tab Tiotropium Cutler (Spiriva Respimat 2.5 Mcg) 2 puff INH DAILY [facility] Last Admin: 07/05/19 07:10 Dose: 2 puff Torsemide (Demadex*) 40 mg PO DAILY [facility] Last Admin: 07/05/19 09:37 Dose: 40 mg Objective Vital Signs: Temp Pulse Resp BP Pulse Ox 97.4 F 99 20 150/53 98 07/05/19 07:15 07/05/19 07:15 07/05/19 09:39 07/05/19 07:15 07/05/19 07:15 Vital Signs - 12 hr Temp Pulse Resp BP Pulse Ox 07/05/19 09:39 20 07/05/19 08:17 22 07/05/19 08:00 22 07/05/19 07:15 97.4 F 99 18 150/53 98 07/05/19 05:10 20 07/05/19 03:14 97.4 F 92 20 123/43 98 07/05/19 00:49 18 Intake and Output Last 24 Hours 07/03/19 07/04/19 07/05/19 07/06/19 04:59 04:59 04:59 04:59 Intake Total 720 2540 2090 250 Output Total 3685 2150 1200 Balance -2965 390 890 250 Weight 280 lb 1.6 oz 280 lb 14.4 oz Intake: Medicated IV 120 GEN - Diltiazem/Cardizem 120 Oral 600 2540 2090 250 Output: Chest Tube #1 160 Urine 450 2150 1200 [place] 3075 Liquid Stool 0 Other: Estimated Void Small # Bowel Movements 1 Estimated Stool Amount Large # Voids 2 2 Oxygen Devices in Use Now: Nasal Cannula Appearance: Obese older gentleman, tachypnic, in recliner chair. Eyes: No Scleral Icterus Ears/Nose/Mouth/Throat: Clear Oropharnyx, Mucous Membranes Moist Neck: - - Thick neck, increase JVP noted. Respiratory: Symmetrical Chest Expansion and Respiratory Effort - diminished BS througout, bases worse. Cardiovascular: - - Irregularly irregular, tachycardic. Abdominal: No Hepatosplenomegaly - obese, soft, normal bowel sounds. Extremities: No Edema - legs equal in size. Skin: No Rash or Ulcers Neurological: Alert and Oriented x 3 Lines/Tubes/Other Access: Clean, Dry and Intact Peripheral IV Laboratory Results: 07/05/19 06:39 07/05/19 06:39 Total Bilirubin 0.40 mg/dL (0.2-1.0) 07/05/19 06:39 AST 11 U/L (13-39) L 07/05/19 06:39 ALT 17 U/L (7-52) 07/05/19 06:39 Alkaline Phosphatase 35 U/L (34-104) 07/05/19 06:39 B-Natriuretic Peptide 100 pg/mL (<=100) 07/04/19 06:42 Total Protein 5.9 g/dL (6.4-8.9) L 07/05/19 06:39 Albumin 3.0 g/dL (3.2-5.2) L 07/05/19 06:39 Globulin 2.9 g/dL (2-4) 07/05/19 06:39 Albumin/Globulin Ratio 1.0 (1-3) 07/05/19 06:39 Triglycerides 167 mg/dL 07/04/19 06:42 Cholesterol 103 mg/dL 07/04/19 06:42 LDL Cholesterol 43 mg/dL 07/04/19 06:42 HDL Cholesterol 26.8 mg/dL 07/04/19 06:42 TSH 0.00 mcIU/mL (0.34-5.60) L 07/05/19 06:39 FT4 2.06 (elev). CRP 34 ESR >120 COVID neg. serology. 06/23/19 06/23/19 06/30/19 14:03 17:05 04:04 Troponin I 0.01 0.01 0.03 H* 07/04/19 06:42 Troponin I 0.01 Diagnostic Imaging: CHEST CT Patient Name: TULIO FERRELL Medical Record#: [id number] Ordering Physician: Graham Evangelista MD Acct.#: [id number] : 1955 Age: 64 Sex: M Location: [address] [place] [address]/ Exam Date: 07/05/19 1121 ADM Status: ADM IN REPORT: LUNG: Moderate bilateral pleural effusions with interval increase on the RIGHT compared with the June 23, 2019 CT. The RIGHT effusion is complex with multiple loculated areas with air-fluid levels new compared with the prior exam. Associated pleural thickening. Proportional atelectasis. In addition there is consolidation involving RIGHT upper lobe and RIGHT lower lobe with air bronchograms and patchy bilateral groundglass pulmonary opacities. Diffuse prominence of the interstitial markings with thickened peripheral interlobular septa. MEDIASTINUM / AXILLA: Negative for thoracic lymphadenopathy by short axis criteria within limits of noncontrast CT. Cardiomegaly. Negative for pericardial effusion. Postsurgical change of coronary artery bypass. Vascular clip at the AP window likely reflecting a previous ductus repair. Normal diameter thoracic aorta. UPPER ABDOMEN: Unremarkable limited visualized upper abdomen viscera. SOFT TISSUES: Unremarkable superficial soft tissues. BONES: Negative for suspicious osseous lesions. IMPRESSION: #. The constellation of findings is most consistent with bilateral pneumonia with more confluent consolidation on the RIGHT and associated moderately large RIGHT empyema. #. Probable component of interstitial pulmonary edema. <Electronically signed by Antoine Rooney MD in OV> 07/05/19 1226 Dictated By: Antoine Rooney MD Patient Name: TULIO FERRELL Medical Record#: [id number] Ordering Physician: Graham Evangelista MD Acct.#: [id number] : 1955 Age: 64 Sex: M Location: [address] [place] [address] MEDICAL/TELEMETRY Exam Date: 07/05/19 1003 ADM Status: ADM IN Order Information: CHEST AP/PORT Accession Number: [id number] CPT: 70836 INDICATION: Dyspnea. Coronary artery disease. COPD. Oxygen dependent. COMPARISON: July 03, 2019 TECHNIQUE: Upright AP 1030 hours REPORT: Median sternotomy wires/hardware and mediastinal vascular clips. Cardiomegaly and prominent ill-defined central pulmonary vasculature with perihilar opacities, prominent interstitial markings, and moderate RIGHT and mild LEFT dependent pleural effusions with proportional atelectasis. IMPRESSION: #. The constellation of findings is most consistent with pulmonary edema without significant interval change. <Electronically signed by Antoine Rooney MD in OV> 07/05/19 1136 Dictated By: Antoine Rooney MD *[facility]* [place] [address] Fax #: [phone] Transthoracic Echocardiogram Patient: Tulio Ferrell : 1955 Study Date: 06/24/2019 Summary: - Procedure narrative: Image quality was suboptimal. Parasternals best. - Left ventricle: There is moderate focal basal hypertrophy. Systolic function is vigorous. The estimated ejection fraction is 60-65%. Features are consistent with a pseudonormal left ventricular filling pattern, with concomitant abnormal relaxation and increased filling pressure (grade 2 diastolic dysfunction). - Right ventricle: Systolic function is normal. - Left atrium: The atrium is mildly to moderately dilated. - Mitral valve: The Mitral valve annulus appears calcified. The leaflets are mildly calcified. - Aortic valve: The annulus is mildly calcified. The leaflets are EKG Data: Monitor: Back in fib/flutter RVR Assessment/Plan 64 yo old male with CAD, PAF/parox. atrial flutter, COPD, WILLIE admitted with SOB , sinus tachycardia, pleural effusion, CHF on CXR. This admission: s/p thoracentesis showing transudate. Electrical CV for atypical flutter yesterday, did not hold overnight. Aggressive diuresis. NEGATIVE for COVID. Studies yesterday reveal an inflammatory process with elevated ESR/CRP and evidence of hyperthyroidism. CXR today reports CHF, effusions. CT scan today: possible pneumonia, possible empyema. Reviewed personally: bilateral large pleural effusions, right (post chest tube) with air/mixed CT appearance. Left: confluent appearance of effusion. PAST MEDICAL HISTORY: The patient has past medical history of: 1. Coronary artery disease (bypass surgery in July 2015 with surgical Maze and clipping of the left atrial appendage). 2. Paroxysmal atrial fibrillation, on amiodarone until December 2018, status post AFib ablation Dr. Dean, August 2017. 3. Recurrent episodes of diastolic heart failure and fluid overload. 4. COPD with no history of smoking, oxygen dependent 2 L nasal cannula. 5. Obstructive sleep apnea. 6. Hypertension. 7 Type 2 diabetes. 8. Dyslipidemia. 9. Scoliosis. 10. Recurrent pleural effusions. 11. History of epiglottitis. 12. Morbid obesity. 13. vitamin D deficiency in the past. 14. A 2 cm right middle lobe lung mass. 15. CKD 16. Longstanding progressive anemia. CHF: HFpEF, hyperdynamic ventricle. Factors that could worsen chronic HFpEF include anemia, hyperthyroidism, inflammation/infection, overdiuresis/low preload. 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 In type I, there is increased synthesis of thyroid hormone , whereas in type II, there is excess release of T4 and T3 due to a destructive thyroiditis. These types differ in their pathogenesis, management, and outcome [ 27]. Type I In type I AIT, there is hyperthyroidism with increased synthesis of T4 and T3. This type is typically seen in patients with preexisting multinodular goiter or latent Graves' disease; the excess iodine from amiodarone provides increased substrate, resulting in enhanced thyroid hormone production [19]. While most of these patients have underlying multinodular goiter, occasional patients have latent Graves' disease that becomes overt upon exposure to large amounts of iodine [28]. (See "Iodine-induced thyroid dysfunction".) Type II In type II AIT, the hyperthyroidism is a destructive thyroiditis that results in excess release of T4 and T3, without increased hormone synthesis. It typically occurs in patients without underlying thyroid disease and is caused by a direct toxic effect of amiodarone on thyroid follicular epithelial cells [ 29-31]. The hyperthyroid phase may last from several weeks to several months, and it is often followed by a hypothyroid phase with eventual recovery in most, but not all, patients. For unclear reasons, the toxic effects of the drug may take two to three years to become manifest. (See "Overview of thyroiditis".) In addition to endocrine consult -consider initiation of steroids now -Prednisone 40-60 mg/day. -Can hold amiodarone today, not planning on leaving on terminal carman. Anemia: aware work up in progress. ESR/CRP: Work up in progress via hospitalist for infection vs inflammation/ autoimmune. No valvular heart hx, not recommending DEBRA at this time. Pleural effusions: Have to be contributing to SOB significantly. Risk of infection post CT. Could be causing inflammation or from inflammation. Lung nodule s/p bx 01/22/19: histology result hopefully can be located tomorrow. Fluid status: Cr at or close to baseline but evidence of contraction alkylosis. Could hold diuretics one day as labs suggest overdiuresis and no evidence of right sided heart failure, doubt lower dose of loop diuretic will be effective with CKD. Diastolic filling: High dose metoprolol on. Diltiazem on. Consider changing diltiazem to verapamil 120 mg/day for better rate control of afib/flutter, more filling time. AF/AFlutter: On anticoagulation. Move to rate control instead of rhythm control approach. Re evaluate EP referral as outpatient. CAD: Negative trops, no angina hx in setting of significant illness. Continue with risk factor modification. Pulmonary: See my consult note -consider V/Q for CTEPH, won't see in CTA and patient's body habitus puts him at risk, defer to hospitalists/pulmonary to decide.
[2019-07-05 13:07] LABS: HIV 4th Generation Nonreactive (Nonreactive)
[2019-07-05] MEDS: Morphine INJ* 2 MG/ML 1 ML SYRINGE (TWO MG - NEW SYRINGE VERSION) IV PRN (15:44)
[2019-07-05] MEDS ORDERED: NS 0.9% 50 ML* 50 ML with Cefepime(*) 2 GM IVPB SCH ×2 (17:00)
[2019-07-05] MEDS ORDERED: Vancomycin per Pharmacy* NOTE FOLLOW UP SCH (17:00)
[2019-07-05] MEDS ORDERED: Vancomycin(*) 1,500 MG in NS 0.9% 250 ML* 250 ML IVPB ONE (17:00)
--- NOTE | 2019-07-05 20:24 | PN ---
CC: Primary Care Doctor; Dr. Shereen Das; [facility] PROGRESS NOTE: DATE OF VISIT: 07/05/19 LOCATION: Room 447. HISTORY: I was contacted by Dr. Zulay Guzmán, general surgeon, running ICU this week for evaluation of Ming Ferrell, a 64-year-old gentleman, who has been hospitalized with bilateral pneumonia who has undergon e chest tube drainage of the right chest on 2 occasions. Cultures on both occasions have been negati ve. Apparently, the patient had been uncapping the tube intermittently and now all chest tubes are r emoved. However, on the patient's recent chest CT earlier today, which was reviewed, he has air-fluid levels in the right chest with possible loculations with a question of empyema. Critical care was c ontacted who attempted placement of chest tube but was not successful. Please see additional note fo r this information. I came to assist and after obtaining informed consent from Mr. Ferrell, we attempte d to lie him in a reverse Trendelenburg fashion, but he could not tolerate being flat on his bed and we made the decision to postpone the procedure to utilize the anesthesia. The patient has eaten as r ecently as an hour ago. We have to wait until tomorrow. The patient's past medical history reviewed. He is on Eliquis. On physical exam, he is afebrile x24 hours, heart rate is in the 90s to 100s, blood pressure with a MAP of 68, respirations are very vari able between 14 and 30, he is on room air satting at 98. He does not appear to be in distress. Decr eased breath sounds bilaterally, poor inspiratory effort, morbidly obese, previous incision sites are healing well with new dressing from today's attempt that is intact without drainage. IMPRESSION: Bilateral lower lobe pneumonia of unclear etiology in the face of COPD and diastolic hea rt failure, on anticoagulation with mixed air-fluid level finding on chest CT on the right, which cou ld be consistent with empyema, but more likely blood mixed with air from previous instrumentation. RECOMMENDATIONS: My recommendation is to hold Eliquis, chest tube placement in the operating room wi th large bore chest tube to remove fluid. We will culture it at that time, but I feel that it will l ikely be negative cultures as the previous had been. We will continue to follow along the patient. We will maintain n.p.o. status overnight and we will look towards taking him to the operating room to connor. [id number]/[facility] #: [id number]
--- NOTE | 2019-07-05 22:49 | PN ---
Progress Note - Progress Note Date of Service: 07/05/19 Note: I was called to place a chest tube for a possible right empyema. He has had 2 previous pigtail catheters during this hospitalization. The 2nd tube was removed 07/01. He developed increasing dyspnea over the past couple of days, and CT thorax today showed large right pleural fluid collection, possible empyema. I obtained written consent from the patient. The patient was sitting upright. I used lidocaine 2% to anesthetize the skin at the intended tube site at the posterior axillary line at approximately the 4th intercostal space. An incision was made, and the subcutaneous tissue was bluntly dissected. A Tram clamp was used to enter the chest over the rib. I tried to sweep around the opening with my finger, however I was unable to pass my finger into the chest. I attempted to place a 28 fr chest tube through the opening, but there was no output from the tube once I advanced the tube. I attempted multiple times to advance the tube into the chest without success. I aborted the procedure. I placed a gauze dressing over the incision. I called Dr Morris, middleware consultant surgeon, to discuss the patient. The patient agreed to undergo another attempt at the bedside. However, the patient was unwilling to lie down in the bed for the procedure. He will be scheduled for procedure in the OR tomorrow 07/05.
[2019-07-06] MEDS: oxyCODONE TAB* 5 MG TAB PO PRN ×2 (02:11→08:55)
[2019-07-06] MEDS: Morphine INJ* 2 MG/ML 1 ML SYRINGE (TWO MG - NEW SYRINGE VERSION) IV PRN (04:23)
[2019-07-06] MEDS: Cefepime(*) 2 GM in NS 0.9% 50 ML* 50 ML IVPB SCH ×2 (04:28→17:55)
[2019-07-06] MEDS: Vancomycin(*) 1,250 MG in NS 0.9% 250 ML* 250 ML IVPB SCH ×2 (05:46→12:07)
[2019-07-06] MEDS: Insulin GLARGINE(*) 1 UNITS UNIT SUBCUT SCH ×2 (05:58→17:54)
[2019-07-06 06:28] LABS: Hematocrit 22 % (42-52); Hemoglobin 7.3 g/dL (14.0-18.0); Mean Corpuscular HGB Conc 33 g/dL (31-36); Mean Corpuscular Hemoglobin 28 pg (27-31); Mean Corpuscular Volume 85 fL (80-94); Platelet Count 355 10^3/uL (150-450); Red Blood Count 2.62 10^6 /uL (4.18-5.48); Red Cell Distribution Width 15 % (10-15); White Blood Count 5.8 10^3/uL (3.5-10.8)
[2019-07-06 06:48] LABS: Albumin 3.1 g/dL (3.2-5.2); Albumin/Globulin Ratio 0.9 (1-3); BUN/Creatinine Ratio 27.3 (8-20); Calcium 8.8 mg/dL (8.6-10.3); Globulin 3.3 g/dL (2-4); Potassium 4.3 mmol/L (3.5-5.0); Total Bilirubin 0.3 mg/dL (0.2-1.0); Total Protein 6.4 g/dL (6.4-8.9)
[2019-07-06] MEDS: Metoprolol Tartrate IV* 1 MG/ML 5 ML VIAL IV PRN (06:53)
[2019-07-06] MEDS: Mometasone/Formoter 200/5 MDI INH SCH ×2 (08:07→19:18)
[2019-07-06] MEDS: SPIRIVA Respimat* (tiotropium) 2.5 mcg/inh Inhaler INH SCH (08:08)
[2019-07-06] MEDS: Insulin LISPRO* 1 UNITS UNIT SUBCUT SCH ×6 (08:41→17:54)
[2019-07-06] MEDS: Aspirin EC TAB* 81 MG TAB.EC PO SCH (08:55)
[2019-07-06] MEDS: Torsemide TAB* 20 MG PO SCH (08:55)
[2019-07-06] MEDS: Diltiazem CD CAP* 180 MG PO SCH (08:56)
[2019-07-06] MEDS: Metoprolol Tartrate TAB* 100 MG TAB PO SCH (08:56)
[2019-07-06] MEDS: Amiodarone TAB* 200 MG PO SCH (08:56)
[2019-07-06] MEDS: Multivitamins/Minerals TAB PO SCH (09:02)
[2019-07-06] MEDS: Atorvastatin* 40 MG TAB PO SCH (09:02)
[2019-07-06] MEDS: CMCS: Cyclosporine 0.05% OPHTH (NF) 0.4 ML VIAL BOTH EYES SCH (10:31)
[2019-07-06] MEDS: Nystatin TOP POWDER* 15 GM BTL TOPICAL SCH (12:06)
[2019-07-06] MEDS ORDERED: Morphine INJ* 2 MG/ML 1 ML SYRINGE (TWO MG - NEW SYRINGE VERSION) IV ONE (14:20)
--- NOTE | 2019-07-06 16:49 | TRS ---
CC: LISA Dunaway; Dr. Enio Nam DATE OF ADMISSION: 06/23/2019. DATE OF TRANSFER: 07/06/2019. PRIMARY CARE PHYSICIAN: LISA Dunaway. PRIMARY DIAGNOSIS: Empyema, right thorax. SECONDARY DIAGNOSES: 1. Atrial fibrillation, chronic. 2. Type 2 diabetes mellitus. 3. Hypertension. 4. Hyperlipidemia. 5. COPD on supplemental oxygen, 2 liters at home. 6. Obstructive sleep apnea, noncompliant with CPAP. 7. Coronary artery disease, status post coronary artery bypass grafting times two, 2015. 8. Congestive heart failure, HFpEF 9. Status post maze procedure. 10. Status post PCI. REASON FOR ADMISSION/HOSPITAL COURSE: This 64-year-old man with atrial fibrillation with increasing heart rate and shortness of breath at home for two weeks, found to have moderate bilateral pleural effusions on a chest CT, no pulmonary embolism. A COVID PCR was negative on June 22. He had a thoracentesis June 25 and then placement of a 10 Micronesian pigtail drainage catheter into the right pleural space June 25. Cytology from that procedure showed no malignant cells. A culture from it was no growth. The pleural catheter was replaced after it was clogged on June 27. It was replaced on the after ultrasound suggested continued loculations. He was given lytic therapy through the tube on June 29. The tube was removed July 01 as it had become discontinued repeatedly from the Pleur-evac and was kinking. He had developed dyspnea over the and . A chest x-ray showed persistent pleural effusion. A chest CT on the showed consolidation of the right lung base and a large right empyema with an air fluid level and a left simple pleural effusion. He was started on Vancomycin and Cefepime on the . He was followed by Surgery, who on the recommended transfer and Dr. Ventura at [facility] has graciously accepted him in transfer. Other events this admission include cardioversion on July 03 for atrial fibrillation (chronic) with rapid ventricular response. After cardioversion, he was felt to have a combination of fibrillation and flutter. He was in sinus rhythm temporarily, but is back in atrial fibrillation with a rate in the low 100s. His Amiodarone dose was increased and he has been followed by Dr. Das of Cardiology here. She obtained thyroid studies that showed a TSH of 0 and a free T4 of 2. PHYSICAL EXAMINATION ON DISCHARGE: General: He is awake and comfortable, not in distress. Vital Signs: Temperature 36.5, heart rate 98, respiratory rate 20 , blood pressure 112/78, oxygen saturation 99 percent on 4 liters via nasal cannula. Neurologic: He is oriented times three. Follows all commands. HEENT : There is no conjunctival hemorrhage. Oropharynx without lesions. Neck: Supple without mass. Heart: Irregularly irregular and tachycardic without murmurs. Lungs: Decreased breath sounds at the bases. Abdomen: Soft, nontender, nondistended. There are bowel sounds present. Skin: There is no rash or splinter hemorrhage. DISCHARGE MEDICATIONS: 1. Tylenol 650 mg by mouth every 4 hours as needed for fever or pain. 2. Albuterol two puffs every two hours as needed. 3. Amiodarone 200 mg by mouth daily. 4. Aspirin 81 mg by mouth daily. 5. Lipitor 40 mg by mouth daily. 6. Cefepime 2 gm every 12 hours. 7. Cyclosporine 0.05% one drop both eyes twice daily. 8. Diltiazem 180 mg by mouth daily. 9. Fenofibrate 160 mg by mouth daily. 10. Insulin Glargine 30 units subcutaneously twice daily. 11. Insulin Lispro 15 units before meals. 12. Metoprolol 100 mg by mouth twice daily. 13. Dulera 200/5 MDI two puffs twice daily. 14. Multivitamin one tablet daily. 15. Torsemide 40 mg by mouth daily. 16. Vancomycin 1250 mg IV every 8 hours (started on July 05 and no trough obtained yet). HOME MEDICATIONS BEING HELD: 1. Eliquis 5 mg by mouth twice daily 2. Spironolactone 25 mg by mouth twice daily 3. Incruse Ellipta 1 puff inhaled daily 4. Metformin 500 mg by mouth twice daily 5. Losartan/Hydrochlorothiazide 100 mg/25mg by mouth daily 6. Regular insulin 10 Units subcu a.c. , h.s. ISSUES FOR FOLLOW-UP: Accepted in transfer to [facility] for surgical treatment of empyema. Consideration of endocrine evaluation for recently obtained TSH of 0 and T4 of 2 in the setting of Amiodarone therapy. His Eliquis has been held since the evening of 07/05/2019. He does take that chronically for atrial fibrillation thrombosis prevention. DIET: Consistent carbohydrate diet ACTIVITY: Has been up with assistance. [id number]/[facility] #: [id number] EMIL
[2019-07-06 17:59] VITALS: BP 142/45
[2019-07-06] MEDS ORDERED: Vancomycin Trough Check NOTE FOLLOW UP ONE (19:30)
[2019-07-07 22:24] LABS: Albumin 2.2 g/dL (3.4-4.7); Albumin/Globulin Ratio 0.67; Gamma Globulin 0.8 g/dL (0.6-1.6); Total Protein(PEP) 5.6 g/dL (6.3 - 7.9)
--- NOTE | 2019-07-21 16:19 | TRS ---
TRANSFER SUMMARY: ADDENDUM: CONDITION AT TRANSFER: Stable. [id number]/[facility] #: [id number]
== END 2019-07-06 20:10 | disposition short-term general hospital (02) | DRG 291 ==
LOC: ED 13:42 → MED 17:59 → OBSVTOIN 06-24 11:00 → SSU 06-26 14:10 → MED 06-26 17:00 → SSU 06-26 17:00 → ICU 06-29 13:33 → MEDTELE 07-02 15:35 → UNDODISIN 07-06 17:00
PROVIDERS: ADMIT Family Medicine; ATTEND Internal Medicine
PROC: 0W9930Z Drainage of Right Pleural Cavity with Drainage Device, Percutaneous Approach (ICD-10-PCS; principal; 2019-06-26)
PROC: 5A09457 Assistance with Respiratory Ventilation, 24-96 Consecutive Hours, Continuous Positive Airway Pressure (ICD-10-PCS; 2019-06-27)
PROC: 0W9930Z Drainage of Right Pleural Cavity with Drainage Device, Percutaneous Approach (ICD-10-PCS; 2019-06-30)
PROC: 30233N1 Transfusion of Nonautologous Red Blood Cells into Peripheral Vein, Percutaneous Approach (ICD-10-PCS; 2019-06-30)
PROC: 5A2204Z Restoration of Cardiac Rhythm, Single (ICD-10-PCS; 2019-07-04)
PROC: 0WJ93ZZ Inspection of Right Pleural Cavity, Percutaneous Approach (ICD-10-PCS; 2019-07-05)
DX: I50.33 Acute on chronic diastolic (congestive) heart failure (principal); J86.9 Pyothorax without fistula; J96.01 Acute respiratory failure with hypoxia; J18.9 Pneumonia, unspecified organism; N17.9 Acute kidney failure, unspecified; I13.0 Hypertensive heart and chronic kidney disease with heart failure and stage 1 through stage 4 chronic kidney disease, or unspecified chronic kidney disease; I48.20 Chronic atrial fibrillation, unspecified; Z68.41 Body mass index [BMI] 40.0-44.9, adult; J98.11 Atelectasis; J44.0 Chronic obstructive pulmonary disease with (acute) lower respiratory infection; I48.92 Unspecified atrial flutter; I45.2 Bifascicular block; E66.2 Morbid (severe) obesity with alveolar hypoventilation; D62 Acute posthemorrhagic anemia; Z99.81 Dependence on supplemental oxygen; E11.22 Type 2 diabetes mellitus with diabetic chronic kidney disease; E11.65 Type 2 diabetes mellitus with hyperglycemia; N18.9 Chronic kidney disease, unspecified; I25.10 Atherosclerotic heart disease of native coronary artery without angina pectoris; E78.5 Hyperlipidemia, unspecified; E87.5 Hyperkalemia; E87.79 Other fluid overload; D50.9 Iron deficiency anemia, unspecified; I95.9 Hypotension, unspecified; R13.10 Dysphagia, unspecified; R55 Syncope and collapse; Z95.1 Presence of aortocoronary bypass graft; Z79.01 Long term (current) use of anticoagulants; Z79.84 Long term (current) use of oral hypoglycemic drugs; Z79.82 Long term (current) use of aspirin; Z79.4 Long term (current) use of insulin; Z79.899 Other long term (current) drug therapy; Z82.3 Family history of stroke; Z82.49 Family history of ischemic heart disease and other diseases of the circulatory system; Z83.3 Family history of diabetes mellitus; Z80.0 Family history of malignant neoplasm of digestive organs
CPT/HCPCS: 32555; 36415; 71045; 71250; 71275; 76604; 76770; 80048; 80053; 80061; 80202; 81003; 81015; 82272; 82570; 82728; 82945; 82947; 83036; 83540; 83550; 83605; 83615; 83735; 83880; 84155; 84157; 84165; 84300; 84439; 84443; 84481; 84484; 84540; 85025; 85027; 85652; 86140; 86850; 86900; 86901; 86922; 87040; 87070; 87086; 87205; 87389; 87635; 88112; 89051; 93005; 93306; 94640; 94660; 96361; 96365; 99284; A9270-GY; J0282; J0610; J0692; J0696; J1650; J1815; J1940; J2060; J2270; J2543; J2997; J3010; J3370; J3490; J3535; P9040; Q9967